=== PATIENT | female | born 1970 | race Caucasian/White ===

== ENCOUNTER 2018-12-24 10:00 | Day surgery (SDC) | payer OTHER ==
[~2018-12-24] VITALS: Ht 154.9 cm; Wt 97.5 kg
[~2018-12-24 10:00] MED LIST: ANAPROX DS550 MG PO; CEPHALEXIN500 MG PO; CIPRO500 MG PO; CLARITIN-D 241 EACH PO; ESCITALOPRAM OX10 MG PO; GABAPENTIN300 MG PO; HYDROXYZINE PAM25 MG PO; LEXAPRO10 MG PO; LITHIUM CARBON300 MG PO; MELOXICAM15 MG PO; MONTELUKAST SOD10 MG PO; MULTIVITAMINS1 EAC8 PO; MYRBETRIQ25 MG PO; NORCO 5-325 TA1 EACH PO; OXYBUTYNIN CHLO15 MG PO; PERCOCET 5-3251 EACH PO; RESTASIS1 DROP OD; TOPIRAMATE25 MG PO; TRAMADOL HCL50 MG PO; VENTOLIN HFA18 GM INH; VITAMIN B122500 MCG PO
--- NOTE | 2018-12-24 12:43 | NUR ---
1015) IN BED RESTING, NO DRESSING NOTED TO OLD SURGERY SITE. PATIENT SAID SHE HASN'T BEEN WEARING IT ALL THE TIME, AND DIDN'T SEE THE NEED TO WEAR ONE. DRAINAGE, BROWN IN COLOR COMING OUT. 1235) OR CREW OUT OF ROOM WITH PATIENT
--- NOTE | 2018-12-24 13:43 | NUR ---
12/24/18 1343 Ken Magaña 1318) PATIENT ARRIVES VERY SLEEPY WITH A ORAL AIRWAY IN NOT RESPONDING TO PAINFUL STEM. 1325) PATIENT HAVING MOMENTS OF NOT BREATHING, BUT WAS ABLE TO WAKE HER UP WITH STERNAL RUB AND SHE IS BREATHING WELL ON HER OWN. 1330) AWAKE/ALERT O2 TURNED DOWN TO 6 LTS MASK. 1339) PATIENT AWAKE AND ORIENTED O2 TURNED DOWN TO RA.
--- NOTE | 2018-12-24 14:08 | NUR ---
48YR OLD WOMAN ADMITTED FROM DAYSURGERY TO ROOM 109 VIA STRETCHER. PT IS ALERT, ORIENT, ABLE TO SLIDE SELF ONTO BED. IV PATENT TO RAC, TAPED SECURELY, DENIES NEED TO VOID, STATES SHE IS HUNGRY, ABD DRESSING TAPED SECURELY TO ABD. NO SHADOWING. ORDERS NOTED, ORIENTED TO ROOM AND CALL LIGHT.
--- NOTE | 2018-12-24 14:36 | NUR ---
SON HAS ARRIVED AND WILL BE GETTING PT COFFEE. CONT. TO BE IN GOOD SPIRITS, NO NAUSEA, LOOKING AT MENU TO ORDER DINNER. CALL LIGHT IN EASY REACH.
--- NOTE | 2018-12-24 16:15 | NUR ---
CONT. TO DENY ANY PAIN, ABD LIUG IS CDI, WATCHING TV WITH EX-.
--- NOTE | 2018-12-24 16:46 | NUR ---
ABD DRESSING HAS SOME LIGHT SHADOWING, ICE PLACED ORDERED. PT RESTING IN HER BED AND DENIES ANY PAIN.
--- NOTE | 2018-12-24 16:52 | NUR ---
PT GIVEN AN IS AND INSTRUCTED IN IT'S USE AND IS USING IT AT THIS TIME. PT CONTINUES TO DENIE PAIN.
[2018-12-24] MEDS ORDERED: LITHIUM CARBON300 MG PO (17:16)
[2018-12-24] MEDS ORDERED: CLEOCIN HCL300 MG PO (17:18)
[2018-12-24] MEDS ORDERED: PRAZOSIN HCL2 MG PO (17:18)
[2018-12-24] MEDS ORDERED: ESCITALOPRAM OX20 MG PO (17:19)
[2018-12-24] MEDS ORDERED: CLONAZEPAM0.5 MG PO (17:19)
[2018-12-24] MEDS ORDERED: BUPROPION HCL150 M2 PO (17:19)
--- NOTE | 2018-12-24 18:39 | NUR ---
PT RESTING IN BED AND SHE CONTINUES TO DENIE PAIN. DRESSING INTACT WITH SOME DRAINAGE NOTED, ICE IS IN PLACE.
--- NOTE | 2018-12-24 19:02 | NUR ---
CHARGE NURSE REPORT RECEIVED. NO NEEDS AT THIS TIME.
--- NOTE | 2018-12-24 19:38 | NUR ---
REPORT RECEIVED, PT RESTING IN BED, IV FLUIDS INFUSING PER EMAR WNL, PT GIVEN NEW BAG OF ICE, NO FURTHER NEEDS AT THIS TIME, CALL LIGHT WITHIN REACH.
--- NOTE | 2018-12-24 20:45 | NUR ---
PT'S LITHIUM MED NOT FOUND IN [facility], FAMILY BROUGHT HOME MED AND IT WAS VERIFIED BY PHARMACY WELL 2 RN VERIFICATION, MED PLACED IN PT'S KITS LIST.
--- NOTE | 2018-12-24 21:30 | NUR ---
ASSESSMENT COMPLETE, DRESSING CHANGE COMPLETE, PT TOLERATED WELL, NO C/O PAIN, PT RATES 0/10, PT EDUCATED REGARDING DRESSING CHANGE AND DEMONSTRATION GIVEN, PT'S LS CLEAR, BT ACTIVE, PULSES FELT, IV FLUIDS INFUSING PER EMAR WNL. CALL LIGHT WITHIN REACH.
--- NOTE | 2018-12-24 23:03 | NUR ---
HELPED PT TO THE BATHROOM AND BACK TO BED. BEDSIDE TABLE AND CALL LIGHT WITHIN REACH.
--- NOTE | 2018-12-24 23:43 | NUR ---
PT C/O 4-12/15 PAIN IN ABDOMEN, DESCRIBES STINGING, PT GIVEN PRN PAIN MEDICATION PER REQUEST, NO FURTHER NEEDS AT THIS TIME, IV FLUIDS INFUSING PER EMAR WNL. CALL LIGHT WITHIN REACH.
--- NOTE | 2018-12-25 01:32 | NUR ---
PT RESTING IN BED, STATION GATEMAN OCTOBER IN ROOM FOR VITALS, NO REQUESTS AT THIS TIME, CALL LIGHT WITHIN REACH. IV FLUIDS INFUSING PER EMAR WNL.
--- NOTE | 2018-12-25 01:43 | NUR ---
VITALS DONE AND CHARTED. LET PAWAN BOYLE KNOW OF LOW B\P. GOT HER CEREAL PER PT REQUEST. BEDSIDE TABLE AND CALL LIGHT IN REACH.
--- NOTE | 2018-12-25 02:36 | NUR ---
PT UP TO BR WITH 1PA, VOIDED, TOLERATED WELL, BACK TO BED, IVF INFUSING, CURRENTLY SITTING ON EDGE OF BED
--- NOTE | 2018-12-25 03:37 | NUR ---
PT C/O 5/10 PAIN IN ABDOMEN, PRN PAIN MEDICATION GIVEN, NO FURTHER NEEDS AT THIS TIME, CALL LIGHT WITHIN REACH.
--- NOTE | 2018-12-25 04:28 | NUR ---
PT RESTING IN BED, EYES CLOSED, BREATHS EVEN, UNLABORED, NO REQUESTS AT THIS TIME, CALL LIGHT WITHIN REACH. IV FLUIDS INFUSING PER EMAR WNL.
--- NOTE | 2018-12-25 04:55 | NUR ---
PT AOX4, APPROPRIATE, PT RECEIVED PRN PAIN MEDICATION X2 RELATED TO ABDOMINAL PAIN, ABDOMINAL DRESSING CHANGED PER EMAR WHILE EDUCATING PT, PT'S VSS, USES CALL LIGHT APPROPRIATELY, TOLERATING DIET. IV FLUIDS/ABX INFUSED PER EMAR.
--- NOTE | 2018-12-25 06:02 | OR ---
[facility] [address] [place], [place] [address] Signed DATE OF OPERATION: 12/24/2018 SURGEON: Brady Brannon MD PREOPERATIVE DIAGNOSIS: Periumbilical wound infection. POSTOPERATIVE DIAGNOSIS: Periumbilical wound infection. PROCEDURE: 1. Incision and drainage of periumbilical wound. 2. Excision of umbilical skin. ESTIMATED BLOOD LOSS: None. FINDINGS: Anamika had a breakdown of her umbilical skin in the left lateral side. This led to her periumbilical wound infection. INDICATIONS: Anamika is a 48-year-old obese female, who has undergone previous gastric bypass surgery. She had her skin removed through a long midline incision as well as long transverse supraumbilical incision as well. As always, they leave the umbilicus in place, obviously to preserve the blood supply. She developed what we thought was either going to be a periumbilical or umbilical hernia. We took for the umbilical hernia repair back on 11/26/2018. I have explained to Anamika and her that she is at high risk for breakdown of her skin. On her first office visit, everything was fine. She started to develop some erythema around that area and waited about four or five days until her finally convinced her to come see me again. She always had pus coming from the wound. We therefore took our cultures in the office and plan to do her surgery the following morning. She presents today for surgery. I explained to Anamika and her that the mesh was actually inside the abdomen and gently it is protected from the superficial wound infections. However, the Prolene suture sometimes develops a suture granuloma down the road. However, it is a little early to remove the suture as certainly the wound would come open. If we did that, we would have to certainly remove the mesh and use absorbable suture to close that. We have been successful leaving the mesh in the past, since it is so small and inside the abdomen. However, this could lead to additional surgery in the future, sometimes within a week, sometimes by the end of Electronically Signed By: BRADY BRANNON MD 12/25/18 0602 PATIENT NAME: ANAMIKA PETERS OPERATIVE REPORT DATE OF : 68 REPORT #: [id number] PHYSICIAN: BRADY BRANNON MD PCP: MATT CASTRO MD REPORT IS CONFIDENTIAL AND NOT TO BE RELEASED WITHOUT AUTHORIZATION [facility] [address] [place] [id number] Signed the year or so. I have explained to Anamika, we needed to open that up and we packed that with our standard full strength Dakin's solution by being in the hospital for a day or two just to learn the wound care and so forth. 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 She and her expressed understanding and wished to proceed. PROCEDURE NOTE: Anamika was taken in the operating room and placed in the supine position under general LMA anesthesia. She was given preoperative antibiotics along with subcutaneous heparin. SCDs were utilized. She was then prepped and draped in usual sterile fashion. We opened up her previous periumbilical vertical midline incision. We could see the skin broke down on the left lateral side of the umbilicus. All of the umbilical skin was excised sharply and with the help of the cautery, right down to the midline fascia. The only Prolene suture I could see was the knot on the right lateral side. All the muscle was still intact. We cleaned the abscess cavity and suctioned it out until clear. Local anesthetic was injected in the abdominal wall and subcutaneous tissues. We packed the wound with full strength Dakin's solution and gauze. This was covered with dry 4x4 gauze and a dry ABD. After this, Anamika was awakened from her anesthesia, extubated in the OR, and taken to recovery room in stable condition. Brady Brannon MD ALB/MODL /[id number] cc: MD Matt Ortega MD Copies: BRADY BRANNON MD, MALCOLM MD ~ Electronically Signed By: BRADY BRANNON MD 12/25/18 0602 PATIENT NAME: ANAMIKA PETERS OPERATIVE REPORT DATE OF : 68 REPORT #: [id number] PHYSICIAN: BRADY BRANNON MD PCP: MATT CASTRO MD REPORT IS CONFIDENTIAL AND NOT TO BE RELEASED WITHOUT AUTHORIZATION
[2018-12-25] MEDS ORDERED: PERCOCET 5-3251 EACH PO (07:56)
[2018-12-25] MEDS ORDERED: ACETAMINOPHEN325 M1 PO (07:57)
[2018-12-25] MEDS ORDERED: ADVIL200 MG PO (07:58)
--- NOTE | 2018-12-25 08:23 | NUR ---
PATIENT IS AWAKE SITTING UP IN HER BED, WILL TAKE A SHOWER AFTER BREAKFAST . FRESH WATER GIVEN AND CALL LIGHT IN REACH.
--- NOTE | 2018-12-25 10:50 | NUR ---
PT COMPLETED WITH SHOWER, SITTING ON EDGE OF BED. PT READY FOR DRESSING CHANGE TO ABD WOUND. PT ABLE TO COMPLETE DRESSING CHANGE WITH SUPERVISION, TIPS AND INSTRUCTION PROVIDED, SON WATCHED DRESSING CHANGE. PT ON ROON AIR, LUNG SOUNDS CLEAR. PT TOLERATED BREAKFAST, DENIES NASUEA. PT DENIES PAIN. DISCHARGE INSTRUCTIONS REVIEWED WITH PT.
--- NOTE | 2018-12-26 09:17 | DS ---
[facility] [address] [place], [place] [address] Signed ADMISSION DATE: 12/24/2018 DISCHARGE DATE: 12/25/2018 FINAL DIAGNOSIS: Periumbilical wound infection. PROCEDURE: Incision and drainage of periumbilical wound infection. HISTORY OF PRESENT ILLNESS: Yuliana is a 48-year-old female who has undergone a gastric bypass surgery in the past. She had significant weight loss. She had her redundant skin removed through a long transverse suprapubic incision as well as a long midline incision as well. Of course, the umbilical skin had been left in place. She had developed an umbilical hernia. We repaired that almost a month ago. On her 1st office visit, she came back, she was fine. I had warned Yuliana and her that the blood supply at the umbilicus would be compromised and it could lead to breakdown of the skin and wound infection. Her had encouraged her to come back again for 4-5 days. She finally came to the office and clearly had pus with surrounding cellulitis. We took her wound cultures in the office and brought her into the hospital the very next day for a formal incision and drainage. In the meantime, we did send in her clindamycin p.o. and she has started that and she said that already seemed to be making a difference. HOSPITAL COURSE: Yuliana was taken to the operating room on 12/24/2018 and we opened up her previous incision. We excised her previous umbilical skin. It broke down on the left lateral side. She had a wound cavity with pus and we completely cleaned that out. We were using Dakin's solution and gauze in the wound for five full days. We are going to then switch over to normal saline. We had kept her in the hospital overnight for IV clindamycin and instruction of her wound care. She has just done great. She is very amenable to the wound care. Her cellulitis has already markedly improved. The wounds are open and clean without any drainage or odor. We did leave the Prolene suture and the intraabdominal mesh in place. She is well aware that she could develop a suture granuloma and her sinus tract in the future might need additional surgery. However, we are going to allow this to heal in secondarily. DISCHARGE PLANS AND MEDICATIONS: Yuliana will be discharged to home to resume her p.o. clindamycin. We will give her a small prescription for Percocet 5/325 1 tablet p.o. q.6 hours p.r.n. for severe postoperative pain. We will dispense 20 tablets with no refills. Otherwise, she can use Tylenol, ibuprofen or Aleve for jnsk-xk-epcqizvs postoperative pain. She can Electronically Signed By: BRADY BRANNON MD 12/26/18 0917 PATIENT NAME: YULIANA PETERS DISCHARGE SUMMARY DATE OF : 68 REPORT #: [id number] PHYSICIAN: BRADY BRANNON MD PCP: FRANCIS CASTRO MD REPORT IS CONFIDENTIAL AND NOT TO BE RELEASED WITHOUT AUTHORIZATION [address] [address] Signed purchase that [id number]. She can resume all her chronic medications and regular diet. She can perform her activities of daily living including walking up and down stairs and showering and bathing as usual. She should not do any heavy pushing, pulling, or lifting over 20 pounds. She knows to use Dakin's soaked gauze into the wound twice a day and cover that with dry gauze and tape. She will shower once a day with water and soap directly into the wound. On day #5, she will switch over to normal saline and discontinue the Dakin solution. I will have her back in the office in 5-7 days for followup. She has expressed understanding and agrees above plan. Brady Brannon MD ALB/MODL /[id number] cc: MD Brady Bnauelos MD Copies: FRANCIS CASTRO MD, ANDREW L MD ~ Electronically Signed By: BRADY BRANNON MD 12/26/18 0917 PATIENT NAME: YULIANA PETERS DISCHARGE SUMMARY DATE OF : 68 REPORT #: [id number] PHYSICIAN: BRADY BRANNON MD PCP: FRANCIS CASTRO MD REPORT IS CONFIDENTIAL AND NOT TO BE RELEASED WITHOUT AUTHORIZATION
== END 2018-12-25 10:55 | disposition home or self-care (01) ==
LOC: DS 10:00 → MS 14:00 → DS 12-25 10:55
PROVIDERS: Colon & Rectal Surgery
PROC: 0J980ZZ Drainage of Abdomen Subcutaneous Tissue and Fascia, Open Approach (ICD-10-PCS; principal; 2018-12-24 12:00)
DX: T81.40XA Infection following a procedure, unspecified, initial encounter (principal); I10 Essential (primary) hypertension; E66.01 Morbid (severe) obesity due to excess calories; E11.9 Type 2 diabetes mellitus without complications; F31.9 Bipolar disorder, unspecified; F43.10 Post-traumatic stress disorder, unspecified; J45.909 Unspecified asthma, uncomplicated; K21.9 Gastro-esophageal reflux disease without esophagitis; G89.29 Other chronic pain; Z87.891 Personal history of nicotine dependence; Z88.5 Allergy status to narcotic agent; Z68.41 Body mass index [BMI] 40.0-44.9, adult
CPT/HCPCS: 00400; J1100; J1644; J1885; J2405; J2704; J3010; J3490; J7120

== ENCOUNTER 2019-05-04 16:50 | Inpatient (IN) | payer OTHER ==
[~2019-05-04] VITALS: Ht 154.9 cm; Wt 89.5 kg
--- OUTSIDE RECORDS SUMMARY | ~2019-05-04 | XMS | Encounter Summary ---
Demographics + + + | Address | [address] | | | [place] [address] | + + + | Home Phone | | + + + | Preferred Language | Unknown | + + + | Marital Status | | + + + | Quaker Affiliation | CHR | + + + | Race | White | + + + | Ethnic Group | Not or | + + + Author + + + | Organization | Unknown | + + + | Address | Unknown | + + + | Phone | Unavailable | + + + Support + + + + + | Name | Relationship | Address | Phone | + + + + + | Edwar PACK | ECON | [address] | | | | | #[place], [place] | | | | | [address] | | + + + + + | Destiny Suggs | ECON | Unknown | | + + + + + Care Team Providers + +------+ + | Care Presiding Steward Name | Role | Phone | + +------+ + PCP | Unavailable | + +------+ + Encounter Details +--------+ + + + + | Date | Type | Department | Care Team | Description | +--------+ + + + + | 09/18/ | Office | | Note, Outpatient | Progress Note | | 2005 | Visit-Trans | | Clinic | | | | cribed | | | | +--------+ + + + + Social History + +-------+ +--------+------+ | Tobacco Use | Types | Packs/Day | Years | Date | | | | | Used | | + +-------+ +--------+------+ | Never Assessed | | | | | + +-------+ +--------+------+ + + + | Sex Assigned at | Date Recorded | | | | + + + | Not on file | | + + + + + + + | Job Start Date | Occupation | Industry | + + + + | Not on file | Not on file | Not on file | + + + + + + + + | Travel History | Travel Start | Travel End | + + + + + + | No recent travel history available. | + + documented as of this encounter Progress Notes Interface, Manager Wind In - 02/04/2005 6:28 AM PDT [id number] [facility] Date: 09/18/2004 Clinic: Ms. Pack presents now about 3 or 4 weeks out from the laparoscopic gastric bypass. She is doing great, no complaints, whatsoever, except for the fact that she is having some solid food dysphagia. She said that she vomits up fair amount of the solid foods she eats and is sticking mostly with pureed foods. Other than that, she has no other systemic complaints. Her wounds are all well healed, and her weight today is 233 pounds. I spent some time talking with her about the dysphagia and told her we will give another few weeks before considering an endoscopy. I wonder if she has an early stenosis but it is still little too early to tell, so she is going to come back in 3 weeks, and we will see how this is progressing. Other than that she appears to be doing well, she is taking oral supplements including her ranitidine, and we will follow up in 3 weeks. Cam John M.D. SHAMIKA / [id number] / [id number] / [id number] / [id number] Electronically signed by Cam Mcbride 12-12-2004 07:41:57 AM documented i n this encounter Plan of Treatment Not on filedocumented as of this encounter Visit Diagnoses Not on filedocumented in this encounter"
--- OUTSIDE RECORDS SUMMARY | ~2019-05-04 | XMS | Encounter Summary ---
Demographics + + + | Address | [address] | | | [place] [address] | + + + | Home Phone | | + + + | Preferred Language | Unknown | + + + | Marital Status | | + + + | Congregational Affiliation | CHR | + + + | Race | White | + + + | Ethnic Group | Not or | + + + Author + + + | Author | [facility] | + + + | Organization | [facility] | + + + | Address | Unknown | + + + | Phone | Unavailable | + + + Support + + + + + | Name | Relationship | Address | Phone | + + + + + | Edwar PACK | ECON | [address] | | | | | #[place] | | | | | [address] | | + + + + + | Destiny Reginekeena | ECON | Unknown | | + + + + + Care Team Providers + +------+ + | Care Electrical Appliance Mechanic Name | Role | Phone | + +------+ + | Shakir Erwin MD | PCP | | + +------+ + Reason for Visit + + + | Reason | Comments | + + + | Postoperative visit | panniculectomy. | + + + Encounter Details +--------+---------+ + + + | Date | Type | Department | Care Team | Description | +--------+---------+ + + + | 12/07/ | Office | Plastic and | Tucker Buenrostro MD | Intertrigo (Primary | | 2008 | Visit | Reconstructive | [address] | Dx) | | | | Surgery at [facility] [address] | [place], [place] | | | | | [address] | [address] | | | | | Mailcode: [facility] | [phone] | | | | | [facility] | | | | | | and Healing, | | | | | | Building [address]th | | | | | | Floor [facility] [place] | | | | | | [address] | | | | | | [phone] | | | +--------+---------+ + + + Social History + + + +--------+------+ | Tobacco Use | Types | Packs/Day | Years | Date | | | | | Used | | + + + +--------+------+ | Current Every Day | Cigarettes | 0.5 | 3 | | | Smoker | | | | | + + + +--------+------+ + + +---------+ + | Alcohol Use | Drinks/Week | oz/Week | Comments | + + +---------+ + | Yes | | | occasionally | + + +---------+ + + + + | Sex Assigned at [...] documented as of this encounter Progress Notes Tucker Buenrostro MD - 12/07/2008 1:25 PM PDTPost-operative visit Subjective:Anamikasamanta Pack presents 3 weeks status post panniculectomy . Current concerns include: JOSUE drain and upper abdominal fullness. Pt denies: fever, chills, nausea, vomiting. Pain: minimal Objective: JOSUE out with about 35 cc/day. Wounds clean, dry and intact without erythema. Good contour except in upper abdomen where there is some fullness that could be excised with a t ransverse incision at some point in the future. Assessment: Uncomplicated recovery. Plan: Pt will follow up in 4 months, sooner prn. documented in this encounter Plan of Treatment Not on filedocumented as of this encounter Visit Diagnoses + + | Diagnosis | + + | Intertrigo - Primary Other specified erythematous condition | + + documented in this encounter"
--- OUTSIDE RECORDS SUMMARY | ~2019-05-04 | XMS | Encounter Summary ---
Demographics + + + | Address | [address] | | | [place] [address] | + + + | Home Phone | | + + + | Preferred Language | Unknown | + + + | Marital Status | | + + + | Denominational Affiliation | CHR | + + + | Race | White | + + + | Ethnic Group | Not or | + + + Author + + + | Author | [facility] | + + + | Organization | [facility] | + + + | Address | Unknown | + + + | Phone | Unavailable | + + + Support + + + + + | Name | Relationship | Address | Phone | + + + + + | Edwar PACK | ECON | [address] | | | | | #[place] | | | | | [address] | | + + + + + | Destiny Suggs | ECON | Unknown | | + + + + + Care Team Providers + +------+ + | Care Surgical Garment Fitter Name | Role | Phone | + +------+ + PCP | Unavailable | + +------+ + Encounter Details +--------+ + + + + | Date | Type | Department | Care Team | Description | +--------+ + + + + | 07/31/ | Office | [facility] | Clinic, Surgery | Progress Note | | 2004 | Visit-Trans | | | | | | cribed | | [...] as of this encounter Progress Notes Interface, Banking Teacher In - 02/04/2005 12:44 AM [facility] [id number] [facility] Date: 07/31/2004 Clinic: Surgery Ms. Pack presents for preoperative visit for laparoscopic gastric bypass which is scheduled in third week of August 2004. Briefly, she is a 29-year-old woman with a BMI now in the midforties. She has done a great job with preoperative weight loss having lost about 60 pounds. She is here with her mother and is otherwise a relatively healthy person. Her only prior abdominal operations are a laparoscopic cholecystectomy and a C section. Her body habitus is relatively favorable. I spent a long time discussing with her and her mother the risks and benefits of gastric bypass including risk of mortality, leak, bleeding, infection, stenosis, hernia and wound infection. We discussed the need for a laparotomy possibly. We discussed appropriate weight loss expectations and possibly albeit very unlikely of a failure rate of a gastric bypass and the patient sometimes does not lose weight after surgery. She and her mother understood all this. She is going to continue to try to lose weight over the next month, and we are going to proceed with surgery in August 2004. Cam John M.D. Elbert / [id number] / [id number] / [id number] / [id number] documented i n this encounter Plan of Treatment Not on filedocumented as of this encounter Visit Diagnoses Not on filedocumented in this encounter"
--- OUTSIDE RECORDS SUMMARY | ~2019-05-04 | XMS | Encounter Summary ---
Demographics + + + | Address | [address] | | | [place] [address] | + + + | Home Phone | | + + + | Preferred Language | Unknown | + + + | Marital Status | | + + + | Gnosticism Affiliation | CHR | + + + | Race | White | + + + | Ethnic Group | Not or | + + + Author + + + | Author | [facility] | + + + | Organization | [facility] | + + + | Address | Unknown | + + + | Phone | Unavailable | + + + Support + + + + + | Name | Relationship | Address | Phone | + + + + + | Edwar PACK | ECON | [address] | | | | | [place] | | | | | [address] | | + + + + + | Destiny Suggs | ECON | Unknown | | + + + + + Care Team Providers + +------+ + | Care Brand Marketing Specialist Name | Role | Phone | + +------+ + PCP | Unavailable | + +------+ + Encounter Details +--------+ + + + + | Date | Type | Department | Care Team | Description | +--------+ + + + + | 09/10/ | Office | [facility] | Clinic, Surgery | Progress Note | | 2005 | Visit-Trans | | | | | [...] as of this encounter Progress Notes Interface, Service Desk Technician In - 09/14/2005 2:06 AM PST [id number] [facility] Date: 09/10/2005 Clinic: [facility] Primary Care Physician: Dr. Brian Erwin. Subjective: Ms. Pack returns for her annual followup after undergoing a gastric bypass 1 year ago. Her current weight is 165 pounds, and she states that her actual preoperative weight was 245 pounds. She has numerous improvements in her comorbidities weight-related including improvement of arthritis, resolution of her insulin-dependent diabetes, and resolution of GERD, and hypertension. She is currently under the care of Dr. Ken Lynch, an orthopedist, and patient will undergo a left hip replacement at some time in the future. She is now able to walk for longer distances and has regained independence with her 80-pound weight loss in 1 year. She is involved in exercise as well as involved with a faster walking pace. Hemoglobin A1c at her primary care physician is 4.7 by patient's report. She has small amount of proteinuria with past history of borderline diabetes. She discontinued metformin and is no longer on any antihypertensives. She undergoes some midepigastric pain 2 times during the last 6 to 12 months. The last was 2 to 3 weeks ago. She cannot recall any inciting event or food that might have caused this burning pain in the midepigastric area. First episode lasted for 2 to 3 hours with resolution on 4 Tums. The last involved 1 week's duration and patient had resolution with changing her diet to more of a liquid consistency. She continues on methadone for chronic pain at 10 mg 1 to 2 pills b.i.d. for arthritis. She feels that this has improved her GI function as she is more prone to liquid stools. She follows up with laboratory work with Dr. Erwin, mainly for glucose management. We have included instructions for followup with her bariatric needs including vitamin B12. She continues on sublingual vitamin B12, multivitamins, and calcium. Objective: General: She is a well-developed woman in no apparent distress, well dressed, and every animated. Vital Signs : Weight 165.6 pounds, blood pressure 100/60, pulse 64, and respirations 16. Lungs: Clear to auscultation bilaterally. Heart: Regular rate and rhythm without murmur, rub, or gallop. Abdomen : Soft, nondistended, and nontender with evidence of redundant skin from weight loss. This extends to her upper forearms as well as breasts and lateral flanks. She is encountering some back pain and wonders if the amount of redundant skin can be indicated in possible need and advantage for a paniculectomy in the future. Plan: 1. The patient will return to primary care for remainder of labs to be done including vitamin B12, bone scan, vitamin D, 25-hydroxy as well as parathyroid hormone, iron saturation and ferritin. The patient has no indication for anemia at this time. 2. Followup in clinic in 1 year. The patient to wait 1 more year for optimal weight loss before pursuing plastic surgery as advised by Dr. Cam John. The patient was seen with Dr. Cam John who concurs with the above plan. Cyndie Ponce / [id number] / [id number] / [id number] / [id number] cc: Brian Erwin [address] [place] [id number] Electronically signed by Laya Shay 09-13-2005 07:10:12 PM documented i n this encounter Plan of Treatment Not on filedocumented as of this encounter Visit Diagnoses Not on filedocumented in this encounter"
--- OUTSIDE RECORDS SUMMARY | ~2019-05-04 | XMS | Encounter Summary ---
Demographics + + + | Address | [address] | | | [place] [address] | + + + | Home Phone | | + + + | Preferred Language | Unknown | + + + | Marital Status | | + + + | Tenriism Affiliation | CHR | + + + | Race | White | + + + | Ethnic Group | Not or | + + + Author + + + | Author | [facility] | + + + | Organization | [facility] | + + + | Address | Unknown | + + + | Phone | Unavailable | + + + Support + + + + + | Name | Relationship | Address | Phone | + + + + + | Edwar PETERS | ECON | [address] | | | | | [place] | | | | | [address] | | + + + + + | Destiny Suggs | ECON | Unknown | | + + + + + Care Team Providers + +------+ + | Care Associate Professor Computer Science Name | Role | Phone | + +------+ + | Shakir Erwin MD | PCP | | + +------+ + Encounter Details +--------+ + + + + | Date | Type | Department | Care Team | Description | +--------+ + + + + | 09/18/ | Ancillary | Registration [id number] | [place], [place], | | | 2005 | [address] | [address] | | | | | [address] | [address] Mailcode: [id number] | | | | | | [place], [place] | | | | | | [address] | | | | | | [phone] | | | +--------+ + + + [...] + + documented as of this encounter Plan of Treatment Not on filedocumented as of this encounter Procedures + +--------+ + + + | Procedure Name | Priori | Date/Time | Associated Diagnosis | Comments | | | ty | | | | + +--------+ + + + | DIFFERENTIAL | Routin | 09/18/2004 | | Results for this | | | e | 11:29 AM | | procedure are in the | | | | PST | | results section. | + +--------+ + + + | CBC, WITH | Routin | 09/18/2004 | | Results for this | | DIFFERENTIAL | e | 11:29 AM | | procedure are in the | | | | PST | | results section. | + +--------+ + + + | COMPLETE METABOLIC | Routin | 09/18/2004 | | Results for this | | SET | e | 11:29 AM | | procedure are in the | | (NA,K,CL,CO2,BUN,CRE | | PST | | results section. | | AT,GLUC,CA,AST,ALT,B | | | | | | JAVED TOTAL,ALK | | | | | | PHOS,ALB,PROT TOTAL) | | | | | + +--------+ + + + | PTH, SERUM | Routin | 09/18/2004 | | Results for this | | | e | 11:29 AM | | procedure are in the | | | | PST | | results section. | + +--------+ + + + | FOLATE, SERUM | Routin | 09/18/2004 | | Results for this | | | e | 11:29 AM | | procedure are in the | | | | PST | | results section. | + +--------+ + + + | VITAMIN B-12 | Routin | 09/18/2004 | | Results for this | | | e | 11:29 AM | | procedure are in the | | | | PST | | results section. | + +--------+ + + + documented in this encounter Results FOLATE, SERUM (09/18/2004 11:29 AM PST) + + + + + + | Component | Value | Ref Range | Performed | Pathologist | | | | | At | Signature | + + + + + + | FOLATE,SERU | > 24.0Comment: Test | >1.9 ng/ml | | | | M | performed at [place] | | | | | | [facility] | | | | | | Laboratories. | | | | + + + + + + + + | Specimen | + + | | + + + + + + + | Performing | Address | City/State/Zipcode | Phone Number | | Organization | | | | + + + + + | [facility] | [address] | [place] [address] | | | LABORATORY | | | | + + + + + PTH, SERUM (09/18/2004 11:29 AM PST) + + + + + + | Component | Value | Ref Range | Performed | Pathologist | | | | | At | Signature | + + + + + + | PTH, SERUM | 45.0Comment: Test | 10.0 - 65.0 | | | | | performed by [facility] | pg/mL | | | | | [facility] | | | | | | Laboratory. | | | | + + + + + + + + | Specimen | + + | | + + + + + + + | Performing | Address | City/State/Zipcode | Phone Number | | Organization | | | | + + + + + | [facility] | [address] | [place] [address] | | | LABORATORY | | | | + + + + + VITAMIN B-12, SERUM (09/18/2004 11:29 AM PST) + + + + + + | Component | Value | Ref Range | Performed | Pathologist | | | | | At | Signature | + + + + + + | VITAMIN | 1291 (H)Comment: | 200 - 950 pg/ml | | | | B12, SERUM | Test performed by [facility] | | | | | | [facility] | | | | | | Laboratories. | | | | + + + + + + + + | Specimen | + + | | + + + + + + + | Performing | Address | City/State/Zipcode | Phone Number | | Organization | | | | + + + + + | [facility] | [address] | [place] [address] | | | LABORATORY | | | | + + + + + DIFFERENTIAL (09/18/2004 11:29 AM PST) + +--------+ + + + | Component | Value | Ref Range | Performed | Pathologist | | | | | At | Signature | + +--------+ + + + | NEUTROPHIL | 47 (L) | 50 - 70 % | [facility] | | | % | | | DEPARTMENT | | | | | | OF | | | | | | PATHOLOGY | | + +--------+ + + + | LYMPHOCYTE | 41 | 18 - 42 % | [facility] | | | % | | | DEPARTMENT | | | | | | OF | | | | | | PATHOLOGY | | + +--------+ + + + | MONOCYTE % | 7 | 2 - 8 % | [facility] | | | | | | DEPARTMENT | | | | | | OF | | | | | | PATHOLOGY | | + +--------+ + + + | EOS % | 4 (H) | 1 - 3 % | [facility] | | | | | | DEPARTMENT | | | | | | OF | | | | | | PATHOLOGY | | + +--------+ + + + | BASO % | 0 | <3 % | [facility] | | | | | | DEPARTMENT | | | | | | OF | | | | | | PATHOLOGY | | + +--------+ + + + | NEUTROPHIL | 4.0 | 1.8 - 7.7 K/cu | [facility] | | | # | | mm | DEPARTMENT | | | | | | OF | | | | | | PATHOLOGY | | + +--------+ + + + | LYMPHOCYTE | 3.5 | 1.0 - 4.8 K/cu | [facility] | | | # | | mm | DEPARTMENT | | | | | | OF | | | | | | PATHOLOGY | | + +--------+ + + + | MONOCYTE # | 0.6 | 0.1 - 0.6 K/cu | [facility] | | | | | mm | DEPARTMENT | | | | | | OF | | | | | | PATHOLOGY | | + +--------+ + + + | EOS # | 0.3 | <0.6 K/cu mm | [facility] | | | | | | DEPARTMENT | | | | | | OF | | | | | | PATHOLOGY | | + +--------+ + + + | BASO # | 0.0 | <0.3 | [facility] | | | | | | DEPARTMENT | | | | | | OF | | | | | | PATHOLOGY | | + +--------+ + + + + + | Specimen | + + | | + + + + + + + | Performing | Address | City/State/Zipcode | Phone Number | | Organization | | | | + + + + + | [facility] DEPARTMENT OF | [address] | [place] [address] | | | PATHOLOGY | [address] | | | + + + + + | [facility] | [address] | [place] [address] | | | PATHOLOGY | [address] | | | + + + + + CBC, WITH DIFFERENTIAL (09/18/2004 11:29 AM PST) + + + + + + | Component | Value | Ref Range | Performed | Pathologist | | | | | At | Signature | + + + + + + | WHITE CELL | 8.6 | 4.4 - 11.0 K/cu | [facility] | | | COUNT | | mm | DEPARTMENT | | | | | | OF | | | | | | PATHOLOGY | | + + + + + + | RED CELL | 4.77 | 3.65 - 5.10 | [facility] | | | COUNT | | M/cu mm | DEPARTMENT | | | | | | OF | | | | | | PATHOLOGY | | + + + + + + | HEMOGLOBIN | 13.1 | 11.4 - 15.0 | [facility] | | | | | g/dL | DEPARTMENT | | | | | | OF | | | | | | PATHOLOGY | | + + + + + + | HEMATOCRIT | 38.1 | 33.0 - 44.6 % | [facility] | | | | | | DEPARTMENT | | | | | | OF | | | | | | PATHOLOGY | | + + + + + + | MCV | 79.9 (L) | 80.0 - 96.0 fL | [facility] | | | | | | DEPARTMENT | | | | | | OF | | | | | | PATHOLOGY | | + + + + + + | MCHC | 34.4 | 33.4 - 35.5 | [facility] | | | | | g/dL | DEPARTMENT | | | | | | OF | | | | | | PATHOLOGY | | + + + + + + | RDW | 14.5 | 11.5 - 15.0 % | [facility] | | | | | | DEPARTMENT | | | | | | OF | | | | | | PATHOLOGY | | + + + + + + | PLATELET | 296 | 150 - 400 K/cu | [facility] | | | COUNT | | mm | DEPARTMENT | | | | | | OF | | | | | | PATHOLOGY | | + + + + + + + + | Specimen | + + | | + + + + + + + | Performing | Address | City/State/Zipcode | Phone Number | | Organization | | | | + + + + + | [facility] DEPARTMENT OF | [address] | [place] [address] | | | PATHOLOGY | [address] | | | + + + + + | [facility] | [address] | [place] [address] | | | PATHOLOGY | [address] | | | + + + + + COMP METABOLIC SET (09/18/2004 11:29 AM PST) + +---------+ + + + | Component | Value | Ref Range | Performed | Pathologist | | | | | At | Signature | + +---------+ + + + | GLUCOSE, | 82 | 65 - 110 mg/dL | [facility] | | | PLASMA | | | DEPARTMENT | | | (LAB) | | | OF | | | | | | PATHOLOGY | | + +---------+ + + + | BUN, PLASMA | 8 | 6 - 20 mg/dL | [facility] | | | (LAB) | | | DEPARTMENT | | | | | | OF | | | | | | PATHOLOGY | | + +---------+ + + + | CREATININE | 0.7 | 0.6 - 1.1 mg/dL | [facility] | | | PLASMA | | | DEPARTMENT | | | (LAB) | | | OF | | | | | | PATHOLOGY | | + +---------+ + + + | TOTAL | 6.6 | 6.1 - 7.9 g/dL | [facility] | | | PROTEIN, | | | DEPARTMENT | | | PLASMA | | | OF | | | (LAB) | | | PATHOLOGY | | + +---------+ + + + | ALBUMIN, | 3.8 | 3.5 - 4.7 g/dL | [facility] | | | PLASMA | | | DEPARTMENT | | | (LAB) | | | OF | | | | | | PATHOLOGY | | + +---------+ + + + | CALCIUM, | 9.5 | 8.5 - 10.5 | [facility] | | | PLASMA | | mg/dL | DEPARTMENT | | | (LAB) | | | OF | | | | | | PATHOLOGY | | + +---------+ + + + | BILIRUBIN | 0.5 | 0.3 - 1.2 mg/dL | [facility] | | | TOTAL | | | DEPARTMENT | | | | | | OF | | | | | | PATHOLOGY | | + +---------+ + + + | ALK PHOS | 38 (L) | 42 - 98 U/L | [facility] | | | | | | DEPARTMENT | | | | | | OF | | | | | | PATHOLOGY | | + +---------+ + + + | AST(SGOT) | 21 | 15 - 41 U/L | [facility] | | | | | | DEPARTMENT | | | | | | OF | | | | | | PATHOLOGY | | + +---------+ + + + | SODIUM, | 138 | 136 - 145 | [facility] | | | PLASMA | | mmol/L | DEPARTMENT | | | (LAB) | | | OF | | | | | | PATHOLOGY | | + +---------+ + + + | POTASSIUM, | 3.4 (L) | 3.5 - 5.1 | [facility] | | | PLASMA | | mmol/L | DEPARTMENT | | | (LAB) | | | OF | | | | | | PATHOLOGY | | + +---------+ + + + | CHLORIDE, | 105 | 98 - 107 mmol/L | [facility] | | | PLASMA | | | DEPARTMENT | | | (LAB) | | | OF | | | | | | PATHOLOGY | | + +---------+ + + + | TOTAL CO2, | 26 | 23 - 29 mmol/L | [facility] | | | PLASMA | | | DEPARTMENT | | | (LAB) | | | OF | | | | | | PATHOLOGY | | + +---------+ + + + | ALT (SGPT) | 34 | 13 - 48 U/L | [facility] | | | | | | DEPARTMENT | | | | | | OF | | | | | | PATHOLOGY | | + +---------+ + + + + + | Specimen | + + | | + + + + + + + | Performing | Address | City/State/Zipcode | Phone Number | | Organization | | | | + + + + + | [facility] | [address] | [place] [address] | | | PATHOLOGY | [address] | | | + + + + + | [facility] DEPARTMENT OF | [address] | [place] [address] | | | PATHOLOGY | [address] | | | + + + + + documented in this encounter Visit Diagnoses Not on filedocumented in this encounter"
--- OUTSIDE RECORDS SUMMARY | ~2019-05-04 | XMS | Encounter Summary ---
Demographics + + + | Address | [address] | | | [place] [address] | + + + | Home Phone | | + + + | Preferred Language | Unknown | + + + | Marital Status | | + + + | Anglican Affiliation | CHR | + + + [...] [place] | | | | | [address] | | + + + + + | Destiny Suggs | ECON | Unknown | | + + + + + Care Team Providers + +------+ + | Care Care Trainer Name | Role | Phone | + +------+ + | Shakir rEwin MD | PCP | | + +------+ + Encounter Details +--------+ + + + + | Date | Type | Department | Care Team | Description | +--------+ + + + + | 10/13/ | Document-Sc | UNKNOWN DEPARTMENT | Unknown . | | | 2004 | anned | [address] | | | | | | [address] | | | | | | [place], [place] | | | | | | [address] | | | +--------+ + + + [...]
--- OUTSIDE RECORDS SUMMARY | ~2019-05-04 | XMS | Encounter Summary ---
Demographics + + + | Address | [address] | | | [place] [address] | + + + | Home Phone | | + + + | Preferred Language | Unknown | + + + | Marital Status | | + + + | Synagogue Affiliation | CHR | + + + | Race | White | + + + | Ethnic Group | Not or | + + + Author + + + | Author | [facility] | + + + | Organization | [facility] | + + + | Address | Unknown | + + + | Phone | Unavailable | + + + Support + + + + + | Name | Relationship | Address | Phone | + + + + + | Edwar PETERS | ECON | [address] | | | | | [place] | | | | | [address] | | + + + + + | Destiny Suggs | ECON | Unknown | | + + + + + Care Team Providers + +------+ + | Care Boat Patcher Plastic Name | Role | Phone | + [...] [id number] | | | | | | [place], [place] | | | | | | [address] | | | | | | [phone] | | | +--------+ + + + [...] | | | M | performed at [place] | | | | | | [facility] | | | | | | Laboratories. | | | | + + + + + + + + | Specimen | + + | | + + + + + + + | Performing | Address | City/State/Zipcode | Phone Number | | Organization | | | | + + + + + | [facility] | [address] | [place] [address] | | | LABORATORY | | | [...] | pg/mL | | | | | [facility] | | | | | | Laboratory. | | | | + + + + + + + + | Specimen | + + | | + + + + + + + | Performing | Address | City/State/Zipcode | Phone Number | | Organization | | | | + + + + + | [facility] | [address] | [place] [address] | | | LABORATORY | | | [...] [facility] | | | | | | [facility] | | | | | | Laboratories. | | | | + + + + + + + + | Specimen | + + | | + + + + + + + | Performing | Address | City/State/Zipcode | Phone Number | | Organization | | | | + + + + + | [facility] | [address] | [place] [address] | | | LABORATORY | | | [...] DEPARTMENT OF | [address] | [place] [address] | | | PATHOLOGY | [address] | | | + + + + + | [facility] | [address] | [place] [address] | | | PATHOLOGY | [address] [...] | + + + + + | [facility] DEPARTMENT OF | [address] | [place] [address] | | | PATHOLOGY | [address] | | | + + + + + | [facility] DEPART[facility] OF | [address] | [place] [address] | | | PATHOLOGY | [address] [...] | + + + + + | [facility] | [address] | [place] [address] | | | PATHOLOGY | [address] | | | + + + + + | [facility] DEPARTMENT OF | [address] | [place] [address] | | | PATHOLOGY | [address] | | | + + + + + documented in this encounter Visit Diagnoses Not on filedocumented in this encounter"
--- OUTSIDE RECORDS SUMMARY | ~2019-05-04 | XMS | Encounter Summary ---
Demographics + + + | Address | [address] | | | [place] [address] | + + + | Home Phone | | + + + | Preferred Language | Unknown | + + + | Marital Status | | + + + | Baptism Affiliation | CHR | + + + [...] [place] | | | | | [address] | | + + + + + | Destiny Suggs | ECON | Unknown | | + + + + + Care Team Providers + +------+ + | Care Escalator Operator Name | Role | Phone | + +------+ + PCP | Unavailable | + +------+ + Encounter Details +--------+ + + + + | Date | Type | Department | Care Team | Description | +--------+ + + + + | 02/01/ | Office | | Note, Outpatient | [...] as of this encounter Progress Notes Interface, Baster Hand In - 02/17/2005 9:29 PM [facility] [id number] [facility] Date: 02/01/2005 Clinic: Subjective: Ms. Pack is now greater than 6 months out from a Nayeli-en-Y gastric bypass. She has had a 60-pound weight loss since her surgery approximately 6 months ago. The patient has had difficulty with solid foods, just swallows some liquids after her EGD and dilation on November 10, 2004. The patient perceives that due to her methadone use, she was not sedated enough to be put under, and so the dilation of her gastrojejunal anastomosis was incomplete. She still has vomiting and delay in eating. Due to stricture and inability to take in desired foods, she waits longer to eat and then, when she is very hungry, she will take larger bites and have frequent vomiting. Her next visit with Dr. Cam John will be on February 12, 2005. She notes increasing hair loss and cannot estimate protein intake. She will be seeing a automotive service advisor in [place] where she currently lives. 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 The patient has had an excellent weight loss at 190 pounds. She does state that she lost 75 pounds prior to surgery. Her preoperative weight was 245 pounds at the time of surgery. The patient is having hair loss as another side effect from her weight loss indeed and nutritional stress. Plan: 1. Called in zinc 220 mg 1 p.o. daily x2 months. To avoid toxicity, this would be the limit of my prescription. 2. Return to see Dr. Cam John on February 12, 2005, and consider EGD as needed for February 13, 2005. We will call the patient if any plans for EGD. Cyndie Ponce / [id number] / [id number] / [id number] / [id number] Electronically signed by Laya Shay 02-16-2005 09:20:13 AM documented i n this encounter Plan of Treatment Not on filedocumented as of this encounter Visit Diagnoses Not on filedocumented in this encounter"
--- OUTSIDE RECORDS SUMMARY | ~2019-05-04 | XMS | Encounter Summary ---
Demographics + + + | Address | [address] | | | [place] [address] | + + + | Home Phone | | + + + | Preferred Language | Unknown | + + + | Marital Status | | + + + | Church Affiliation | CHR | + + + | Race | White | + + + | Ethnic Group | Not or | + + + Author + + + | Author | [facility] | + + + | Organization | [facility] | + + + | Address | Unknown | + + + | Phone | Unavailable | + + + Support + + + + + | Name | Relationship | Address | Phone | + + + + + | Edwar PACK | ECON | [address] | | | | | [place] | | | | | [address] | | + + + + + | Destiny Suggs | ECON | Unknown | | + + + + + Care Team Providers + +------+ + | Care Rn Pediatric Name | Role | Phone | + +------+ + PCP | Unavailable | + +------+ + Encounter Details +--------+ + + + + | Date | Type | Department | Care Team | Description | +--------+ + + + + | 02/12/ | Office | [facility] | Clinic, [...] as of this encounter Progress Notes Interface, Gymnastic Coach In - 03/29/2005 5:05 AM [facility] [id number] [facility] Date: 02/12/2005 Clinic: General Surgery Clinic Ms. Pack presents for a postoperative followup for her gastric bypass which was performed in August 2004. Her course was subsequently complicated by development of a gastrojejunal stricture requiring EGD and dilation which occurred in November 2004. She now presents reporting that she has improvement of her symptoms but still is vomiting about 2 to 3 times a week and has difficulty keeping down solid foods. As her EGD report dictates, the director sales support had a little bit of a difficult time with sedation and therefore may not have dilated her as completely as they would have liked. We spent some time talking about her eating habits. She has seen our manager latin, and they feel that she is doing all the right things with respect to her diet, so I think it is reasonable to re-dilate her. So, I sent her to the GI Clinic, and she will be scheduled for an EGD and possible re-dilation. She understands all of this and is going to continue otherwise with a soft diet. She is taking oral multivitamins and exercising. Her weight today is 183 pounds, and she otherwise looks well. We are going to take of the stricture with another dilation and see her back soon after that dilation. Cam John M.D. SHAMIKA / [id number] / [id number] / [id number] / [id number] Electronically signed by Cam Mcbride 03-28-2005 04:50:13 PM documented i n this encounter Plan of Treatment Not on filedocumented as of this encounter Visit Diagnoses Not on filedocumented in this encounter"
--- OUTSIDE RECORDS SUMMARY | ~2019-05-04 | XMS | Encounter Summary ---
Demographics + + + | Address | [address] | | | [place] [address] | + + + | Home Phone | | + + + | Preferred Language | Unknown | + + + | Marital Status | | + + + | Muslim Affiliation | CHR | + + + [...] #[place], [place] | | | | | [address] | | + + + + + | Destiny Suggs | ECON | Unknown | | + + + + + Care Team Providers + +------+ + | Care Tank Builder Name | Role | Phone | + +------+ + PCP | Unavailable | + +------+ + Encounter Details +--------+ + + + + | Date | Type | Department | Care Team | Description | +--------+ + + + + | 10/26/ | Office | | Report, Outpatient | Progress Note | | 2002 | Visit-Trans | | Consultation | | | | cribed | | [...] as of this encounter Progress Notes Interface, Echocardiographer In - 01/23/2006 1:05 AM [facility] OUTPATIENT CONSULTATION REPORT [id number] [place], [place] [address] or Referred From and Faxed To: Fernando Nunes M.D. [address] [place] [id number] Referred To: Orthopedics Service CONSULTING PHYSICIAN: Andry Pham M.D. MR#: [id number] Patient: Anamika Pack CONSULTATION DATE: 10/26/2002 CHIEF COMPLAINT AND REASON FOR REQUESTED CONSULTATION: Left hip pain. HISTORY: This 31-year-old lady is seen in consultation referred by Dr. Nunes with left hip pain. She has had a prolonged problem with her hips. On the right side she had multiple procedures done as a child secondary to slipped capital femoral epiphysis, and eventually, after infection and other complications, underwent a hip arthrodesis in 1987, which has been successful in relieving that discomfort although she has developed low back pain. Her left hip has been chronically uncomfortable but has gotten worse over the past year. Lateral location. She is able to walk about a block, with assist of her . She refuses to use a cane or a crutch. She has been on Mobic for six months, with some relief but not much, and has been on Vioxx and other anti-inflammatories in the past. She is not taking any narcotics. Complicating the issue is that she weighs 300 pounds and is 5'2 tall, and has actually gained some weight over the year. PAST MEDICAL HISTORY: Includes type 2 diabetes mellitus, controlled with diet. She has had cholecystectomy and section in the past. ALLERGIES: ASPIRIN has caused some nasal bleeding. MEDICATIONS: Include Mobic, Provera, glucosamine, calcium and Actos. 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 REVIEW OF SYSTEMS: Review of systems checklist is unremarkable except for her leg swelling and depression and pain. CONSULTATION FINDINGS AND RECOMMENDATIONS: PHYSICAL EXAMINATION: This is a healthy-appearing lady other than her morbid obesity. Temperature, pulse and respiration are normal. Her blood pressure is mildly elevated at 180/105 but she admits to being very anxious at the present time. On examination, her gait of course is unusual because of her fused right hip, and is antalgic on the right. The left hip has about 80 degrees of flexion, 10-20 degrees of internal rotation and 30 degrees of external rotation, all with significant complaints of discomfort. Distal neurovascular is grossly intact. X-rays from [place] were reviewed and show her fused right hip and mild to moderate osteoarthritic change in the left hip. IMPRESSION: 1. Osteoarthritis left hip. 2. Status post right hip arthrodesis. 3. Low back pain, presumably secondary to #2. 4. Morbid obesity. 5. Type 2 diabetes mellitus. RECOMMENDATIONS: The combination of her morbid obesity and her young age contradict total hip replacement at this time. We had a long discussion about weight loss. Apparently, she is trying to get into the weight loss clinic here at [facility] and has been unsuccessful. I called the general surgery department, gastroenterology bypass section, today and indicated to them that I would like her evaluated on a more urgent basis, in an attempt to get her weight down before she would become a candidate for a total hip arthroplasty. They will contact her. She needs to lose at least 100 pounds, and preferably 150 pounds, before I would seriously entertain a hip arthroplasty at her young age. She is also advised that her hip pain may indeed improve to the point where she does not need surgery if she gets her weight down significantly. She was invited to return p.r.n. Thank you, Andyr Pham M.D. ROMEO/isacc P [id number] cc: Mario Valle M.D. [address] [place] [id number] signed by Interface, Echocardiographer In at 01/23/2006 1:05 AM PDTdocumented in this encounter Plan of Treatment Not on filedocumented as of this encounter Visit Diagnoses Not on filedocumented in this encounter"
--- OUTSIDE RECORDS SUMMARY | ~2019-05-04 | XMS | Encounter Summary ---
Demographics + + + | Address | [address] | | | [place] [address] | + + + | Home Phone | | + + + | Preferred Language | Unknown | + + + | Marital Status | | + + + | Rastafari Affiliation | CHR | + + + | Race | White | + + + | Ethnic Group | Not or | + + + Author + + + | Author | [facility] | + + + | Organization | [facility] | + + + | Address | Unknown | + + + | Phone | Unavailable | + + + Support + + + + + | Name | Relationship | Address | Phone | + + + + + | Edwar PETERS | ECON | [address] | | | | | #[place] | | | | | [address] | | + + + + + | Destiny Reginekeena | ECON | Unknown | | + + + + + Care Team Providers + +------+ + | Care Manager Group Name | Role | Phone | + +------+ + | Shakir Erwin MD | PCP | | + +------+ + Reason for Visit + + + | Reason | Comments | + + + | Bariatric Nutrition | | + + + Consultation (Routine) + +--------+ + + + + | Status | Reason | Specialty | Diagnoses / | Referred By | Referred To | | | | | Procedures | Contact | Contact | + +--------+ + + + + | Authorized | | Nutrition | | Non-[facility] | Fn | | | | | | Epic Dept | [facility] | | | | | | | [facility] [address] | | | | | | [address] | | | | | | | Mailcode: | | | | | | | [facility] | | | | | | | Health and | | | | | | | Healing, | | | | | | | [address] | | | | | | | [place], [place] | | | | | | | [address] | | | | | | | Phone: | | | | | | | [phone] | | | | | | | Fax: | | | | | | | [phone] | + +--------+ + + + + Encounter Details +--------+---------+ + + + | Date | Type | Department | Care Team | Description | +--------+---------+ + + + | 02/24/ | Office | Digestive Health | Maranda Steele, | Morbid obesity (HCC) | | 2012 | Visit | Center at [facility] [address] | (Primary Dx); DM | | | | [address] | [address] | type 2 (diabetes | | | | Mailcode: Center | [place], [place] | mellitus, type 2) | | | | for Health and | [address] | (HCC); S/P gastric | | | | Healing, [address] | | bypass | | | | [place], [place] | | | | | | [address] | | | | | | [phone] | | | +--------+---------+ + + + [...] + + documented as of this encounter Last Filed Vital Signs + + + + + | Vital Sign | Reading | Time Taken | Comments | + + + + + | Blood Pressure | - | - | | + + + + + | Pulse | - | - | | + + + + + | Temperature | - | - | | + + + + + | Respiratory Rate | - | - | | + + + + + | Oxygen Saturation | - | - | | + + + + + | Inhaled Oxygen | - | - | | | Concentration | | | | + + + + + | Weight | 90.4 kg (199 lb 4.8 | 02/24/2013 2:07 PM | | | | oz) | PDT | | + + + + + | Height | 157.5 cm (5' 2") | 02/24/2013 2:07 PM | | | | | PDT | | + + + + + | Body Mass Index | 36.45 | 02/24/2013 2:07 PM | | | | | PDT | | + + + + + documented in this encounter Patient Instructions Patient Instructions Maranda Steele, RANDA - 02/24/2013 2:17 PM PDTNutrition appointment, -Increase physical activity -aim for 3 days a week, 30 minutes (or more!) -Increase fluids to 64 ounces a day (water, Wyler's, etc) - no calories, caffeine, or carbo nation -Include protein with all meals & snacks Breakfast (choose one): -plain oatmeal packet w/ Splenda & fruit (1/2 cup or 1 small piece or 1/2 banana) & hard-rufino iled egg (or light Panamanian yogurt) -1/2 bagel (whole wheat) with lowfat cream cheese, hard-boiled egg (or light Panamanian yogurt), & fruit Snack: sugar-free, non-fat latte; no whipped cream! Lunch: -frozen entree (around 300 calories, < 600 mg sodium) Snack ideas (choose one): can include veggies or fruit w/ protein at snacks -light Panamanian yogurt -low-fat cheese stick -100 calorie popcorn -hard-boiled egg -Protein bar (> 8g protein, < 14g sugar, < 5g fat) - Kristi bar, Kashi GoLean, Think Thin, Pu re Protein -Protein drink (> 8g protein, < 14g sugar, < 5g fat) - Premier Protein or Light Muscle Milk -1/4 cup nuts Dinner: -frozen entree -sandwich (whole wheat sandwich thin bread w/ veggies & 2-3 oz protein such as turkey, chic shawn, tuna, egg, etc.) -or healthy plate (see handout) Snack: choose one from above documented in this encounter Progress Notes Maranda Steele RD - 02/24/2013 2:07 PM PDTFormatting of this note might be different fro m the original. Nutrition Counseling: Post-op Bariatric Surgery Follow-Up Patient referred by: No Referring Provider Per Patient NO REFERRING PROVIDER PER PT Documented time of visit: 2:05 to 3:19 (74 minutes [id number] with patient) Surgery: Gastric Bypass Date of Surgery: 2004 Subjective: Has seen RD in [place] but she's not familiar w/ bariatric surgeries. Pt wants to know wh at she should & shouldn't be doing. Takes chewable or liquid medicines. Would like to lose m ore weight but can't seem to. Any reported changes: c/o constipation; has BM 1/day - normal. Feels like she should be goi ng twice a day w/ all the fiber she is eating but doesn't feel the urge or have straining, e tc. C/o nausea if she "overstuffs" herself; occ makes herself throw up to feel better. Tolerating Bariatric Diet: Yes; except for hamburger & pasta. Current Physical Activity: Just developed an exercise program w/ a green jobs trainer but has been too busy at work to start yet. Hopes to start exercising 3 times a week (min of 2). Diet recall: "splurges in the morning" Up at 6am B (7am): sugar-free non-fat latte w/ whipped cream, 1 pkt flavored oatmeal, bagel w/ cream cheese L (noon): frozen entree (Lean Cuisine) ~ 300 kcal D (5-6pm): 2 tomato sandwiches on sandwich thins (whole wheat) w/ hernandez (pt estimates ~300 k vinod) Cravings ~7-9pm: usually has tomato or 2 cucumbers & salt HS: 60 kcal fudgecicle & 20 kcal popsicle Bed at 11pm-12am (has a hard time sleeping d/t psych issues) Fluids: sugar-free fat-free latte (used to have 2 16 oz full sugar/fat lattes/day last year ), water w/ Wyler's decaf tea (32 oz/d), alcohol 1/year. Does not separate fluids from meals. Always seems hungry; tries to snack on veggies (tomatoes, cucumbers) at night but is still gaining weight. Feels full but is always thinking about food. Highest weight pre-surgery: 320 lb Lowest weight post-surgery: 160 lb 2005; gradually regained to 220 lb last year, then lost weight after having her tonsils removed (to 180 lb) Used to have emotional eating pre-surgery; after surgery was diagnosed w/ mental health iss ues (PTSD, bipolar, OCD, personality disorder). Is in counseling but they don't usually deal w/ food issues. Changes in Diabetes Medications since surgery: no meds Testing blood glucose: once in a while Objective: Ht Readings from Last 1 Encounters: 02/24/13 1.575 m (5' 2") Wt Readings from Last 2 Encounters: 02/24/13 90.402 kg (199 lb 4.8 oz) 06/22/09 76.658 kg (169 lb) Body mass index is 36.44 kg/(m^2). Weight change since surgery: lost 160 lbs (320 lb to 160 lb) then has been regaining x past few years PMHx: Past Medical History Diagnosis Date Bipolar II disorder PTSD (post-traumatic stress disorder) Arthritis Diabetes mellitus Depression Food logs: Not any more Supplementation: Vitafusion gummy vitamins (2 at a time, 4-5 times a day), calcium w/ vit D & K (500 mg, 2 at a time, 5 times a day), iron (65 mg every other day) (vit D level WNL per pt), B12 (sublingual 5000 mcg/d) Assessment: Following Bariatric Diet Protocol: No - choosing some high-sugar/high-fat foods, not includ ing protein w/ meals/snacks, not fluids from meals. Meeting protein goals: No Meeting fluid goals: No Education: Provided written & verbal education on stage 4/long-term post bariatric surgery diet guidelines. Identified protein foods & encouraged 60-80 g protein/day. Discussed dumpin g syndrome, along w/ causes & symptoms. Discussed mindful eating. Provided education on heal thy plate to portion meals. Discussed vitamin/mineral supplementation post-surgery & provide d written recommendations. (Handouts: stage 4 guidelines, mindful eating, healthy plate mode l, protein foods, individualized meal plan) Plan: Reviewed nutrition goals after bariatric surgery. Aim for 64 ounces of fluid and 60-80 grams of protein per day. Resume stage 4 according to post-op Bariatric Diet protocol -Provided written & verbal education/review of stage 4 guidelines -Include protein w/ all meals/snacks -Eat protein foods first; stop eating as soon as you begin to feel full -Choose foods with < 14 g sugar & < 5 g fat per serving -Separate fluids from meals by 30 minutes before & after -Keep food logs w/ myfitnesspal; aim for ~1200 kcal/d -Use frozen entree or healthy plate at lunch & dinner; add protein to breakfast & decrease starch portions Reinforced the importance of mindful eating. Continue to increase physical activity - aim for 3 days a week, 30 min a day. RTC in ~[address], LD Pager [phone] documented in this en counter Plan of Treatment Not on filedocumented as of this encounter Procedures + +--------+ + + + | Procedure Name | Priori | Date/Time | Associated Diagnosis | Comments | | | ty | | | | + +--------+ + + + | FL MNT INITIAL | Routin | 02/24/2013 | Morbid obesity | | | ASSESSMNT X15MIN | e | 3:52 PM | ([facility]) DM type 2 | | | | | PDT | (diabetes mellitus, | | | | | | type 2) ([facility]) S/P | | | | | | gastric bypass | | + +--------+ + + + documented in this encounter Visit Diagnoses + + | Diagnosis | + + | Morbid obesity ([facility]) - Primary Morbid obesity | + + | DM type 2 (diabetes mellitus, type 2) ([facility]) Type II or unspecified type diabetes | | mellitus without mention of complication, not stated as uncontrolled | + + | S/P gastric bypass Bariatric surgery status | + + documented in this encounter
--- OUTSIDE RECORDS SUMMARY | ~2019-05-04 | XMS | Encounter Summary ---
Demographics + + + | Address | [address] | | | [place] [address] | + + + | Home Phone | | + + + | Preferred Language | Unknown | + + + | Marital Status | | + + + | Roman Catholic Affiliation | CHR | + + + | Race | White | + + + | Ethnic Group | Not or | + + + Author + + + | Author | [facility] | + + + | Organization | [facility] | + + + | Address | Unknown | + + + | Phone | Unavailable | + + + Support + + + + + | Name | Relationship | Address | Phone | + + + + + | Edwar PACK | ECON | [address] | | | | | #[place] | | | | | [address] | | + + + + + | Destiny Suggs | ECON | Unknown | | + + + + + Care Team Providers + +------+ + | Care Tax Professional Name | Role | Phone | + +------+ + | Shakir Erwin MD | PCP | | + +------+ + Reason for Visit + + + | Reason | Comments | + + + | Follow-up visit | panniculectomy, poss drain seroma | + + + Office Visit - E/M Services (Routine) +--------+--------+ + + + + | Status | Reason | Specialty | Diagnoses / | Referred By | Referred To | | | | | Procedures | Contact | Contact | +--------+--------+ + + + + | Closed | | Plastic | Diagnoses | Pls | Chitra, | | | | Surgery | Intertrigo | Gen/Recon | MD Tucker | | | | | | [facility] [address] | [address] | | | | | | [address] | Ave | | | | | | Mailcode: | [place], [place] | | | | | | [address] | [address] | | | | | | for Health | Phone: | | | | | | and Healing, | [phone] | | | | | | Building [address], | Fax: | | | | | | [facility] | [phone] | | | | | | [place], [place] | | | | | | | [address] | | | | | | | Phone: | | | | | | | [phone] | | +--------+--------+ + + + + Encounter Details +--------+---------+ + + + | Date | Type | Department | Care Team | Description | +--------+---------+ + + + | 02/03/ | Office | Plastic and | Johanna Cottrell PA | Intertrigo (Primary | | 2008 | Visit | Reconstructive | | Dx) | | | | Surgery at [facility] [address] | | | | | | [address] | | | | | | Mailcode: [facility] | | | | | | [facility] | | | | | | and Healing, | | | | | | Building [address], [address]th | | | | | | Floor [place], [place] | | | | | | [address] | | | | | | [phone] | | | +--------+---------+ + + + [...] documented as of this encounter Progress Notes Johanna Cottrell PA - 02/04/2009 2:11 PM PDTSubjective: Anamika Pack presents 2 months status post panniculectomy with Tucker Buenrostro MD. Current concerns include: abdominal fullness. No fever or other const sx Objective: NAD. Ambulating well. All incisions nicely healed. Abdomen soft, NT, ND. No palpable fluid collectons. Assessment: S/p panniculectomy, doing well. Plan: Reassurance. Continue with compression for comfort as desired. Exercise as tolerated. Call with concerns. Pt will follow up in March with Tucker Buenrostro MD, sooner prn. documented in this enc ounter Plan of Treatment Not on filedocumented as of this encounter Visit Diagnoses + + | Diagnosis | + + | Intertrigo - Primary Other specified erythematous condition | + + documented in this encounter"
--- OUTSIDE RECORDS SUMMARY | ~2019-05-04 | XMS | Encounter Summary ---
Demographics + + + | Address | [address] | | | [place] [address] | + + + | Home Phone | | + + + | Preferred Language | Unknown | + + + | Marital Status | | + + + | Congregation Affiliation | CHR | + + + | Race | White | + + + | Ethnic Group | Not or | + + + Author + + + | Author | [facility] | + + + | Organization | [facility] | + + + | Address | Unknown | + + + | Phone | Unavailable | + + + Support + + + + + | Name | Relationship | Address | Phone | + + + + + | Edwar PACK | ECON | [address] | | | | | [place] | | | | | [address] | | + + + + + | Destiny Reginekeena | ECON | Unknown | | + + + + + Care Team Providers + +------+ + | Care Hide Dyer Name | Role | Phone | + +------+ + | Shakir Erwin MD | PCP | | + +------+ + Reason for Visit + + + | Reason | Comments | + + + | Postoperative visit | abd selam rvsn. | + + + Encounter Details +--------+---------+ + + + | Date | Type | Department | Care Team | Description | +--------+---------+ + + + | 07/19/ | Office | Plastic and | Tucker Buenrostro MD | Other plastic | | 2009 | Visit | Reconstructive | [address] | surgery for | | | | Surgery at [facility] [address] | [facility] [place] | unacceptable | | | | [address] | [address] | cosmetic appearance | | | | Mailcode: [facility] | [phone] | (Primary Dx) | | | | [facility] | | | | | | and Healing, | | | | | | [address]th | | | | | | Floor [facility] [place] | | | | | | [address] | | | | | | [phone] | | | +--------+---------+ + + + [...] encounter Progress Notes Tucker Buenrostro MD - 07/19/2009 2:53 PM PSTI performed a history and physical examination o f the patient and discussed her management with the resident. I reviewed the resident s n ote and agree with the documented findings and plan of care. Tucker Buenrostro MD [facility] [address] [place] [id number] Bianca Moralez MD - 07/19/2009 2:37 PM PSTPlastic Surgery Clinic Note Anamika Pack is a 38 y.o. Female s/p scar revision, and excision of excess skin an d fat from upper abdomen on 06/22/09. C/o sensitive area on right side of upper abdomen, described as tingling pain. Already take s neurontin for other neuropathic pain. PE: Upper abdominal wound C/D/I and healing very well. Mild fullness over right side, no obvious fluid collection. A/P. Wound healing well. F/u with Dr. Chitra VEGA. BIANCA DODGE MD documented in this encou nter Plan of Treatment Not on filedocumented as of this encounter Visit Diagnoses + + | Diagnosis | + + | Other plastic surgery for unacceptable cosmetic appearance - Primary | + + documented in this encounter"
--- OUTSIDE RECORDS SUMMARY | ~2019-05-04 | XMS | Encounter Summary ---
Demographics + + + | Address | [address] | | | [place] [address] | + + + | Home Phone | | + + + | Preferred Language | Unknown | + + + | Marital Status | | + + + | Sikh Affiliation | CHR | + + + [...] #[address], [place] | | | | | [address] | | + + + + + | Destiny Suggs | ECON | Unknown | | + + + + + Care Team Providers + +------+ + | Care Embedded Case Manager Name | Role | Phone | + +------+ + PCP | Unavailable | + +------+ + Encounter Details +--------+ + + + + | Date | Type | Department | Care Team | Description | +--------+ + + + + | 11/10/ | Procedure - | | Endoscopy, Gi | EGD | | 2004 | | | | (esophagogastroduode | | | Transcribed | | | noscopy) | +--------+ + + + + Social [...] | + +--------+ + + + | EGD | | 11/10/2004 | | | + +--------+ + + + documented in this encounter Visit Diagnoses Not on filedocumented in this encounter"
--- OUTSIDE RECORDS SUMMARY | ~2019-05-04 | XMS | Encounter Summary ---
Demographics + + + | Address | [address] | | | [place] [address] | + + + | Home Phone | | + + + | Preferred Language | Unknown | + + + | Marital Status | | + + + | Jain Affiliation | CHR | + + + | Race | White | + + + | Ethnic Group | Not or | + + + Author + + + | Author | [facility] | + + + | Organization | [facility] | + + + | Address | Unknown | + + + | Phone | Unavailable | + + + Support + + + + + | Name | Relationship | Address | Phone | + + + + + | Edwar PETERS | ECON | [address] | | | | | #[place] | | | | | [address] | | + + + + + | Destiny Suggs | ECON | Unknown | | + + + + + Care Team Providers + +------+ + | Care Railway Yard Assistant Name | Role | Phone | + +------+ + | Shakir Erwin MD | PCP | | + +------+ + Reason for Visit AUTH/CERT +--------+--------+ + + + + | Status | Reason | Specialty | Diagnoses / | Referred By | Referred To | | | | | Procedures | Contact | Contact | +--------+--------+ + + + + | Closed | | | | | [facility] | | | | | | | Stay [address] | | | | | | [address] | | | | | | | Mailcode: [place] | | | | | | | [facility] | | | | | | | for Health | | | | | | | and Healing, | | | | | | | Building [address] | | | | | | | [place], [place] | | | | | | | [address] | | | | | | | Phone: | | | | | | | [phone] | | | | | | | Fax: | | | | | | | [phone] | +--------+--------+ + + + + Encounter Details +--------+ + + + + | Date | Type | Department | Care Team | Description | +--------+ + + + + | 11/19/ | Hospital | [facility] | Tucker Buenrostro MD | | | 2008 | Encounter | STAY [address] | [address] | | | | | Ave Mailcode: [place] | [place], [place] | | | | | Center for | [address] | | | | | Health and Healing, | [phone] | | | | | Building [address] | | | | | | [place], [place] | | | | | | [address] | | | | | | [phone] | | | +--------+ + + + + Social History + + [...] + + + | Blood Pressure | 112/62 | 11/19/2008 1:00 PM | | | | | PDT | | + + + + + | Pulse | 60 | 11/19/2008 1:00 PM | | | | | PDT | | + + + + + | Temperature | 36.3 C (97.3 F) | 11/19/2008 11:30 AM | | | | | PDT | | + + + + + | Respiratory Rate | 14 | 11/19/2008 1:00 PM | | | | | PDT | | + + + + + | Oxygen Saturation | 99% | 11/19/2008 1:00 PM | | | | | PDT | | + + + + + | Inhaled Oxygen | - | - | | | Concentration | | | | + + + + + | Weight | 74.3 kg (163 lb 12.8 | 11/19/2008 6:00 AM | | | | oz) | PDT | | + + + + + | Height | 154.9 cm (5' 1") | 11/19/2008 6:00 AM | | | | | PDT | | + + + + + | Body Mass Index | 30.95 | 11/19/2008 6:00 AM | | | | | PDT | | + + + + + documented in this encounter Discharge Summaries Malgorzata Ferrera - 11/19/2008 1:30 PM PDT documented in this encounter Discharge Instructions Instructions Adryan Argueta - 11/19/2008 Nursing Discharge I nstructions General discharge instructions for same-day procedure patients: Do not stay alone; a responsible person should be with you. Do not drive or drink alcohol for 24 hours or while on narcotic pain medication. Do not make any important personal or business decisions for 24 hours or while on narcotic pain medication. Advance diet to regular if no nausea. Eat lightly and avoid large, high fat or highly spic ed meals for 24-48 hours. IV site care instructions: Monitor IV site for pain, redness, swelling or drainage. If present, call your physician i mmediately. Minor redness and tenderness may be treated with warm, moist compresses for 24-48 hours. I f still red and tender after this, notify your physician. Call your provider if you experience: Difficulty breathing or unusual shortness of breath Persistent nausea or vomiting Excessive bleeding, drainage at the operative site Fever of 101 or greater, chills, increased pain that is not relieved by pain medication. Last oral pain medication: Home care instructions: Handout "Home Care for Wounds" Follow-up appointment: See next page documented in this encounter Medications at Time of Discharge + + + +---------+--------+ + | Medication | Sig | Dispensed | Refills | Start | End Date | | | | | | Date | | + + + +---------+--------+ + | B-12 DOTS ORAL | Take by mouth. | | 0 | | | + + + +---------+--------+ + | escitalopram | Take 10 mg by mouth | | 0 | | | | (LEXAPRO) 10 mg Oral | three times daily. | | | | | | Tablet | | | | | | + + + +---------+--------+ + | gabapentin 300 mg | Take 300 mg by mouth | | 0 | | | | Oral Capsule | three times daily. | | | | | | | 2 in AM, 2 at noon, | | | | | | | 5capsules PM | | | | | + + + +---------+--------+ + | LITHIUM CARBONATE | 5 mL TID | | 0 | | | | ORAL | | | | | | + + + +---------+--------+ + | MULTIVITAMIN OR | Take by mouth. | | 0 | | | + + + +---------+--------+ + documented as of this encounter Plan of Treatment Not on filedocumented as of this encounter Procedures + +--------+ + + + | Procedure Name | Priori | Date/Time | Associated Diagnosis | Comments | | | ty | | | | + +--------+ + + + | PROCEDURE NOTE | Routin | 08/12/2015 | | Results for this | | | e | 1:16 PM | | procedure are in the | | | | PST | | results section. | + +--------+ + + + | ANESTHESIA/SEDATION | | 11/19/2008 | | Results for this | | | | 1:30 PM | | procedure are in the | | | | PDT | | results section. | + +--------+ + + + | ANESTHESIA/SEDATION | | 11/19/2008 | | Results for this | | | | 1:30 PM | | procedure are in the | | | | PDT | | results section. | + +--------+ + + + | ORDERS OTHER | | 11/19/2008 | | Results for this | | | | 1:30 PM | | procedure are in the | | | | PDT | | results section. | + +--------+ + + + documented in this encounter Results PROCEDURE NOTE (08/12/2015 1:16 PM PST)ORDERS OTHER (11/19/2008 1:30 PM PDT) + + + | Narrative | Performed At | + + + | | | + + + + + | Procedure Note | + + | Malgorzata Ferrera - 11/19/2008 1:30 PM PDT | + + ANESTHESIA/SEDATION (11/19/2008 1:30 PM PDT) + + + | Narrative | Performed At | + + + | | | + + + + + | Procedure Note | + + | Malgorzata Ferrera - 11/19/2008 1:30 PM PDT | + + ANESTHESIA/SEDATION (11/19/2008 1:30 PM PDT) + + + | Narrative | Performed At | + + + | | | + + + + + | Procedure Note | + + | Maglorzata Ferrera - 11/19/2008 1:30 PM PDT | + + documented in this encounter Visit Diagnoses Not on filedocumented in this encounter
--- OUTSIDE RECORDS SUMMARY | ~2019-05-04 | XMS | Encounter Summary ---
Demographics + + + | Address | [address] | | | [place] [address] | + + + | Home Phone | | + + + | Preferred Language | Unknown | + + + | Marital Status | | + + + | Cheondoism Affiliation | CHR | + + + | Race | White | + + + | Ethnic Group | Not or | + + + Author + + + | Author | [facility] | + + + | Organization | [facility] | + + + | Address | Unknown | + + + | Phone | Unavailable | + + + Support + + + + + | Name | Relationship | Address | Phone | + + + + + | Edwar PETERS | ECON | [address] | | | | | #[place] | | | | | [address] | | + + + + + | Destiny Suggs | ECON | Unknown | | + + + + + Care Team Providers + +------+ + | Care Manager Of Creative Services Name | Role | Phone | + +------+ + PCP | Unavailable | + +------+ + Encounter Details +--------+ + + + + | Date | Type | Department | Care Team | Description | +--------+ + + + + | 02/15/ | Abstract | General Surgery | [place], | | | 2004 | | Bariatric [address] | | | | | [address] | | | | | | Mailcode: [id number] | | | | | | [place]af[place] Vargas | | | | | | [address], [place] | | | | | | [address] | | | | | | [phone] | | | +--------+ + + + [...]
--- OUTSIDE RECORDS SUMMARY | ~2019-05-04 | XMS | Encounter Summary ---
Demographics + + + | Address | [address] | | | [place] [address] | + + + | Home Phone | | + + + | Preferred Language | Unknown | + + + | Marital Status | | + + + | Taoist Affiliation | CHR | + + + | Race | White | + + + | Ethnic Group | Not or | + + + Author + + + | Author | [facility] | + + + | Organization | [facility] | + + + | Address | Unknown | + + + | Phone | Unavailable | + + + Support + + + + + | Name | Relationship | Address | Phone | + + + + + | Edwar PETERS | ECON | [address] | | | | | #[place] | | | | | [address] | | + + + + + | Destiny Weinerkeena | ECON | Unknown | | + + + + + Care Team Providers + +------+ + | Care Manager Building Name | Role | Phone | + +------+ + | Shakir Erwin MD | PCP | | + +------+ + Reason for Visit + + + | Reason | Comments | + + + | Postoperative | pt has fluid build up again; does she need to come in to be | | Questions | drained. | + + + Encounter Details +--------+ + + + + | Date | Type | Department | Care Team | Description | +--------+ + + + + | 01/25/ | Telephone | Plastic and | Tucker Buenrostro MD | Postoperative | | 2008 | | Reconstructive | [address] | Questions (pt has | | | | Surgery at [facility] [address] | [place], [place] | fluid build up | | | | [address] | [address] | again; does she need | | | | Mailcode: [facility] | [phone] | to come in to be | | | | [place] for [facility] | | drained.) | | | | and Healing, | | | | | | Building [address], | | | | | | Floor [facility] [place] | | | | | | [address] | | | | | | [phone] | | | +--------+ + + + [...]
--- OUTSIDE RECORDS SUMMARY | ~2019-05-04 | XMS | Encounter Summary ---
Demographics + + + | Address | [address] | | | [place] [address] | + + + | Home Phone | | + + + | Preferred Language | Unknown | + + + | Marital Status | | + + + | Moravian Affiliation | CHR | + + + | Race | White | + + + | Ethnic Group | Not or | + + + Author + + + | Author | [facility] | + + + | Organization | [facility] | + + + | Address | Unknown | + + + | Phone | Unavailable | + + + Support + + + + + | Name | Relationship | Address | Phone | + + + + + | Edwar PETERS | ECON | [address] | | | | | #[place] | | | | | [address] | | + + + + + | Destiny Weinerkeena | ECON | Unknown | | + + + + + Care Team Providers + +------+ + | Care Cork Sorter Name | Role | Phone | + +------+ + | Shakir Erwin MD | PCP | | + +------+ + Reason for Visit + + + | Reason | Comments | + + + | Erroneous Encounter | | | - Disregard | | + + + Encounter Details +--------+ + + + + | Date | Type | Department | Care Team | Description | +--------+ + + + + | 06/17/ | Telephone-S | Preoperative | Phone, [facility] [address] | Erroneous Encounter | | 2008 | cheduled | Medicine Clinic at | [facility] | - Disregard | | | | MP Floor Day | Road [place], [place] | | | | | Stay [address] [facility] | [address] | | | | | [facility] | | | | | | Mailcode: [id number] | | | | | | Rikki Vargas | | | | | | [address] [place], [place] | | | | | | [address] | | | | | | [phone] | | | +--------+ + + + [...] + | Diagnosis | + + | ERRONEOUS ENCOUNTER - NO DIAGNOSIS - Primary | + + documented in this encounter"
--- OUTSIDE RECORDS SUMMARY | ~2019-05-04 | XMS | Encounter Summary ---
Demographics + + + | Address | [address] | | | [place] [address] | + + + | Home Phone | | + + + | Preferred Language | Unknown | + + + | Marital Status | | + + + | Restorationism Affiliation | CHR | + + + | Race | White | + + + | Ethnic Group | Not or | + + + Author + + + | Author | [facility] | + + + | Organization | [facility] | + + + | Address | Unknown | + + + | Phone | Unavailable | + + + Support + + + + + | Name | Relationship | Address | Phone | + + + + + | Edwar PETERS | ECON | [address] | | | | | #[place] | | | | | [address] | | + + + + + | Destiny Suggs | ECON | Unknown | | + + + + + Care Team Providers + +------+ + | Care Housing And Residence Life Director Name | Role | Phone | + +------+ + | Shakir Erwin MD | PCP | | + +------+ + Encounter Details +--------+ + + + + | Date | Type | Department | Care Team | Description | +--------+ + + + + | 02/12/ | Ancillary | Registration [address] | [address] [place], | | | [address] | [address] | [address] | | | | | [address] | [address] Mailcode: [id number] | | | | | | [place], [place] | | | | | | [address] | | | | | | [phone] | | | +--------+ + + + [...] + + | DIFFERENTIAL | Routin | 02/12/2005 | | Results for this | | | e | 10:44 AM | | procedure are in the | | | | PDT | | results section. | + +--------+ + + + | PTH RELATED PEPTIDE, | Routin | 02/12/2005 | | Results for this | | PLASMA | e | 10:44 AM | | procedure are in the | | | | PDT | | results section. | + +--------+ + + + | CBC, WITH | Routin | 02/12/2005 | | Results for this | | DIFFERENTIAL | e | 10:44 AM | | procedure are in the | | | | PDT | | results section. | + +--------+ + + + | COMPLETE METABOLIC | Routin | 02/12/2005 | | Results for this | | SET | e | 10:44 AM | | procedure are in the | | (NA,K,CL,CO2,BUN,CRE | | PDT | | results section. | | AT,GLUC,CA,AST,ALT,B | | | | | | JAVED TOTAL,ALK | | | | | | PHOS,ALB,PROT TOTAL) | | | | | + +--------+ + + + | FOLATE, SERUM | Routin | 02/12/2005 | | Results for this | | | e | 10:44 AM | | procedure are in the | | | | PDT | | results section. | + +--------+ + + + | VITAMIN B-12 | Routin | 02/12/2005 | | Results for this | | | e | 10:44 AM | | procedure are in the | | | | PDT | | results section. | + +--------+ + + + documented in this encounter Results PTH-RELATED PEPTIDE (02/12/2005 10:44 AM PDT) + + + + + + | Component | Value | Ref Range | Performed | Pathologist | | | | | At | Signature | + + + + + + | PTH-REL | < 0.3Comment: TEST | pmol/L | | | | PEPTIDE | INFORMATION: PTH Related | | | | | (PTHRP) | PeptideThis test uses a | | | | | | kit designated by the | | | | | | sand polisher as"for | | | | | | research use, not for | | | | | | clinical use." The | | | | | | performancecharacteristi | | | | | | cs of this test were | | | | | | validated by | | | | | | [facility]. | | | | | | The U.S. Food and Drug | | | | | | Administration(FDA) has | | | | | | not approved this test. | | | | | | The results are | | | | | | notintended to be used | | | | | | as the sole means for | | | | | | clinicaldiagnosis or | | | | | | patient management | | | | | | decisions. [facility] | | | | | | isauthorized under | | | | | | Clinical Laboratory | | | | | | Improvement | | | | | | Amendments(CLIA) and by | | | | | | all states to perform | | | | | | high-complexitytesting. | | | | | | Test performed by | | | | | | [facility]. | | | | | | New reference range and | | | | | | method effective | | | | | | 01/24/05. | | | | + + + + + + + + | Specimen | + + | | + + + + + + + | Performing | Address | City/State/Zipcode | Phone Number | | Organization | | | | + + + + + | [facility] | [address] | [place], [place] | | | [facility] | | [address] | | + + + + + COMP METABOLIC SET (02/12/2005 10:44 AM PDT) + +---------+ + + + | Component | Value | Ref Range | Performed | Pathologist | | | | | At | Signature | + +---------+ + + + | GLUCOSE, | 76 | 65 - 110 mg/dL | [facility] | | | PLASMA | | | DEPARTMENT | | | (LAB) | | | OF | | | | | | PATHOLOGY | | + +---------+ + + + | BUN, PLASMA | 17 | 6 - 20 mg/dL | [facility] [...] +---------+ + + + | TOTAL | 6.4 | 6.1 - 7.9 g/dL | [facility] [...] +---------+ + + + | CALCIUM, | 9.2 | 8.5 - 10.5 | [facility] | | | PLASMA | | mg/dL | DEPARTMENT | | | (LAB) | | | OF | | | | | | PATHOLOGY | | + +---------+ + + + | BILIRUBIN | 0.6 | 0.3 - 1.2 mg/dL | [facility] | | | TOTAL | | | DEPARTMENT | | | | | | OF | | | | | | PATHOLOGY | | + +---------+ + + + | ALK PHOS | 46 | 42 - 98 U/L | [facility] | | | | | | DEPARTMENT | | | | | | OF | | | | | | PATHOLOGY | | + +---------+ + + + | AST(SGOT) | 15 | 15 - 41 U/L | [facility] | | | | | | DEPARTMENT | | | | | | OF | | | | | | PATHOLOGY | | + +---------+ + + + | SODIUM, | 140 | 136 - 145 | [facility] | | | PLASMA | | mmol/L | DEPARTMENT | | | (LAB) | | | OF | | | | | | PATHOLOGY | | + +---------+ + + + | POTASSIUM, | 3.9 | 3.5 - 5.1 | [facility] | | | PLASMA | | mmol/L | DEPARTMENT | | | (LAB) | | | OF | | | | | | PATHOLOGY | | + +---------+ + + + | CHLORIDE, | 111 (H) | 98 - 107 mmol/L | [facility] | | | PLASMA | | | DEPARTMENT | | | (LAB) | | | OF | | | | | | PATHOLOGY | | + +---------+ + + + | TOTAL CO2, | 24 | 23 - 29 mmol/L | [facility] | | | PLASMA | | | DEPARTMENT | | | (LAB) | | | OF | | | | | | PATHOLOGY | | + +---------+ + + + | ALT (SGPT) | 20 | 13 - 48 U/L | [facility] [...] DEPARTMENT OF | [address] | [place] [address] | | | PATHOLOGY | [address] | | | + + + + + | [facility] DEPARTMENT OF | [address] | [place] [address] | | | PATHOLOGY | [address] | | | + + + + + DIFFERENTIAL (02/12/2005 10:44 AM PDT) + +-------+ + + + | Component | Value | Ref Range | Performed | Pathologist | | | | | At | Signature | + +-------+ + + + | NEUTROPHIL | 60 | 50 - 70 % | [facility] | | | % | | | DEPARTMENT | | | | | | OF | | | | | | PATHOLOGY | | + +-------+ + + + | LYMPHOCYTE | 30 | 18 - 42 % | [facility] | | | % | | | DEPARTMENT | | | | | | OF | | | | | | PATHOLOGY | | + +-------+ + + + | MONOCYTE % | 7 | 2 - 8 % | [facility] | | | | | | DEPARTMENT | | | | | | OF | | | | | | PATHOLOGY | | + +-------+ + + + | EOS % | 2 | 1 - 3 % | [facility] | | | | | | DEPARTMENT | | | | | | OF | | | | | | PATHOLOGY | | + +-------+ + + + | BASO % | 1 | <3 % | [facility] | | | | | | DEPARTMENT | | | | | | OF | | | | | | PATHOLOGY | | + +-------+ + + + | NEUTROPHIL | 5.2 | 1.8 - 7.7 K/cu | [facility] | | | # | | mm | DEPARTMENT | | | | | | OF | | | | | | PATHOLOGY | | + +-------+ + + + | LYMPHOCYTE | 2.6 | 1.0 - 4.8 K/cu | [facility] | | | # | | mm | DEPARTMENT | | | | | | OF | | | | | | PATHOLOGY | | + +-------+ + + + | MONOCYTE # | 0.6 | 0.1 - 0.6 K/cu | [facility] | | | | | mm | DEPARTMENT | | | | | | OF | | | | | | PATHOLOGY | | + +-------+ + + + | EOS # | 0.2 | <0.6 K/cu mm | [facility] | | | | | | DEPARTMENT | | | | | | OF | | | | | | PATHOLOGY | | + +-------+ + + + | BASO # | 0.1 | <0.3 | [facility] | | | | | | DEPARTMENT | | | | | | OF | | | | | | PATHOLOGY | | + +-------+ + + + + + | Specimen | + + | | + + + + + | Narrative | Performed At | + + + | New reference ranges for RBC, HGB, and HCT in effect 12/22/04. | [facility] | | | DEPARTMENT OF | | | PATHOLOGY | + + + + + + + + | Performing | Address | City/State/Zipcode | Phone Number | | Organization | | | | + + + + + | [facility] DEPARTMENT OF | [address] | [place] [address] | | | PATHOLOGY | [address] | | | + + + + + | [facility] DEPARTMENT OF | [address] | [place] [address] | | | PATHOLOGY | [address] | | | + + + + + CBC, WITH DIFFERENTIAL (02/12/2005 10:44 AM PDT) + + + + + + | Component | Value | Ref Range | Performed | Pathologist | | | | | At | Signature | + + + + + + | WHITE CELL | 8.7 | 4.4 - 11.0 K/cu | [facility] | | | COUNT | | mm | DEPARTMENT | | | | | | OF | | | | | | PATHOLOGY | | + + + + + + | RED CELL | 4.45 | 4.00 - 5.20 | [facility] | | | COUNT | | M/cu mm | DEPARTMENT | | | | | | OF | | | | | | PATHOLOGY | | + + + + + + | HEMOGLOBIN | 12.4 | 12.0 - 16.0 | [facility] | | | | | g/dL | DEPARTMENT | | | | | | OF | | | | | | PATHOLOGY | | + + + + + + | HEMATOCRIT | 35.7 (L) | 36.0 - 46.0 % | [facility] | | | | | | DEPARTMENT | | | | | | OF | | | | | | PATHOLOGY | | + + + + + + | MCV | 80.3 | 80.0 - 96.0 fL | [facility] | | | | | | DEPARTMENT | | | | | | OF | | | | | | PATHOLOGY | | + + + + + + | MCHC | 34.7 | 33.4 - 35.5 | [facility] | | | | | g/dL | DEPARTMENT | | | | | | OF | | | | | | PATHOLOGY | | + + + + + + | RDW | 14.2 | 11.5 - 15.0 % | [facility] | | | | | | DEPARTMENT | | | | | | OF | | | | | | PATHOLOGY | | + + + + + + | PLATELET | 244 | 150 - 400 K/cu | [facility] | | | COUNT | | mm | DEPARTMENT | | | | | | OF | | | | | | PATHOLOGY | | + + + + + + + + | Specimen | + + | | + + + + + | Narrative | Performed At | + + + | New reference ranges for RBC, HGB, and HCT in effect 12/22/04. | [facility] | | | DEPARTMENT OF | | | PATHOLOGY | + + + + + + + + | Performing | Address | City/State/Zipcode | Phone Number | | Organization | | | | + + + + + | [facility] | [address] | [place] [address] | | | PATHOLOGY | [address] | | | + + + + + | [facility] DEPARTMENT OF | [address] | [place] [address] | | | PATHOLOGY | [address] | | | + + + + + VITAMIN B-12, SERUM (02/12/2005 10:44 AM PDT) + + + + + + | Component | Value | Ref Range | Performed | Pathologist | | | | | At | Signature | + + + + + + | VITAMIN | > 2000 (H)Comment: | 200 - 950 pg/ml | | | | B12, SERUM | Test performed by [facility] | | | | | | [facility] | | | | | | Laboratories. | | | | + + + + + + + + | Specimen | + + | | + + + + + + + | Performing | Address | City/State/Zipcode | Phone Number | | Organization | | | | + + + + + | [facility] | [address] | [place] [address] | | | LABORATORY | | | | + + + + + FOLATE, SERUM (02/12/2005 10:44 AM PDT) + + + + + + | Component | Value | Ref Range | Performed | Pathologist | | | | | At | Signature | + + + + + + | FOLATE,SERU | > 24.0Comment: Test | >1.9 ng/ml | | | | M | performed at [facility] | | | | | | [facility] | | | | | | Laboratories. | | | | + + + + + + + + | Specimen | + + | | + + + + + + + | Performing | Address | City/State/Zipcode | Phone Number | | Organization | | | | + + + + + | [facility] | [address] | [place] [address] | | | LABORATORY | | | | + + + + + documented in this encounter Visit Diagnoses Not on filedocumented in this encounter
--- OUTSIDE RECORDS SUMMARY | ~2019-05-04 | XMS | Encounter Summary ---
Demographics + + + | Address | [address] | | | [place] [address] | + + + | Home Phone | | + + + | Preferred Language | Unknown | + + + | Marital Status | | + + + | Adventism Affiliation | CHR | + + + | Race | White | + + + | Ethnic Group | Not or | + + + Author + + + | Author | [facility] | + + + | Organization | [facility] | + + + | Address | Unknown | + + + | Phone | Unavailable | + + + Support + + + + + | Name | Relationship | Address | Phone | + + + + + | Edwar PETERS | ECON | [address] | | | | | #[place] | | | | | [address] | | + + + + + | Destiny Suggs | ECON | Unknown | | + + + + + Care Team Providers + +------+ + | Care Od Grinder Operator Name | Role | Phone | + +------+ + | Shakir Erwin MD | PCP | | + +------+ + Encounter Details +--------+ + + + + | Date | Type | Department | Care Team | Description | +--------+ + + + + | 08/28/ | Ancillary | Registration [address] | [place] [place], | | | [address] | [address] | [address] | | | | | [address] | [address] Mailcode: [id number] | | | | | | [place], [place] | | | | | | [address] | | | | | | [phone] | | | +--------+ + + + [...]
--- OUTSIDE RECORDS SUMMARY | ~2019-05-04 | XMS | Encounter Summary ---
Demographics + + + | Address | [address] | | | [place] [address] | + + + | Home Phone | | + + + | Preferred Language | Unknown | + + + | Marital Status | | + + + | Judaism Affiliation | CHR | + + + [...] #[place], [place] | | | | | [address] | | + + + + + | Destiny Suggs | ECON | Unknown | | + + + + + Care Team Providers + +------+ + | Care Outreach Librarian Name | Role | Phone | + +------+ + PCP | Unavailable | + +------+ + Encounter Details +--------+ + + + + | Date | Type | Department | Care Team | Description | +--------+ + + + + | 08/29/ | Orders Only | | Record, Operation | | | 2004 | | | | | +--------+ + + [...] | + +--------+ + + + | OPERATION RECORD | | 08/29/2004 | | Results for this | | | | | | procedure are in the | | | | | | results section. | + +--------+ + + + documented in this encounter Results OPERATION RECORD (08/29/2004) + + | Transcriptions | + + | Interface, Supervisor Wrapping Room In - 06/28/2005 9:14 PM PST | | [id number] | | [id number] LORRAINE Mccurdy | | | | Date: 08/29/2004 | | | | Attending Surgeon: Cam John M.D. | | | | Office Messenger Helper(s): Trupti Roy M.D. | | Claudia Boyce M.D. | | | | Preoperative Diagnosis(es): | | Morbid obesity. | | | | Postoperative Diagnosis(es): | | Morbid obesity. | | | | Procedures Performed: | | Laparoscopic gastric bypass. | | | | Anesthesia: | | General endotracheal anesthesia. | | | | Estimated Blood Loss: | | Minimal. | | | | Complications: | | | | Specimens: | | No specimens. | | | | Indications: | | This is a 33-year-old woman with a BMI of 46 and a lifelong history of | | morbid obesity. She has co-morbidities that include diabetes, | | hypertension, joint pain, and depression. She is being taken to the | | Operating Room for a laparoscopic gastric bypass. The risks and benefits | | of the procedure had been thoroughly explained to her, and she agrees to | | proceed. | | | | Procedure: | | After induction of general anesthesia, the patient was prepped and draped | | in the usual sterile fashion. An #11-blade was used to make an incision at | | the umbilicus. A Veress needle was introduced, and the abdomen | | insufflated. We then proceeded to place our standard laparoscopic gastric | | bypass trocar arrangement using step trocars. We then identified the | | ligament of Treitz, marked 70 cm along the ligament of Treitz at which | | point we divided the small bowel with a single firing of an Endo GUTIERREZ | | white-load stapler. We divided the mesentery with 2 firings of an Endo GUTIERREZ | | white-load stapler. We then marched 100 cm along the Nayeli limb at which | | point we created our jejunojejunostomies at single firing of an Endo GUTIERREZ | | white-load stapler. We then divided the omentum with a Harmonic scalpel. | | We then turned our attention to creation of a gastric pouch. Using serial | | firings of an Endo GUTIERREZ blue-load stapler, we created a 30-mL gastric pouch | | around a 30-mL gastric balloon verifying it was completely transected from | | the rim of the stomach. We then brought up our Nayeli limb and using | | interrupted back row of 2-0 Vicryl sutures, we sowed the Nayeli limb to the | | gastric pouch. We then created a gastrojejunostomy using a single firing | | of an Endo GUTIERREZ blue-load stapler. We oversew the resultant defect with 2-0 | | Vicryl suture followed by interrupted 2-0 Vicryl Lembert. We then | | performed methylene blue tests, and there was no evidence of leak. We, | | therefore, proceeded to close the retractor, and trocars were taken out | | under direct camera vision. The abdomen was then observed, there was a | | pneumoperitoneum pressure of 10 mmHg before desufflating to ensure that | | hemostasis was good which it was. We then proceeded to close the skin at | | the skin level with 4-0 Monocryl suture. The fascia was not closed because | | we used step trocars. The wounds were dressed. The patient tolerated the | | procedure well. Disposition into PACU. Sponge and needle counts were | | correct at the end of the case. | | | | | | | | | | Cam John M.D. | | | | RWO / | | [id number] / [id number] / [id number] / | | | | | | | | | | | | Electronically signed by Cam Mcbride 09-25-2004 03:35:36 PM | + + documented in this encounter Visit Diagnoses Not on filedocumented in this encounter"
--- OUTSIDE RECORDS SUMMARY | ~2019-05-04 | XMS | Encounter Summary ---
Demographics + + + | Address | [address] | | | [place] [address] | + + + | Home Phone | | + + + | Preferred Language | Unknown | + + + | Marital Status | | + + + | Adventist Affiliation | CHR | + + + | Race | White | + + + | Ethnic Group | Not or | + + + Author + + + | Author | [facility] | + + + | Organization | [facility] | + + + | Address | Unknown | + + + | Phone | Unavailable | + + + Support + + + + + | Name | Relationship | Address | Phone | + + + + + | Edwar PETERS | ECON | [address] | | | | | #[place] | | | | | [address] | | + + + + + | Destiny Suggs | ECON | Unknown | | + + + + + Care Team Providers + +------+ + | Care Cna Ltc Name | Role | Phone | + +------+ + PCP | Unavailable | + +------+ + Encounter Details +--------+ + + + + | Date | Type | Department | Care Team | Description | +--------+ + + + + | 03/09/ | Abstract | General Surgery | Cam John, | | | 2004 | | Bariatric [address] | | | | | [address] | | | | | | Mailcode: L223A | | | | | | Nafisa Vargas | | | | | | [address] [place], [place] | | | | | | [address] | | | | | | [phone] | | | +--------+ + + + [...]
--- OUTSIDE RECORDS SUMMARY | ~2019-05-04 | XMS | Encounter Summary ---
Demographics + + + | Address | [address] | | | [place] [address] | + + + | Home Phone | | + + + | Preferred Language | Unknown | + + + | Marital Status | | + + + | Sikhism Affiliation | CHR | + + + [...] #[place] | | | | | [address] | | + + + + + | Destiny Weinerkeena | ECON | Unknown | | + + + + + Care Team Providers + +------+ + | Care Bar Welder Name | Role | Phone | + [...] | +--------+ + + + + | 06/14/ | MyChart | Plastic and | Tucker Buenrostro MD | | | 2009 | Encounter | Reconstructive | [address] | | | | | Surgery at [facility] [address] | [place], [place] | | | | | [address] | [address] | | | | | Mailcode: 5 | [phone] | | | | | [facility] | | | | | | and Healing, | | | | | | Building [address], 5th | | | | | | Floor [place], [place] | | | | | | [address] | | | | | | [phone] | | | +--------+ + + + [...] cosmetic appearance - Primary | + + | ERRONEOUS ENCOUNTER - NO DIAGNOSIS | + + documented in this encounter"
--- OUTSIDE RECORDS SUMMARY | ~2019-05-04 | XMS | Encounter Summary ---
Demographics + + + | Address | [address] | | | [place] [address] | + + + | Home Phone [...] + + + | Author | [facility] | + + + | Organization | [facility] | + + + | [...] #[place] | | | | | [address] | | + + + + + | Destiny Reginekeena | ECON | Unknown | | + + + + + Care Team Providers + +------+ + | Care Baker Pastry Name | Role | Phone | + [...] | | | | | | | [facility] | | | | | | | Health and | | | | | | | Healing, | | | | | | | [address] | | | | | | | [place], [place] | | | | | | | [address] | | | | | | | Phone: | | | | | | | [phone] | | | | | | | Fax: | | | | | | | [phone] | + +--------+ + + + + [...] | | | | Mailcode: Center | [place], [place] | mellitus, type 2) | | | | for Health and | [address] | (HCC); S/P gastric | | | | Healing, [address] | | bypass | | | | [place], [place] | | | | | | [address] | | | | | | [phone] | | | +--------+---------+ + + + [...] banana) & hard-rufino iled egg (or light Omani yogurt) -1/2 bagel (whole wheat) with lowfat cream cheese, hard-boiled egg (or light Omani yogurt), & fruit Snack: sugar-free, non-fat latte; no whipped cream! Lunch: -frozen entree (around 300 calories, < 600 mg sodium) Snack ideas (choose one): can include veggies or fruit w/ protein at snacks -light Omani yogurt -low-fat cheese stick -100 calorie popcorn [...] of visit: 2:05 to 3:19 (74 minutes [id number] with patient) Surgery: Gastric Bypass Date of Surgery: 2004 Subjective: Has seen RD in [place] but she's not familiar w/ bariatric surgeries. [...] Just developed an exercise program w/ a clinical provider trainer but has been too busy at [...] ~[address], LD Pager [phone] documented in this en counter Plan of Treatment Not on filedocumented as of this encounter Procedures + +--------+ + + + | Procedure Name | Priori | Date/Time | Associated Diagnosis | Comments | | | ty | | | | + +--------+ + + + | TX MNT INITIAL | Routin | 02/24/2013 | Morbid obesity | | | ASSESSMNT X15MIN | e | 3:52 PM | ([facility]) DM type 2 | | | | | PDT | (diabetes mellitus, | | | | | | type 2) ([facility]) S/P | | | | | | gastric bypass | | + +--------+ + + + documented in this encounter Visit Diagnoses + + | Diagnosis | + + | Morbid obesity ([facility]) - Primary Morbid obesity | + + | DM type 2 (diabetes mellitus, type 2) ([facility]) Type II or unspecified type diabetes | | mellitus without mention of complication, not stated as uncontrolled | + + | S/P gastric bypass Bariatric surgery status | + + documented in this encounter
--- OUTSIDE RECORDS SUMMARY | ~2019-05-04 | XMS | Encounter Summary ---
Demographics + + + | Address | [address] | | | [place] [address] | + + + | Home Phone | | + + + | Preferred Language | Unknown | + + + | Marital Status | | + + + | Latter-Day Affiliation | CHR | + + + [...] [place] | | | | | [address] | | + + + + + | Destiny Weinerkeena | ECON | Unknown | | + + + + + Care Team Providers + +------+ + | Care Childhood Teacher Name | Role | Phone | + +------+ + | Shakir Erwin MD | PCP | | + +------+ + Reason for Visit + + + | Reason | Comments | + + + | Needs Work Release | pt needs letter stating she is Released to go back to work | | | startintg 5/16/09 | + + + Encounter Details +--------+ + + + + | Date | Type | Department | Care Team | Description | +--------+ + + + + | 11/25/ | Telephone | Plastic and | Tucker Buenrostro MD | Needs Work Release | | 2008 | | Reconstructive | [address] | (pt needs letter | | | | Surgery at [facility] [address] | [place], [place] | stating she is | | | | [address] | [address] | Released to go back | | | | Mailcode: [facility] | [phone] | to work startintg | | | | [facility] | | 11/20/08) | | | | and Healing, | | | | | | Building | | | | | | Floor [place], [place] | | | | | | [address] | | | | | | [phone] | | | +--------+ + + + [...]
--- OUTSIDE RECORDS SUMMARY | ~2019-05-04 | XMS | Encounter Summary ---
Demographics + + + | Address | [address] | | | [place] [address] | + + + | Home Phone | | + + + | Preferred Language | Unknown | + + + | Marital Status | | + + + | Gnosticist Affiliation | CHR | + + + [...] #[place] | | | | | [address] | | + + + + + | Destiny Suggs | ECON | Unknown | | + + + + + Care Team Providers + +------+ + | Care Property Portfolio Officer Name | Role | Phone | + +------+ + | Shakir Erwin MD | PCP | | + +------+ + Reason for Referral PROC - Outpatient Surgery (Routine) +--------+--------+ + + + + | Status | Reason | Specialty | Diagnoses / | Referred By | Referred To | | | | | Procedures | Contact | Contact | +--------+--------+ + + + + | Denied | | Plastic | Diagnoses | Chitra | Pushpa | | | | Surgery | Other | MD Tucker | [facility] | | | | | plastic | [address] | [address] | | | | | surgery for | [address] | [address] | | | | | unacceptable | [place], [place] | Mailcode: | | | | | cosmetic | [address] | [facility] | | | | | appearance | Phone: | for Health | | | | | Procedures | [phone] | and Healing, | | | | | REQUEST TO | Fax: | Building 1, | | | | | SURGERY | [phone] | 5th Floor | | | | | [employer] | | [place], [place] | | | | | MT EXC SKIN | | [address] | | | | | ABD ADD-ON | | Phone: | | | | | Procedure to | | [phone] | | | | | be | | | | | | | performed: | | | | | | | 15 cm | | | | | | | abdominal | | | | | | | scar | | | | | | | revision | | | | | | | ([id number]) | | | +--------+--------+ + + + + Reason for Visit + + + | Reason | Comments | + + + | Postoperative visit | panniculectomy. | + + + Encounter Details +--------+---------+ + + + | Date | Type | Department | Care Team | Description | +--------+---------+ + + + | 04/19/ | Office | Plastic and | Tucker Buenrostro MD | Other Plastic | | 2008 | Visit | Reconstructive | [address] | Surgery for | | | | Surgery at [facility] [address] | [place], [place] | Unacceptable | | | | [address] | [address] | Cosmetic Appearance | | | | Mailcode: [facility] | [phone] | (Primary Dx) | | | | [facility] | | | | | | and Healing, | | | | | | Building [address], 5th | | | | | | Floor [place], [place] | | | | | | [address] | | | | | | [phone] | | | +--------+---------+ + + + [...] encounter Progress Notes Tucker Buenrostro MD - 04/19/2009 1:04 PM [facility] Juventino Pack is a 38 y.o. female about 5 months after panniculectomy. She is doing well and is happy with the outcome other than grider bxiphoid fullness at the top of the vertical scar. OBJECTIVE: The wound are well healed. There is no evidence of seroma or hernia. There is sk in laxity in the upper abdomen and would be amenable to surgical revision if she desires. A PARQ was held for scar revision. We discussed that complications include but are not limi ricci to: infection, bleeding, scar that is worse than the scar now, hematoma, seroma, nerve i njury causing permanent numbness paralysis or chronic pain, asymmetry, contour irregularity, need for more surgery and other unforseen complications. PLAN: She was given a mcconnell quote and will let us know if she wishes to proceed. Silvana morley signed by Tucker Buenrostro MD at 04/19/2009 1:04 PM PDTdocumented in this encounter Plan of Treatment Not on filedocumented as of this encounter Visit Diagnoses + + | Diagnosis | + + | Other plastic surgery for unacceptable cosmetic appearance - Primary | + + documented in this encounter"
--- OUTSIDE RECORDS SUMMARY | ~2019-05-04 | XMS | Encounter Summary ---
Demographics + + + | Address | [address] | | | [place] [address] | + + + | Home Phone | | + + + | Preferred Language | Unknown | + + + | Marital Status | | + + + | Catholic Affiliation | CHR | + + + | Race | White | + + + | Ethnic Group | Not or | + + + Author + + + | Author | [facility] | + + + | Organization | [facility] | + + + | [...] #[place] | | | | | [address] | | + + + + + | Destiny Suggs | ECON | Unknown | | + + + + + Care Team Providers + +------+ + | Care Dosier Operator Name | Role | Phone | [...] | | | | | | [address] [place], [place] | | | | | | [address] | | | | | | [phone] | | | +--------+ + + + [...]
--- OUTSIDE RECORDS SUMMARY | ~2019-05-04 | XMS | Encounter Summary ---
Demographics + + + | Address | [address] | | | [place] [address] | + + + | Home Phone | | + + + | Preferred Language | Unknown | + + + | Marital Status | | + + + | Hindu Affiliation | CHR | + + + | Race | White | + + + | Ethnic Group | Not or | + + + Author + + + | Author | [facility] | + + + | Organization | [facility] | + + + | Address | Unknown | + + + | Phone | Unavailable | + + + Support + + + + + | Name | Relationship | Address | Phone | + + + + + | Edwar PETERS | ECON | [address] | | | | | #[place] | | | | | [address] | | + + + + + | Destiny Suggs | ECON | Unknown | | + + + + + Care Team Providers + +------+ + | Care Wind Field Service Manager Name | Role | Phone | + +------+ + | Shakir Erwin MD | PCP | | + +------+ + Reason for Visit + + + | Reason | Comments | + + + | History and physical | abd scar revision | | examination | | + + + | Pre-op evaluation | | + + + Encounter Details +--------+---------+ + + + | Date | Type | Department | Care Team | Description | +--------+---------+ + + + | 06/21/ | Office | Plastic and | Johanna Cottrell PA | Other plastic | | 2008 | Visit | Reconstructive | | surgery for | | | | Surgery at [facility] [address] | | unacceptable | | | | [address] | | cosmetic appearance | | | | Mailcode: [facility] | | (Primary Dx); Other | | | | [facility] | | specified | | | | and Healing, | | pre-operative | | | | Building [address] | | examination | | | | Floor [place], [place] | | | | | | [address] | | | | | | [phone] | | | +--------+---------+ + + + [...] + + + | Blood Pressure | 110/76 | 06/21/2009 12:26 PM | | | | | PST | | + + + + + | Pulse | 71 | 06/21/2009 12:26 PM | | | | | PST | | + + + + + | Temperature | - | - | | + + + + + | Respiratory Rate | 16 | 06/21/2009 12:26 PM | | | | | PST | | + + + + + | Oxygen Saturation | 97% | 06/21/2009 12:26 PM | | | | | PST | | + + + + + | Inhaled Oxygen | - | - | | | Concentration | | | | + + + + + | Weight | 76.7 kg (169 lb) | 06/21/2009 12:26 PM | | | | | PST | | + + + + + | Height | 154.9 cm (5' 1") | 06/21/2009 12:26 PM | | | | | PST | | + + + + + | Body Mass Index | 31.93 | 06/21/2009 12:26 PM | | | | | PST | | + + + + + documented in this encounter Patient Instructions Patient Instructions Johanna Cottrell PA - 06/21/2009 12:41 PM PSTRegistration Locations (pl ease check in at one of the following registration desks prior to surgery) For surgeries scheduled to take place on the [place] at the [facility]: Surgeries scheduled in the [facility] ([address] [place] [address]): registration is located on the 4th floor of [facility] (Day Surgery). Surgeries scheduled in the [facility]: registration is located on the 9th floor. Surgeries scheduled in [facility]: registration is located on the 6th floor. Surgeries scheduled in the [facility]: registration is located i n the [facility] lobby on the first floor. For surgeries scheduled to take place at the [facility]: registration is l ocated on the 4th floor (Surgery Center). Important Information Due to the increased prevalence of pests in our community, we are asking patients to partne r with us to keep our hospital clean. If you have noticed bugs or other pests in your home, on your belongings or on your body, please contact your doctor's office prior to your admis emma. For your safety and protection, please limit what you bring to the hospital. All valuables should be left at home. This includes pillows, blankets, clothing, purses, wallets, money an d jewelry. Patients may not bring personal electronics into the hospital, including hairdry ers, electric rosa elena, radios and CD players. If you use specialized medical equipment at [facility], please check with your provider before bringing it with you into the hospital. Registration Process for all Admissions/Surgeries Please bring your insurance card(s) with you and be prepared to pay any co-payment, co-insu rachana or deposit that may be required. Once you arrive at the registration desk, you will be interviewed by a Patient Access Servi ce Specialist (DARLINE). Demographics will be verified (example: name, date of , Social Se curity Number, address, insurance). You will be asked to sign some paperwork: Terms and Conditions of Service, Notice of Privac y Practices Acknowledgement and Genetic Testing Opt Out. You will be given some paperwork: copies of any forms signed by you, Patient Rights, Respon sibilities and Safety, Understanding Advance Directives, and Smoking Cessation Brochure.Elec tronically signed by CEE Anne at 06/21/2009 12:41 PM PST documented in this encounter Progress Notes Johanna Cottrell PA - 06/21/2009 12:41 PM PST Pre-Procedure History and Physical Date of Admission: 06-22-09 HISTORY: panniculectomy in 11-13, now having revisions. APAP overdose in April. Has been s diana and PCP. States labs from 06-09 were normal. States she is doing well, is back on [facility] meds, has no suicidal thoughts or plans. CURRENT PROBLEM LIST: Patient Active Problem List Diagnoses Date Noted Other Plastic Surgery for Unacceptable Cosmetic Appearance [V50.1] 04/19/2009 Seroma, Postoperative [998.13A] 12/28/2008 Red cell antibodies - allow additional time for crossmatch. [999.89AV] 11/19/2008 Overview Note: Patient is sensitized against red cell antigen "K". Approximately 90% of units are expected to be compatible. Allow at least 2-3 hours for completion of crossmatch. Intertrigo [695.89F] 06/01/2008 MORBID OBESITY [278.01] 08/29/2004 UNSPECIFIED ESSENTIAL HYPERTENSION [401.9] 08/29/2004 CHRONIC PAIN [338.29A] 08/29/2004 OSTEOARTHRITIS [715.90AF] 08/29/2004 DM TYPE 2 (DIABETES MELLITUS, TYPE 2) [250.00BB] 08/29/2004 ANALGESIA [782.0J] 08/29/2004 Overview Note: Patient-controlled JOINT PAIN [719.40A] 08/29/2004 DEPRESSION [311G] 08/29/2004 ENDOMETRIAL HYPERPLASIA [621.30C] 08/29/2004 DEGENERATIVE JOINT DISEASE/SEVERE [715.90Y] 08/29/2004 Overview Note: ANXIETY [300.00E] 08/29/2004 Past Medical History Diagnosis Date Bipolar II disorder PTSD (post-traumatic stress disorder) Arthritis Diabetes mellitus Depression Past Surgical History Procedure Date Pr removal gallbladder 1999 Laparoscopic Pr delivery only 1986 Laparoscopic anastacia-en-y gastric bypass 08/30/2004 Pr fusion hip joint 1985 RIGHT Hx hip replacement 2005 Hx hip replacement 2007 Panniculectomy 11/2008 MEDICATIONS: Current outpatient prescriptions Medication Sig Dispense Refill B-12 DOTS ORAL Take by mouth. clorazepate 3.75 mg Oral Tablet Take 3.75 mg by mouth as needed. escitalopram (LEXAPRO) 10 mg Oral Tablet Take 10 mg by mouth three times daily. fludrocortisone 0.1 mg Oral Tablet Take 0.1 mg by mouth once daily. fluticasone 50 mcg/Actuation Nasal [place], Suspension Instill 2 Sprays into each nostril once daily. gabapentin 300 mg Oral Capsule Take 300 mg by mouth three times daily. 2 in AM, 2 at no on, 5capsules PM IRON, FERROUS SULFATE, ORAL Take 65 mg by mouth once daily. LITHIUM CARBONATE ORAL 5 mL TID MULTIVITAMIN OR Take by mouth. Allergies Allergen Reactions Oxycontin (Oxycodone Hcl) Itching Adhesive Tape Hydrocodone Itching If taking high dose, otherwise--OK Oxycodone Itching Only if taking high dose FAMILY HISTORY: Family History Problem Relation Cancer Mother uterine Diabetes Father REVIEW OF SYSTEMS: denies fever, chills, N&V,CP,SOB,dysria PHYSICAL EXAM: VITALS: Visit Vitals Item Reading BP 110/76 Pulse 71 Resp 16 Ht 1.549 m (5' 1") Wt 76.658 kg (169 lb) SpO2 97% HEENT: Normal NECK: Normal CHEST/LUNGS: Normal HEART: Normal ABDOMEN: See Notes: soft, NT,ND BACK: Normal EXTREMITIES: Normal NEUROLOGICAL: Normal G.U.: See Notes: deferred PROVISIONAL DIAGNOSIS: undesirable cosmetic appearance PLANNED COURSE OF ACTION: 15 cm abdominal scar revision. Oxycodone #40 given today. Labs or dered today. PARQ: A PARQ session and written consent to be obtained DOS documented in this encounter Plan of Treatment Not on filedocumented as of this encounter Results CBC ONLY (06/21/2009 1:13 PM PST) + +-------+ + + + | Component | Value | Ref Range | Performed | Pathologist | | | | | At | Signature | + +-------+ + + + | WHITE CELL | 8.0 | 4.4 - 11.0 K/cu | [facility] | | | COUNT | | mm | DEPARTMENT | | | | | | OF | | | | | | PATHOLOGY | | + +-------+ + + + | RED CELL | 4.86 | 4.00 - 5.20 | [facility] | | | COUNT | | M/cu mm | DEPARTMENT | | | | | | OF | | | | | | PATHOLOGY | | + +-------+ + + + | HEMOGLOBIN | 14.0 | 12.0 - 16.0 | [facility] | | | | | g/dL | DEPARTMENT | | | | | | OF | | | | | | PATHOLOGY | | + +-------+ + + + | HEMATOCRIT | 41.6 | 36.0 - 46.0 % | [facility] | | | | | | DEPARTMENT | | | | | | OF | | | | | | PATHOLOGY | | + +-------+ + + + | MCV | 85.6 | 80.0 - 96.0 fL | [facility] | | | | | | DEPARTMENT | | | | | | OF | | | | | | PATHOLOGY | | + +-------+ + + + | MCHC | 33.6 | 33.4 - 35.5 | [facility] | | | | | g/dL | DEPARTMENT | | | | | | OF | | | | | | PATHOLOGY | | + +-------+ + + + | RDW | 14.1 | 11.5 - 15.0 % | [facility] | | | | | | DEPARTMENT | | | | | | OF | | | | | | PATHOLOGY | | + +-------+ + + + | PLATELET | 250 | 150 - 400 K/cu | [facility] | | | COUNT | | mm | DEPARTMENT | | | | | | OF | | | | | | PATHOLOGY | | + +-------+ + + + + + | Specimen | + + | Blood - Blood | + + + + + + + | Performing | Address | City/State/Zipcode | Phone Number | | Organization | | | | + + + + + | [facility] DEPARTMENT | [address] | [place] [address] | | | PATHOLOGY | [address] | | | + + + + + COMPLETE METABOLIC SET (NA,K,CL,CO2,BUN,CREAT,GLUC,CA,AST,ALT,BILI TOTAL,ALK PHOS,ALB,PROT TOTAL) (06/21/2009 1:13 PM PST) + + + + + + | Component | Value | Ref Range | Performed | Pathologist | | | | | At | Signature | + + + + + + | GLUCOSE, | 89 | 60 - 99 mg/dL | [facility] | | | PLASMA | | | DEPARTMENT | | | (LAB) | | | OF | | | | | | PATHOLOGY | | + + + + + + | BUN, PLASMA | 8 | 6 - 20 mg/dL | [facility] | | | (LAB) | | | DEPARTMENT | | | | | | OF | | | | | | PATHOLOGY | | + + + + + + | CREATININE | 0.67 | 0.60 - 1.10 | [facility] | | | PLASMA | | mg/dL | DEPARTMENT | | | (LAB) | | | OF | | | | | | PATHOLOGY | | + + + + + + | TOTAL | 6.7 | 6.1 - 7.9 g/dL | [facility] | | | PROTEIN, | | | DEPARTMENT | | | PLASMA | | | OF | | | (LAB) | | | PATHOLOGY | | + + + + + + | ALBUMIN, | 3.8 | 3.5 - 4.7 g/dL | [facility] | | | PLASMA | | | DEPARTMENT | | | (LAB) | | | OF | | | | | | PATHOLOGY | | + + + + + + | CALCIUM, | 9.2 | 8.6 - 10.2 | [facility] | | | PLASMA | | mg/dL | DEPARTMENT | | | (LAB) | | | OF | | | | | | PATHOLOGY | | + + + + + + | BILIRUBIN | 0.7 | 0.3 - 1.2 mg/dL | [facility] | | | TOTAL | | | DEPARTMENT | | | | | | OF | | | | | | PATHOLOGY | | + + + + + + | ALK PHOS | 55 | 42 - 98 U/L | [facility] | | | | | | DEPARTMENT | | | | | | OF | | | | | | PATHOLOGY | | + + + + + + | AST(SGOT) | 19 | 15 - 41 U/L | [facility] | | | | | | DEPARTMENT | | | | | | OF | | | | | | PATHOLOGY | | + + + + + + | SODIUM, | 143 | 134 - 143 | [facility] | | | PLASMA | | mmol/L | DEPARTMENT | | | (LAB) | | | OF | | | | | | PATHOLOGY | | + + + + + + | POTASSIUM, | 3.4 | 3.4 - 5.0 | [facility] | | | PLASMA | | mmol/L | DEPARTMENT | | | (LAB) | | | OF | | | | | | PATHOLOGY | | + + + + + + | CHLORIDE, | 107 | 97 - 108 mmol/L | [facility] | | | PLASMA | | | DEPARTMENT | | | (LAB) | | | OF | | | | | | PATHOLOGY | | + + + + + + | TOTAL CO2, | 26 | 23 - 31 mmol/L | [facility] | | | PLASMA | | | DEPARTMENT | | | (LAB) | | | OF | | | | | | PATHOLOGY | | + + + + + + | ALT (SGPT) | 27 | 13 - 48 U/L | [facility] | | | | | | DEPARTMENT | | | | | | OF | | | | | | PATHOLOGY | | + + + + + + | EGFR | > 60 | >60 mL/min | [facility] | | | - | | | DEPARTMENT | | | CHADIAN | | | OF | | | | | | PATHOLOGY | | + + + + + + | EGFR NON | > 60Comment: GFR is | >60 mL/min | [facility] | | | -DONTRELL | estimated using the MDRD | | DEPARTMENT | | | RICAN | equation recommended by | | OF | | | | theNational Kidney | | PATHOLOGY | | | | Disease Education | | | | | | Program. Estimated GFR | | | | | | Interpretive | | | | | | Information: <60 | | | | | | mL/min/1.73 sq m | | | | | | Chronic Kidney Disease | | | | | | <15 mL/min/1.73 sq m | | | | | | Kidney Failure | | | | | | Estimated GFR greater | | | | | | than 60mL/min/1.73 is of | | | | | | limited clinical Value. | | | | | | The MDRD equation is | | | | | | not valid in the | | | | | | following situations: - | | | | | | Patients under 18 years | | | | | | of age - Severe | | | | | | malnutrition or obesity | | | | | | - Vegetarian diet - | | | | | | Rapidly changing kidney | | | | | | function | | | | + + + + + + + + | Specimen | + + | Blood - Blood | + + + + + + + | Performing | Address | City/State/Zipcode | Phone Number | | Organization | | | | + + + + + | [facility] | [address] | [place] [address] | | | PATHOLOGY | [address] | | | + + + + + documented in this encounter Visit Diagnoses + + | Diagnosis | + + | Other plastic surgery for unacceptable cosmetic appearance - Primary | + + | Other specified pre-operative examination | + + documented in this encounter
--- OUTSIDE RECORDS SUMMARY | ~2019-05-04 | XMS | Encounter Summary ---
Demographics + + + | Address | [address] | | | [place] [address] | + + + | Home Phone | | + + + | Preferred Language | Unknown | + + + | Marital Status | | + + + | Quaker Affiliation | CHR | + + + | Race | White | + + + | Ethnic Group | Not or | + + + Author + + + | Author | [facility] | + + + | Organization | [facility] | + + + | Address | Unknown | + + + | Phone | Unavailable | + + + Support + + + + + | Name | Relationship | Address | Phone | + + + + + | Edwar PETERS | ECON | [address] | | | | | #[place] | | | | | [address] | | + + + + + | Destiny Weinerkeena | ECON | Unknown | | + + + + + Care Team Providers + +------+ + | Care Tank Truck Driver Name | Role | Phone | + +------+ + | Shakir Erwin MD | PCP | | + +------+ + Reason for Visit + + + | Reason | Comments | + + + | Postoperative | Pt is having fluid build-up again and wants to have drained | | Questions | tomorrow | + + + Encounter Details +--------+ + + + + | Date | Type | Department | Care Team | Description | +--------+ + + + + | 01/04/ | Telephone | Plastic and | Tucker Buenrostro MD | Postoperative | | 2008 | | Reconstructive | [address] | Questions (Pt is | | | | Surgery at [facility] [address] | [place], [place] | having fluid | | | | [address] | [address] | build-up again and | | | | Mailcode: [facility] | [phone] | wants to have | | | | [facility] | | drained tomorrow) | | | | and Healing, | | | | | | Building , | | | | | | Floor [facility] [place] | | | | | | [address] | | | | | | [phone] | | | +--------+ + + + [...]
--- OUTSIDE RECORDS SUMMARY | ~2019-05-04 | XMS | Encounter Summary ---
Demographics + + + | Address | [address] | | | [place] [address] | + + + | Home Phone | | + + + | Preferred Language | Unknown | + + + | Marital Status | | + + + | Orthodoxy Affiliation | CHR | + + + | Race | White | + + + | Ethnic Group | Not or | + + + Author + + + | Author | [facility] | + + + | Organization | [facility] | + + + | [...] #[place] | | | | | [address] | | + + + + + | Destiny Suggs | ECON | Unknown | | + + + + + Care Team Providers + +------+ + | Care Camera Engineer Name | Role | Phone | + +------+ + | Shakir Erwin MD | PCP | | + +------+ + Encounter Details +--------+ + + + + | Date | Type | Department | Care Team | Description | +--------+ + + + + | 08/14/ | Ancillary | Registration [address] | [place], [place], | | | 2005 | [address] | [address] | | | | | [address] | [address] Mailcode: [id number] | | | | | | [place], [place] | | | | | | [address] | | | | | | [phone] | | | +--------+ + + + [...] | + +--------+ + + + | X-RAY CHEST 2 VIEW | Routin | 08/14/2004 | | Results for this | | | e | 11:21 AM | | procedure are in the | | | | PST | | results section. | + +--------+ + + + | DIFFERENTIAL | Routin | 08/14/2004 | | Results for this | | | e | 10:05 AM | | procedure are in the | | | | PST | | results section. | + +--------+ + + + | BLOOD BANK PRODUCT | Routin | 08/14/2004 | | Results for this | | | e | 10:05 AM | | procedure are in the | | | | PST | | results section. | + +--------+ + + + | BLOOD BANK PRODUCT | Routin | 08/14/2004 | | Results for this | | | e | 10:05 AM | | procedure are in the | | | | PST | | results section. | + +--------+ + + + | CBC, WITH | Routin | 08/14/2004 | | Results for this | | DIFFERENTIAL | e | 10:05 AM | | procedure are in the | | | | PST | | results section. | + +--------+ + + + | COMPLETE METABOLIC | Routin | 08/14/2004 | | Results for this | | SET | e | 10:05 AM | | procedure are in the | | (NA,K,CL,CO2,BUN,CRE | | PST | | results section. | | AT,GLUC,CA,AST,ALT,B | | | | | | JAVED TOTAL,ALK | | | | | | PHOS,ALB,PROT TOTAL) | | | | | + +--------+ + + + | ANTIBODY | Routin | 08/14/2004 | | Results for this | | IDENTIFICATION | e | 10:05 AM | | procedure are in the | | | | PST | | results section. | + +--------+ + + + | TYPE AND SCREEN | Routin | 08/14/2004 | | Results for this | | | e | 10:05 AM | | procedure are in the | | | | PST | | results section. | + +--------+ + + + | HCG BETA QUANT, | Routin | 08/14/2004 | | Results for this | | PLASMA | e | 10:05 AM | | procedure are in the | | | | PST | | results section. | + +--------+ + + + documented in this encounter Results CHEST 2 VIEW (08/14/2004 11:21 AM PST) + + + + + + | Component | Value | Ref Range | Performed | Pathologist | | | | | At | Signature | + + + + + + | CHEST, 2 | Radiologist 1: MATT | | | | | [place] | Camila [place]: [place] | | | | | STEREO | and lateral chest. | | | | | | COMPARISON: None. | | | | | | FINDINGS: The cardiac | | | | | | and mediastinal contours | | | | | | are normal. Thelungs | | | | | | are clear. There is no | | | | | | pleural effusion. | | | | | | IMPRESSION: Normal. | | | | | |Normal. | | | | | | | | | | | | | | | | + + + + + + + + | Specimen | + + | | + + + +---------+ + + | Performing | Address | City/State/Zipcode | Phone Number | | Organization | | | | + +---------+ + + | [facility] DEPARTMENT OF | | | | | RADIOLOGY | | | | + +---------+ + + BLOOD BANK PRODUCT (08/14/2004 10:05 AM PST) + + + + + + | Component | Value | Ref Range | Performed | Pathologist | | | | | At | Signature | + + + + + + | PRODUCT | RED CELL LEUKOREDUCED | | [facility] | | | DESCRIPTION | | | DEPARTMENT | | | | | | OF | | | | | | PATHOLOGY | | + + + + + + | PRODUCT | [id number] | | [facility] | | | UNIT # | | | DEPARTMENT | | | | | | OF | | | | | | PATHOLOGY | | + + + + + + | UNIT ABO | O | | [facility] | | | | | | DEPARTMENT | | | | | | OF | | | | | | PATHOLOGY | | + + + + + + | UNIT RH | POS | | [facility] | | | | | | DEPARTMENT | | | | | | OF | | | | | | PATHOLOGY | | + + + + + + | STATUS OF | Released | | [facility] | | | UNIT | | | DEPARTMENT | | | [...] | + + + + + | [facility] DEPART[facility] | [address] | [place] [address] | | | PATHOLOGY | [address] | | | + + + + + | [facility] | [address] | [place] [address] | | | PATHOLOGY | [address] | | | + + + + + BLOOD BANK PRODUCT (08/14/2004 10:05 AM PST) + + + + + + | Component | Value | Ref Range | Performed | Pathologist | | | | | At | Signature | + + + + + + | PRODUCT | RED CELL LEUKOREDUCED | | [facility] | | | DESCRIPTION | | | DEPARTMENT | | | | | | OF | | | | | | PATHOLOGY | | + + + + + + | PRODUCT | [id number] | | [facility] | | | UNIT # | | | DEPARTMENT | | | | | | OF | | | | | | PATHOLOGY | | + + + + + + | UNIT ABO | O | | [facility] | | | | | | DEPARTMENT | | | | | | OF | | | | | | PATHOLOGY | | + + + + + + | UNIT RH | POS | | [facility] | | | | | | DEPARTMENT | | | | | | OF | | | | | | PATHOLOGY | | + + + + + + | STATUS OF | Released | | [facility] | | | UNIT | | | DEPARTMENT | | | [...] | + + + + + | [facility] DEPARTMENT [facility] | [address] [facility] | [place] [address] | | | PATHOLOGY | [address] | | | + + + + + | [facility] DEPARTMENT OF | [facility] | [place] [address] | | | PATHOLOGY | [address] | | | + + + + + ANTIBODY IDENTIFICATION (08/14/2004 10:05 AM PST) + + + + + + | Component | Value | Ref Range | Performed | Pathologist | | | | | At | Signature | + + + + + + | ANTIBODY | NEW ANTI-K DEMONSTRATED | | [facility] | | | IDENT, | | | DEPARTMENT | | | BLOOD | | | OF | | | [...] DEPARTMENT OF | [address] | [place] [address] | | | PATHOLOGY | [address] | | | + + + + + | [facility] DEPARTMENT OF | [address] | [place] [address] | | | PATHOLOGY | [address] | | | + + + + + TYPE AND SCREEN (08/14/2004 10:05 AM PST) + +-------+ + + + | Component | Value | Ref Range | Performed | Pathologist | | | | | At | Signature | + +-------+ + + + | ABO GROUP | O | | [facility] | | | | | | DEPARTMENT | | | | | | OF | | | | | | PATHOLOGY | | + +-------+ + + + | RH TYPE | POS | | [facility] | | | | | | DEPARTMENT | | | | | | OF | | | | | | PATHOLOGY | | + +-------+ + + + | ANTIBODY | POS | | [facility] | | | SCREEN | | | DEPARTMENT | | | | | | OF | | | | | | PATHOLOGY | | + +-------+ + + + + + | Specimen | + + | | + + + + + | Narrative | Performed At | + + + | SPEC. OUTDATE 08/31/04 @ 0700 | [facility] | | | DEPARTMENT OF | | | PATHOLOGY | + + + + + + + + | Performing | Address | City/State/Zipcode | Phone Number | | Organization | | | | + + + + + | [facility] DE[facility] | [address] [facility] | [place] [address] | | | PATHOLOGY | [address] | | | + + + + + | [facility] | [address] [facility] | [place] [address] | | | PATHOLOGY | [address] | | | + + + + + DIFFERENTIAL (08/14/2004 10:05 AM PST) + +---------+ + + + | Component | Value | Ref Range | Performed | Pathologist | | | | | At | Signature | + +---------+ + + + | NEUTROPHIL | 59 | 50 - 70 % | [facility] | | | % | | | DEPARTMENT | | | | | | OF | | | | | | PATHOLOGY | | + +---------+ + + + | LYMPHOCYTE | 33 | 18 - 42 % | [facility] | | | % | | | DEPARTMENT | | | | | | OF | | | | | | PATHOLOGY | | + +---------+ + + + | MONOCYTE % | 6 | 2 - 8 % | [facility] | | | | | | DEPARTMENT | | | | | | OF | | | | | | PATHOLOGY | | + +---------+ + + + | EOS % | 2 | 1 - 3 % | [facility] | | | | | | DEPARTMENT | | | | | | OF | | | | | | PATHOLOGY | | + +---------+ + + + | BASO % | 0 | <3 % | [facility] | | | | | | DEPARTMENT | | | | | | OF | | | | | | PATHOLOGY | | + +---------+ + + + | NEUTROPHIL | 7.1 | 1.8 - 7.7 K/cu | [facility] | | | # | | mm | DEPARTMENT | | | | | | OF | | | | | | PATHOLOGY | | + +---------+ + + + | LYMPHOCYTE | 4.0 | 1.0 - 4.8 K/cu | [facility] | | | # | | mm | DEPARTMENT | | | | | | OF | | | | | | PATHOLOGY | | + +---------+ + + + | MONOCYTE # | 0.7 (H) | 0.1 - 0.6 K/cu | [facility] | | | | | mm | DEPARTMENT | | | | | | OF | | | | | | PATHOLOGY | | + +---------+ + + + | EOS # | 0.2 | <0.6 K/cu mm | [facility] | | | | | | DEPARTMENT | | | | | | OF | | | | | | PATHOLOGY | | + +---------+ + + + | AMBERO # | 0.0 | <0.3 | [facility] [...] | + + + + + | [facility] DEPARTMENT [facility] | [address] | [place] [address] | | | PATHOLOGY | [address] | | | + + + + + | [facility] | [address] | [place] [address] | | | PATHOLOGY | [address] | | | + + + + + CBC, WITH DIFFERENTIAL (08/14/2004 10:05 AM PST) + + + + + + | Component | Value | Ref Range | Performed | Pathologist | | | | | At | Signature | + + + + + + | WHITE CELL | 12.1 (H) | 4.4 - 11.0 K/cu | [facility] | | | COUNT | | mm | DEPARTMENT | | | | | | OF | | | | | | PATHOLOGY | | + + + + + + | RED CELL | 4.95 | 3.65 - 5.10 | [facility] | | | COUNT | | M/cu mm | DEPARTMENT | | | | | | OF | | | | | | PATHOLOGY | | + + + + + + | HEMOGLOBIN | 13.6 | 11.4 - 15.0 | [facility] | | | | | g/dL | DEPARTMENT | | | | | | OF | | | | | | PATHOLOGY | | + + + + + + | HEMATOCRIT | 39.3 | 33.0 - 44.6 % | [facility] | | | | | | DEPARTMENT | | | | | | OF | | | | | | PATHOLOGY | | + + + + + + | MCV | 79.3 (L) | 80.0 - 96.0 fL | [...] + + + + | PLATELET | 339 | 150 - 400 K/cu | [facility] [...] | + + + + + | [facility] DEPARTMENT [facility] | [address] | [place] [address] | | | PATHOLOGY | [address] | | | + + + + + | [facility] DEPARTMENT [facility] | [address] | [place] [address] | | | PATHOLOGY | [address] | | | + + + + + HCG BETA PLASMA (08/14/2004 10:05 AM PST) + + + + + + | Component | Value | Ref Range | Performed | Pathologist | | | | | At | Signature | + + + + + + | HCG BETA, | < 1Comment: | mIU/mL | [facility] | | | PLASMA | Non- | | DEPARTMENT | | | | Females/Males: (< | | OF | | | | 2) | | PATHOLOGY | | | | mIU/mL | | | | | | | | | | | | Females: | | | | | | (> 5) | | | | | | mIU/mL HCG | | | | | | Ranges During Normal | | | | | | : Weeks | | | | | | Post Last | | | | | | Approx hCG | | | | | | Menstrual Period: | | | | | | Range | | | | | | (mIU/mL): 3 - 4 | | | | | | Weeks | | | | | | 9 - 130 | | | | | | 4 - 5 Weeks | | | | | | 75 - 2600 | | | | | | 5 - 6 Weeks | | | | | | 850 - | | | | | | 69474 6 - 7 | | | | | | Weeks | | | | | | 4000 - 437652 | | | | | | 7 - 12 Weeks | | | | | | 19277 - 282596 | | | | | | 12 - 16 Weeks | | | | | | 18741 - | | | | | | 872031 16 - 29 | | | | | | Weeks | | | | | | 1400 - 75135 29 | | | | | | - 41 Weeks | | | | | | 940 - 51091 New | | | | | | methodology as of | | | | | | 10/20/03. | | | | + + + + + + + + | Specimen | + + | | + + + + + + + | Performing | Address | City/State/Zipcode | Phone Number | | Organization | | | | + + + + + | [facility] | [address] | [place] [address] | | | PATHOLOGY | [address] | | | + + + + + | [facility] DEPARTMENT OF | [address] | [place] [address] | | | PATHOLOGY | [address] | | | + + + + + COMP METABOLIC SET (08/14/2004 10:05 AM PST) + +---------+ + + + | Component | Value | Ref Range | Performed | Pathologist | | | | | At | Signature | + +---------+ + + + | GLUCOSE, | 87 | 65 - 110 mg/dL | [facility] | | | PLASMA | | | DEPARTMENT | | | (LAB) | | | OF | | | | | | PATHOLOGY | | + +---------+ + + + | BUN, PLASMA | 12 | 6 - 20 mg/dL | [facility] [...] +---------+ + + + | TOTAL | 7.1 | 6.1 - 7.9 g/dL | [facility] | | | PROTEIN, | | | DEPARTMENT | | | PLASMA | | | OF | | | (LAB) | | | PATHOLOGY | | + +---------+ + + + | ALBUMIN, | 3.9 | 3.5 - 4.7 g/dL | [facility] | | | PLASMA | | | DEPARTMENT | | | (LAB) | | | OF | | | | | | PATHOLOGY | | + +---------+ + + + | CALCIUM, | 9.4 | 8.5 - 10.5 | [facility] | [...] +---------+ + + + | AST(SGOT) | 14 (L) | 15 - 41 U/L | [facility] [...] +---------+ + + + | POTASSIUM, | 3.8 | 3.5 - 5.1 | [facility] | | | PLASMA | | mmol/L | DEPARTMENT | | | (LAB) | | | OF | | | | | | PATHOLOGY | | + +---------+ + + + | CHLORIDE, | 108 (H) | 98 - 107 mmol/L | [facility] | | | PLASMA | | | DEPARTMENT | | | (LAB) | | | OF | | | | | | PATHOLOGY | | + +---------+ + + + | TOTAL CO2, | 22 (L) | 23 - 29 mmol/L | [facility] | | | PLASMA | | | DEPARTMENT | | | (LAB) | | | OF | | | | | | PATHOLOGY | | + +---------+ + + + | ALT (SGPT) | 24 | 13 - 48 U/L | [facility] [...] | + + + + + | [facility] DEPARTMENT OF | [address] | [place] [address] | | | PATHOLOGY | [address] | | | + + + + + | [facility] DEPARTMENT OF | [address] | [place] [address] | | | PATHOLOGY | [address] | | | + + + + + documented in this encounter Visit Diagnoses Not on filedocumented in this encounter"
--- OUTSIDE RECORDS SUMMARY | ~2019-05-04 | XMS | Encounter Summary ---
Demographics + + + | Address | [address] | | | [place] [address] | + + + | Home Phone [...] #[place], [place] | | | | | [address] | | + + + + + | Destiny Suggs | ECON | Unknown | | + + + + + Care Team Providers + +------+ + | Care Nurse Ldr Name | Role | Phone | + [...] as of this encounter Progress Notes Interface, Third Miller In - 02/17/2005 9:29 PM [facility] [id number] [facility] Date: 02/01/2005 Clinic: Subjective: [...] protein intake. She will be seeing a script reader in [place] where she currently lives. Assessment: The patient [...] any plans for EGD. Cyndie Ponce / [id number] / [id number] / [phone] / [phone] Electronically signed by Laay Shay 02-16-2005 09:20:13 AM documented i n this encounter Plan of Treatment Not on filedocumented as of this encounter Visit Diagnoses Not on filedocumented in this encounter"
--- OUTSIDE RECORDS SUMMARY | ~2019-05-04 | XMS | Encounter Summary ---
Demographics + + + | Address | [address] | | | [place] [address] | + + + | Home Phone [...] + + + | Author | [facility] | + + + | Organization | [facility] | + + + | [...] #[place] | | | | | [address] | | + + + + + | Destiny Suggs | ECON | Unknown | | + + + + + Care Team Providers + +------+ + | Care Carton Filling Machine Operator Name | Role | Phone | [...] for | | | | Surgery at [facility] [address] | | unacceptable | | | | [address] | | cosmetic appearance | | | | Mailcode: [facility] | | (Primary Dx); Other | | | | [facility] | | specified | | | | and Healing, | | pre-operative | | | | Building 1, 5th | | examination | | | | Floor [place], [place] | | | | | | [address] | | | | | | [phone] | | | +--------+---------+ + + + [...] surgeries scheduled to take place on the [place] at the [facility]: Surgeries scheduled in the [facility] ([address] [place] [address]): registration is located on the 4th floor of [facility] (Day Surgery). Surgeries scheduled in the [facility]: registration is located on the 9th floor. Surgeries scheduled in [facility]: registration is located on the 6th floor. Surgeries scheduled in the [facility]: registration is located i n the [facility] lobby on the first floor. For surgeries scheduled to take place at the [facility]: registration is l [...] you use specialized medical equipment at h [facility], please check with your provider before bringing [...] is doing well, is back on ps the medical center meds, has no suicidal thoughts or plans. [...] mouth once daily. fluticasone 50 mcg/Actuation Nasal [place], Suspension Instill 2 Sprays into each nostril [...] | + + + + + | [facility] DEPARTMENT | [address] | [place] [address] | | | PATHOLOGY | [address] [...] | | | DEPARTMENT | | | [place] | | | OF | | | [...] | + + + + + | [facility] | [address] | [place] [address] | | | PATHOLOGY | [address] | | | + + + + + documented in this encounter Visit Diagnoses + + | Diagnosis | + + | Other plastic surgery for unacceptable cosmetic appearance - Primary | + + | Other specified pre-operative examination | + + documented in this encounter
--- OUTSIDE RECORDS SUMMARY | ~2019-05-04 | XMS | Encounter Summary ---
Demographics + + + | Address | [address] | | | [place] [address] | + + + | Home Phone | | + + + | Preferred Language | Unknown | + + + | Marital Status | | + + + | Jainism Affiliation | CHR | + + + | Race | White | + + + | Ethnic Group | Not or | + + + Author + + + | Author | [facility] | + + + | Organization | [facility] | + + + | [...] #[place] | | | | | [address] | | + + + + + | Destiny Suggs | ECON | Unknown | | + + + + + Care Team Providers + +------+ + | Care Property Accountant Name | Role | Phone | + +------+ + | Shakir Erwin MD | PCP | | + +------+ + Reason for Visit + + + | Reason | Comments | + + + | Postoperative visit | panniculectomy, poss abd seroma. | + + + Encounter Details +--------+---------+ + + + | Date | Type | Department | Care Team | Description | +--------+---------+ + + + | 01/06/ | Office | Plastic and | Johanna Cottrell PA | Seroma, | | 2008 | Visit | Reconstructive | | Postoperative | | | | Surgery at [facility] [address] | | (Primary Dx) | | | | [address] | | | | | | Mailcode: CH5P | | | | | | [facility] | | | | | | and Healing, | | | | | | Building 1, | | | | | | Floor [place], [place] | | | | | | [address] | | | | | | [phone] | | | +--------+---------+ + + + [...] encounter Progress Notes Johanna Cottrell PA - 01/11/2009 12:15 PM PDTSubjective: Anamika Pack presents 6 weeks status post panniculectomy with Tucker Buenrostro MD. Current concerns include: feeling fullness of right lower abdomen, no real discomfort. No f ever or other const sx. Objective: NAD. Ambulating well. Abdomen soft, NT,ND with small ballotable fluid collection right lowe r abdomen. Incision well healed. Assessment: Fluid collection lower abdomen Plan: Monitor. Use compression garment. Call with concerns or any presentation of discomfort. Pt will follow up 04-15 with Tucker Buenrostro MD, sooner prn. documented in this enc ounter Plan of Treatment Not on filedocumented as of this encounter Visit Diagnoses + + | Diagnosis | + + | Seroma, postoperative - Primary Seroma complicating a procedure | + + documented in this encounter"
--- OUTSIDE RECORDS SUMMARY | ~2019-05-04 | XMS | Encounter Summary ---
Demographics + + + | Address | [address] | | | [place] [address] | + + + | Home Phone | | + + + | Preferred Language | Unknown | + + + | Marital Status | | + + + | Mormon Affiliation | CHR | + + + | Race | White | + + + | Ethnic Group | Not or | + + + Author + + + | Author | [facility] | + + + | Organization | [facility] | + + + | [...] #[place] | | | | | [address] | | + + + + + | Destiny Suggs | ECON | Unknown | | + + + + + Care Team Providers + +------+ + | Care Edger Runner Name | Role | Phone | + [...] | | | | | | | [place], [place] | | | | | | | [address] | | | | | | | Phone: | | | | | | | [phone] | | | | | | | Fax: | | | | | | | [phone] | +--------+--------+ + + + + Encounter Details +--------+ + + + + | Date | Type | Department | Care Team | Description | +--------+ + + + + | 11/19/ | Hospital | [facility] | Tucker Buenrostro MD | | | 2008 | Encounter | [address] | [address] | | | | | Ave Mailcode: CH | [place], [place] | | | | | Center for | [address] | | | | | Health and Healing, | [phone] | | | | | Building [address] | | | | | | [place], [place] | | | | | | [address] | | | | | | [phone] | | | +--------+ + + + [...]
--- OUTSIDE RECORDS SUMMARY | ~2019-05-04 | XMS | Encounter Summary ---
Demographics + + + | Address | [address] | | | [place] [address] | + + + | Home Phone | | + + + | Preferred Language | Unknown | + + + | Marital Status | | + + + | Spiritism Affiliation | CHR | + + + | Race | White | + + + | Ethnic Group | Not or | + + + Author + + + | Author | [facility] | + + + | Organization | [facility] | + + + | Address | Unknown | + + + | Phone | Unavailable | + + + Support + + + + + | Name | Relationship | Address | Phone | + + + + + | Edwar PETERS | ECON | [address] | | | | | #[place] | | | | | [address] | | + + + + + | Destiny Reginekeena | ECON | Unknown | | + + + + + Care Team Providers + +------+ + | Care Purchasing Internship Name | Role | Phone | + +------+ + | Shakir Erwin MD | PCP | | + +------+ + Reason for Visit + + + | Reason | Comments | + + + | Pre-op evaluation | | + + + Encounter Details +--------+---------+ + + + | Date | Type | Department | Care Team | Description | +--------+---------+ + + + | 11/18/ | Office | Plastic and | Johanna Cottrell PA | Other Specified | | 2008 | Visit | Reconstructive | | Pre-Operative | | | | Surgery at [facility] [address] | | Examination | | | | [address] | | | | | | Mailcode: 5 | | | | | | [facility] | | | | | | and Healing, | | | | | | Building [address], [address]th | | | | | | Floor [place], [place] | | | | | | [address] | | | | | | [phone] | | | +--------+---------+ + + + Social History + + + +--------+ + | Tobacco Use | Types | Packs/Day | Years | Date | | | | | Used | | + + + +--------+ + | Former Smoker | Cigarettes | 0.5 | 3 | Quit: 07/08/1986 | + + + +--------+ + + + +---------+ + | Alcohol Use | Drinks/Week | oz/Week | Comments | + + +---------+ + | No | | | | + + +---------+ + + + [...] + + documented as of this encounter Patient Instructions Patient Instructions Johanna Cottrell PA - 11/18/2008 12:52 PM PDTRegistration Locations (pl ease check in at one of the following registration desks prior to surgery) For surgeries scheduled to take place on the cisco at the [facility]: Surgeries scheduled in the [facility] ( [facility]): registration is located on the 4th floor of [facility] (Day Surgery). Surgeries scheduled in the [facility]: registration is located on the 9th floor. Surgeries scheduled in [facility]: registration is located on the 6th floor. Surgeries scheduled in the [facility]: registration is located i n the [facility] on the first floor. For surgeries scheduled to take place at the [facility]: registration is l [...] If you use specialized medical equipment at [facility], please check with your provider before bringing [...] [email or web address].Elec tronically signed by CEE Anne at 11/18/2008 12:52 PM PDT documented in this encounter Progress Notes Johanna Cottrell PA - 11/18/2008 12:52 PM PDT Pre-Procedure History and Physical Date of Admission: 11-19-08 HISTORY: Gastric bypass in 2004, now having panniculectomy CURRENT PROBLEM LIST: Patient Active Problem List Diagnoses Date Noted Intertrigo [695.89F] 06/01/2008 MORBID OBESITY [278.01] 08/29/2004 UNSPECIFIED ESSENTIAL HYPERTENSION [401.9] 08/29/2004 CHRONIC PAIN [338.29A] 08/29/2004 OSTEOARTHRITIS [715.90AF] 08/29/2004 DM TYPE 2 (DIABETES MELLITUS, TYPE 2) [250.00BB] 08/29/2004 ANALGESIA [782.0J] 08/29/2004 Patient-controlled JOINT PAIN [719.40A] 08/29/2004 DEPRESSION [311G] 08/29/2004 ENDOMETRIAL HYPERPLASIA [621.30C] 08/29/2004 DEGENERATIVE JOINT DISEASE/SEVERE [715.90Y] 08/29/2004 severe ANXIETY [300.00E] 08/29/2004 Past Medical History Diagnosis Date Depression Bipolar II Disorder PTSD (Post-Traumatic Stress Disorder) Arthritis Past Surgical History Procedure Date Pr removal gallbladder 1999 Laparoscopic Pr delivery only 1986 Laparoscopic anastacia-en-y gastric bypass 08/30/2004 Pr fusion hip joint 1985 RIGHT Hx hip replacement 2005 Hx hip replacement 2007 MEDICATIONS: Current outpatient prescriptions Medication Sig Dispense Refill GABAPENTIN ORAL 1 tab p.o. three times daily LITHIUM CARBONATE ORAL .5mg, 1 tab p.o. qd OS-FLAKO 500 + D OR b.i.d. RANITIDINE HCL 150 MG ORAL TAB b.i.d. x 3 months VITAMIN B-12 1,000 MCG/ML INJ SOLN q.d. Allergies Allergen Reactions Hydrocodone Itching Oxycodone Itching Oxycontin (Oxycodone Hcl) Itching FAMILY HISTORY: Family History Problem Relation Cancer Mother uterine Diabetes Father REVIEW OF SYSTEMS: denies fever, chills, N&V,CP,SOb,Dysuria,. History of diet controlled di abetes. PHYSICAL EXAM: VITALS: There were no vitals taken for this visit. HEENT: Normal NECK: Normal CHEST/LUNGS: Normal HEART: Normal ABDOMEN: See Notes: soft, NT,ND BACK: Normal EXTREMITIES: Normal NEUROLOGICAL: Normal G.U.: See Notes: deferred PROVISIONAL DIAGNOSIS: intertrigo PLANNED COURSE OF ACTION: panniculectomy PARQ: A PARQ session was held and consent will be signed DOS. documented in this encounter Plan of Treatment Not on filedocumented as of this encounter Visit Diagnoses + + | Diagnosis | + + | Other specified pre-operative examination | + + documented in this encounter"
--- OUTSIDE RECORDS SUMMARY | ~2019-05-04 | XMS | Encounter Summary ---
Demographics + + + | Address | [address] | | | [place] [address] | + + + | Home Phone | | + + + | Preferred Language | Unknown | + + + | Marital Status | | + + + | Yarsanism Affiliation | CHR | + + + [...] #[place] | | | | | [address] | | + + + + + | Destiny Suggs | ECON | Unknown | | + + + + + Care Team Providers + +------+ + | Care Liability Claims Adjuster Name | Role | Phone | + +------+ + | Shakir Erwni MD | PCP | | + +------+ + Encounter Details +--------+ + + + + | Date | Type | Department | Care Team | Description | +--------+ + + + + | 11/10/ | Hospital | Registration [id number] | Junior Rees MD | | | 2004 | Activity | [address] | [address] | | | | | [address] Mailcode: [address] | [place], [place] | | | | | [place], [place] | [address] | | | | | [address] | [phone] | | | | | [phone] | | | +--------+ + + + [...]
--- OUTSIDE RECORDS SUMMARY | ~2019-05-04 | XMS | Encounter Summary ---
Demographics + + + | Address | [address] | | | [place] [address] | + + + | Home Phone | | + + + | Preferred Language | Unknown | + + + | Marital Status | | + + + | Taoism Affiliation | CHR | + + + [...] #[place] | | | | | [address] | | + + + + + | Destiny Suggs | ECON | Unknown | | + + + + + Care Team Providers + +------+ + | Care Director Business Systems Name | Role | Phone | + +------+ + | Shakir Erwin MD | PCP | | + +------+ + Encounter Details +--------+ + + + + | Date | Type | Department | Care Team | Description | +--------+ + + + + | 05/17/ | Document-Sc | UNKNOWN DEPARTMENT | Unknown . | | | 2016 | anned | [address] | | | | | | [address] | | | | | | [place], [place] | | | | | | [address] | | | +--------+ + + + [...]
--- OUTSIDE RECORDS SUMMARY | ~2019-05-04 | XMS | Encounter Summary ---
Demographics + + + | Address | [address] | | | [place] [address] | + + + | Home Phone | | + + + | Preferred Language | Unknown | + + + | Marital Status | | + + + | Amish Affiliation | CHR | + + + | Race | White | + + + | Ethnic Group | Not or | + + + Author + + + | Author | [facility] | + + + | Organization | [facility] | + + + | Address | Unknown | + + + | Phone | Unavailable | + + + Support + + + + + | Name | Relationship | Address | Phone | + + + + + | Edwar PETERS | ECON | [address] | | | | | #[place] | | | | | [address] | | + + + + + | Destiny Suggs | ECON | Unknown | | + + + + + Care Team Providers + +------+ + | Care Guest House Manager Name | Role | Phone | + +------+ + | Shakir Erwin MD | PCP | | + +------+ + Reason for Visit + + + | Reason | Comments | + + + | Fitness for work | Release back to Full Duty Work, per Patients request. | + + + Encounter Details +--------+ + + + + | Date | Type | Department | Care Team | Description | +--------+ + + + + | 07/21/ | Telephone | Plastic and | Tucker Buenrostro MD | Fitness for work | | 2009 | | Reconstructive | [address] | (Release back to | | | | Surgery at [facility] [address] | [place], [place] | Full Duty Work, per | | | | [address] | [address] | Patients request.) | | | | Mailcode: [facility] | [phone] | | | | | [facility] | | | | | | and Healing, | | | | | | Building | | | | | | Floor [facility] [place] | | | | | | [address] | | | | | | [phone] | | | +--------+ + + + [...]
--- OUTSIDE RECORDS SUMMARY | ~2019-05-04 | XMS | Encounter Summary ---
Demographics + + + | Address | [address] | | | [place] [address] | + + + | Home Phone | | + + + | Preferred Language | Unknown | + + + | Marital Status | | + + + | Mu-Ism Affiliation | CHR | + + + | Race | White | + + + | Ethnic Group | Not or | + + + Author + + + | Author | [facility] | + + + | Organization | [facility] | + + + | [...] #[place] | | | | | [address] | | + + + + + | Destiny Reginekeena | ECON | Unknown | | + + + + + Care Team Providers + +------+ + | Care Sea Captain Name | Role | Phone | + +------+ + | Shakir Erwin MD | PCP | | + +------+ + Reason for Visit + + + | Reason | Comments | + + + | Postoperative visit | Panniculectomy. | + + + Encounter Details +--------+---------+ + + + | Date | Type | Department | Care Team | Description | +--------+---------+ + + + | 11/22/ | Office | Plastic and | Resident, Pls | Intertrigo (Primary | | 2008 | Visit | Reconstructive | [address] | Dx) | | | | Surgery at [facility] [address] | [place] [address] | | | | | [address] | | | | | | Mailcode: [facility] | | | | | | [facility] | | | | | | and Healing, | | | | | | Building [address], 5th | | | | | | Floor [place], [place] | | | | | | [address] | | | | | | [phone] | | | +--------+---------+ + + + [...] + + + | Blood Pressure | 94/57 | 11/22/2008 9:44 AM | | | | | PDT | | + + + + + | Pulse | 63 | 11/22/2008 9:44 AM | | | | | PDT | | + + + + + | Temperature | 36.9 C (98.4 F) | 11/22/2008 9:44 AM | | | | | PDT | | + + + + + | Respiratory Rate | 18 | 11/22/2008 9:44 AM | | | | | PDT | | + + + + + | Oxygen Saturation | 99% | 11/22/2008 9:44 AM | | | | | PDT | | + + + + + | Inhaled Oxygen | - | - | | | Concentration | | | | + + + + + | Weight | - | - | | + + + + + | Height | - | - | | + + + + + | Body Mass Index | - | - | | + + + + + documented in this encounter Progress Notes Ross Bonilla, Sd Mccurdy - 11/22/2008 9:52 AM PDTSubjective: Anamika Pack presents 3 days status post panniculectomy with Tucker Buenrostro MD. The procedure was done on an outpatient basis. She was seen in the ED the night of surgery with pre-syncope. She was admitted over night. She had and EKG and was followed on tele. Her Hgb did dropped from 13 pre-op to 10 on 11/20 prior to d/c from ED obs. She is her today for fo llow up. Keflex, percocet No more episodes of syncope. Still getting light headed when she stands- last episode this am. Line [place] Drains: Rt 125 last 24 hrs, Lt 50 last 24 hrs BP 94/57, Pulse 63, Temperature 36.9 C (98.4 F), RR 18, SpO2 99%. Objective: Abd- all wounds intact, drains serosang. All flaps viable. Umbilicus good cap refill. Some ecchymosis at vertical wound Assessment: S/p panniculectomy with post-op syncope and ED obs admission overnight. She is doing well Small Hgb drop - Continue keflex - Will have drains d/c'd in urgent care at home - F/U [address] Buenrostro - FeSO4/colace prescribed Discussed with Dr. Buenrostro documented in this encounter Plan of Treatment Not on filedocumented as of this encounter Visit Diagnoses + + | Diagnosis | + + | Intertrigo - Primary Other specified erythematous condition | + + documented in this encounter"
--- OUTSIDE RECORDS SUMMARY | ~2019-05-04 | XMS | Encounter Summary ---
Demographics + + + | Address | [address] | | | [place] [address] | + + + | Home Phone | | + + + | Preferred Language | Unknown | + + + | Marital Status | | + + + | Jainism Affiliation | CHR | + + + | Race | White | + + + | Ethnic Group | Not or | + + + Author + + + | Author | [facility] | + + + | Organization | [facility] | + + + | [...] #[place] | | | | | [address] | | + + + + + | Destiny Reginekeena | ECON | Unknown | | + + + + + Care Team Providers + +------+ + | Care Nuisance Wildlife Trapper Name | Role | Phone | + [...] Description | +--------+---------+ + + + | 12/28/ | Office | Plastic and | Tucker Buenrostro MD | Seroma, | | 2008 | Visit | Reconstructive | [address] | Postoperative | | | | Surgery at [facility] [address] | [facility] [place] | (Primary Dx) | | | | [address] | [address] | | | | | Mailcode: [facility] | [phone] | | | | | [facility] | | | | | | and Healing, | | | | | | Building [address], 5th | | | | | | Floor [place], [place] | | | | | | [address] | | | | | | [phone] | | | +--------+---------+ + + + [...] documented as of this encounter Progress Notes Delfino López Md - 12/28/2008 3:10 PM PDTS: Ms Pack returns for post-operative follow up after panniculectomy on 11/19/08, with concern about what she believes may be fluid over her RLQ just superior to her incision. Her last drain was removed on 12/07/08 with a daily ou tput of approx 35 ml prior to removal. She reports some pain to the lateral poles of her in cision, and some deep itching, relieved by benadryl. O: on exam there is a moderate sized palpable fluid collection in the RLQ, which, when prom pted, creates a fluid wave to the superior pole of her incision. The are no areas of erythe ma or induration, and all incisions are well healed with good scar formation and no drainage . Upon placement of an 18 gauge needle into superficial fascia of the RLQ, approx 500 ml of s erous fluid is aspirated into vacutainer. This fluid is not purulent, and was discarded A/P: Ms Pack is approx 5 weeks post-op after panniculectomy, and now has a 500 ml seroma , which we drained in the office today. We will plan to see her back in clinic as needed fo r further aspiration of any residual seromas.Electronically signed by Delfino López Md at 0 12/28/2008 3:10 PM Tcuker German MD - 12/28/2008 3:08 PM PDTPost-operative visit Subjective:Anamika Pack presents 1 months status post panniculectomy . Current concerns include: abdominal fullness. Pt denies: fever, chills, nausea, vomiting. Pain: minimal. Objective: Clinical large seroma of lower abdomen. Incision well healed. Using sterile technique 500 mL of clear straw colored seroma fluid was evacuated. Assessment: post operative seroma. Plan: May need serial aspirations. She will return if fluid reaccumulates.. documented in this enco unter Plan of Treatment Not on filedocumented as of this encounter Visit Diagnoses + + | Diagnosis | + + | Seroma, postoperative - Primary Seroma complicating a procedure | + + documented in this encounter"
--- OUTSIDE RECORDS SUMMARY | ~2019-05-04 | XMS | Encounter Summary ---
Demographics + + + | Address | [address] | | | [place] [address] | + + + | Home Phone | | + + + | Preferred Language | Unknown | + + + | Marital Status | | + + + | Church Affiliation | CHR | + + + | Race | White | + + + | Ethnic Group | Not or | + + + Author + + + | Author | [facility] | + + + | Organization | [facility] | + + + | Address | Unknown | + + + | Phone | Unavailable | + + + Support + + + + + | Name | Relationship | Address | Phone | + + + + + | Edwar PETERS | ECON | [address] | | | | | #[place] | | | | | [address] | | + + + + + | Destiny Suggs | ECON | Unknown | | + + + + + Care Team Providers + +------+ + | Care Burnisher And Bumper Name | Role | Phone | + [...] [address] | | | | | | [place], [place] | | | | | | [address] | | | | | | [phone] | | | +--------+ + + + [...]
--- OUTSIDE RECORDS SUMMARY | ~2019-05-04 | XMS | Encounter Summary ---
Demographics + + + | Address | [address] | | | [place] [address] | + + + | Home Phone [...] #[place] | | | | | [address] | | + + + + + | Destiny Weinerkeena | ECON | Unknown | | + + + + + Care Team Providers + +------+ + | Care Tannery Gummer Name | Role | Phone | + +------+ + | Shakir Erwin MD | PCP | | + +------+ + Reason for Visit + + + | Reason | Comments | + + + | Postoperative visit | abdominal scar rvsn. | + + + Encounter Details +--------+---------+ + + + | Date | Type | Department | Care Team | Description | +--------+---------+ + + + | 06/29/ | Office | Plastic and | Johanna Cottrell PA | Other plastic | | 2008 | Visit | Reconstructive | | surgery for | | | | Surgery at [facility] [address] | | unacceptable | | | | [address] | | cosmetic appearance | | | | Mailcode: [facility] | | (Primary Dx) | | | | [facility] | | | | | | and Healing, | | | | | | Building [address], [address]th | | | | | | Floor [place], [place] | | | | | | [address] | | | | | | [phone] | | | +--------+---------+ + + + [...] encounter Progress Notes Johanna Cottrell PA - 06/29/2009 1:34 PM PSTSubjective: Anamika Pack presents 1 week status post Procedures Performed: Scar revision, and excision of excess skin and fat from upper abdominal scar. with Tucker Buenrostro MD. Current concerns include: Doing well, no fever or const sx. Pain controlled by: oxycodone, mostly at night Drain output: ~15-20cc/day Objective: NAD. Abdomen soft, ND, NT, swelling and ecchymosis consistent with procedure, incision c/d/ i. Drain site clean and dry, small amount serosang fluid in bulb. No erythema, warmth, palpa ble fluid collections Assessment: S/p above procedure, healing as expected. Plan: D/c'd drain today, bacitracin and gauze to site. IBUPROFEN 400MG ON 3X/day schedule. Vicodi n today with explicit instructions on use. Anamika states she has been doing well and only n eeds vicodin for nighttime use. She will continue to monitor and call with concerns. Pt will follow up 07-19-09 with Tucker Buenrostro MD, deneen koo. documented in this enc ounter Plan of Treatment Not on filedocumented as of this encounter Visit Diagnoses + + | Diagnosis | + + | Other plastic surgery for unacceptable cosmetic appearance - Primary | + + documented in this encounter"
--- OUTSIDE RECORDS SUMMARY | ~2019-05-04 | XMS | Encounter Summary ---
Demographics + + + | Address | [address] | | | [place] [address] | + + + | Home Phone | | + + + | Preferred Language | Unknown | + + + | Marital Status | | + + + | Presybeterian Affiliation | CHR | + + + | Race | White | + + + | Ethnic Group | Not or | + + + Author + + + | Author | [facility] | + + + | Organization | [facility] | + + + | Address | Unknown | + + + | Phone | Unavailable | + + + Support + + + + + | Name | Relationship | Address | Phone | + + + + + | Edwar PETERS | ECON | [address] | | | | | #[place] | | | | | [address] | | + + + + + | Destiny Suggs | ECON | Unknown | | + + + + + Care Team Providers + +------+ + | Care Treatment Plant Mechanic Name | Role | Phone | [...] | | | Rd Mailcode: [address] | [place], [place] | | | | | [place], [place] | [address] | | | | | [address] | [phone] | | | | | [phone] | | | +--------+ + + + [...]
--- OUTSIDE RECORDS SUMMARY | ~2019-05-04 | XMS | Encounter Summary ---
Demographics + + + | Address | [address] | | | [place] [address] | + + + | Home Phone | | + + + | Preferred Language | Unknown | + + + | Marital Status | | + + + | Pentecostalism Affiliation | CHR | + + + | Race | White | + + + | Ethnic Group | Not or | + + + Author + + + | Author | [facility] | + + + | Organization | [facility] | + + + | Address | Unknown | + + + | Phone | Unavailable | + + + Support + + + + + | Name | Relationship | Address | Phone | + + + + + | Edwar PETERS | ECON | [address] | | | | | #[place] | | | | | [address] | | + + + + + | Destiny Suggs | ECON | Unknown | | + + + + + Care Team Providers + +------+ + | Care Chief Gauger Name | Role | Phone | + [...] | | | | | | [address] [place], [place] | | | | | | [address] | | | | | | [phone] | | | +--------+ + + + [...]
--- OUTSIDE RECORDS SUMMARY | ~2019-05-04 | XMS | Encounter Summary ---
Demographics + + + | Address | [address] | | | [place] [address] | + + + | Home Phone | | + + + | Preferred Language | Unknown | + + + | Marital Status | | + + + | Advent Affiliation | CHR | + + + [...] #[place] | | | | | [address] | | + + + + + | Destiny Reginekeena | ECON | Unknown | | + + + + + Care Team Providers + +------+ + | Care Manager Occupational Name | Role | Phone | + [...] for | | | | Surgery at [facility] [address] | [facility] [place] | unacceptable | | | | [address] | [address] | cosmetic appearance | | | | Mailcode: [facility] | [phone] | (Primary Dx) | | | | [facility] | | | | | | and Healing, | | | | | | [address] | | | | | | Floor [facility] [place] | | | | | | [address] | | | | | | [phone] | | | +--------+---------+ + + + [...] documented findings and plan of care. Tucker Buenrostor MD Test Manager of Plastic Surgery [address] [place] [address] Bianca Moralez MD - 07/19/2009 2:37 [...]
--- OUTSIDE RECORDS SUMMARY | ~2019-05-04 | XMS | Encounter Summary ---
Demographics + + + | Address | [address] | | | [place] [address] | + + + | Home Phone [...] #[place] | | | | | [address] | | + + + + + | Destiny Reginekeena | ECON | Unknown | | + + + + + Care Team Providers + +------+ + | Care Household Cook Name | Role | Phone | + [...] Postoperative | | | | Surgery at [facility] [address] | [facility] [place] | (Primary Dx) | | | | [address] | [address] | | | | | Mailcode: [facility] | [phone] | | | | | [facility] | | | | | | and Healing, | | | | | | Building [address], [address]th | | | | | | Floor [place], [place] | | | | | | [address] | | | | | | [phone] | | | +--------+---------+ + + + [...] López Md at 0 12/28/2008 3:10 PM Tucker German MD - 12/28/2008 3:08 PM PDTPost-operative [...]
--- OUTSIDE RECORDS SUMMARY | ~2019-05-04 | XMS | Clinical Summary ---
Demographics + + + | Address | [address] | | | [place] [address] | + + + | Home Phone | | + + + | Preferred Language | Unknown | + + + | Marital Status | | + + + | Amish Affiliation | Unknown | + + + | Race | Unknown | + + + | Ethnic Group | Unknown | + + + Author + + + | Author | [facility] | | | and [place] | + + + | Organization | [facility] | | | and [place] | + + + | Address | Unknown | + + + | Phone | Unavailable | + + + Care Team Providers + +------+ + | Care Formulator Compounder Name | Role | Phone | + +------+ + | Matt Rodriguez MD | PCP | | + +------+ + Allergies No Known Allergies Medications Not on file Active Problems + + + | Problem | Noted Date | + + + | HIP PAIN, RIGHT | 04/28/2010 | + + + | STATUS RIGHT TOTAL HIP REPLACEMENT | | + + + Family History + + +------+ + | Medical History | Relation | Name | Comments | + + +------+ + | Hypertension | Brother | | | + + +------+ + | Bipolar disorder | Father | | ? | + + +------+ + | Coronary artery | Father | | | | disease | | | | + + +------+ + | Diabetes | Father | | | + + +------+ + | Hypertension | Father | | | + + +------+ + | Kidney disease | Father | | | + + +------+ + | Obesity | Father | | | + + +------+ + | Other (see comment) | Father | | Skin cancer | + + +------+ + | Cancer | Mother | | ? cervical | + + +------+ + | Hypertension | Mother | | | + + +------+ + | Obesity | Mother | | | + + +------+ + | Other (see comment) | Mother | | Other (see comments) - lymphedema | + + +------+ + | Thyroid disease | Mother | | | + + +------+ + | Thyroid disease | Sister | | | + + +------+ + | Other (see comment) | Son | | Other (see comments) - ptsd | + + +------+ + + +------+ + + | Relation | Name | Status | Comments | + +------+ + + | Brother | | Alive | | + +------+ + + | Brother | | | | + +------+ + + | Father | | | | | | | (Age | | | | | 73) | | + +------+ + + | Father | | | | + +------+ + + | Mother | | Alive | | + +------+ + + | Mother | | | | + +------+ + + | Sister | | Alive | | + +------+ + + | Sister | | | | + +------+ + + | Son | | Alive | | + +------+ + + | Son | | | | + +------+ + + Social History + +-------+ +--------+------+ | Tobacco Use | Types | Packs/Day | Years | Date | | | | | Used | | + +-------+ +--------+------+ | Former Smoker | | 1 | | | + +-------+ +--------+------+ + [...] recent travel history available. | + + Last Filed Vital Signs + + + + | Vital Sign | Reading | Time Taken | + + + + | Blood Pressure | 92/70 | 03/18/2018 1339 PDT | + + + + | Pulse | 100 | 03/18/2018 1339 PDT | + + + + | Temperature | - | - | + + + + | Respiratory Rate | - | - | + + + + | Oxygen Saturation | - | - | + + + + | Inhaled Oxygen | - | - | | Concentration | | | + + + + | Weight | 97 kg (213 lb 14.4 | 03/18/20181338 PDT | | | oz) | | + + + + | Height | 156.2 cm (5' 1.5") | 03/18/20181338 PDT | + + + + | Body Mass Index | 39.76 | 03/18/20181338 PDT | + + + + Plan of Treatment + + + + + | Health Maintenance | Due Date | Last Done | Comments | + + + + + | Vaccine: | | | | | Dtap/Tdap/Td (1 - | 9 | | | | Tdap) | | | | + + + + + | Cervical Cancer | | | | | Screening (Pap) | 0 | | | + + + + + | Breast Cancer | | | | | Screening | 5 | | | + + + + + | Vaccine: Influenza | | | | | (#1) | 9 | | | + + + + + Results Not on filefrom Last 3 Months Advance Directives Patient has advance care planning documents on file. For more information, please contact:[facility] [place] [address]
--- OUTSIDE RECORDS SUMMARY | ~2019-05-04 | XMS | Encounter Summary ---
Demographics + + + | Address | [address] | | | [place] [address] | + + + | Home Phone [...] #[place] | | | | | [address] | | + + + + + | Destiny Suggs | ECON | Unknown | | + + + + + Care Team Providers + +------+ + | Care Final Inspector And Tester Name | Role | Phone | + [...] Closed | | Plastic | Diagnoses | Chitra | Pushpa | | | | Surgery | Intertrigo | MD Tucker | Gen/Recon | | | | | Procedures | [address] | [address] | | | | | REQUEST TO | Ave | [address] | | | | | SURGERY | [place], [place] | Mailcode: | | | | | [facility] | [address] | [facility] | | | | | MA EXC SKIN | Phone: | for Health | | | | | ABD | [phone] | and Healing, | | | | | Procedure to | Fax: | Building [address], | | | | | be | [phone] | 5th Floor | | | | | performed: | | [place], [place] | | | | | panniculecto | | [address] | | | | | my Body | | Phone: | | | | | Part: | | [phone] | | | | | abodmen CPT | | | | | | | Code: | | | | | | | Excise | | | | | | | excess skin | | | | | | | tissue, | | | | | | | abdomen | | | | | | | ([address]) | | | +--------+--------+ + + + + Reason for Visit + + + | Reason | Comments | + + + | New patient | panniculectomy and breast reduction. | | consultation | | + + + Encounter Details +--------+---------+ + + + | Date | Type | Department | Care Team | Description | +--------+---------+ + + + | 06/01/ | Office | Plastic and | Tucker Buenrostro MD | Intertrigo (Primary | | 2007 | Visit | Reconstructive | [address] | Dx) | | | | Surgery at [facility] [address] | [place], [place] | | | | | [address] | [address] | | | | | Mailcode: [facility] | [phone] | | | | | [facility] | | | | | | and Healing, | | | | | | Building [address] | | | | | | [place], [place] | | | | | | [address] | | | | | | [phone] | | | +--------+---------+ + + + [...] + + + | Blood Pressure | 137/82 | 06/01/2008 1:50 PM | | | | | PST | | + + + + + | Pulse | 106 | 06/01/2008 1:50 PM | | | | | PST | | + + + + + | Temperature | - | - | | + + + + + | Respiratory Rate | 19 | 06/01/2008 1:50 PM | | | | | PST | | + + + + + | Oxygen Saturation | 98% | 06/01/2008 1:50 PM | | | | | PST | | + + + + + | Inhaled Oxygen | - | - | | | Concentration | | | | + + + + + | Weight | 80.2 kg (176 lb 14.4 | 06/01/2008 1:50 PM | | | | oz) | PST | | + + + + + | Height | 157.5 cm (5' 2") | 06/01/2008 1:50 PM | | | | | PST | | + + + + + | Body Mass Index | 32.36 | 06/01/2008 1:50 PM | | | | | PST | | + + + + + documented in this encounter Progress Notes Tucker Buenrostro - 06/01/2008 4:38 PM PST Anamika Pack is a 37 y.o. female with profound weight loss who is plagued by inter trae. She has a maximum lifetime weight of 320 pounds. She had a gastric bypass in aug 2004 and has lost weight to a stable 170 pound range. She has chronic abdominal intertrigo. She uses antifungal powders and washrag's in the intertriginous spaces. She is also interested i n a breast lift. She would like her breasts to be isbell. She a no history of breast patholo gy, and has never had a mammogram. She has a negative family history of breast cancer. ROS:A 14-point review of systems intake form was filled out by the patient and reviewed wit h the patient. ROS was positive for: difficulty sleeping, and changes in appetite. ROS perti nent negative response for: No constitutional symptoms of fevers, fatigue, chills, weight lo ss or sweats. There is no personal or family history of breast cancer. She denies finding ne w breast lumps, breast pain or nipple discharge. She has no history of breast pathology, her last mammogram was never. ROS was negative of all other symptoms. Past Medical History Diagnosis Date Depression Bipolar II Disorder PTSD (Post-Traumatic Stress Disorder) Arthritis Past Surgical History Procedure Date Pr removal gallbladder 1999 Laparoscopic Pr delivery only 1986 Laparoscopic anastacia-en-y gastric bypass 08/30/2004 Pr fusion hip joint 1985 RIGHT Hx hip replacement 2005 Hx hip replacement 2007 Allergies Allergen Reactions Hydrocodone Itching Oxycodone Itching Oxycontin (Oxycodone Hcl) Itching Current outpatient prescriptions Medication Sig GABAPENTIN ORAL 1 tab p.o. three times daily LITHIUM CARBONATE ORAL .5mg, 1 tab p.o. qd OS-FLAKO 500 + D OR b.i.d. RANITIDINE HCL 150 MG ORAL TAB b.i.d. x 3 months VITAMIN B-12 1,000 MCG/ML INJ SOLN q.d. Family History Problem Relation Cancer Mother uterine Diabetes Father History Substance Use Topics Tobacco Use: Quit -- 0.5 packs/day for 3 years Quit date: 07/08/1986 Alcohol Use: No OBJECTIVE: BP 137/82 | Pulse 106 | Resp 19 | Ht 1.575 m (5' 2") | Wt 80.241 kg (176 lb 14.4 oz) | SpO2 98% Body mass index is 32.36 kg/(m^2). General: She is a well developed, well nourished female in no apparent distress, alert and oriented X 3. Chest Reveals small sized, asymmetric breasts. No dominant, discrete, fixed or suspiciou s masses are noted. No skin or nipple changes or palpable axillary or tanisha-clavicular nodes. Scars:none. Anterior pinch coverage 3 cm. Right Breast: Sternal notch to nipple distance: 28 cm IMF - Nipple: 8 cm Ptosis: Grade 3 ptosis Left Breast: Sternal notch to nipple distance: 29 cm IMF - Nipple: 8 cm Ptosis: Grade 3 ptosis Internipple distance: 18 cm Abdomen: Soft, non-tender, non-distended, No hernias, No masses. There is significant myofa scial laxity. Scars: surgical scar low transverse and laparoscopic port scars. Large mons an d lower abdominal pannus. Horizontal and Vertical skin laxity. Large central upper abdominal laxity. No skin ulcerations. ASSESSMENT: She is interested in mastopexy and concomitant silicone gel breast augmentation . In addition she would like a panniculectomy and possibly and horizontal and vertical skin excision. A PARQ was held for panniculectomy. We discussed that complications include but are not oden ited to: infection, bleeding, scar, hematoma, seroma, nerve injury causing permanent numbnes s paralysis or chronic pain, hernia recurrence, very high risk of skin necrosis, dehiscence, or infection, diastasis recurrence, skin necrosis, umbilical necrosis, deep venous thrombos is, pulmonary embolism, dog ears requiring revision, loss of umbilicus, retained vertical sc ar from umbilicus, no guarantee of cosmetic outcome, need for more surgery and other unforse en complications. She appears to understand and wishes to proceed. We had a PARQ discussion for mastopexy under general anesthesia and discussed that the ris ks include, but are not limited to: scar, hematoma, seroma, skin necrosis, nipple necrosis, permanent numbness, paralysis, or chronic pain, asymmetry, dog ears, fat necrosis, no guaran christi of shape or size of breasts, need for revision surgery, and other unforeseen complicatio ns. She appears to understand and wishes to proceed. A PARQ was held for breast augmentation. We discussed that complications include but are no t limited to: infection, bleeding, scar, hematoma, nerve injury causing permanent numbness p aralysis or chronic pain, asymmetry,capsular contracture, inability to breast feed,implant failure, visible and palpable rippling, no guarantee of size or shape of the breasts, skin n ecrosis, nipple necrosis, need for more surgery, expense of monitoring for implant rupture, interference with mammogram, and other unforeseen complications. She appears to understand a nd wishes to proceed. A PARQ was held for silicone breast implants. We discussed that complications of silicone b reast implants, in addition to the other surgical risks, include but are not limited to: rec ommendations for MRI monitoring, interference with mammogram, and other unforeseen complicat ions. She was provided the informed consent booklet on silicone implants and was instructed to read and sign this book at least two weeks prior to her procedure. She appears to underst and and wishes to proceed. Photographs were taken today. She was given the opportunity to try on sizing implants and was most interested in 250cc i mplants. PLAN: schedule panniculectomy and a mcconnell quote for the other procedures and will let us k now if she wishes to proceed. documented in this encounter Plan of Treatment Not on filedocumented as of this encounter Visit Diagnoses + + | Diagnosis | + + | Intertrigo - Primary Other specified erythematous condition | + + documented in this encounter
--- OUTSIDE RECORDS SUMMARY | ~2019-05-04 | XMS | Encounter Summary ---
Demographics + + + | Address | [address] | | | [place] [address] | + + + | Home Phone | | + + + | Preferred Language | Unknown | + + + | Marital Status | | + + + | Orthodox Affiliation | CHR | + + + [...] #[place], [place] | | | | | [address] | | + + + + + | Destiny Suggs | ECON | Unknown | | + + + + + Care Team Providers + +------+ + | Care Hob Grinder Name | Role | Phone | + +------+ + PCP | Unavailable | + +------+ + Encounter Details +--------+ + + + + | Date | Type | Department | Care Team | Description | +--------+ + + + + | 01/19/ | H&P-Transcr | | Physical, History | Hstry & Physical | | 2002 | ibed | | & | | +--------+ + + + + [...]
--- OUTSIDE RECORDS SUMMARY | ~2019-05-04 | XMS | Encounter Summary ---
Demographics + + + | Address | [address] | | | [place] [address] | + + + | Home Phone | | + + + | Preferred Language | Unknown | + + + | Marital Status | | + + + | Alevism Affiliation | CHR | + + + | Race | White | + + + | Ethnic Group | Not or | + + + Author + + + | Author | [facility] | + + + | Organization | [facility] | + + + | Address | Unknown | + + + | Phone | Unavailable | + + + Support + + + + + | Name | Relationship | Address | Phone | + + + + + | Edwar PETERS | ECON | [address] | | | | | #[place] | | | | | [address] | | + + + + + | Destiny Suggs | ECON | Unknown | | + + + + + Care Team Providers + +------+ + | Care Cinder Block Mason Name | Role | Phone | + [...] [address] | | | | | | [place], [place] | | | | | | [address] | | | +--------+ + + + [...]
--- OUTSIDE RECORDS SUMMARY | ~2019-05-04 | XMS | Encounter Summary ---
Demographics + + + | Address | [address] | | | [place] [address] | + + + | Home Phone | | + + + | Preferred Language | Unknown | + + + | Marital Status | | + + + | Jehovah'S Witness Affiliation | CHR | + + + [...] #[place] | | | | | [address] | | + + + + + | Destiny Reginekeena | ECON | Unknown | | + + + + + Care Team Providers + +------+ + | Care Financial Planning Consultant Name | Role | Phone | + [...] Dx) | | | | Surgery at [facility] [address] | [place] [address] | | | | | [address] | | | | | | Mailcode: [facility] | | | | | | [facility] | | | | | | and Healing, | | | | | | Building [address], [address]th | | | | | | Floor [place], [place] | | | | | | [address] | | | | | | [phone] | | | +--------+---------+ + + + [...] she stands- last episode this am. Line [place] Drains: [address] last 24 hrs, Lt [...]
--- OUTSIDE RECORDS SUMMARY | ~2019-05-04 | XMS | Encounter Summary ---
Demographics + + + | Address | [address] | | | [place] [address] | + + + | Home Phone | | + + + | Preferred Language | Unknown | + + + | Marital Status | | + + + | Sabianist Affiliation | CHR | + + + [...] #[place], [place] | | | | | [address] | | + + + + + | Destiny Suggs | ECON | Unknown | | + + + + + Care Team Providers + +------+ + | Care Cook Box Filler Name | Role | Phone | + +------+ + PCP | Unavailable | + +------+ + Encounter Details +--------+ + + + + | Date | Type | Department | Care Team | Description | +--------+ + + + + | 10/13/ | Letter-Tamez | | Letter, Clinic | Letters | | 2005 | scribed | | | | +--------+ + + [...] as of this encounter Progress Notes Interface, Small Electric Engine Technician In - 02/21/2005 5:06 AM PDT [id number] 10/09/2004 10/13/2004 [id number] LORRAINE Mccurdy [facility] [address] [place] [address] or October 13, 2004 Fernando Nunes M.D. [address] [place] [address] RE: ANAMIKA PACK MR #: [id number] Dear Dr. Nunes: I received your request for records on your patient, Anamika Pack, which we will forward to you right away. I thought I would write to you to update you on her recent operation and subsequent hospital course. As you know, I performed a laparoscopic gastric bypass on Ms. Pack on August 29, 2004. She underwent a standard Nayeli-en-Y laparoscopic gastric bypass with creation of an approximately 20 mL gastric pouch. Her subsequent hospital course was uncomplicated, and she was discharged home within a few days. 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 This complication occurs relatively frequently in approximately 7% to 8% of patients and is usually easily treated with simple endoscopy and dilation of the gastrojejunal anastomosis. It is unusual for patients to require more than one dilation although this occasionally is the case. I have arranged for her to see our gastroenterologists here at [facility] who have a fair amount of experience with this procedure, and they will set her up for an upper endoscopy and dilation in the next 2 to 3 weeks. In the meantime, I told her that she should remain on a full-liquid diet which she seems to be tolerating well. Her symptoms primarily are related to solid food dysphagia. Other than the stricture, she is doing well after the gastric bypass. Her weight loss on her last visit seems to be proceeding as expected. She is taking all of her appropriate vitamin supplementation which will include a multivitamin, calcium supplement, vitamin D supplement, and a B12 supplement. I also keep these patients on an H2 mary for approximately 3 months after surgery which she is taking as well to prevent the formation of anastomotic ulcers. This is usually discontinued after 3 months. Thank you very much for allowing to participate in the care of this very pleasant woman. If you have any further questions, please do not hesitate to call me in my office at [phone]. We will forward you the records, and I will keep you apprised as to her progress as she undergoes this endoscopy and dilation. Sincerely, Cam John M.D. parking meter attendant, [facility], Department of Surgery [facility] / [id number] / [id number] / [id number] / Electronically signed by Cam Mcbride 02-20-2005 03:44:35 PM documented i n this encounter Plan of Treatment Not on filedocumented as of this encounter Visit Diagnoses Not on filedocumented in this encounter"
--- OUTSIDE RECORDS SUMMARY | ~2019-05-04 | XMS | Encounter Summary ---
Demographics + + + | Address | [address] | | | [place] [address] | + + + | Home Phone | | + + + | Preferred Language | Unknown | + + + | Marital Status | | + + + | Mandaen Affiliation | CHR | + + + | Race | White | + + + | Ethnic Group | Not or | + + + Author + + + | Author | [facility] | + + + | Organization | [facility] | + + + | [...] #[place] | | | | | [address] | | + + + + + | Destiny Weinerkeena | ECON | Unknown | | + + + + + Care Team Providers + +------+ + | Care Enrollment Management Manager Name | Role | Phone | [...] letter | | | | Surgery at [facility] [address] | [place], [place] | stating she is | | | | [address] | [address] | Released to go back | | | | Mailcode: [facility] | [phone] | to work startintg | | | | [facility] | | 11/20/08) | | | | and Healing, | | | | | | Building | | | | | | Floor [place], [place] | | | | | | [address] | | | | | | [phone] | | | +--------+ + + + [...]
--- OUTSIDE RECORDS SUMMARY | ~2019-05-04 | XMS | Encounter Summary ---
Demographics + + + | Address | [address] | | | [place] [address] | + + + | Home Phone | | + + + | Preferred Language | Unknown | + + + | Marital Status | | + + + | Islam Affiliation | CHR | + + + [...] #[place], [place] | | | | | [address] | | + + + + + | Destiny Suggs | ECON | Unknown | | + + + + + Care Team Providers + +------+ + | Care Database Manager Name | Role | Phone | + +------+ + PCP | Unavailable | + +------+ + Encounter Details +--------+ + + + + | Date | Type | Department | Care Team | Description | +--------+ + + + + | 09/01/ | Discharge | | Summary, Discharge | D/C Summary ODDS | | 2005 | Summary-Tra | | | | | | nscribed | | | | +--------+ + + [...] + + documented as of this encounter Discharge Summaries Interface, Specialty Person In - 02/04/2005 2:[address] [facility] [id number] LORRAINE Mccurdy Admission Date: 08/29/2004 Discharge Date: 09/01/2004 Staff Physician: Cam John M.D. Principal Final Diagnosis: Morbid obesity. All Additional Diagnoses 1. Hypertension. 2. Chronic pain. 3. Osteoarthritis. 4. Type 2 diabetes. Principal Procedure: Laparoscopic Nayeli-en-Y gastric bypass. All Additional Procedures 1. OT/PT. 2. Nutrition consult. 3. Patient-controlled analgesia. 4. Sliding scale insulin. Reason for Admission: Ms. Pack is a 33-year-old woman with a BMI of 46 and a lifelong history of morbid obesity. She has comorbidities that include diabetes, hypertension, joint pain, and depression. She presents for laparoscopic Nayeli-en-Y gastric bypass. Past Medical History: Endometrial hyperplasia; type 2 diabetes; osteoarthritis, on methadone; severe degenerative joint disease; depression; and anxiety. Previous Surgery: Right hip fusion in 1984, in 1986, laparoscopic cholecystectomy in 1999. Allergies: ASPIRIN. Current Medications: Lisinopril 5 mg daily; medroxyprogesterone 10 mg daily, start at the first period of each month; methadone 10 mg 2 b.i.d.; ibuprofen 200 mg as needed; Wellbutrin SR 150 mg 2 q.a.m.; metformin 500 mg daily; and Mobic 50 mg daily. Physical Examination General: A 33-year-old woman with morbid obesity. Vital Signs: Weight 250 pounds, height 5 feet 2 inches, body mass index 46, blood pressure 120/84, pulse 84, and respirations 16. HEENT: Normal exam. Pupils are equal, round, and reactive to light. Anicteric sclerae. EOMI is intact. Neck: No lymphadenopathy or mass. Chest: Lungs are clear to auscultation bilaterally. Heart: Regular rate and rhythm. Abdomen: Obese, soft, nondistended, and nontender. Trocar sites healed. Back: Slightly tender in the sacral area to palpation. Extremities: Trace pedal edema. Numbness, right anterior foot. Strength is 5/5. Neurologic: Cranial nerves 2 through 12 are intact. Musculoskeletal: Irregular gait with left hip downswing related to right hip fusion. Hospital Course: The patient was admitted on August 29, 2004, and proceeded to the Operative Suite where she underwent a laparoscopic Nayeli-en-Y gastric bypass. She had a 30-mL gastric pouch constructed. Methylene blue test was performed and there was no evidence of leak. Wounds were dressed. The patient tolerated the procedure well with no intraoperative complications. She was extubated and proceeded to the Recovery Suite in stable condition. Postoperatively, pain was managed with patient-controlled analgesia with mild itching. She received sliding scale insulin and begun on her metformin. Her blood sugars were stable by the time of discharge at 148 down to 81 by the time of discharge. She was transitioned from clear liquids to full liquids, no concentrated sweets without nausea or vomiting. Olivarez catheter was discontinued, and she was able to urinate independently. She was seen by [facility] including Nutrition consult for review of her bariatric diet as reviewed outpatient. Occupational Therapy and Physical Therapy assisted in abdominal precaution instruction, assisted devices as needed, and mobility needs and advanced each day towards discharge. She had adaptive equipment for LB dressing independent only. She was restarted on her methadone and received oxycodone for breakthrough pain. Her methadone was her home regimen at 20 mg b.i.d. which she tolerated well and thus had decreased need for breakthrough oxycodone. She was stable by the time of discharge. She received oral supplementation, potassium at 3.1, and this was stabilized to 3.6 by the time of discharge. Again, white blood cell count was 15.8 at the time of discharge. Vital signs were stable without tachycardia or abdominal distention. Blood pressure ranging on day of discharge was 84 to 100 over 44 to 60. The patient was discharged in stable condition. Condition on Discharge: Stable. Disposition: To home. Discharge Medication(s): Os-Sampson plus vitamin D 500 mg b.i.d.; oxycodone 5 to 10 mg p.o. q.3-4 h. p.r.n. pain, quantity #60; methadone 20 mg b.i.d., home medication; metformin 500 mg daily, home medication; ranitidine 150 mg b.i.d. for 3 months; Colace 100 mg b.i.d., hold if greater than one bowel movement daily; lisinopril 5 mg daily; vitamin B12 1000 mcg sublingual daily; multivitamin 2 chew daily; Wellbutrin ER 150 mg 2 p.o. q.a.m. per home regimen; and Mobic 50 mg daily. Discharge Instruction(s): Followup Care: No heavy lifting greater than 15 pounds x4 weeks. Diet, full liquid. No concentrated sweets and advance as instructed. Return to see Dr. Cam John in 2 weeks for followup. Cyndie Ponce M.D., V / [id number] / [id number] / [id number] / cc: Fernando Nunes M.D. [address] [place] [address] Cam John M.D. General Surgery, [facility] Electronically signed by Cam Mcbride 09-25-2004 03:35:41 PM documented i n this encounter Plan of Treatment Not on filedocumented as of this encounter Visit Diagnoses Not on filedocumented in this encounter"
--- OUTSIDE RECORDS SUMMARY | ~2019-05-04 | XMS | Encounter Summary ---
Demographics + + + | Address | [address] | | | [place] [address] | + + + | Home Phone [...] + + + | Author | [facility] | + + + | Organization | [facility] | + + + | Address | Unknown | + + + | Phone | Unavailable | + + + Support + + + + + | Name | Relationship | Address | Phone | + + + + + | Edwar PETERS | ECON | [address] | | | | | #[place] | | | | | [address] | | + + + + + | Destiny Suggs | ECON | Unknown | | + + + + + Care Team Providers + +------+ + | Care Director Food Safety Name | Role | Phone | + [...] [address] | | | | | | [place], [place] | | | | | | [address] | | | +--------+ + + + [...]
--- OUTSIDE RECORDS SUMMARY | ~2019-05-04 | XMS | Encounter Summary ---
Demographics + + + | Address | [address] | | | [place] [address] | + + + | Home Phone | | + + + | Preferred Language | Unknown | + + + | Marital Status | | + + + | Restorationist Affiliation | CHR | + + + [...] #[place], [place] | | | | | [address] | | + + + + + | Destiny Suggs | ECON | Unknown | | + + + + + Care Team Providers + +------+ + | Care Occupational Medicine Specialist Name | Role | Phone | + +------+ + PCP | Unavailable | + +------+ + Encounter Details +--------+ + + + + | Date | Type | Department | Care Team | Description | +--------+ + + + + | 10/09/ | Office | | Note, Outpatient | [...] as of this encounter Progress Notes Interface, Industrial Sales Manager In - 02/04/2005 6:28 AM PDT [id number] LORRAINE Mccurdy Clinic Date: 10/09/2004 Clinic: Ms. Pack presents now about 2 months out from her laparoscopic gastric bypass. She is doing well although she is complaining of solid food dysphagia which sounds a lot like a stricture. She is able to eat liquids easily, but every time she tries solids, she either vomits or feels a fair amount of dysphagia. Otherwise, no nausea, heartburn, abdominal pain, constipation, or diarrhea. Her preoperative comorbidities include her arthritis which is still present and unchanged and diabetes which she says is borderline which is now resolved. Her blood sugars are all normal. She is taking all of her supplements. Her gallbladder is out. She is taking ranitidine. She is exercising about 3 to 4 times a week. I told her that I suspect she has a postoperative stricture which is an easy fix. We are going to set her for an appointment with GI to have her undergo an EGD and a dilation. She understands all this, and she is going to see me back in 3 months. Cam John M.D. [place] / [id number] / [id number] / [id number] / [id number] Electronically signed by Cam Mcbride 12-12-2004 07:42:02 AM documented i n this encounter Plan of Treatment Not on filedocumented as of this encounter Visit Diagnoses Not on filedocumented in this encounter"
--- OUTSIDE RECORDS SUMMARY | ~2019-05-04 | XMS | Encounter Summary ---
Demographics + + + | Address | [address] | | | [place] [address] | + + + | Home Phone [...] #[place] | | | | | [address] | | + + + + + | Destiny Weinerkeena | ECON | Unknown | | + + + + + Care Team Providers + +------+ + | Care Bolt Threader Name | Role | Phone | + +------+ + | Shakir Erwin MD | PCP | | + +------+ + Reason for Visit + + + | Reason | Comments | + + + | Postoperative | Having issue with remaining drain; wants to take out. | | Questions | | + + + | Patient education | questions about d/cing JOSUE Drain. | + + + Encounter Details +--------+ + + + + | Date | Type | Department | Care Team | Description | +--------+ + + + + | 11/30/ | Telephone | Plastic and | Tucker Buenrostro MD | Postoperative | | 2008 | | Reconstructive | [address] | Questions (Having | | | | Surgery at [facility] [address] | [facility] [place] | issue with remaining | | | | [address] | [address] | drain; wants to | | | | Mailcode: [facility] | [phone] | take out.); Patient | | | | [place] for [facility] | | education (questions | | | | and Healing, | | about d/cing JOSUE | | | | [address] | | Drain.) | | | | Floor [place], [place] | | | | | | [address] | | | | | | [phone] | | | +--------+ + + + [...]
--- OUTSIDE RECORDS SUMMARY | ~2019-05-04 | XMS | Encounter Summary ---
Demographics + + + | Address | [address] | | | [place] [address] | + + + | Home Phone | | + + + | Preferred Language | Unknown | + + + | Marital Status | | + + + | Moravian Affiliation | CHR | + + + | Race | White | + + + | Ethnic Group | Not or | + + + Author + + + | Author | [facility] | + + + | Organization | [facility] | + + + | Address | Unknown | + + + | Phone | Unavailable | + + + Support + + + + + | Name | Relationship | Address | Phone | + + + + + | Edwar PETERS | ECON | [address] | | | | | #[place] | | | | | [address] | | + + + + + | Destiny Suggs | ECON | Unknown | | + + + + + Care Team Providers + +------+ + | Care Epic [place] Analyst Name | Role | Phone | + [...] | | | | | | [address] [place], [place] | | | | | | [address] | | | | | | [phone] | | | +--------+ + + + [...]
--- OUTSIDE RECORDS SUMMARY | ~2019-05-04 | XMS | Encounter Summary ---
Demographics + + + | Address | [address] | | | [place] [address] | + + + | Home Phone [...] #[place] | | | | | [address] | | + + + + + | Destiny Weinerkeena | ECON | Unknown | | + + + + + Care Team Providers + +------+ + | Care Fraud Prevention Analyst Name | Role | Phone | [...] for | | | | Surgery at [facility] [address] | | unacceptable | | | | [address] | | cosmetic appearance | | | | Mailcode: [facility] | | (Primary Dx) | | | | [facility] | | | | | | and Healing, | | | | | | [address] | | | | | | Floor [place], [place] | | | | | | [address] | | | | | | [phone] | | | +--------+---------+ + + + [...]
--- OUTSIDE RECORDS SUMMARY | ~2019-05-04 | XMS | Encounter Summary ---
Demographics + + + | Address | [address] | | | [place] [address] | + + + | Home Phone [...] #[place] | | | | | [address] | | + + + + + | Destiny Suggs | ECON | Unknown | | + + + + + Care Team Providers + +------+ + | Care Transmission Operator Name | Role | Phone | [...] [id number] | | | | | | [place], [place] | | | | | | [address] | | | | | | [phone] | | | +--------+ + + + [...] the | | | | | | psychologist educational as"for | | | | | | research use, not for | | | | | | clinical use." The | | | | | | performancecharacteristi | | | | | | cs of this test were | | | | | | validated by | | | | | | [employer]. | | | | | | The [...] by | | | | | | [employer]. | | | | | | New [...] [facility] | [address] | [place], [place] | | | [facility] | | [address] | | + + + + + [...] DEPARTMENT OF | [address] | [place] [address] | | | PATHOLOGY | [address] | | | + + + + + | [facility] DEPARTMENT OF | [address] | [place] [address] | | | PATHOLOGY | [address] [...] DEPARTMENT OF | [address] | [place] [address] | | | PATHOLOGY | [address] | | | + + + + + | [facility] DEPARTMENT OF | [address] | [place] [address] | | | PATHOLOGY | [address] [...] | + + + + + | [facility] DEPARTMENT | [address] | [place] [address] | | | PATHOLOGY | [address] | | | + + + + + | [facility] DEPARTMENT OF | [address] | [place] [address] | | | PATHOLOGY | [address] [...] | | | | | | [facility] | | | | | | Laboratories. | | | | + + + + + + + + | Specimen | + + | | + + + + + + + | Performing | Address | City/State/Zipcode | Phone Number | | Organization | | | | + + + + + | [facility] | [address] | [place] [address] | | | LABORATORY | | | [...] | | | M | performed at [place] | | | | | | [facility] | | | | | | Laboratories. | | | | + + + + + + + + | Specimen | + + | | + + + + + + + | Performing | Address | City/State/Zipcode | Phone Number | | Organization | | | | + + + + + | [facility] | [address] | [place] [address] | | | LABORATORY | | | | + + + + + documented in this encounter Visit Diagnoses Not on filedocumented in this encounter
--- OUTSIDE RECORDS SUMMARY | ~2019-05-04 | XMS | Clinical Summary ---
Demographics + + + | Address | [address] | | | [place] [address] | + + + | Home Phone | | + + + | Preferred Language | Unknown | + + + | Marital Status | | + + + | Muslim Affiliation | CHR | + + + | Race | White | + + + | Ethnic Group | Not or | + + + Author + + + | Author | [facility] | + + + | Organization | [facility] | + + + | Address | Unknown | + + + | Phone | Unavailable | + + + Support + + + + + | Name | Relationship | Address | Phone | + + + + + | Edwar PACK | ECON | [address] | | | | | #[place] | | | | | [address] | | + + + + + | Destiny Suggs | ECON | Unknown | | + + + + + Care Team Providers + +------+ + | Care Recordist Name | Role | Phone | + +------+ + | Shakir Erwin MD | PCP | | + +------+ + Source Comments AUGUST is fully live on [facility] InPatient.[facility] Allergies + + + + + + | Active Allergy | Reactions | Severity | Noted | Comments | | | | | Date | | + + + + + + | Adhesive Tape | | | 11/19/19 | | | | | | 09 | | + + + + + + | Hydrocodone | Pruritus | Low | 06/01/20 | If taking high | | | | | 08 | dose, otherwise--OK | + + + + + + | Oxycodone | Pruritus | Low | 06/01/20 | Only if taking | | | | | 08 | high dose | + + + + + + | Oxycodone Hcl | Pruritus | High | 06/01/20 | | | | | | 08 | | + + + + + + Medications + + + +---------+------+------+-------+ | Medication | Sig | Dispensed | Refills | Star | End | Statu | | | | | | t | Date | s | | | | | | Date | | | + + + +---------+------+------+-------+ | LITHIUM CARBONATE | 5 mL TID | | 0 | | | Activ | | ORAL | | | | | | e | + + + +---------+------+------+-------+ | escitalopram | Take 10 mg by mouth | | 0 | | | Activ | | (LEXAPRO) 10 mg Oral | three times daily. | | | | | e | | Tablet | | | | | | | + + + +---------+------+------+-------+ | gabapentin 300 mg | Take 300 mg by mouth | | 0 | | | Activ | | Oral Capsule | three times daily. | | | | | e | | | 2 in AM, 2 at noon, | | | | | | | | 5capsules PM | | | | | | + + + +---------+------+------+-------+ | B-12 DOTS ORAL | Take by mouth. | | 0 | | | Activ | | | | | | | | e | + + + +---------+------+------+-------+ | MULTIVITAMIN OR | Take by mouth. | | 0 | | | Activ | | | | | | | | e | + + + +---------+------+------+-------+ | IRON, FERROUS | Take 65 mg by mouth | | 0 | | | Activ | | SULFATE, ORAL | once daily. | | | | | e | + + + +---------+------+------+-------+ | clorazepate 3.75 | Take 3.75 mg by | | 0 | | | Activ | | mg Oral Tablet | mouth as needed. | | | | | e | + + + +---------+------+------+-------+ | fludrocortisone | Take 0.1 mg by mouth | | 0 | | | Activ | | 0.1 mg Oral Tablet | once daily. | | | | | e | + + + +---------+------+------+-------+ | fluticasone 50 | Instill 2 Sprays | | 0 | | | Activ | | mcg/Actuation Nasal | into each nostril | | | | | e | | [place], Suspension | once daily. | | | | | | + + + +---------+------+------+-------+ | | Take 1 Tab by mouth | | 0 | | | Activ | | Pseudoephedrine-Guai | every twelve hours. | | | | | e | | fenesin (MUCINEX D | | | | | | | | MAXIMUM STRENGTH) | | | | | | | | 120-1,200 mg Oral | | | | | | | | Tablet Sustained | | | | | | | | Release 12 hr | | | | | | | + + + +---------+------+------+-------+ | ALBUTEROL | Inhale. | | 0 | | | Activ | | (PROVENTIL INHL) | | | | | | e | + + + +---------+------+------+-------+ | ibuprofen 600 mg | Take 1 Tab by mouth | 90 | 0 | 06/08 | | Activ | | Oral Tablet | three times daily | | | 09/24 | | e | | | with meals. 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 | 11/19/2008 | + + + + + | Overview: Patient is sensitized against red cell antigen "K". | | Approximately 90% of units are expected to be compatible. Allow | | at least 2-3 hours for completion of crossmatch. | + + + + + | Intertrigo | 06/01/2008 | + + + | Morbid obesity | 08/29/2004 | + + + | Essential hypertension | 08/29/2004 | + + + + + | Overview: ICD10 | + + + + + | Chronic pain | 08/29/2004 | + + + | Osteoarthritis | 08/29/2004 | + + + | DM type 2 (diabetes mellitus, type 2) | 08/29/2004 | + + + | Analgesia | 08/29/2004 | + + + + + | Overview: Patient-controlled | + + + + + | Joint pain | 08/29/2004 | + + + | Depression | 08/29/2004 | + + + | Endometrial hyperplasia | 08/29/2004 | + + + | DEGENERATIVE JOINT DISEASE/SEVERE | 08/29/2004 | + + + + + | Overview: | + + +---------+ + | Anxiety | 08/29/2004 | +---------+ + Family History + + +------+ + | Medical History | Relation | Name | Comments | + + +------+ + | Diabetes | Father | | | + + +------+ + | Cancer | Mother | | uterine | + + +------+ + + +------+--------+ + | Relation | Name | Status | Comments | + +------+--------+ + | Father | | | | + +------+--------+ + | Mother | | | | + +------+--------+ + Social History + + + +--------+------+ [...] + + + | Blood Pressure | 121/88 | 06/22/2009 5:15 PM | | | | | PST | | + + + + + | Pulse | 57 | 06/22/2009 5:15 PM | | | | | PST | | + + + + + | Temperature | 36.8 C (98.2 F) | 06/22/2009 4:07 PM | | | | | PST | | + + + + + | Respiratory Rate | 17 | 06/22/2009 5:15 PM | | | | | PST | | + + + + + | Oxygen Saturation | 97% | 06/22/2009 5:15 PM | | | | | PST [...] | | + + + + + Plan of Treatment + + + + + | Health Maintenance | Due Date | Last Done | Comments | + + + + + | Pneumococcal | | | | | vaccination (1 of 1 | 6 | | | | - PPSV23) | | | | + + + + + | Influenza (Flu) | | | | | vaccination (#1) | 9 | | | + + + + + Results Not on filefrom Last 3 Months Insurance +---------+--------+ +--------+ +---------+--------+ | Payer | Benefi | Subscriber | Effect | Phone | Address | Type | | | t Plan | ID | lewis | | | | | | / | | Dates | | | | | | Group | | | | | | +---------+--------+ +--------+ +---------+--------+ | | [employer] | [phone] | 01/06/20 | [phone] | | Indemn | | | A | | 13-Pre | 7 | | ity | | | | | sent | | | | +---------+--------+ +--------+ +---------+--------+ + +--------+ +--------+ + + | Guarantor Name | Accoun | Relation to | Date | Phone | Billing Address | | | t Type | Patient | of | | | | | | | | | | + +--------+ +--------+ + + | Anamika Pack | Person | Self [birth year] | [address] | | [place] | [place] | | 1971 | [phone] | [place] | | | [place]rid | | | [address] (Home) | [phone] | + +--------+ +--------+ + + Advance Directives + + + + + | Type | Date Recorded | Patient | Explanation | | | | Dock Superintendent | | + + + + + | Advance | | | | | Directives and | | | | | Living Will | | | | + + + + + | Power of | | | | | Golf Coach | | | | + + + + +
--- OUTSIDE RECORDS SUMMARY | ~2019-05-04 | XMS | Encounter Summary ---
Demographics + + + | Address | [address] | | | [place] [address] | + + + | Home Phone | | + + + | Preferred Language | Unknown | + + + | Marital Status | | + + + | Yazdanism Affiliation | CHR | + + + | Race | White | + + + | Ethnic Group | Not or | + + + Author + + + | Author | [facility] | + + + | Organization | [facility] | + + + | Address | Unknown | + + + | Phone | Unavailable | + + + Support + + + + + | Name | Relationship | Address | Phone | + + + + + | Edwar PACK | ECON | [address] | | | | | [place] | | | | | [address] | | + + + + + | Destiny Suggs | ECON | Unknown | | + + + + + Care Team Providers + +------+ + | Care Director Of Instruction Name | Role | Phone | + [...] as of this encounter Progress Notes Interface, Cash Management Associate In - 02/04/2005 12:44 AM [facility] [id number] [facility] Date: 07/31/2004 Clinic: GENERAL SURGERY CLINIC Subjective: Ms. Pack is a 33-year-old woman who was last seen in January 2003 for bariatric initial evaluation. At that time, she had a height of 5 feet 2 inches, weight 308 pounds with a calculated body mass index of 57 kg/m2. She has subsequently been seen by Dr. Erwin of the [facility] for management of her severe arthritis. She was placed on different medications including methadone for pain relief and now has lost 60 pounds. The Wellbutrin and methadone has increased her metabolism and decreased appetite. She is now walking better, and her current body mass index is 46 kg/m2. 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 She now presents for laparoscopic-Y gastric bypass workup for a scheduled surgery on August 29, 2004. Past Medical History : Endometrial hyperplasia, type 2 diabetes currently on metformin but random use, ostearthritis with improved pain relief on methadone, severe DJD, depression, and anxiety improved on Wellbutrin. Previous Surgery: Right hip fusion 1984, C section 1986, laparoscopic cholecystectomy 1999. Allergies: ASPIRIN. Current Medications: Lisinopril 5 mg daily; medroxyprogesterone 10 mg daily with start of her period, last period in 1996; methadone 10 mg 2 b.i.d.; ibuprofen 200 mg p.r.n.; Wellbutrin SR 150 mg 2 q.a.m.; metformin 500 mg daily, the patient stated she takes it randomly but now has daily use; Mobic 15 mg p.r.n. Review of Systems Neurologic: Right foot numbness. No gait abnormality. Does tend to favor right hip due to right hip infusion. Pulmonary: No asthma, no shortness of breath. Renal: No renal failure, on lisinopril for renal effects. Musculoskeletal: Improved on pain relief with methadone. 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 She has a son also. She currently is working at [employer]. Physical Examination General: She is a well-developed, animated 33-year-old woman in no apparent distress. Vital Signs: Blood pressure 120/84. Pulse 84. Respirations 16. Weight 250. Height 5 feet 2 inches. HEENT: Pupils are equal, round, and reactive to light. Anicteric sclerae. EOMs intact. Neck: No lymphadenopathy or mass. Chest: Lungs are clear to auscultation bilaterally. Heart: Regular rate and rhythm without murmur, rub, or gallop. Abdomen: Obese, soft, nondistended, and nontender. Trocar sites well healed. Back: Slightly tender sacral area to palpation. Extremities: Trace pedal edema. Warm and well perfused. Numbness, right anterior foot, 5/5 strength. Neurologic: Cranial nerves 2 through 12 are intact. Assessment: The patient received PARQ conference with Dr. Cam John preoperatively and rest of the procedure were reviewed including , leak, deep venous thrombosis, embolism, bleeding, infection, hernia, poor weight loss, no weight loss, and other damage to neighboring organs as potential complications. Informed consent was signed on. She has been seen by mat packer up in [place] and did receive today a copy of her postop bariatric nutrition guidelines as well as a small guideline algorithm for immediately postop period. PAT was not arranged today, but she has been seeing Dr. Brian Erwin and next visit with him is on August 14, 2004, so PAT was arranged at that time in the morning. She received information regarding Hibiclens scrub and two pamphlets for information related to surgery. Plan 1. PAT visit August 14, 2004. 2. The patient to take metformin daily for optimal management of her diabetes preoperatively. 3. We will fax over results of her PAT clinical appointment with labs to Dr. Brian Erwin. The patient was seen with Dr. Cam John who performed the operative consent and discussion of her surgery. He concurs with the above plan. Cyndie Ponce M.D. / [id number] / [id number] / [id number] / [id number] cc: Brian Erwin [address] [place] [address] FAX: [phone] Fernando Nunes MD [address] [facility] [place] [address] documented i n this encounter Plan of Treatment Not on filedocumented as of this encounter Visit Diagnoses Not on filedocumented in this encounter"
--- OUTSIDE RECORDS SUMMARY | ~2019-05-04 | XMS | Encounter Summary ---
Demographics + + + | Address | [address] | | | [place] [address] | + + + | Home Phone [...] #[place] | | | | | [address] | | + + + + + | Destiny Suggs | ECON | Unknown | | + + + + + Care Team Providers + +------+ + | Care Hand I Blocker Name | Role | Phone | + [...] as of this encounter Progress Notes Interface, Inspector Boiler In - 02/04/2005 12:44 AM [facility] [id number] [facility] Date: 07/31/2004 Clinic: Surgery [...] August 2004. Cam John M.D. [place] / [id number] / [id number] / [id number] / [id number] documented i n this encounter Plan of Treatment Not on filedocumented as of this encounter Visit Diagnoses Not on filedocumented in this encounter"
--- OUTSIDE RECORDS SUMMARY | ~2019-05-04 | XMS | Encounter Summary ---
Demographics + + + | Address | [address] | | | [place] [address] | + + + | Home Phone | | + + + | Preferred Language | Unknown | + + + | Marital Status | | + + + | Buddhism Affiliation | CHR | + + + | Race | White | + + + | Ethnic Group | Not or | + + + Author + + + | Author | [facility] | + + + | Organization | [facility] | + + + | Address | Unknown | + + + | Phone | Unavailable | + + + Support + + + + + | Name | Relationship | Address | Phone | + + + + + | Edwar PETERS | ECON | [address] | | | | | #[place] | | | | | [address] | | + + + + + | Destiny Suggs | ECON | Unknown | | + + + + + Care Team Providers + +------+ + | Care Business Taxes Specialist Name | Role | Phone | + +------+ + | Shakir Erwin MD | PCP | | + +------+ + Encounter Details +--------+ + + + + | Date | Type | Department | Care Team | Description | +--------+ + + + + | 08/13/ | Ancillary | Registration [id number] | Jean Parsons, | | | 2005 | Registratio | [address] | [address] | | | | [address] | [address] Mailcode: RPB07 | [address] | | | | | [place], [place] | [place], [place] | | | | | [address] | [address] | | | | | [phone] | [phone] | | | | | | | | +--------+ + [...]
--- OUTSIDE RECORDS SUMMARY | ~2019-05-04 | XMS | Encounter Summary ---
Demographics + + + | Address | [address] | | | [place] [address] | + + + | Home Phone | | + + + | Preferred Language | Unknown | + + + | Marital Status | | + + + | Samaritan Affiliation | CHR | + + + [...] #[place] | | | | | [address] | | + + + + + | Destiny Suggs | ECON | Unknown | | + + + + + Care Team Providers + +------+ + | Care Polysomnograph Tech Name | Role | Phone | + [...] [address] | | | | | | [place], [place] | | | | | | [address] | | | | | | [phone] | | | +--------+ + + + [...] the | | | | | | hydroelectric plant structural engineer as"for | | | | | | research use, not for | | | | | | clinical use." The | | | | | | performancecharacteristi | | | | | | cs of this test were | | | | | | validated by | | | | | | [employer]. | | | | | | The [...] by | | | | | | [employer]. | | | | | | New [...] [facility] | [address] | [place], [place] | | | [facility] | | [address] | | + + + + + [...] DEPARTMENT OF | [address] | [place] [address] | | | PATHOLOGY | [address] | | | + + + + + | [facility] DEPARTMENT OF | [address] | [place] [address] | | | PATHOLOGY | [address] [...] DEPARTMENT OF | [address] | [place] [address] | | | PATHOLOGY | [address] | | | + + + + + | [facility] DEPARTMENT OF | [address] | [place] [address] | | | PATHOLOGY | [address] [...] | + + + + + | [facility] DEPARTMENT | [address] [facility] | [place] [address] | | | PATHOLOGY | [address] | | | + + + + + | [facility] DEPARTMENT OF | [address] [facility] | [place] [address] | | | PATHOLOGY | [address] [...] | | | | | | [facility] | | | | | | Laboratories. | | | | + + + + + + + + | Specimen | + + | | + + + + + + + | Performing | Address | City/State/Zipcode | Phone Number | | Organization | | | | + + + + + | [facility] | [address] | [place] [address] | | | LABORATORY | | | [...] | | | M | performed at [place] | | | | | | [facility] | | | | | | Laboratories. | | | | + + + + + + + + | Specimen | + + | | + + + + + + + | Performing | Address | City/State/Zipcode | Phone Number | | Organization | | | | + + + + + | [facility] | [address] | [place] [address] | | | LABORATORY | | | | + + + + + documented in this encounter Visit Diagnoses Not on filedocumented in this encounter
--- OUTSIDE RECORDS SUMMARY | ~2019-05-04 | XMS | Encounter Summary ---
Demographics + + + | Address | [address] | | | [place] [address] | + + + | Home Phone [...] #[place] | | | | | [address] | | + + + + + | Destiny Suggs | ECON | Unknown | | + + + + + Care Team Providers + +------+ + | Care Interpersonal Communications Professor Name | Role | Phone | + [...] [address] | | | | | [place], [place] | [place], [place] | | | | | [address] | [address] | | | | | [phone] | [phone] | | | | | | | [...]
--- OUTSIDE RECORDS SUMMARY | ~2019-05-04 | XMS | Encounter Summary ---
Demographics + + + | Address | [address] | | | [place] [address] | + + + | Home Phone [...] #[place], [place] | | | | | [address] | | + + + + + | Destiny Suggs | ECON | Unknown | | + + + + + Care Team Providers + +------+ + | Care Global President Name | Role | Phone | + [...] as of this encounter Progress Notes Interface, Portable Grinding Machine Operator In - 02/04/2005 12:48 AM PDT [id number] 10/09/2004 10/13/2004 [id number] [facility] [address] [place] [address] or October 13, 2004 Fernando Nunes M.D. [address] [place] [address] RE: ANAMIKA PACK MR #: [id number] Dear Dr. Nunes: I received your request [...] her to see our gastroenterologists here at [facility] who have a fair amount of experience [...] to call me in my office at [phone]. We will forward you the records, and I will keep you apprised as to her progress as she undergoes this endoscopy and dilation. Sincerely, Cam John M.D. medical facilities section director, [facility], Department of Surgery [facility] / [id number] / [id number] / [id number] / documented i n this encounter Plan of Treatment Not on filedocumented as of this encounter Visit Diagnoses Not on filedocumented in this encounter"
--- OUTSIDE RECORDS SUMMARY | ~2019-05-04 | XMS | Encounter Summary ---
Demographics + + + | Address | [address] | | | [place] [address] | + + + | Home Phone | | + + + | Preferred Language | Unknown | + + + | Marital Status | | + + + | Shinto Affiliation | CHR | + + + [...] #[place], [place] | | | | | [address] | | + + + + + | Destiny Suggs | ECON | Unknown | | + + + + + Care Team Providers + +------+ + | Care Bradley Linebacker Crewmember Name | Role | Phone | + [...] as of this encounter Progress Notes Interface, Flight Hostess In - 02/21/2005 5:06 AM PDT [id number] 10/09/2004 10/13/2004 [id number] [facility] [address] [place] [address] or October 13, 2004 Fernando Nunes M.D. [address] [place] [address] RE: ANAMIKA PACK MR #: [id number] Dear Dr. Nunes: I received your request [...] her to see our gastroenterologists here at [facility] who have a fair amount of experience [...] to call me in my office at [phone]. We will forward you the records, and I will keep you apprised as to her progress as she undergoes this endoscopy and dilation. Sincerely, Cam John M.D. systems test engineer, [facility], Department of Surgery [facility] / [id number] / [id number] / [id number] / Electronically signed by Cam Mcbride 02-20-2005 03:44:35 PM documented i n this encounter Plan of Treatment Not on filedocumented as of this encounter Visit Diagnoses Not on filedocumented in this encounter"
--- OUTSIDE RECORDS SUMMARY | ~2019-05-04 | XMS | Encounter Summary ---
Demographics + + + | Address | [address] | | | [place] [address] | + + + | Home Phone [...] + + + | Author | [facility] | + + + | Organization | [facility] | + + + | [...] #[place] | | | | | [address] | | + + + + + | Destiny Suggs | ECON | Unknown | | + + + + + Care Team Providers + +------+ + | Care Mica Machine Operator Name | Role | Phone | + +------+ + | Shakir Erwin MD | PCP | | + +------+ + Encounter Details +--------+ + + + + | Date | Type | Department | Care Team | Description | +--------+ + + + + | 09/10/ | Ancillary | Registration [address] | Jean Parsons, | | | 2005 | Registratio | [address] | [address] | | | | [address] | [address] Mailcode: [id number] | [address] | | | | | [place], [place] | [place], [place] | | | | | [address] | [address] | | | | | [phone] | [phone] | | | | | | | [...] + + | DIFFERENTIAL | Routin | 09/10/2005 | | Results for this | | | e | 11:12 AM | | procedure are in the | | | | PST | | results section. | + +--------+ + + + | CBC, WITH | Routin | 09/10/2005 | | Results for this | | DIFFERENTIAL | e | 11:12 AM | | procedure are in the | | | | PST | | results section. | + +--------+ + + + | COMPLETE METABOLIC | Routin | 09/10/2005 | | Results for this | | SET | e | 11:12 AM | | procedure are in the | | (NA,K,CL,CO2,BUN,CRE | | PST | | results section. | | AT,GLUC,CA,AST,ALT,B | | | | | | JAVED TOTAL,ALK | | | | | | PHOS,ALB,PROT TOTAL) | | | | | + +--------+ + + + | PTH, SERUM | Routin | 09/10/2005 | | Results for this | | | e | 11:12 AM | | procedure are in the | | | | PST | | results section. | + +--------+ + + + | FOLATE, SERUM | Routin | 09/10/2005 | | Results for this | | | e | 11:12 AM | | procedure are in the | | | | PST | | results section. | + +--------+ + + + | VITAMIN B-12 | Routin | 09/10/2005 | | Results for this | | | e | 11:12 AM | | procedure are in the | | | | PST | | results section. | + +--------+ + + + documented in this encounter Results VITAMIN B-12, SERUM (09/10/2005 11:12 AM PST) + + + + + + | Component | Value | Ref Range | Performed | Pathologist | | | | | At | Signature | + + + + + + | VITAMIN | 1361 (H)Comment: | 200 - 950 pg/ml | | | | B12, SERUM | Test performed by [facility] | | | | | | [facility] | | | | | | Laboratories. | | | | + + + + + + + + | Specimen | + + | | + + + + + + + | Performing | Address | City/State/Zipcode | Phone Number | | Organization | | | | + + + + + | [facility] | [address] | [place] [address] | | | LABORATORY | | | | + + + + + FOLATE, SERUM (09/10/2005 11:12 AM PST) + + + + + + | Component | Value | Ref Range | Performed | Pathologist | | | | | At | Signature | + + + + + + | FOLATE,SERU | > 24.0Comment: Test | >1.9 ng/ml | | | | M | performed at [place] | | | | | | [facility] | | | | | | Laboratories. | | | | + + + + + + + + | Specimen | + + | | + + + + + + + | Performing | Address | City/State/Zipcode | Phone Number | | Organization | | | | + + + + + | [facility] | [address] | [place] [address] | | | LABORATORY | | | | + + + + + PTH, SERUM (09/10/2005 11:12 AM PST) + + + + + + | Component | Value | Ref Range | Performed | Pathologist | | | | | At | Signature | + + + + + + | PTH, SERUM | 36.0Comment: Test | 15.0 - 75.0 | | | | | performed by [facility] | pg/mL | | | | | [facility]. | | | | | | New method effective | | | | | | 05/02/05. | | | | + + + + + + + + | Specimen | + + | | + + + + + + + | Performing | Address | City/State/Zipcode | Phone Number | | Organization | | | | + + + + + | [facility] | [address] | [place] [address] | | | LABORATORY | | | | + + + + + DIFFERENTIAL (09/10/2005 11:12 AM PST) + +-------+ + + + | Component | Value | Ref Range | Performed | Pathologist | | | | | At | Signature | + +-------+ + + + | NEUTROPHIL | 53 | 50 - 70 % | [facility] | | | % | | | DEPARTMENT | | | | | | OF | | | | | | PATHOLOGY | | + +-------+ + + + | LYMPHOCYTE | 37 | 18 - 42 % | [facility] | | | % | | | DEPARTMENT | | | | | | OF | | | | | | PATHOLOGY | | + +-------+ + + + | MONOCYTE % | 8 | 2 - 8 % | [facility] [...] +-------+ + + + | NEUTROPHIL | 3.5 | 1.8 - 7.7 K/cu | [facility] | | | # | | mm | DEPARTMENT | | | | | | OF | | | | | | PATHOLOGY | | + +-------+ + + + | LYMPHOCYTE | 2.5 | 1.0 - 4.8 K/cu | [facility] | | | # | | mm | DEPARTMENT | | | | | | OF | | | | | | PATHOLOGY | | + +-------+ + + + | MONOCYTE # | 0.5 | 0.1 - 0.6 K/cu | [facility] | | | | | mm | DEPARTMENT | | | | | | OF | | | | | | PATHOLOGY | | + +-------+ + + + | EOS # | 0.1 | <0.6 K/cu mm | [facility] | [...] | + + + + + | [facility] DEPARTMENT OF | [address] | [place] [address] | | | PATHOLOGY | [address] | | | + + + + + | [facility] DEPARTMENT OF | [address] | [place] [address] | | | PATHOLOGY | [address] | | | + + + + + CBC, WITH DIFFERENTIAL (09/10/2005 11:12 AM PST) + + + + + + | Component | Value | Ref Range | Performed | Pathologist | | | | | At | Signature | + + + + + + | WHITE CELL | 6.7 | 4.4 - 11.0 K/cu | [facility] | | | COUNT | | mm | DEPARTMENT | | | | | | OF | | | | | | PATHOLOGY | | + + + + + + | RED CELL | 4.12 | 4.00 - 5.20 | [facility] | | | COUNT | | M/cu mm | DEPARTMENT | | | | | | OF | | | | | | PATHOLOGY | | + + + + + + | HEMOGLOBIN | 11.8 (L) | 12.0 - 16.0 | [facility] | | | | | g/dL | DEPARTMENT | | | | | | OF | | | | | | PATHOLOGY | | + + + + + + | HEMATOCRIT | 33.2 (L) | 36.0 - 46.0 % | [facility] | | | | | | DEPARTMENT | | | | | | OF | | | | | | PATHOLOGY | | + + + + + + | MCV | 80.5 | 80.0 - 96.0 fL | [facility] | | | | | | DEPARTMENT | | | | | | OF | | | | | | PATHOLOGY | | + + + + + + | MCHC | 35.5 | 33.4 - 35.5 | [facility] | | | | | g/dL | DEPARTMENT | | | | | | OF | | | | | | PATHOLOGY | | + + + + + + | RDW | 13.8 | 11.5 - 15.0 % | [facility] [...] + | [facility] DEPARTMENT OF | [address] [facility] | [place] [address] | | | PATHOLOGY | [address] | | | + + + + + | [facility] DEPARTMENT OF | [address] [facility] | [place] [address] | | | PATHOLOGY | [address] | | | + + + + + COMP METABOLIC SET (09/10/2005 11:12 AM PST) + +---------+ + + + [...] + + + | BUN, PLASMA | 11 | 6 - 20 mg/dL | [facility] [...] +---------+ + + + | TOTAL | 6.0 (L) | 6.1 - 7.9 g/dL | [facility] | | | PROTEIN, | | | DEPARTMENT | | | PLASMA | | | OF | | | (LAB) | | | PATHOLOGY | | + +---------+ + + + | ALBUMIN, | 3.5 | 3.5 - 4.7 g/dL | [facility] | | | PLASMA | | | DEPARTMENT | | | (LAB) | | | OF | | | | | | PATHOLOGY | | + +---------+ + + + | CALCIUM, | 9.1 | 8.5 - 10.5 | [facility] | [...] + + + | ALK PHOS | 49 | 42 - 98 U/L | [facility] | | | | | | DEPARTMENT | | | | | | OF | | | | | | PATHOLOGY | | + +---------+ + + + | AST(SGOT) | 17 | 15 - 41 U/L | [facility] [...] +---------+ + + + | POTASSIUM, | 4.0 | 3.5 - 5.1 | [facility] | | | PLASMA | | mmol/L | DEPARTMENT | | | (LAB) | | | OF | | | | | | PATHOLOGY | | + +---------+ + + + | CHLORIDE, | 107 | 98 - 107 mmol/L | [facility] | | | PLASMA | | | DEPARTMENT | | | (LAB) | | | OF | | | | | | PATHOLOGY | | + +---------+ + + + | TOTAL CO2, | 25 | 23 - 29 mmol/L | [facility] | | | PLASMA | | | DEPARTMENT | | | (LAB) | | | OF | | | | | | PATHOLOGY | | + +---------+ + + + | ALT (SGPT) | 21 | 13 - 48 U/L | [facility] | | | | | | DEPARTMENT | | | | | | OF | | | | | | PATHOLOGY | | + +---------+ + + + + + | Specimen | + + | | + + + + + | Narrative | Performed At | + + + | [id number] Estimated GFR > 60 mL/min/1.73 sq m if non- | [facility] | | [id number] Estimated GFR > 60 mL/min/1.73 sq m if GFR | DEPARTMENT OF | | is estimated using the MDRD equation recommended by the National | PATHOLOGY | | Kidney Disease Education Program. Estimated GFR Interpretive | | | Information: <60 mL/min/1.73 sq m Chronic Kidney Disease <15 | | | mL/mon/1.73 sq m Kidney Failure Estimated GFR greater than | | | 60mL/min/1.73 is of limited clinical Value. The MDRD equation is | | | not valid in the following situations: - Patients under 18 years of | | | age - Severe malnutrition or obesity - Vegetarian diet - Rapidly | | | changing kidney function | | + + + + + + + + | Performing | Address | City/State/Zipcode | Phone Number | | Organization | | | | + + + + + | [facility] | [address] [place] [address] | [place] [address] | | | PATHOLOGY | [address] | | | + + + + + | [facility] DEPARTMENT | [facility] | [place] [address] | | | PATHOLOGY | [address] | | | + + + + + documented in this encounter Visit Diagnoses Not on filedocumented in this encounter"
--- OUTSIDE RECORDS SUMMARY | ~2019-05-04 | XMS | Encounter Summary ---
Demographics + + + | Address | [address] | | | [place] [address] | + + + | Home Phone | | + + + | Preferred Language | Unknown | + + + | Marital Status | | + + + | Protestant Affiliation | CHR | + + + [...] #[place] | | | | | [address] | | + + + + + | Destiny Reginekeena | ECON | Unknown | | + + + + + Care Team Providers + +------+ + | Care Special Events Fundraiser Name | Role | Phone | + [...] Pre-Operative | | | | Surgery at [facility] [address] | | Examination | | | | [address] | | | | | | Mailcode: 5 | | | | | | [facility] | | | | | | and Healing, | | | | | | Building 1, 5th | | | | | | Floor [place], [place] | | | | | | [address] | | | | | | [phone] | | | +--------+---------+ + + + [...] surgeries scheduled to take place on the table rock at the [facility]: Surgeries scheduled in the [facility] ( [facility]): registration is located on the 4th floor of [facility] (Day Surgery). Surgeries scheduled in the [facility]: registration is located on the 9th floor. Surgeries scheduled in [facility]: registration is located on the 6th floor. Surgeries scheduled in the [facility]: registration is located i n the [facility] on the first floor. For surgeries scheduled to take place at the [facility]: registration is l [...] If you use specialized medical equipment at [facility], please check with your provider before [...]
--- OUTSIDE RECORDS SUMMARY | ~2019-05-04 | XMS | Encounter Summary ---
Demographics + + + | Address | [address] | | | [place] [address] | + + + | Home Phone | | + + + | Preferred Language | Unknown | + + + | Marital Status | | + + + | Nondenominational Affiliation | CHR | + + + [...] [place] | | | | | [address] | | + + + + + | Destiny Suggs | ECON | Unknown | | + + + + + Care Team Providers + +------+ + | Care Jacquard Loom Carpet Weaver Name | Role | Phone | + [...] | | | | | | | [place], [place] | | | | | | | [address] | | | | | | | Phone: | | | | | | | [phone] | | | | | | | Fax: | | | | | | | [phone] | +--------+--------+ + + + + Encounter Details +--------+ + + + + | Date | Type | Department | Care Team | Description | +--------+ + + + + | 11/19/ | Hospital | [facility] | Tucker Buenrostro MD | | | 2008 | Encounter | STAY [address] | [address] | | | | | Ave Mailcode: CH | [place], [place] | | | | | Center for | [address] | | | | | Health and Healing, | [phone] | | | | | Building [address] | | | | | | [place], [place] | | | | | | [address] | | | | | | [phone] | | | +--------+ + + + [...]
--- OUTSIDE RECORDS SUMMARY | ~2019-05-04 | XMS | Encounter Summary ---
Demographics + + + | Address | [address] | | | [place] [address] | + + + | Home Phone | | + + + | Preferred Language | Unknown | + + + | Marital Status | | + + + | Voodoo Affiliation | CHR | + + + | Race | White | + + + | Ethnic Group | Not or | + + + Author + + + | Author | [facility] | + + + | Organization | [facility] | + + + | Address | Unknown | + + + | Phone | Unavailable | + + + Support + + + + + | Name | Relationship | Address | Phone | + + + + + | Edwar PETERS | ECON | [address] | | | | | #[place] | | | | | [address] | | + + + + + | Destiny Weinerkeena | ECON | Unknown | | + + + + + Care Team Providers + +------+ + | Care Workplace Rehabilitation Officer Name | Role | Phone | [...] (Having | | | | Surgery at [facility] [address] | [facility] [place] | issue with remaining | | | | [address] | [address] | drain; wants to | | | | Mailcode: [facility] | [phone] | take out.); Patient | | | | [place] for [facility] | | education (questions | | | | and Healing, | | about d/cing JOSUE | | | | Building [address], [address]th | | Drain.) | | | | Floor [place], [place] | | | | | | [address] | | | | | | [phone] | | | +--------+ + + + [...]
--- OUTSIDE RECORDS SUMMARY | ~2019-05-04 | XMS | Encounter Summary ---
Demographics + + + | Address | [address] | | | [place] [address] | + + + | Home Phone | | + + + | Preferred Language | Unknown | + + + | Marital Status | | + + + | Latter Day Affiliation | CHR | + + + | Race | White | + + + | Ethnic Group | Not or | + + + Author + + + | Author | [facility] | + + + | Organization | [facility] | + + + | [...] #[place] | | | | | [address] | | + + + + + | Destiny Suggs | ECON | Unknown | | + + + + + Care Team Providers + +------+ + | Care Supervisor Contact And Service Clerks Name | Role | Phone | + [...] | | | | | | [address] [place], [place] | | | | | | [address] | | | | | | [phone] | | | +--------+ + + + [...]
--- OUTSIDE RECORDS SUMMARY | ~2019-05-04 | XMS | Encounter Summary ---
Demographics + + + | Address | [address] | | | [place] [address] | + + + | Home Phone | | + + + | Preferred Language | Unknown | + + + | Marital Status | | + + + | Restorationism Affiliation | CHR | + + + | Race | White | + + + | Ethnic Group | Not or | + + + Author + + + | Author | [facility] | + + + | Organization | [facility] | + + + | [...] #[place] | | | | | [address] | | + + + + + | Destiny Suggs | ECON | Unknown | | + + + + + Care Team Providers + +------+ + | Care Hops Farmworker Name | Role | Phone | + [...] [address] | | | | | [place], [place] | [place], [place] | | | | | [address] | [address] | | | | | [phone] | [phone] | | | | | | | [...]
--- OUTSIDE RECORDS SUMMARY | ~2019-05-04 | XMS | Encounter Summary ---
Demographics + + + | Address | [address] | | | [place] [address] | + + + | Home Phone | | + + + | Preferred Language | Unknown | + + + | Marital Status | | + + + | Methodist Affiliation | CHR | + + + | Race | White | + + + | Ethnic Group | Not or | + + + Author + + + | Author | [facility] | + + + | Organization | [facility] | + + + | [...] #[place] | | | | | [address] | | + + + + + | Destiny Suggs | ECON | Unknown | | + + + + + Care Team Providers + +------+ + | Care School Bus Attendant Name | Role | Phone | + [...] | | | | | SURGERY | [place], [place] | Mailcode: | | | | | MARINE SERVICE STATION ATTENDANT | [address] | [facility] | | | | | MI EXC SKIN | Phone: | for Health | | | | | ABD | [phone] | and Healing, | | | | | Procedure to | Fax: | Building 1, | | | | | be | [phone] | 5th Floor | | | | | performed: | | [place], [place] | | | | | panniculecto | | [address] | | | | | my Body | | Phone: | | | | | Part: | | [phone] | | | | | abodmen CPT | | | | | | | Code: | | | | | | | Excise | | | | | | | excess skin | | | | | | | tissue, | | | | | | | abdomen | | | | | | | ([id number]) | | | +--------+--------+ + + + [...] Dx) | | | | Surgery at [facility] [address] | [place], [place] | | | | | [address] | [address] | | | | | Mailcode: [facility] | [phone] | | | | | [facility] | | | | | | and Healing, | | | | | | Building [address], [address]th | | | | | | [place], [place] | | | | | | [address] | | | | | | [phone] | | | +--------+---------+ + + + [...]
--- OUTSIDE RECORDS SUMMARY | ~2019-05-04 | XMS | Encounter Summary ---
Demographics + + + | Address | [address] | | | [place] [address] | + + + | Home Phone [...] #[place], [place] | | | | | [address] | | + + + + + | Destiny Suggs | ECON | Unknown | | + + + + + Care Team Providers + +------+ + | Care Web Content Writer Name | Role | Phone | + [...] as of this encounter Discharge Summaries Interface, Zipper Machine Operator In - 02/04/2005 2:10 AM [facility] [id number] LORRAINE Mccurdy Admission Date: 08/29/2004 Discharge Date: [...] for followup. Cyndie Ponce M.D., V / [id number] / [id number] / [id number] / cc: Fernando Nunes M.D. [address] [place] [address] Cam John M.D. General Surgery, [facility] Electronically signed by Cam Mcbride 09-25-2004 03:35:41 PM documented i n this encounter Plan of Treatment Not on filedocumented as of this encounter Visit Diagnoses Not on filedocumented in this encounter"
--- OUTSIDE RECORDS SUMMARY | ~2019-05-04 | XMS | Encounter Summary ---
Demographics + + + | Address | [address] | | | [place] [address] | + + + | Home Phone | | + + + | Preferred Language | Unknown | + + + | Marital Status | | + + + | Alevism Affiliation | CHR | + + + | Race | White | + + + | Ethnic Group | Not or | + + + Author + + + | Author | [facility] | + + + | Organization | [facility] | + + + | Address | Unknown | + + + | Phone | Unavailable | + + + Support + + + + + | Name | Relationship | Address | Phone | + + + + + | Edwar PETERS | ECON | [address] | | | | | #[place] | | | | | [address] | | + + + + + | Destiny Suggs | ECON | Unknown | | + + + + + Care Team Providers + +------+ + | Care Temporary Office Assistant Name | Role | Phone | [...] [id number] | | | | | | [place], [place] | | | | | | [address] | | | | | | [phone] | | | +--------+ + + + [...] | | + +---------+ + + | [facility] DEPARTMENT OF | | | | [...] + + + + | PRODUCT | [id number] | | [facility] | | | UNIT [...] | + + + + + | [facility] DEPARTMENT OF | [address] | [place] [address] | | | PATHOLOGY | [address] | | | + + + + + | [facility] DEPARTMENT OF | [address] | [place] [address] | | | PATHOLOGY | [address] [...] + + + + | PRODUCT | [id number] | | [facility] | | | UNIT [...] | + + + + + | [facility] DEPARTMENT OF | [address] [facility] | [place] [address] | | | PATHOLOGY | [address] | | | + + + + + | [facility] DEPARTMENT OF | [facility] | [place] [address] | | | PATHOLOGY | [address] [...] DEPARTMENT OF | [address] | [place] [address] | | | PATHOLOGY | [address] | | | + + + + + | [facility] DEPARTMENT OF | [address] | [place] [address] | | | PATHOLOGY | [address] [...] | + + + + + | [facility] DEPARTMENT | [address] [facility] | [place] [address] | | | PATHOLOGY | [address] | | | + + + + + | [facility] | [address] [facility] | [place] [address] | | | PATHOLOGY | [address] [...] | + + + + + | [facility] DEPARTMENT OF | [address] | [place] [address] | | | PATHOLOGY | [address] | | | + + + + + | [facility] DEPARTMENT OF | [address] | [place] [address] | | | PATHOLOGY | [address] [...] | + + + + + | [facility] DEPARTMENT OF | [address] | [place] [address] | | | PATHOLOGY | [address] | | | + + + + + | [facility] DEPARTMENT OF | [address] | [place] [address] | | | PATHOLOGY | [address] [...] - | | | | | | [address] 6 - 7 | | | | | | Weeks | | | | | | 4000 - 586158 | | | | | | 7 - 12 Weeks | | | | | | [address] - 190555 | | | | | | 12 - 16 Weeks | | | | | | 87[address] - | | | | | | 127361 16 - 29 | | | | | | Weeks | | | | | | 1400 - 83437 29 | | | | | | - 41 Weeks | | | | | | 940 - 07138 New | | | | | | [...] | + + + + + | [facility] | [address] | [place] [address] | | | PATHOLOGY | [address] | | | + + + + + | [facility] DEPARTMENT OF | [address] | [place] [address] | | | PATHOLOGY | [address] [...] | + + + + + | [facility] DEPARTMENT OF | [address] | [place] [address] | | | PATHOLOGY | [address] | | | + + + + + | [facility] DEPARTMENT OF | [address] | [place] [address] | | | PATHOLOGY | [address] | | | + + + + + documented in this encounter Visit Diagnoses Not on filedocumented in this encounter"
--- OUTSIDE RECORDS SUMMARY | ~2019-05-04 | XMS | Encounter Summary ---
Demographics + + + | Address | [address] | | | [place] [address] | + + + | Home Phone | | + + + | Preferred Language | Unknown | + + + | Marital Status | | + + + | Cheondoism Affiliation | CHR | + + + | Race | White | + + + | Ethnic Group | Not or | + + + Author + + + | Author | [facility] | + + + | Organization | [facility] | + + + | [...] #[place] | | | | | [address] | | + + + + + | Destiny Weinerkeena | ECON | Unknown | | + + + + + Care Team Providers + +------+ + | Care Numerical Control Tool Programmer Name | Role | Phone | + [...] | | Reconstructive | [address] | Questions (pt has | | | | Surgery at [facility] [address] | [place], [place] | fluid build up | | | | [address] | [address] | again; does she need | | | | Mailcode: [facility] | [phone] | to come in to be | | | | [place] [facility] | | drained.) | | | | and Healing, | | | | | | Building 1, | | | | | | Floor [facility] [place] | | | | | | [address] | | | | | | [phone] | | | +--------+ + + + [...]
--- OUTSIDE RECORDS SUMMARY | ~2019-05-04 | XMS | Encounter Summary ---
Demographics + + + | Address | [address] | | | [place] [address] | + + + | Home Phone [...] + + + | Author | [facility] | + + + | Organization | [facility] | + + + | [...] #[place] | | | | | [address] | | + + + + + | Destiny Suggs | ECON | Unknown | | + + + + + Care Team Providers + +------+ + | Care Planned Giving Officer Name | Role | Phone | [...] | | | Rd Mailcode: [address] | [place], [place] | | | | | [place], [place] | [address] | | | | | [address] | [phone] | | | | | [phone] | | | +--------+ + + + [...]
--- OUTSIDE RECORDS SUMMARY | ~2019-05-04 | XMS | Encounter Summary ---
Demographics + + + | Address | [address] | | | [place] [address] | + + + | Home Phone [...] #[place] | | | | | [address] | | + + + + + | Destiny Suggs | ECON | Unknown | | + + + + + Care Team Providers + +------+ + | Care Cilnical Scientist Name | Role | Phone | + +------+ + | Shakir Erwin MD | PCP | | + +------+ + Encounter Details +--------+ + + + + | Date | Type | Department | Care Team | Description | +--------+ + + + + | 08/30/ | Documentati | Anesthesiology | Unknown . | | | 2004 | on | [address] | | | | | | [place], | | | | | | [place] [address] | | | +--------+ + + + [...] + + + | ANESTHESIA/SEDATION | | 08/30/2004 | | Results for this | | | | 10:58 AM | | procedure are in the | | | | PST | | results section. | + +--------+ + + + documented in this encounter Results ANESTHESIA/SEDATION (08/30/2004 10:58 AM PST) + + + | Narrative | Performed At | + + + | Ordered by an unspecified provider. | | + + + + + | Transcriptions | + + | 08/30/2004 10:58 AM PST Anesthesia PostOp Report | | | | Patient: ANAMIKA PETERS Med Rec: [id number] Sex F Bdate: 1970 | | Date/Time Data | | Entered Into [facility] | | Anesth PostOp | | Surgery Date [id number] 08/30/04 10:58 | | Anesthesiologist LUIS CHIN 08/30/04 10:58 | | | + + documented in this encounter Visit Diagnoses Not on filedocumented in this encounter"
--- OUTSIDE RECORDS SUMMARY | ~2019-05-04 | XMS | Encounter Summary ---
Demographics + + + | Address | [address] | | | [place] [address] | + + + | Home Phone [...] [place] | | | | | [address] | | + + + + + | Destiny Suggs | ECON | Unknown | | + + + + + Care Team Providers + +------+ + | Care Mud Trucker Name | Role | Phone | + [...] Rd | | | | | | [place], [place] | | | | | | [address] | | | +--------+ + + + [...]
--- OUTSIDE RECORDS SUMMARY | ~2019-05-04 | XMS | Encounter Summary ---
Demographics + + + | Address | [address] | | | [place] [address] | + + + | Home Phone | | + + + | Preferred Language | Unknown | + + + | Marital Status | | + + + | Confucianism Affiliation | CHR | + + + | Race | White | + + + | Ethnic Group | Not or | + + + Author + + + | Author | [facility] | + + + | Organization | [facility] | + + + | [...] #[place] | | | | | [address] | | + + + + + | Destiny Suggs | ECON | Unknown | | + + + + + Care Team Providers + +------+ + | Care Brush Holder Inspector Name | Role | Phone | + +------+ + | Shakir Erwin MD | PCP | | + +------+ + Encounter Details +--------+------+ + + + | Date | Type | Department | Care Team | Description | +--------+------+ + + + | 06/21/ | Lab | Laboratory at [facility] | | Other plastic | | 2008 | | [address] | | surgery for | | | | [place] | | unacceptable | | | | [address] | | cosmetic appearance; | | | | [phone] | | Other specified | | | | | | pre-operative | | | | | | examination | +--------+------+ + + + Social History + + [...] + | COMPLETE METABOLIC | Routin | 06/21/2009 | Other plastic | Results for this | | SET | e | 1:13 PM | surgery for | procedure are in the | | (NA,K,CL,CO2,BUN,CRE | | PST | unacceptable | results section. | | AT,GLUC,CA,AST,ALT,B | | | cosmetic appearance | | | JAVED TOTAL,ALK | | | Other specified | | | PHOS,ALB,PROT TOTAL) | | | pre-operative | | | | | | examination | | + +--------+ + + + | CBC ONLY | Routin | 06/21/2009 | Other plastic | Results for this | | | e | 1:13 PM | surgery for | procedure are in the | | | | PST | unacceptable | results section. | | | | | cosmetic appearance | | | | | | Other specified | | | | | | pre-operative | | | | | | examination | | + +--------+ + + + documented in this encounter Results CBC ONLY (06/21/2009 1:13 [...] DEPARTMENT OF | [address] | [place] [address] | | | PATHOLOGY | [address] [...] | | | DEPARTMENT | | | [place] | | | OF | | | [...] | + + + + + | [facility] | [address] | [place] [address] | | | PATHOLOGY | [address] | | | + + + + + documented in this encounter Visit Diagnoses + + | Diagnosis | + + | Other plastic surgery for unacceptable cosmetic appearance | + + | Other specified pre-operative examination | + + documented in this encounter"
--- OUTSIDE RECORDS SUMMARY | ~2019-05-04 | XMS | Encounter Summary ---
Demographics + + + | Address | [address] | | | [place] [address] | + + + | Home Phone [...] #[place], [place] | | | | | [address] | | + + + + + | Destiny Suggs | ECON | Unknown | | + + + + + Care Team Providers + +------+ + | Care Bookmaker'S Clerk Name | Role | Phone | + [...] as of this encounter Progress Notes Interface, Wafer Cutter In - 02/04/2005 12:48 AM PDT [id number] 10/09/2004 10/13/2004 [id number] LORRAINE Mccurdy [facility] [address] [place] [address] or October 13, 2004 Fernando Nunes M.D. [address] [place] [address] RE: ANAMIKA PACK MR #: [id number] Dear Dr. Nunes: I received your request for records on your patient, nAamika Pack, which we will forward to you [...] her to see our gastroenterologists here at [facility] who have a fair amount of experience [...] to call me in my office at [phone]. We will forward you the records, and I will keep you apprised as to her progress as she undergoes this endoscopy and dilation. Sincerely, Cam John M.D. aluminum pool installer, [facility], Department of Surgery [facility] / [id number] / [id number] / [id number] / documented i n this encounter Plan of Treatment Not on filedocumented as of this encounter Visit Diagnoses Not on filedocumented in this encounter"
--- OUTSIDE RECORDS SUMMARY | ~2019-05-04 | XMS | Encounter Summary ---
Demographics + + + | Address | [address] | | | [place] [address] | + + + | Home Phone [...] [place] | | | | | [address] | | + + + + + | Destiny Suggs | ECON | Unknown | | + + + + + Care Team Providers + +------+ + | Care Bilingual Manager Name | Role | Phone | + +------+ + | Shakir Erwin MD | PCP | | + +------+ + Reason for Visit + + + | Reason | Comments | + + + | Needs Work Release | pt needs release to work mon. 06/27 | + + + Encounter Details +--------+ + + + + | Date | Type | Department | Care Team | Description | +--------+ + + + + | 06/23/ | Telephone | Plastic and | Tucker Buenrostro MD | Needs Work Release | | 2008 | | Reconstructive | [address] | (pt needs release to | | | | Surgery at [facility] [address] | [place], [place] | work mon. 06/27) | | | | [address] | [address] | | | | | Mailcode: [facility] | [phone] | | | | | [facility] | | | | | | and Healing, | | | | | | [facility] , | | | | | | [place], [place] | | | | | | [address] | | | | | | [phone] | | | +--------+ + + + [...]
--- OUTSIDE RECORDS SUMMARY | ~2019-05-04 | XMS | Encounter Summary ---
Demographics + + + | Address | [address] | | | [place] [address] | + + + | Home Phone [...] #[place], [place] | | | | | [address] | | + + + + + | Destiny Suggs | ECON | Unknown | | + + + + + Care Team Providers + +------+ + | Care Stem Roller Or Crusher Operator Name | Role | Phone | [...] as of this encounter Progress Notes Interface, Single Corner Cutter In - 02/06/2005 7:04 AM [facility] [id number] LORRAINE Mccurdy Clinic Date: 02/01/2005 Clinic: Subjective: [...] protein intake. She will be seeing a cost estimating manager in [place] where she currently lives. Assessment: The patient [...] any plans for EGD. Cyndie Ponce / [id number] / [id number] / [id number] / [id number] documented i n this encounter Plan of Treatment Not on filedocumented as of this encounter Visit Diagnoses Not on filedocumented in this encounter"
--- OUTSIDE RECORDS SUMMARY | ~2019-05-04 | XMS | Encounter Summary ---
Demographics + + + | Address | [address] | | | [place] [address] | + + + | Home Phone [...] Author + + + | Author | [facility] | + + + | Organization | [facility] | + + + | Address | Unknown | + + + | Phone | Unavailable | + + + Support + + + + + | Name | Relationship | Address | Phone | + + + + + | Edwar PETERS | ECON | [address] | | | | | #[place] | | | | | [address] | | + + + + + | Destiny Weinerkeena | ECON | Unknown | | + + + + + Care Team Providers + +------+ + | Care Skin Installer Name | Role | Phone | + [...] letter | | | | Surgery at [facility] [address] | [place], [place] | stating she is | | | | [address] | [address] | Released to go back | | | | Mailcode: [facility] | [phone] | to work startintg | | | | [facility] | | 11/20/08) | | | | and Healing, | | | | | | Building | | | | | | Floor [place], [place] | | | | | | [address] | | | | | | [phone] | | | +--------+ + + + [...]
--- OUTSIDE RECORDS SUMMARY | ~2019-05-04 | XMS | Clinical Summary ---
Demographics + + + | Address | [address] | | | [place] [address] | + + + | Home Phone | | + + + | Preferred Language | Unknown | + + + | Marital Status | Legally | + + + | Scientology Affiliation | 1013 | + + + | Race | Unknown | + + + | Ethnic Group | Unknown | + + + Author + + + | Author | [facility] (Historical as of | | | 02-21-19) | + + + | Organization | [facility] (Historical as of | | | 02-21-19) | + + + | Address | Unknown | + + + | Phone | Unavailable | + + + Support + + +---------+ + | Name | Relationship | Address | Phone | + + +---------+ + | Boubacar Pack | ECON | Unknown | | + + +---------+ + Care Team Providers + +------+ + | Care Drapery Hand Name | Role | Phone | + +------+ + | Matt Rodriguez MD | PP | | + +------+ + Allergies + + + + + + | Active Allergy | Reactions | Severity | Noted | Comments | | | | | Date | | + + + + + + | Hydrocodone-Acetamin | Hives, Nausea and | High | 03/18/20 | | | ophen | Vomiting, GI | | 18 | | | | Distress | | | | + + + + + + Current Medications + + +-------+---------+------+------+-------+ | Prescription | Sig. | Disp. | Refills | Star | End | Statu | | | | | | t | Date | s | | | | | | Date | | | + + +-------+---------+------+------+-------+ | lithium (LITHOBID) | Take 1,200 mg by | | | | | Activ | | 300 MG CR tablet | mouth nightly. | | | | | e | + + +-------+---------+------+------+-------+ | escitalopram | Take 15 mg by mouth | | | | | Activ | | (LEXAPRO) 10 MG | daily. | | | | | e | | tablet | | | | | | | + + +-------+---------+------+------+-------+ | topiramate | Take 50 mg by mouth | | | | | Activ | | (TOPAMAX) 25 MG | nightly. | | | | | e | | tablet | | | | | | | + + +-------+---------+------+------+-------+ | gabapentin | Take 300 mg by mouth | | | | | Activ | | (NEURONTIN) 300 MG | 3 (three) times | | | | | e | | capsule | daily. 300MG in the | | | | | | | | morning, 300mg at | | | | | | | | noon, 900mg nightly | | | | | | + + +-------+---------+------+------+-------+ | montelukast | Take 10 mg by mouth | | | | | Activ | | (SINGULAIR) 10 MG | nightly. | | | | | e | | tablet | | | | | | | + + +-------+---------+------+------+-------+ | Multiple | Take 1 tablet by | | | | | Activ | | Vitamins-Minerals | mouth daily. | | | | | e | | (MULTIVITAMIN WITH | | | | | | | | MINERALS) tablet | | | | | | | + + +-------+---------+------+------+-------+ | Calcium | Take 1 tablet by | | | | | Activ | | Carb-Cholecalciferol | mouth daily. | | | | | e | | (CALCIUM 600 + D | | | | | | | | PO) | | | | | | | + + +-------+---------+------+------+-------+ | cyanocobalamin | Take 100 mcg by | | | | | Activ | | (VITAMIN B-12) 100 | mouth daily. | | | | | e | | MCG tablet | | | | | | | + + +-------+---------+------+------+-------+ | Probiotic Product | Take 1 tablet by | | | | | Activ | | (PROBIOTIC-10 PO) | mouth daily. | | | | | e | + + +-------+---------+------+------+-------+ | fluticasone | 1 spray by Each Nare | | | | | Activ | | (FLONASE) 50 MCG/ACT | route daily. | | | | | e | | nasal | | | | | | | + + +-------+---------+------+------+-------+ | | Take 1 tablet by | | | | | Activ | | loratadine-pseudoeph | mouth daily. | | | | | e | | edrine (CLARITIN-D | | | | | | | | 24-HOUR) 10-240 MG | | | | | | | | per 24 hr tablet | | | | | | | + + +-------+---------+------+------+-------+ | albuterol | Inhale 2 puffs into | | | | | Activ | | (PROVENTIL | the lungs every 4 | | | | | e | | HFA;VENTOLIN HFA) | (four) hours as | | | | | | | 108 (90 Base) | needed for Wheezing. | | | | | | | MCG/ACT inhaler | | | | | | | + + +-------+---------+------+------+-------+ | traMADol (ULTRAM) | Take 50 mg by mouth | | | | | Activ | | 50 MG tablet | as needed for Pain. | | | | | e | + + +-------+---------+------+------+-------+ | omeprazole | Take 20 mg by mouth | | | | | Activ | | (PRILOSEC) 20 MG | every morning before | | | | | e | | capsule | breakfast. | | | | | | + + +-------+---------+------+------+-------+ Active Problems Not on file Family History + + +------+ + | Medical History | Relation | Name | Comments | + + +------+ + | Hypertension | Brother | | | + + +------+ + | Bipolar disorder | Father | | ? | + + +------+ + | Coronary Artery | Father | | | | Disease | | | | + + +------+ + | Diabetes | Father | | | + + +------+ + | Hypertension | Father | | | + + +------+ + | Kidney disease | Father | | | + + +------+ + | Obesity | Father | | | + + +------+ + | Skin cancer | Father | | | + + +------+ + | Cancer | Mother | | ? cervical | + + +------+ + | Hypertension | Mother | | | + + +------+ + | Obesity | Mother | | | + + +------+ + | Other (see comments) | Mother | | lymphedema | + + +------+ + | Thyroid disease | Mother | | | + + +------+ + | Thyroid disease | Sister | | | + + +------+ + | Other (see comments) | Son | | ptsd | + + +------+ + + [...] Alive | | + +------+ + + Social History + +-------+ +--------+ + | Tobacco Use | Types | Packs/Day | Years | Date | | | | | Used | | + +-------+ +--------+ + | Former Smoker | | 1 | 10 | Quit: 03/18/2013 | + +-------+ +--------+ + + +---+---+---+ | Smokeless Tobacco: | | | | | Never Used | | | | + +---+---+---+ + + | Tobacco Cessation: Counseling Given: Yes | + + + + +---------+ + | Alcohol Use | Drinks/We | oz/Week | Comments | | | ek | | | + + +---------+ + | No | | | previously during [place] | + + +---------+ + + + + | Sex Assigned at | Date Recorded | | | | + + + | Not on file | | + + + Last Filed Vital Signs + + + + | Vital Sign | Reading | Time Taken | + + + + | Blood Pressure | 92/70 | 03/18/2018 1:39 PM PDT | + + + + | Pulse | 100 | 03/18/2018 1:25 PM PDT | + + + + | Temperature | - | - | + + + + | Respiratory Rate | - | - | + + + + | Oxygen Saturation | 96% | 03/18/2018 1:25 PM PDT | + + + + | Inhaled Oxygen | - | - | | Concentration | | | + + + + | Weight | 97 kg (213 lb 14.4 | 03/18/2018 1:25 PM PDT | | | oz) | | + + + + | Height | 156.2 cm (5' 1.5") | 03/18/2018 1:25 PM PDT | + + + + | Body Mass Index | 39.76 | 03/18/2018 1:25 PM PDT | + + + + Plan [...] Not on filefrom Last 3 Months Insurance + +--------+ +------+-------+ + | Payer | Benefi | Subscriber | Type | Phone | Address | | | t Plan | ID | | | | | | / | | | | | | | Group | | | | | + +--------+ +------+-------+ + | MEDICAID | [employer] | [id number] | | | [address] | | | [place] | | | | [place] | | | [place] | | | | [phone] | | | [employer] | | | | | + +--------+ +------+-------+ + + +--------+ +--------+ + + | Guarantor Name | Accoun | Relation to | Date | Phone | Billing Address | | | t Type | Patient | of | | | | | | | | | | + +--------+ +--------+ + + | YULIANA PACK | Person | Self [birth year] Home: | [address] | | | [place] | | 1971 | [phone] [address] [place] | | | [place] | | [phone] | [phone] | + +--------+ +--------+ + +
--- OUTSIDE RECORDS SUMMARY | ~2019-05-04 | XMS | Encounter Summary ---
Demographics + + + | Address | [address] | | | [place] [address] | + + + | Home Phone | | + + + | Preferred Language | Unknown | + + + | Marital Status | | + + + | Jewish Affiliation | CHR | + + + [...] [place] | | | | | [address] | | + + + + + | Destiny Weinerkeena | ECON | Unknown | | + + + + + Care Team Providers + +------+ + | Care Lithopone Mill Worker Name | Role | Phone | + +------+ + | Shakir Erwin MD | PCP | | + +------+ + Reason for Visit + + + | Reason | Comments | + + + | Postoperative | Abdomen is sensitive to touch; concerned. | | Questions | | + + + | Neuropathy | Abdomen Neuropathy. | + + + Encounter Details +--------+ + + + + | Date | Type | Department | Care Team | Description | +--------+ + + + + | 06/27/ | Telephone | Plastic and | Tucker Buenrostro MD | Postoperative | | 2008 | | Reconstructive | [address] | Questions (Abdomen | | | | Surgery at [facility] [address] | [facility] [place] | is sensitive to | | | | [address] | [address] | touch; concerned.); | | | | Mailcode: [facility] | [phone] | Neuropathy (Abdomen | | | | [place] [facility] | | Neuropathy.) | | | | and Healing, | | | | | | Building , | | | | | | Floor [place], [place] | | | | | | [address] | | | | | | [phone] | | | +--------+ + + + [...]
--- OUTSIDE RECORDS SUMMARY | ~2019-05-04 | XMS | Encounter Summary ---
Demographics + + + | Address | [address] | | | [place] [address] | + + + | Home Phone [...] [place], [place] | | | | | [address] | | + + + + + | Destiny Suggs | ECON | Unknown | | + + + + + Care Team Providers + +------+ + | Care Recreation Director Name | Role | Phone | [...] as of this encounter Progress Notes Interface, Bowling Ball Grader And Marker In - 02/04/2005 6:28 AM PDT [id number] [facility] Date: 09/18/2004 Clinic: Ms. [...] 3 weeks. Cam John M.D. SHAMIKA / [id number] / [id number] / [id number] / [id number] Electronically signed by Cam Mcbride 12-12-2004 07:41:57 AM documented i n this encounter Plan of Treatment Not on filedocumented as of this encounter Visit Diagnoses Not on filedocumented in this encounter"
--- OUTSIDE RECORDS SUMMARY | ~2019-05-04 | XMS | Encounter Summary ---
Demographics + + + | Address | [address] | | | [place] [address] | + + + | Home Phone [...] [place], [place] | | | | | [address] | | + + + + + | Destiny Suggs | ECON | Unknown | | + + + + + Care Team Providers + +------+ + | Care Commercial Real Estate Manager Name | Role | Phone | [...] as of this encounter Progress Notes Interface, Supervisor Files In - 01/23/2006 1:05 AM [facility] OUTPATIENT CONSULTATION REPORT [address] [place], [place] [address] or Referred From and Faxed To: Fernando Nunes M.D. [address] [place] [id number] Referred To: Orthopedics Service CONSULTING PHYSICIAN: Andry [...] Mobic, Provera, glucosamine, calcium and Actos. 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 REVIEW OF [...] Distal neurovascular is grossly intact. X-rays from [facility] were reviewed and show her fused right [...] into the weight loss clinic here at [facility] and has been unsuccessful. I called the [...] was invited to return p.r.n. Thank you, Andry Pham M.D. ROMEO/isacc P [id number] cc: Mario Valle M.D. [address] [place] [address] [id number] signed by Interface, Supervisor Files In at 01/23/2006 1:05 AM PDTdocumented in this encounter Plan of Treatment Not on filedocumented as of this encounter Visit Diagnoses Not on filedocumented in this encounter"
--- OUTSIDE RECORDS SUMMARY | ~2019-05-04 | XMS | Encounter Summary ---
Demographics + + + | Address | [address] | | | [place] [address] | + + + | Home Phone [...] Author | [facility] | + + + | Organization | [facility] | + + + | Address | Unknown | + + + | Phone | Unavailable | + + + Support + + + + + | Name | Relationship | Address | Phone | + + + + + | Edwar PETERS | ECON | [address] | | | | | #[place] | | | | | [address] | | + + + + + | Destiny Suggs | ECON | Unknown | | + + + + + Care Team Providers + +------+ + | Care Care Transitions Manager Name | Role | Phone | + +------+ + | Shakir Erwin MD | PCP | | + +------+ + Reason for Visit +---------+ + | Reason | Comments | +---------+ + | Syncope | | +---------+ + AUTH/CERT +--------+--------+ + + + + | Status | Reason | Specialty | Diagnoses / | Referred By | Referred To | | | | | Procedures | Contact | Contact | +--------+--------+ + + + + | Closed | | Emergency | | | Emergency | | | | Medicine | | | Dept Hrc | | | | | | | [address] | | | | | | | [address] | | | | | | | [address] [facility] | | | | | | | Hospital | | | | | | | [place], [place] | | | | | | | [address] | | | | | | | Phone: | | | | | | | [phone] | +--------+--------+ + + + + Encounter Details +--------+ + + + + | Date | Type | Department | Care Team | Description | +--------+ + + + + | 11/19/ | Emergency | [facility] Emergency | Frandy Crowe, | | | 2008 - | | Department [address] | MD [address] | | | | | [address] | [address] | | | 11/20/ | | [facility] | [place], [place] | | | 2008 | | [place], [place] | [address] | | | | | [address] | [phone] | | | | | [phone] | | | | | | | Cam Castillo, | | | | | | [address] [facility] | | | | | | [address] | | | | | | [place], [place] | | | | | | [address] | | | | | | [phone] | | | | | | | [...] + + + | Blood Pressure | 99/55 | 11/20/2008 7:42 AM | | | | | PDT | | + + + + + | Pulse | 76 | 11/20/2008 7:42 AM | | | | | PDT | | + + + + + | Temperature | 37.5 C (99.5 F) | 11/20/2008 7:42 AM | | | | | PDT | | + + + + + | Respiratory Rate | 16 | 11/20/2008 7:42 AM | | | | | PDT | | + + + + + | Oxygen Saturation | 100% | 11/20/2008 7:42 AM | | | | | PDT | | + + + + + | Inhaled Oxygen | - | - | | | Concentration | | | | + + + + + | Weight | 74.4 kg (164 lb) | 11/19/2008 8:55 PM | | | | | PDT | | + + + + + | Height | - | - | | + + + + + | Body Mass Index | 30.99 | 11/19/2008 6:00 AM | | | | | PDT | | + + + + + documented in this encounter Discharge Instructions Instructions Sherman Destiny Larios, DANDY TENDER - 11/20/2008Syncope (Fainting Episode) You have had a syncopal (fainting) spell. A fainting episode is a sudden, short-lived loss of consciousness. It results in complete recovery. It occurs because there has been a tempor shellie shortage of oxygen and/or glucose (sugar) to the brain. causes Blood pressure pills and other medications that may lower blood pressure below normal. S udden changes in posture (sudden standing). Over medication. Take your medications as directed. Standing too long. This can cause blood to pool in the legs. Seizure disorders. Low blood sugar (hypoglycemia) of diabetes. This more commonly causes coma. Bearing down to go to the bathroom. This can cause your blood pressure to rise suddenly. Yo ur body compensates by making the blood pressure too low when you stop bearing down. Hardening of the arteries where the brain temporarily does not receive enough blood. Irregular heart beat. Fear, injury, sight of blood, or illness. Your caregiver will send you home if the syncope was from benign causes (not a reason to wo rry). Depending on your age and health, you may stay to be monitored and observed. If you re turn home, have someone stay with you if your caregiver feels that is desirable. seek immediate medical attention if: You have another fainting episode. DO NOT DRIVE YOURSELF. Call 911 if no other help is a vailable. You have chest pain, nausea (feeling sick to your stomach), or vomiting. You have a loss of feeling in some part of your body or lose movement in your arms or legs. You have difficulty with speech. You become sweaty and/or feel light headed. MAKE SURE YOU ARE RE-CHECKED INSTRUCTED [facility] Patient Information 2007 [employer]. Break the percocet tablet in half. You make take this every 4 hrs with benadryl. You may also supplement with a tylenol tablet 325 mg every 4 hrs. Maximum dose of tylenol per day i s 4 gms. documented in this encounter Medications at Time [...] as of this encounter Plan of Treatment + +------+--------+ + + | Name | Type | Priori | Associated Diagnoses | Order Schedule | | | | ty | | | + +------+--------+ + + | CULTURE, BLOOD BACTI | Lab | Urgent | | One Time for 1 | | & YEAST | | | | Occurrences starting | | | | | | 11/19/2008 until | | | | | | 11/19/2008 | + +------+--------+ + + documented as of this encounter Procedures + +--------+ + + + | Procedure Name | Priori | Date/Time | Associated Diagnosis | Comments | | | ty | | | | + +--------+ + + + | DIFFERENTIAL | Urgent | 11/20/2008 | | Results for this | | | | 7:48 AM | | procedure are in the | | | | PDT | | results section. | + +--------+ + + + | SLIDE REVIEW | Urgent | 11/20/2008 | | Results for this | | | | 7:48 AM | | procedure are in the | | | | PDT | | results section. | + +--------+ + + + | CBC, WITH | Urgent | 11/20/2008 | | Results for this | | DIFFERENTIAL | | 7:48 AM | | procedure are in the | | | | PDT | | results section. | + +--------+ + + + | HGB, POC IP ONLY | Urgent | 11/20/2008 | | Results for this | | | | 6:24 AM | | procedure are in the | | | | PDT | | results section. | + +--------+ + + + | HGB, POC IP ONLY | Urgent | 11/20/2008 | | Results for this | | | | 12:34 AM | | procedure are in the | | | | PDT | | results section. | + +--------+ + + + | CULTURE, BLOOD BACTI | Urgent | 11/20/2008 | | Results for this | | & YEAST | | 12:09 AM | | procedure are in the | | | | PDT | | results section. | + +--------+ + + + | CULTURE, BLOOD BACTI | Urgent | 11/19/2008 | | Results for this | | & YEAST | | 11:48 PM | | procedure are in the | | | | PDT | | results section. | + +--------+ + + + | CAPILLARY BLOOD | Urgent | 11/19/2008 | | Results for this | | GLUCOSE (NO CHG), | | 11:26 PM | | procedure are in the | | POC | | PDT | | results section. | + +--------+ + + + | EXTENDED DIFF | Urgent | 11/19/2008 | | Results for this | | | | 9:15 PM | | procedure are in the | | | | PDT | | results section. | + +--------+ + + + | MANUAL DIFFERENTIAL | Urgent | 11/19/2008 | | Results for this | | | | 9:15 PM | | procedure are in the | | | | PDT | | results section. | + +--------+ + + + | DIFFERENTIAL | Urgent | 11/19/2008 | | Results for this | | | | 9:15 PM | | procedure are in the | | | | PDT | | results section. | + +--------+ + + + | CBC, WITH | Urgent | 11/19/2008 | | Results for this | | DIFFERENTIAL | | 9:15 PM | | procedure are in the | | | | PDT | | results section. | + +--------+ + + + | GLUCOSE, WHOLE BLOOD | Urgent | 11/19/2008 | | Results for this | | | | 9:15 PM | | procedure are in the | | | | PDT | | results section. | + +--------+ + + + | 12 LEAD ECG | Urgent | 11/19/2008 | | Results for this | | | | 9:00 PM | | procedure are in the | | | | PDT | | results section. | + +--------+ + + + documented in this encounter Results SLIDE REVIEW (11/20/2008 7:48 AM PDT) + + | Specimen | + + | | + + + + + | Narrative | Performed At | + + + | * Corrected 11/20/08 09:32: ROSA M COMMENTS, prev report: Slide | [facility] | | review pending. | DEPARTMENT OF | | | PATHOLOGY | + + + + + + + + | Performing | Address | City/State/Zipcode | Phone Number | | Organization | | | | + + + + + | [facility] DEPARTMENT OF | [address] | [place] [address] | | | PATHOLOGY | [address] | | | + + + + + | [facility] DEPARTMENT OF | [address] | [place] [address] | | | PATHOLOGY | [address] | | | + + + + + DIFFERENTIAL (11/20/2008 7:48 AM PDT) + +---------+ + + + | Component | Value | Ref Range | Performed | Pathologist | | | | | At | Signature | + +---------+ + + + | NEUTROPHIL | 60 | 50 - 70 % | [facility] | | | % | | | DEPARTMENT | | | | | | OF | | | | | | PATHOLOGY | | + +---------+ + + + | LYMPHOCYTE | 14 (L) | 18 - 42 % | [facility] | | | % | | | DEPARTMENT | | | | | | OF | | | | | | PATHOLOGY | | + +---------+ + + + | MONOCYTE % | 24 (H) | 2 - 8 % | [facility] [...] +---------+ + + + | NEUTROPHIL | 7.9 (H) | 1.8 - 7.7 K/cu | [facility] | | | # | | mm | DEPARTMENT | | | | | | OF | | | | | | PATHOLOGY | | + +---------+ + + + | LYMPHOCYTE | 1.8 | 1.0 - 4.8 K/cu | [facility] | | | # | | mm | DEPARTMENT | | | | | | OF | | | | | | PATHOLOGY | | + +---------+ + + + | MONOCYTE # | 3.1 (H) | <0.9 K/cu mm | [facility] | | | [...] + +---------+ + + + | BASO # | [...] Performed At | + + + | * Corrected 11/20/08 09:32: ROSA M COMMENTS, prev report: Slide | [facility] | | review pending. | DEPARTMENT OF | | | PATHOLOGY | + + + + + + + + | Performing | Address | City/State/Zipcode | Phone Number | | Organization | | | | + + + + + | [facility] DEPARTMENT OF | [address] | [place] [address] | | | PATHOLOGY | [address] | | | + + + + + | [facility] DEPARTMENT OF | [address] | [place] [address] | | | PATHOLOGY | [address] | | | + + + + + CBC, WITH DIFFERENTIAL (11/20/2008 7:48 AM PDT) + + + + + + | Component | Value | Ref Range | Performed | Pathologist | | | | | At | Signature | + + + + + + | WHITE CELL | 13.1 (H) | 4.4 - 11.0 K/cu | [facility] | | | COUNT | | mm | DEPARTMENT | | | | | | OF | | | | | | PATHOLOGY | | + + + + + + | RED CELL | 3.63 (L) | 4.00 - 5.20 | [facility] | | | COUNT | | M/cu mm | DEPARTMENT | | | | | | OF | | | | | | PATHOLOGY | | + + + + + + | HEMOGLOBIN | 10.1 (L) | 12.0 - 16.0 | [facility] | | | | | g/dL | DEPARTMENT | | | | | | OF | | | | | | PATHOLOGY | | + + + + + + | HEMATOCRIT | 30.1 (L) | 36.0 - 46.0 % | [facility] | | | | | | DEPARTMENT | | | | | | OF | | | | | | PATHOLOGY | | + + + + + + | MCV | 82.9 | 80.0 - 96.0 fL | [facility] | | | | | | DEPARTMENT | | | | | | OF | | | | | | PATHOLOGY | | + + + + + + | MCHC | 33.4 | 33.4 - 35.5 | [facility] | | | | | g/dL | DEPARTMENT | | | | | | OF | | | | | | PATHOLOGY | | + + + + + + | RDW | 14.3 | 11.5 - 15.0 % | [facility] | | | | | | DEPARTMENT | | | | | | OF | | | | | | PATHOLOGY | | + + + + + + | PLATELET | 165 | 150 - 400 K/cu | [facility] | | | COUNT | | mm | DEPARTMENT | | | | | | OF | | | | | | PATHOLOGY | | + + + + + + | CBC | Final automated | | [facility] | | | COMMENTS | differential report. | | DEPARTMENT | | | | Smear reviewed. | | OF | | | | | | PATHOLOGY | | + + + + + + | DIFF | <or= 10% bands seen on | | [facility] | | | COMMENTS | scan. | | DEPARTMENT | | | | | | OF | | | | | | PATHOLOGY | | + + + + + + + + | Specimen | + + | Blood - Blood | + + + + + | Narrative | Performed At | + + + | * Corrected 11/20/08 09:32: ROSA M BARRERA, prev report: Felisha | [facility] | | review pending. | DEPARTMENT OF | | | PATHOLOGY | + + + + + + + + | Performing | Address | City/State/Zipcode | Phone Number | | Organization | | | | + + + + + | [facility] DEPARTMENT [facility] | [address] | [place] [address] | | | PATHOLOGY | [address] | | | + + + + + | [facility] DEPARTMENT OF | [address] | [place] [address] | | | PATHOLOGY | [address] | | | + + + + + HGB, POC IP ONLY (11/20/2008 6:24 AM PDT) + + + + + + | Component | Value | Ref Range | Performed | Pathologist | | | | | At | Signature | + + + + + + | HEMOGLOBIN, | | 10 - 18 g/dL | [facility] | | | POC | | | OF CARE | | | (0-30DAYS) | | | TESTS | | + + + + + + | HEMOGLOBIN, | | 9.5 - 14 g/dL | [facility] | | | POC | | | OF CARE | | | (1-6MO) | | | TESTS | | + + + + + + | HEMOGLOBIN, | | 10.5 - 13.5 | [facility] | | | POC | | g/dL | OF CARE | | | (6MO-2YRS) | | | TESTS | | + + + + + + | HEMOGLOBIN, | | 11.5 - 13.5 | [facility] | | | POC | | g/dL | OF CARE | | | (2-6YRS) | | | TESTS | | + + + + + + | HEMOGLOBIN, | | 11.5 - 15.5 | [facility] | | | POC | | g/dL | OF CARE | | | (6-12YRS) | | | TESTS | | + + + + + + | HEMOGLOBIN, | | 12 - 16 g/dL | [facility] | | | POC | | | OF CARE | | | (12-18YRS) | | | TESTS | | + + + + + + | HEMOGLOBIN, | 10.7 (A) | 12 - 16 g/dL | [facility] | | | POC | | | OF CARE | | | (18-150YRS) | | | TESTS | | + + + + + + + + + + + | Performing | Address | City/State/Zipcode | Phone Number | | Organization | | | | + + + + + | [facility] | [address] | [place], [place] | | | [facility], POINT OF CARE | [address] | [address] | | | TESTS | | | | + + + + + | [facility] | [address] | [place], [place] | | | TESTS | [address] | [address] | | + + + + + HGB POC IP ONLY (11/20/2008 12:34 AM PDT) + + + + + + | Component | Value | Ref Range | Performed | Pathologist | | | | | At | Signature | + + + + + + | HEMOGLOBIN, | | 10 - 18 g/dL | [facility] | | | POC | | | OF CARE | | | (0-30DAYS) | | | TESTS | | + + + + + + | HEMOGLOBIN, | | 9.5 - 14 g/dL | [facility] | | | POC | | | OF CARE | | | (1-6MO) | | | TESTS | | + + + + + + | HEMOGLOBIN, | | 10.5 - 13.5 | [facility] | | | POC | | g/dL | OF CARE | | | (6MO-2YRS) | | | TESTS | | + + + + + + | HEMOGLOBIN, | | 11.5 - 13.5 | [facility] | | | POC | | g/dL | OF CARE | | | (2-6YRS) | | | TESTS | | + + + + + + | HEMOGLOBIN, | | 11.5 - 15.5 | [facility] | | | POC | | g/dL | OF CARE | | | (6-12YRS) | | | TESTS | | + + + + + + | HEMOGLOBIN, | | 12 - 16 g/dL | [facility] | | | POC | | | OF CARE | | | (12-18YRS) | | | TESTS | | + + + + + + | HEMOGLOBIN, | 10.6 (A) | 12 - 16 g/dL | [facility] | | | POC | | | OF CARE | | | (18-150YRS) | | | TESTS | | + + + + + + + + + + + | Performing | Address | City/State/Zipcode | Phone Number | | Organization | | | | + + + + + | [facility] | [address] | [place], [place] | | | [facility] POINT OF CARE | [address] | [address] | | | TESTS | | | | + + + + + | [facility] | [address] | [place], [place] | | | TESTS | [address] | [address] | | + + + + + CULTURE, BLOOD BACTI & YEAST (11/20/2008 12:09 AM PDT) + + + + + + | Component | Value | Ref Range | Performed | Pathologist | | | | | At | Signature | + + + + + + | SOURCE BODY | left AC | | | | | SITE | | | | | + + + + + + | CULTURE | Blood Culture | | | | | RESULT | | | | | | | Source.................. | | | | | | : left AC | | | | | | Result.................. | | | | | | . Final: No growth at 5 | | | | | | days. | | | | + + + + + + + + | Specimen | + + | Blood | + + + + + + + | Performing | Address | City/State/Zipcode | Phone Number | | Organization | | | | + + + + + | [facility] | [address] | [place] [address] | | | LAB-MICRO | | | | + + + + + CULTURE, BLOOD BACTI & YEAST (11/19/2008 11:48 PM PDT) + + + + + + | Component | Value | Ref Range | Performed | Pathologist | | | | | At | Signature | + + + + + + | SOURCE BODY | left AC | | | | | SITE | | | | | + + + + + + | CULTURE | Blood Culture | | | | | RESULT | | | | | | | Source.................. | | | | | | : left AC | | | | | | Result.................. | | | | | | . Final: No growth at 5 | | | | | | days. | | | | + + + + + + + + | Specimen | + + | Blood | + + + + + + + | Performing | Address | City/State/Zipcode | Phone Number | | Organization | | | | + + + + + | [facility] | [address] | [place] [address] | | | LAB-MICRO | | | | + + + + + CAPILLARY BLOOD GLUCOSE, POC (11/19/2008 11:26 PM PDT) + +---------+ + + + | Component | Value | Ref Range | Performed | Pathologist | | | | | At | Signature | + +---------+ + + + | BLOOD | 144 (A) | 60 - 110 mg/dL | [facility] | | | GLUCOSE BY | | | OF CARE | | | MONITOR | | | TESTS | | + +---------+ + + + + + | Specimen | + + | | + + + + + + + | Performing | Address | City/State/Zipcode | Phone Number | | Organization | | | | + + + + + | [facility] | [address] | [place], [place] | | | [facility] | [facility] | [address] | | | TESTS | | | | + + + + + | [facility] | [address] | [place], [place] | | | TESTS | [facility] | [address] | | + + + + + EXTENDED DIFF (11/19/2008 9:15 PM PDT) + +---------+ + + + | Component | Value | Ref Range | Performed | Pathologist | | | | | At | Signature | + +---------+ + + + | METAMYELOCY | 0 | % | [facility] | | | GONZALEZ % | | | DEPARTMENT | | | | | | OF | | | | | | PATHOLOGY | | + +---------+ + + + | MYELOCYTES | 0 | % | [facility] | | | % | | | DEPARTMENT | | | | | | OF | | | | | | PATHOLOGY | | + +---------+ + + + | NRBC | 0 | <1 /100 WBC | [facility] | | | | | | DEPARTMENT | | | | | | OF | | | | | | PATHOLOGY | | + +---------+ + + + | BANDS # | 2.4 (H) | 0.0 - 1.1 | [facility] | | | | | | DEPARTMENT | | | | | | OF | | | | | | PATHOLOGY | | + +---------+ + + + | BANDS % | 12 (H) | <11 % | [facility] | | | | | | DEPARTMENT | | | | | | OF | | | | | | PATHOLOGY | | + +---------+ + + + | ATYPICAL | 0 | | [facility] | | | CELL % | | | DEPARTMENT | | | | | | OF | | | | | | PATHOLOGY | | + +---------+ + + + | PROMYELOCYT | 0 | % | [facility] | | | ES % | | | DEPARTMENT | | | | | | OF | | | | | | PATHOLOGY | | + +---------+ + + + + + | Specimen | + + | | + + + + + | Narrative | Performed At | + + + | * Corrected 11/19/08 22:11: ROSA M COMMENTS, prev report: Slide | [facility] | | review pending. | DEPARTMENT OF | | | PATHOLOGY | + + + + + + + + | Performing | Address | City/State/Zipcode | Phone Number | | Organization | | | | + + + + + | [facility] DEPARTMENT | [facility] [address] | [place] [address] | | | PATHOLOGY | [address] | | | + + + + + | [facility] DEPARTMENT OF | [facility] [address] | [place] [address] | | | PATHOLOGY | [address] | | | + + + + + MANUAL DIFFERENTIAL (11/19/2008 9:15 PM PDT) + +--------+ + + + | Component | Value | Ref Range | Performed | Pathologist | | | | | At | Signature | + +--------+ + + + | PLATELET | Normal | | [facility] | | | ESTIMATE | | | DEPARTMENT | | | | | | OF | | | | | | PATHOLOGY | | + +--------+ + + + + + | Specimen | + + | | + + + + + | Narrative | Performed At | + + + | * Corrected 11/19/08 22:11: ROSA M COMMENTS, prev report: Slide | [facility] | | review pending. | DEPARTMENT OF | | | PATHOLOGY | + + + + + + + + | Performing | Address | City/State/Zipcode | Phone Number | | Organization | | | | + + + + + | [facility] DEPARTMENT OF | [address] | [place] [address] | | | PATHOLOGY | [address] | | | + + + + + | [facility] DEPARTMENT OF | [address] | [place] [address] | | | PATHOLOGY | [address] | | | + + + + + DIFFERENTIAL (11/19/2008 9:15 PM PDT) + + + + + + | Component | Value | Ref Range | Performed | Pathologist | | | | | At | Signature | + + + + + + | NEUTROPHIL | 78 (H) | 50 - 70 % | [facility] | | | % | | | DEPARTMENT | | | | | | OF | | | | | | PATHOLOGY | | + + + + + + | LYMPHOCYTE | 5 (L) | 18 - 42 % | [facility] | | | % | | | DEPARTMENT | | | | | | OF | | | | | | PATHOLOGY | | + + + + + + | MONOCYTE % | 4 | 2 - 8 % | [facility] | | | | | | DEPARTMENT | | | | | | OF | | | | | | PATHOLOGY | | + + + + + + | EOS % | 0 (L) | 1 - 3 % | [facility] | | | | | | DEPARTMENT | | | | | | OF | | | | | | PATHOLOGY | | + + + + + + | BASO % | 1 | <3 % | [facility] | | | | | | DEPARTMENT | | | | | | OF | | | | | | PATHOLOGY | | + + + + + + | NEUTROPHIL | 15.8 (H) | 1.8 - 7.7 K/cu | [facility] | | | # | | mm | DEPARTMENT | | | | | | OF | | | | | | PATHOLOGY | | + + + + + + | LYMPHOCYTE | 1.0 | 1.0 - 4.8 K/cu | [facility] | | | # | | mm | DEPARTMENT | | | | | | OF | | | | | | PATHOLOGY | | + + + + + + | MONOCYTE # | 0.8 | <0.9 K/cu mm | [facility] | | | | | | DEPARTMENT | | | | | | OF | | | | | | PATHOLOGY | | + + + + + + | EOS # | 0.0 | <0.6 K/cu mm | [facility] | | | | | | DEPARTMENT | | | | | | OF | | | | | | PATHOLOGY | | + + + + + + | BASO # | 0.2 | <0.3 | [facility] | | | | | | DEPARTMENT | | | | | | OF | | | | | | PATHOLOGY | | + + + + + + + + | Specimen | + + | | + + + + + | Narrative | Performed At | + + + | * Corrected 11/19/08 22:11: NICOLASNEL COMMENTS, prev report: Slide | [facility] | | review pending. | DEPARTMENT OF | | | PATHOLOGY | + + + + + + + + | Performing | Address | City/State/Zipcode | Phone Number | | Organization | | | | + + + + + | [facility] | [address] | [place] [address] | | | PATHOLOGY | [address] | | | + + + + + | [facility] DEPARTMENT OF | [address] | [place] [address] | | | PATHOLOGY | [address] | | | + + + + + GLUCOSE, WHOLE BLOOD (11/19/2008 9:15 PM PDT) + +---------+ + + + | Component | Value | Ref Range | Performed | Pathologist | | | | | At | Signature | + +---------+ + + + | GLUCOSE,WHO | 123 (H) | 60 - 99 mg/dL | [facility] | | | LE BLOOD | | | DEPARTMENT | | | [...] | + + + + + | [facility] | [address] | [place] [address] | | | PATHOLOGY | [address] | | | + + + + + | [facility] | [address] | [place] [address] | | | PATHOLOGY | [address] | | | + + + + + CBC, WITH DIFFERENTIAL (11/19/2008 9:15 PM PDT) + + + + + + | Component | Value | Ref Range | Performed | Pathologist | | | | | At | Signature | + + + + + + | WHITE CELL | 20.2 (H) | 4.4 - 11.0 K/cu | [facility] | | | COUNT | | mm | DEPARTMENT | | | | | | OF | | | | | | PATHOLOGY | | + + + + + + | RED CELL | 3.97 (L) | 4.00 - 5.20 | [facility] | | | COUNT | | M/cu mm | DEPARTMENT | | | | | | OF | | | | | | PATHOLOGY | | + + + + + + | HEMOGLOBIN | 11.1 (L) | 12.0 - 16.0 | [facility] | | | | | g/dL | DEPARTMENT | | | | | | OF | | | | | | PATHOLOGY | | + + + + + + | HEMATOCRIT | 32.3 (L) | 36.0 - 46.0 % | [facility] | | | | | | DEPARTMENT | | | | | | OF | | | | | | PATHOLOGY | | + + + + + + | MCV | 81.3 | 80.0 - 96.0 fL | [facility] [...] + + + + | PLATELET | 204 | 150 - 400 K/cu | [facility] | | | COUNT | | mm | DEPARTMENT | | | | | | OF | | | | | | PATHOLOGY | | + + + + + + | CBC | Slide review pending. | | [facility] | | | COMMENTS | | | DEPARTMENT | | | | | | OF | | | | | | PATHOLOGY | | + + + + + + | DIFF | Final Manual | | [facility] | | | COMMENTS | Differential Report. | | DEPARTMENT | | | | | | OF | | | | | | PATHOLOGY | | + + + + + + + + | Specimen | + + | Blood - Blood | + + + + + | Narrative | Performed At | + + + | * Corrected 11/19/08 22:11: ROSA M COMMENTS, prev report: Slide | AUG[facility] | | review pending. | DEPARTMENT OF | | | PATHOLOGY | + + + + + + + + | Performing | Address | City/State/Zipcode | Phone Number | | Organization | | | | + + + + + | [facility] | [address] | [place] [address] | | | PATHOLOGY | [address] | | | + + + + + | [facility] | [address] | [place] [address] | | | PATHOLOGY | [address] | | | + + + + + 12 LEAD ECG (11/19/2008 9:00 PM PDT) + + + + + + | Component | Value | Ref Range | Performed | Pathologist | | | | | At | Signature | + + + + + + | VENTRICULAR | 51 | BPM | [facility] | | | RATE | | | OF | | | | | | CARDIOLOGY | | + + + + + + | ATRIAL RATE | 51 | BPM | [facility] | | | | | | OF | | | | | | CARDIOLOGY | | + + + + + + | P-R | 136 | ms | [facility] | | | INTERVAL | | | OF | | | | | | CARDIOLOGY | | + + + + + + | QRS | 82 | ms | [facility] | | | DURATION | | | OF | | | | | | CARDIOLOGY | | + + + + + + | QT | 434 | ms | [facility] | | | | | | OF | | | | | | CARDIOLOGY | | + + + + + + | QTC | 400 | ms | [facility] | | | | | | OF | | | | | | CARDIOLOGY | | + + + + + + | P AXIS | 28 | degrees | [facility] | | | | | | OF | | | | | | CARDIOLOGY | | + + + + + + | R AXIS | 21 | degrees | [facility] | | | | | | OF | | | | | | CARDIOLOGY | | + + + + + + | T AXIS | 18 | degrees | [facility] | | | | | | OF | | | | | | CARDIOLOGY | | + + + + + + | EKG | Sinus | | [facility] | | | DIAGNOSIS | bradycardiaOtherwise | | OF | | | | normal ECG"I have | | CARDIOLOGY | | | | personally interpreted | | | | | | this report, either | | | | | | alone or with a | | | | | | trainee."Confirmed by | | | | | | ERYN NELSON ([id number]) on | | | | | | 20-Nov-2008 15:17:45 | | | | + + + + + + | LINK TO | | | [facility] | | | [facility] | | | OF | | | (ECG | | | CARDIOLOGY | | | VIEWER) | | | | | + + + + + + + + | Specimen | + + | | + + + + + | Narrative | Performed At | + + + | Please click | [facility] | | on view image for the detailed interpretation from [employer] results. | CARDIOLOGY | | | | + + + + + + + + | Performing | Address | City/State/Zipcode | Phone Number | | Organization | | | | + + + + + | [facility] | [address] | [place], [place] | | | CARDIOLOGY | [facility] | [address] | | + + + + + | [facility] | [address] | [place], [place] | | | CARDIOLOGY | [facility] | [address] | | + + + + + documented in this encounter Visit Diagnoses + + | Diagnosis | + + | Near-syncope Syncope and collapse | + + documented in this encounter Administered Medications + +--------+ +--------+------+------+ | Medication Order | MAR | Action | Dose | Rate | Site | | | Action | Date | | | | + +--------+ +--------+------+------+ | cephALEXin (aka KEFLEX) capsule | Given | 11/21/19 | 500 mg | | | | 500 mg 500 mg, oral, EVERY 8 | | 09 8:08 | | | | | HOURS, First dose on 11/20/08 | | AM PDT | | | | | at 0000, Until Discontinued | | | | | | + +--------+ +--------+------+------+ +-------+ +--------+---+---+ | Given | 11/21/19 | 500 mg | | | | | 09 1:37 | | | | | | AM PDT | | | | +-------+ +--------+---+---+ +---+---+ | | | +---+---+ + +---------+ +---+-------+---+ | dextrose 5%-NaCl 0.45%-KCl 20 | New Bag | 11/20/19 | | 125 | | | mEq/L IV intravenous, | | 09 12:44 | | mL/hr | | | CONTINUOUS, Starting 11/19/08 | | AM PDT | | | | | at 2330, Until 11/20/08 at | | | | | | | 1631 | | | | | | + +---------+ +---+-------+---+ +---+---+ | | | +---+---+ + +-------+ +-------+---+---+ | diphenhydrAMINE (aka BENADRYL) | Given | 11/21/19 | 25 mg | | | | capsule 25 mg 25 mg, oral, EVERY | | 09 8:08 | | | | | 4 HOURS NEEDED, Starting Fri | | AM PDT | | | | | 11/19/08 at 2319, Until Sat | | | | | | | 11/20/08 at 1631, rash, itching, | | | | | | | nausea/vomiting, allergic | | | | | | | reaction | | | | | | + +-------+ +-------+---+---+ +---+---+ | | | +---+---+ + +-------+ +-------+---+---+ | escitalopram (aka LEXAPRO) | Given | 11/21/19 | 10 mg | | | | tablet 10 mg 10 mg, oral, DAILY, | | 09 8:08 | | | | | First dose on 11/20/08 at | | AM PDT | | | | | 0900, Until Discontinued | | | | | | + +-------+ +-------+---+---+ +---+---+ | | | +---+---+ + +-------+ +--------+---+---+ | gabapentin (aka NEURONTIN) | Given | 11/21/19 | 300 mg | | | | capsule 300 mg 300 mg, oral, | | 09 8:08 | | | | | THREE TIMES DAILY, First dose on | | AM PDT | | | | | 11/19/08 at 2345, Until | | | | | | | Discontinued | | | | | | + +-------+ +--------+---+---+ +-------+ +--------+---+---+ | Given | 11/20/19 | 300 mg | | | | | 09 1:38 | | | | | | AM PDT | | | | +-------+ +--------+---+---+ +---+---+ | | | +---+---+ + +-------+ +--------+---+---+ | lithium citrate liquid 300 mg | Given | 11/21/19 | 300 mg | | | | 300 mg, oral, TWICE DAILY, First | | 09 1:38 | | | | | dose on 11/20/08 at 0000, | | AM PDT | | | | | Until Discontinued | | | | | | + +-------+ +--------+---+---+ +---+---+ | | | +---+---+ + +-------+ + +---+ + | NaCl 0.9 % IV infusion 1,000 | Given | 11/20/19 | 1,000 mL | | Left Arm | | mL, intravenous, ONCE, 1 dose, | | 09 9:32 | | | | | 11/19/08 at 2130 | | PM PDT | | | | + +-------+ + +---+ + +---+---+ | | | +---+---+ + +-------+ +------+---+---+ | oxycodone immediate release | Given | 11/21/19 | 5 mg | | | | (aka ROXICODONE) tablet 5 mg 5 | | 09 8:08 | | | | | mg, oral, EVERY 3 HOURS | | AM PDT | | | | | NEEDED, Starting 11/19/08 at | | | | | | | 2319, Until 11/20/08 at 1631, | | | | | | | moderate pain | | | | | | + +-------+ +------+---+---+ +---+---+ | | | +---+---+ documented in this encounter
--- OUTSIDE RECORDS SUMMARY | ~2019-05-04 | XMS | Encounter Summary ---
Demographics + + + | Address | [address] | | | [place] [address] | + + + | Home Phone [...] [place] | | | | | [address] | | + + + + + | Destiny Weinerkeena | ECON | Unknown | | + + + + + Care Team Providers + +------+ + | Care Practice Physician Name | Role | Phone | + [...] | | | | | Surgery at [facility] [address] | [place], [place] | | | | | [address] | [address] | | | | | Mailcode: 5 | [phone] | | | | | [facility] | | | | | | and Healing, | | | | | | Building [address], [address]th | | | | | | Floor [place], [place] | | | | | | [address] | | | | | | [phone] | | | +--------+ + + + [...]
--- OUTSIDE RECORDS SUMMARY | ~2019-05-04 | XMS | Encounter Summary ---
Demographics + + + | Address | [address] | | | [place] [address] | + + + | Home Phone | | + + + | Preferred Language | Unknown | + + + | Marital Status | | + + + | Scientologist Affiliation | CHR | + + + [...] [place] | | | | | [address] | | + + + + + | Destiny Suggs | ECON | Unknown | | + + + + + Care Team Providers + +------+ + | Care Industrial Psychology Teacher Name | Role | Phone | [...] | | | | | | Rd [facility] | | | | | | | Hospital | | | | | | | [place], [place] | | | | | | | [address] | | | | | | | Phone: | | | | | | | [phone] | +--------+--------+ + + + + Encounter Details +--------+ + + + + | Date | Type | Department | Care Team | Description | +--------+ + + + + | 11/19/ | Emergency | [facility] Emergency | Frandy Crowe, | | | 2008 - | | Department [address] | MD [address] | | | | | [address] | [address] | | | 11/20/ | | [facility] Hospital | [place], [place] | | | 2008 | | [place] | [address] | | | | | [address] | [phone] | | | | | [phone] | | | | | | | Cam Castillo, | | | | | | [address] [facility] | | | | | | [address] | | | | | | [place], [place] | | | | | | [address] | | | | | | [phone] | | | | | | | [...] encounter Discharge Instructions Instructions Sherman Destiny Larios, PROCESS INSPECTOR - 11/20/2008Syncope (Fainting Episode) You have had [...] headed. MAKE SURE YOU ARE RE-CHECKED INSTRUCTED [facility] Patient Information 2007 [employer]. Break the percocet tablet in half. You [...] DEPARTMENT OF | [address] | [place] [address] | | | PATHOLOGY | [address] | | | + + + + + | [facility] DEPARTMENT OF | [address] | [place] [address] | | | PATHOLOGY | [address] [...] | + + + + + | [facility] DEPARTMENT OF | [address] | [place] [address] | | | PATHOLOGY | [address] | | | + + + + + | [facility] DEPARTMENT OF | [address] | [place] [address] | | | PATHOLOGY | [address] [...] [facility] DEPARTMENT OF | [address] [facility] | [place] [address] | | | PATHOLOGY | [address] | | | + + + + + | [facility] DEPARTMENT OF | [address] [facility] | [place] [address] | | | PATHOLOGY | [address] [...] [facility]ON[facility] | [address] | [place], [place] | | | SASHA, POINT OF CARE | [address] | [address] | | | TESTS | | | | + + + + + | [facility] | [address] | [place], [place] | | | TESTS | [address] | [address] | | + + + + + [...] [facility] | [address] | [place], [place] | | | SASHA POINT OF CARE | [address] | [address] | | | TESTS | | | | + + + + + | [facility] | [address] | [place], [place] | | | TESTS | [address] | [address] | | + + + + + [...] + + + | [facility] | [address] | [place] [address] | | | LAB-MICRO | | | [...] + + + | [facility] | [address] | [place] [address] | | | LAB-MICRO | | | [...] - LEONOR | [address] | [place], [place] | | | [facility] OF CARE | [facility] | [address] | | | TESTS | | | | + + + + + | [facility] | [address] | [place], [place] | | | TESTS | [facility] | [address] | | + + + + + [...] | + + + + + | [facility] DEPARTMENT | [facility] [address] | [place] [address] | | | PATHOLOGY | [address] | | | + + + + + | [facility] DEPARTMENT OF | [facility] [address] | [place] [address] | | | PATHOLOGY | [address] [...] | + + + + + | [facility] DEPARTMENT OF | [address] [facility] | [place] [address] | | | PATHOLOGY | [address] | | | + + + + + | [facility] DEPARTMENT OF | [address] [facility] | [place] [address] | | | PATHOLOGY | [address] [...] | + + + + + | [facility] DEPARTMENT [facility] | [address] | [place] [address] | | | PATHOLOGY | [address] | | | + + + + + | [facility] DEPARTMENT OF | [address] | [place] [address] | | | PATHOLOGY | [address] | | | + + + + + GLUCOSE, WHOLE BLOOD (11/19/2008 9:15 PM PDT) + +---------+ + + + | Component | Value | Ref Range | Performed | Pathologist | | | | | At | Signature | + +---------+ + + + | GLUCOSE,WHO | 123 (H) | 60 - 99 mg/dL | [facility] | | | LE BLOOD | | [...] + + + | [facility] | [address] | [place] [address] | | | PATHOLOGY | [address] | | | + + + + + | [facility] | [address] [facility] | [place] [address] | | | PATHOLOGY | [address] [...] DEPARTMENT OF | [address] | [place] [address] | | | PATHOLOGY | [address] | | | + + + + + | [facility] DEPARTMENT | [address] | [place] [address] | | | PATHOLOGY | [address] [...] view image for the detailed interpretation from [employer] results. | CARDIOLOGY | | | | + + + + + + + + | Performing | Address | City/State/Zipcode | Phone Number | | Organization | | | | + + + + + | [facility] | [address] | [place], [place] | | | CARDIOLOGY | [facility] | [address] | | + + + + + | [facility] | [address] | [place], [place] | | | CARDIOLOGY | [facility] | [address] | | + + + + + [...]
--- OUTSIDE RECORDS SUMMARY | ~2019-05-04 | XMS | Encounter Summary ---
Demographics + + + | Address | [address] | | | [place] [address] | + + + | Home Phone [...] + + + | Author | [facility] | + + + | Organization | [facility] | + + + | Address | Unknown | + + + | Phone | Unavailable | + + + Support + + + + + | Name | Relationship | Address | Phone | + + + + + | Edwar PETERS | ECON | [address] | | | | | [place] | | | | | [address] | | + + + + + | Destiny Suggs | ECON | Unknown | | + + + + + Care Team Providers + +------+ + | Care Travel Rn [place] Name | Role | Phone | + [...] for | | | | Surgery at [facility] [address] | | unacceptable | | | | [address] | | cosmetic appearance | | | | Mailcode: [facility] | | (Primary Dx); Other | | | | [facility] | | specified | | | | and Healing, | | pre-operative | | | | Building 1, 5th | | examination | | | | Floor [place], [place] | | | | | | [address] | | | | | | [phone] | | | +--------+---------+ + + + [...] surgeries scheduled to take place on the almond at the [facility]: Surgeries scheduled in the [facility] ([address] [place] [address]): registration is located on the 4th floor of [facility] (Day Surgery). Surgeries scheduled in the [facility]: registration is located on the 9th floor. Surgeries scheduled in [facility]: registration is located on the 6th floor. Surgeries scheduled in the [facility]: registration is located i n the [facility] lobby on the first floor. For surgeries scheduled to take place at the [facility]: registration is l [...] you use specialized medical equipment at [facility], please check with your provider before [...] is doing well, is back on [facility] meds, has no suicidal thoughts or plans. [...] mouth once daily. fluticasone 50 mcg/Actuation Nasal [place], Suspension Instill 2 Sprays into each nostril [...] + + + + | [facility] DEPARTMENT | [address] | [place] [address] | | | PATHOLOGY | [address] [...] | | | DEPARTMENT | | | [place] | | | OF | | | [...] | [facility] | [address] | [place] [address] | | | PATHOLOGY | [address] | | | + + + + + documented in this encounter Visit Diagnoses + + | Diagnosis | + + | Other plastic surgery for unacceptable cosmetic appearance - Primary | + + | Other specified pre-operative examination | + + documented in this encounter
--- OUTSIDE RECORDS SUMMARY | ~2019-05-04 | XMS | Encounter Summary ---
Demographics + + + | Address | [address] | | | [place] [address] | + + + | Home Phone | | + + + | Preferred Language | Unknown | + + + | Marital Status | | + + + | Jew Affiliation | CHR | + + + | Race | White | + + + | Ethnic Group | Not or | + + + Author + + + | Author | [facility] | + + + | Organization | [facility] | + + + | [...] #[place] | | | | | [address] | | + + + + + | Destiny Weinerkeena | ECON | Unknown | | + + + + + Care Team Providers + +------+ + | Care Tennis Desk Team Member Name | Role | Phone | + [...] + + | 11/18/ | Office | Preoperative | Kelly Enrique, | Morbid Obesity | | 2008 | Visit | Medicine Clinic at | ACNP [address] | ([facility]LY [facility]); Unspecified | | | | [facility] 4th Floor [address] | Essential | | | | [address] | [place], [place] | Hypertension; Other | | | | Mailcode: CH4S | [phone] | Specified | | | | [facility] | [phone] | Pre-Operative | | | | and Healing, | | Examination | | | | Building 1,4th Floor | | | | | | [place], [place] | | | | | | [address] | | | | | | [phone] | | | +--------+---------+ + + + [...] + + + | Blood Pressure | 109/75 | 11/18/2008 1:35 PM | | | | | PDT | | + + + + + | Pulse | 68 | 11/18/2008 1:35 PM | | | | | PDT | | + + + + + | Temperature | 37.1 C (98.7 F) | 11/18/2008 1:35 PM | | | | | PDT | | + + + + + | Respiratory Rate | 14 | 11/18/2008 1:35 PM | | | | | PDT | | + + + + + | Oxygen Saturation | 98% | 11/18/2008 1:35 PM | | | | | PDT | | + + + + + | Inhaled Oxygen | - | - | | | Concentration | | | | + + + + + | Weight | 74.4 kg (164 lb) | 11/18/2008 1:35 PM | | | | | PDT | | + + + + + | Height | 154.9 cm (5' 1") | 11/18/2008 1:35 PM | | | | | PDT | | + + + + + | Body Mass Index | 30.99 | 11/18/2008 1:35 PM | | | | | PDT | | + + + + + documented in this encounter Progress Notes Kelly Enrique FNP - 11/18/2008 2:22 PM PDTSee Scanned H&P. documented in this encounter Plan of Treatment + + +--------+ + + | Name | Type | Priori | Associated Diagnoses | Order Schedule | | | | ty | | | + + +--------+ + + | CO COLLECTION VENOUS | Procedures | Routin | Morbid Obesity | Ordered: 11/18/2008 | | BLOOD,VENIPUNCTURE | | e | (HCC) Unspecified | | | | | | Essential | | | | | | Hypertension | | + + +--------+ + + documented as of this encounter Procedures + +--------+ + + + | Procedure Name | Priori | Date/Time | Associated Diagnosis | Comments | | | ty | | | | + +--------+ + + + | PRODUCT - RED CELLS | Routin | 11/18/2008 | | Results for this | | LEUKOREDUCED | e | 7:17 PM | | procedure are in the | | | | PDT | | results section. | + +--------+ + + + | PRODUCT - RED CELLS | Routin | 11/18/2008 | | Results for this | | LEUKOREDUCED | e | 7:17 PM | | procedure are in the | | | | PDT | | results section. | + +--------+ + + + | ANTIBODY | Routin | 11/18/2008 | | Results for this | | IDENTIFICATION | e | 5:32 PM | | procedure are in the | | | | PDT | | results section. | + +--------+ + + + | DIFFERENTIAL | Routin | 11/18/2008 | | Results for this | | | e | 2:25 PM | | procedure are in the | | | | PDT | | results section. | + +--------+ + + + | CBC, WITH | Routin | 11/18/2008 | Morbid Obesity | Results for this | | DIFFERENTIAL | e | 2:25 PM | (HCC) Unspecified | procedure are in the | | | | PDT | Essential | results section. | | | | | Hypertension Other | | | | | | Specified | | | | | | Pre-Operative | | | | | | Examination | | + +--------+ + + + | BASIC METABOLIC SET | Routin | 11/18/2008 | Morbid Obesity | Results for this | | (NA, K, CL, TCO2, | e | 2:25 PM | (HCC) Unspecified | procedure are in the | | BUN, CR, GLU, CA) | | PDT | Essential | results section. | | | | | Hypertension Other | | | | | | Specified | | | | | | Pre-Operative | | | | | | Examination | | + +--------+ + + + | TYPE AND SCREEN | Routin | 11/18/2008 | Morbid Obesity | Results for this | | | e | 2:25 PM | (HCC) Unspecified | procedure are in the | | | | PDT | Essential | results section. | | | | | Hypertension Other | | | | | | Specified | | | | | | Pre-Operative | | | | | | Examination | | + +--------+ + + + documented in this encounter Results PRODUCT- RED CELLS LEUKOREDUCED (11/18/2008 7:17 PM PDT) + + + + + + | Component | Value | Ref Range | Performed | Pathologist | | | | | At | Signature | + + + + + + | PRODUCT | -1 RED BLOOD | | [facility] | | | DESCRIPTION | CELLS,ADENINE-SALINE | | DEPARTMENT | | | | ADDED,LEUKOCYTES REDUCED | | OF | | | | | | PATHOLOGY | | + + + + + + | PRODUCT | [id number] | | [facility] | | | UNIT [...] + + + + + + | CROSSMATCH | Compatible | | [facility] | | | ANALYSIS | | | DEPARTMENT | | | | | | OF | | | | | | PATHOLOGY | | + + + + + + | STATUS OF | Returned to Blood Bank | | [facility] | | | UNIT | | | DEPARTMENT | | | | | | OF | | | | | | PATHOLOGY | | + + + + + + + + | Specimen | + + | | + + + + + | Narrative | Performed At | + + + | Ordered by an unspecified provider. | [facility] | | | DEPARTMENT OF | | | PATHOLOGY | + + + + + + + + | Performing | Address | City/State/Zipcode | Phone Number | | Organization | | | | + + + + + | [facility] DEPARTMENT OF | [address] | [place] [address] | | | PATHOLOGY | [address] | | | + + + + + | [facility] DEPARTMENT | [address] | [place] [address] | | | PATHOLOGY | [address] | | | + + + + + PRODUCT- RED CELLS LEUKOREDUCED (11/18/2008 7:17 PM PDT) + + + + + + | Component | Value | Ref Range | Performed | Pathologist | | | | | At | Signature | + + + + + + | PRODUCT | -1 RED BLOOD | | [facility] | | | DESCRIPTION | CELLS,ADENINE-SALINE | | DEPARTMENT | | | | ADDED,LEUKOCYTES REDUCED | | OF | | | | | | PATHOLOGY | | + + + + + + | PRODUCT | [id number] | | [facility] | | | UNIT [...] + + + + + + | CROSSMATCH | Compatible | | [facility] | | | ANALYSIS | | | DEPARTMENT | | | | | | OF | | | | | | PATHOLOGY | | + + + + + + | STATUS OF | Returned to Blood Bank | | [facility] | | | UNIT | | | DEPARTMENT | | | | | | OF | | | | | | PATHOLOGY | | + + + + + + + + | Specimen | + + | | + + + + + | Narrative | Performed At | + + + | Ordered by an unspecified provider. | [facility] | | | DEPARTMENT OF | | | PATHOLOGY | + + + + + + + + | Performing | Address | City/State/Zipcode | Phone Number | | Organization | | | | + + + + + | [facility] DE[facility]MENT OF | [address] | [place] [address] | | | PATHOLOGY | [address] | | | + + + + + | [facility] | [address] | [place] [address] | | | PATHOLOGY | [address] | | | + + + + + ANTIBODY IDENTIFICATION (11/18/2008 5:32 PM PDT) + + + + + + | Component | Value | Ref Range | Performed | Pathologist | | | | | At | Signature | + + + + + + | ANTIBODY 1 | Anti-KComment: all other | | [facility] | | | | clinically significant | | DEPARTMENT | | | | AB ruled out | | OF | | | | | | PATHOLOGY | | + + + + + + + + | Specimen | + + | | + + + + + | Narrative | Performed At | + + + | Ordered by an unspecified provider. | [facility] | | | DEPARTMENT OF | | | PATHOLOGY | + + + + + + + + | Performing | Address | City/State/Zipcode | Phone Number | | Organization | | | | + + + + + | [facility] | [address] | [place] [address] | | | PATHOLOGY | [address] | | | + + + + + | [facility] DEPARTMENT OF | [address] | [place] [address] | | | PATHOLOGY | [address] | | | + + + + + DIFFERENTIAL (11/18/2008 2:25 PM PDT) + +-------+ + + + | Component | Value | Ref Range | Performed | Pathologist | | | | | At | Signature | + +-------+ + + + | NEUTROPHIL | 56 | 50 - 70 % | [facility] | | | % | | | DEPARTMENT | | | | | | OF | | | | | | PATHOLOGY | | + +-------+ + + + | LYMPHOCYTE | 35 | 18 - 42 % | [facility] [...] + + + | EOS % | 1 | 1 - 3 % | [facility] [...] +-------+ + + + | NEUTROPHIL | 4.7 | 1.8 - 7.7 K/cu | [facility] | | | # | | mm | DEPARTMENT | | | | | | OF | | | | | | PATHOLOGY | | + +-------+ + + + | LYMPHOCYTE | 2.9 | 1.0 - 4.8 K/cu | [facility] | | | # | | mm | DEPARTMENT | | | | | | OF | | | | | | PATHOLOGY | | + +-------+ + + + | MONOCYTE # | 0.6 | <0.9 K/cu mm | [facility] | [...] | + + + + + | [facility] DEPARTMENT | [address] [facility] | [place] [address] | | | PATHOLOGY | [address] | | | + + + + + | [facility] | [address] [place] [address] | [place] [address] | | | PATHOLOGY | [address] | | | + + + + + TYPE AND SCREEN (11/18/2008 2:25 PM PDT) + + + + + + | Component | Value | Ref Range | Performed | Pathologist | | | | | At | Signature | + + + + + + | ABO GROUP | O | | [facility] | | | | | | DEPARTMENT | | | | | | OF | | | | | | PATHOLOGY | | + + + + + + | RH TYPE | Positive | | [facility] | | | | | | DEPARTMENT | | | | | | OF | | | | | | PATHOLOGY | | + + + + + + | Antibody | Positive | | [facility] | | | Screen | | | DEPARTMENT | | | [...] + + + | [facility] | [address] | [place] [address] | | | PATHOLOGY | [address] | | | + + + + + | [facility] | [address] | [place] [address] | | | PATHOLOGY | [address] | | | + + + + + CBC, WITH DIFFERENTIAL (11/18/2008 2:25 PM PDT) + +-------+ + + + | Component | Value | Ref Range | Performed | Pathologist | | | | | At | Signature | + +-------+ + + + | WHITE CELL | 8.3 | 4.4 - 11.0 K/cu | [facility] | | | COUNT | | mm | DEPARTMENT | | | | | | OF | | | | | | PATHOLOGY | | + +-------+ + + + | RED CELL | 4.73 | 4.00 - 5.20 | [facility] | | | COUNT | | M/cu mm | DEPARTMENT | | | | | | OF | | | | | | PATHOLOGY | | + +-------+ + + + | HEMOGLOBIN | 13.2 | 12.0 - 16.0 | [facility] | | | | | g/dL | DEPARTMENT | | | | | | OF | | | | | | PATHOLOGY | | + +-------+ + + + | HEMATOCRIT | 38.8 | 36.0 - 46.0 % | [facility] | | | | | | DEPARTMENT | | | | | | OF | | | | | | PATHOLOGY | | + +-------+ + + + | MCV | 82.0 | 80.0 - 96.0 fL | [facility] | | | | | | DEPARTMENT | | | | | | OF | | | | | | PATHOLOGY | | + +-------+ + + + | MCHC | 34.0 | 33.4 - 35.5 | [facility] | | | | | g/dL | DEPARTMENT | | | | | | OF | | | | | | PATHOLOGY | | + +-------+ + + + | RDW | 14.2 | 11.5 - 15.0 % | [facility] | | | | | | DEPARTMENT | | | | | | OF | | | | | | PATHOLOGY | | + +-------+ + + + | PLATELET | 246 | 150 - 400 K/cu | [facility] [...] + + + | [facility] | [address] [facility] | [place] [address] | | | PATHOLOGY | [address] | | | + + + + + | [facility] | [address] [facility] | [place] [address] | | | PATHOLOGY | [address] | | | + + + + + BASIC METABOLIC SET (NA, K, CL, TCO2, BUN, CR, GLU, CA) (11/18/2008 2:25 PM PDT) + +---------+ + + + | Component | Value | Ref Range | Performed | Pathologist | | | | | At | Signature | + +---------+ + + + | GLUCOSE, | 79 | 60 - 99 mg/dL | [facility] | | | PLASMA | | | DEPARTMENT | | | (LAB) | | | OF | | | | | | PATHOLOGY | | + +---------+ + + + | BUN, PLASMA | 13 | 6 - 20 mg/dL | [facility] | | | (LAB) | | | DEPARTMENT | | | | | | OF | | | | | | PATHOLOGY | | + +---------+ + + + | CREATININE | 0.66 | 0.60 - 1.10 | [facility] | | | PLASMA | | mg/dL | DEPARTMENT | | | (LAB) | | | OF | | | | | | PATHOLOGY | | + +---------+ + + + | SODIUM, | 141 | 134 - 143 | [facility] | | | PLASMA | | mmol/L | DEPARTMENT | | | (LAB) | | | OF | | | | | | PATHOLOGY | | + +---------+ + + + | POTASSIUM, | 3.8 | 3.4 - 5.0 | [facility] | | | PLASMA | | mmol/L | DEPARTMENT | | | (LAB) | | | OF | | | | | | PATHOLOGY | | + +---------+ + + + | CHLORIDE, | 109 (H) | 97 - 108 mmol/L | [facility] | | | PLASMA | | | DEPARTMENT | | | (LAB) | | | OF | | | | | | PATHOLOGY | | + +---------+ + + + | TOTAL CO2, | 24 | 23 - 31 mmol/L | [facility] | | | PLASMA | | | DEPARTMENT | | | (LAB) | | | OF | | | | | | PATHOLOGY | | + +---------+ + + + | CALCIUM, | 9.3 | 8.6 - 10.2 | [facility] | [...] Performed At | + + + | [id number] Estimated GFR > 60 mL/min/1.73 sq m if non- | [facility] | | Citizen Of [place] [id number] Estimated GFR > 60 mL/min/1.73 sq m if | DEPARTMENT OF | | Citizen Of [place] GFR is estimated using the MDRD equation recommended by | PATHOLOGY | | the National Kidney Disease Education Program. Estimated GFR | | | Interpretive Information: <60 mL/min/1.73 sq m Chronic Kidney | | | Disease <15 mL/mon/1.73 sq m Kidney Failure Estimated GFR | | | greater than 60mL/min/1.73 is of limited clinical Value. The MDRD | | | equation is not valid in the following situations: - Patients under | | | 18 years of age - Severe malnutrition or obesity - Vegetarian diet | | | - Rapidly changing kidney function | | + + + + + + + + | Performing | Address | City/State/Zipcode | Phone Number | | Organization | | | | + + + + + | [facility] | [address] [place] [address] | [place] [address] | | | PATHOLOGY | [address] | | | + + + + + | [facility] | [address] [place] [address] | [place] [address] | | | PATHOLOGY | [address] | | | + + + + + documented in this encounter Visit Diagnoses + + | Diagnosis | + + | Morbid obesity (HCC) Morbid obesity | + + | Unspecified essential hypertension | + + | Other specified pre-operative examination | + + documented in this encounter
--- OUTSIDE RECORDS SUMMARY | ~2019-05-04 | XMS | Encounter Summary ---
Demographics + + + | Address | [address] | | | [place] [address] | + + + | Home Phone | | + + + | Preferred Language | Unknown | + + + | Marital Status | | + + + | Evangelical Affiliation | CHR | + + + [...] #[place] | | | | | [address] | | + + + + + | Destiny Suggs | ECON | Unknown | | + + + + + Care Team Providers + +------+ + | Care Auto Claim Representative Name | Role | Phone | + [...] | | | | | | | [place], [place] | | | | | | | [address] | | | | | | | Phone: | | | | | | | [phone] | | | | | | | Fax: | | | | | | | [phone] | +--------+--------+ + + + + Encounter Details +--------+ + + + + | Date | Type | Department | Care Team | Description | +--------+ + + + + | 06/22/ | Hospital | [facility] | Tucker Buenrostro MD | | | 2008 | Encounter | [address] | [address] | | | | | Ave Mailcode: CH | [place], [place] | | | | | Center for | [address] | | | | | Health and Healing, | [phone] | | | | | Building [address] | | | | | | [place], [place] | | | | | | [address] | | | | | | [phone] | | | +--------+ + + + [...] Weight | 76.7 kg (169 lb) | 06/22/2009 2:18 PM | | | | | PST | | + + + + + | Height | 154.9 cm (5' 1") | 06/22/2009 2:18 PM | | | | | PST | | + + + + + | Body Mass Index | 31.93 | 06/22/2009 2:18 PM | | | | | PST | | + + + + + documented in this encounter Discharge Summaries Iban, Faculty - 06/22/2009 6:02 PM PST documented in this encounter Discharge Instructions Instructions Lauryn Johns RN - 06/22/2009 Nursing Disc harge Instructions General discharge instructions for same-day procedure patients: [...] by pain medication. Last oral pain medication: Oxycodone 5 mg at 4:40 and Benadryl 25mg at 5:40 Please follow instructions on medication bottle for further treatment of pain Home care instructions: Home care for wounds and JOSUE Drain care Follow-up appointment: As scheduled in one week with CEE Cottrell documented in this encounter Medications at Time of Discharge + + + +---------+--------+ + | Medication | Sig | Dispensed | Refills | Start | End Date | | | | | | Date | | + + + +---------+--------+ + | B-12 DOTS ORAL | Take by mouth. | | 0 | | | + + + +---------+--------+ + | clorazepate 3.75 | Take 3.75 mg by | | 0 | | | | mg Oral Tablet | mouth as needed. | | | | | + + + +---------+--------+ + | escitalopram | Take 10 mg by mouth | | 0 | | | | (LEXAPRO) 10 mg Oral | three times daily. | | | | | | Tablet | | | | | | + + + +---------+--------+ + | fludrocortisone | Take 0.1 mg by mouth | | 0 | | | | 0.1 mg Oral Tablet | once daily. | | | | | + + + +---------+--------+ + | fluticasone 50 | Instill 2 Sprays | | 0 | | | | mcg/Actuation Nasal | into each nostril | | | | | | [place], Suspension | once daily. | | | | | + + [...] | + + + +---------+--------+ + | IRON, FERROUS | Take 65 mg by mouth | | 0 | | | | SULFATE, ORAL | once daily. | | | | | + + [...] for this | | | e | 11:30 AM | | procedure are in the | | | | PST | | results section. | + +--------+ + + + | ANESTHESIA/SEDATION | | 06/22/2009 | | Results for this | | | | 6:02 PM | | procedure are in the | | | | PST | | results section. | + +--------+ + + + | ORDERS OTHER | | 06/22/2009 | | Results for this | | | | 6:02 PM | | procedure are in the | | | | PST | | results section. | + +--------+ + + + documented in this encounter Results PROCEDURE NOTE (08/12/2015 11:30 AM PST)ORDERS OTHER (06/22/2009 6:02 PM PST) + + + | Narrative | Performed At | + + + | | | + + + + + | Procedure Note | + + | Iban Faculty - 06/22/2009 6:02 PM PST | | | + + ANESTHESIA/SEDATION (06/22/2009 6:02 PM PST) + + + | Narrative | Performed At | + + + | | | + + + + + | Procedure Note | + + | Malgorzata Ferrera - 06/22/2009 6:02 PM PST | | | + + documented in this encounter Visit Diagnoses Not on filedocumented in this encounter
--- OUTSIDE RECORDS SUMMARY | ~2019-05-04 | XMS | Encounter Summary ---
Demographics + + + | Address | [address] | | | [place] [address] | + + + | Home Phone [...] PACK | ECON | [address] | | | | | #[place], [place] | | | | | [address] | | + + + + + | Destiny Suggs | ECON | Unknown | | + + + + + Care Team Providers + +------+ + | Care Court Security Officer Name | Role | Phone | [...] as of this encounter Progress Notes Interface, Residential Caregiver In - 02/04/2005 6:28 AM PDT [id number] [facility] Date: 09/18/2004 Clinic: Ms. [...] 3 weeks. Cam John M.D. SHAMIKA / [id number] / [id number] / [id number] / [id number] Electronically signed by Cam Mcbride 12-12-2004 07:41:57 AM documented i n this encounter Plan of Treatment Not on filedocumented as of this encounter Visit Diagnoses Not on filedocumented in this encounter"
--- OUTSIDE RECORDS SUMMARY | ~2019-05-04 | XMS | Encounter Summary ---
Demographics + + + | Address | [address] | | | [place] [address] | + + + | Home Phone | | + + + | Preferred Language | Unknown | + + + | Marital Status | | + + + | Uatsdin Affiliation | CHR | + + + | Race | White | + + + | Ethnic Group | Not or | + + + Author + + + | Author | [facility] | + + + | Organization | [facility] | + + + | [...] #[place] | | | | | [address] | | + + + + + | Destiny Reginekeena | ECON | Unknown | | + + + + + Care Team Providers + +------+ + | Care Director Of Cardiopulmonary Services Name | Role | Phone | [...] Dx) | | | | Surgery at [facility] [address] | [place] [address] | | | | | [address] | | | | | | Mailcode: [facility] | | | | | | [facility] | | | | | | and Healing, | | | | | | Building [address], [address]th | | | | | | Floor [place], [place] | | | | | | [address] | | | | | | [phone] | | | +--------+---------+ + + + [...] she stands- last episode this am. Line Carroll Drains: Rt 125 last 24 hrs, Lt [...]
--- OUTSIDE RECORDS SUMMARY | ~2019-05-04 | XMS | Clinical Summary ---
Demographics + + + | Address | [address] | | | [place] [address] | + + + | Home Phone | | + + + | Preferred Language | Unknown | + + + | Marital Status | | + + + | Christianity Affiliation | CHR | + + + [address] | | | | | #[address] | | | | | [address] | | + + + + + | Destiny Suggs | ECON | Unknown | | + + + + + Care Team Providers + +------+ + | Care Floriculturist Name | Role | Phone | + +------+ + | Shakir Erwin MD | PCP | | + +------+ + Source Comments [facility] Allergies + + + + + [...] | | | | e | | [place], Suspension | once daily. | | | [...] | [facility] | xxxxxxxxx | 01/06/20 | [phone] | | Indemn | | | A [...] ingrid | | | 7 (Home) | [address] | + +--------+ +--------+ + + Advance Directives + + + + + | Type | Date Recorded | Patient | Explanation | | | | Solar Design Engineer | | + + + + + | Advance | | | | | Directives and | | | | | Living Will | | | | + + + + + | Power of | | | | | Hand Or Machine Paster | | | | + + + + +
--- OUTSIDE RECORDS SUMMARY | ~2019-05-04 | XMS | Encounter Summary ---
Demographics + + + | Address | [address] | | | [place] [address] | + + + | Home Phone | | + + + | Preferred Language | Unknown | + + + | Marital Status | | + + + | Mormonism Affiliation | CHR | + + + | Race | White | + + + | Ethnic Group | Not or | + + + Author + + + | Author | [facility] | + + + | Organization | [facility] | + + + | [...] #[place] | | | | | [address] | | + + + + + | Destiny Suggs | ECON | Unknown | | + + + + + Care Team Providers + +------+ + | Care Entertainment Director Name | Role | Phone | + +------+ + | Shakir Erwin MD | PCP | | + +------+ + Encounter Details +--------+ + + + + | Date | Type | Department | Care Team | Description | +--------+ + + + + | 08/29/ | Hospital | Registration [address] | [place], | | | 2005 | Activity | [address] | | | | | | Volodymyr Mailcode: [id number] | | | | | | [place], [place] | | | | | | [address] | | | | | | [phone] | | | +--------+ + + + [...] | BASIC METABOLIC SET | Routin | 09/01/2004 | | Results for this | | (NA, K, CL, TCO2, | e | 8:26 AM | | procedure are in the | | BUN, CR, GLU, CA) | | PST | | results section. | + +--------+ + + + | CBC ONLY | Routin | 09/01/2004 | | Results for this | | | e | 8:26 AM | | procedure are in the | | | | PST | | results section. | + +--------+ + + + | BASIC METABOLIC SET | Routin | 08/31/2004 | | Results for this | | (NA, K, CL, TCO2, | e | 8:50 AM | | procedure are in the | | BUN, CR, GLU, CA) | | PST | | results section. | + +--------+ + + + | CBC ONLY | Routin | 08/31/2004 | | Results for this | | | e | 8:50 AM | | procedure are in the | | | | PST | | results section. | + +--------+ + + + | BASIC METABOLIC SET | Routin | 08/30/2004 | | Results for this | | (NA, K, CL, TCO2, | e | 7:57 AM | | procedure are in the | | BUN, CR, GLU, CA) | | PST | | results section. | + +--------+ + + + | CBC ONLY | Routin | 08/30/2004 | | Results for this | | | e | 7:57 AM | | procedure are in the | | | | PST | | results section. | + +--------+ + + + documented in this encounter Results CBC ONLY WITH PLATELET (09/01/2004 8:26 AM PST) + + + + + + | Component | Value | Ref Range | Performed | Pathologist | | | | | At | Signature | + + + + + + | WHITE CELL | 13.8 (H) | 4.4 - 11.0 K/cu | [facility] | | | COUNT | | mm | DEPARTMENT | | | | | | OF | | | | | | PATHOLOGY | | + + + + + + | RED CELL | 4.20 | 3.65 - 5.10 | [facility] | | | COUNT | | M/cu mm | DEPARTMENT | | | | | | OF | | | | | | PATHOLOGY | | + + + + + + | HEMOGLOBIN | 11.7 | 11.4 - 15.0 | [facility] | | | | | g/dL | DEPARTMENT | | | | | | OF | | | | | | PATHOLOGY | | + + + + + + | HEMATOCRIT | 33.3 | 33.0 - 44.6 % | [facility] [...] + + + + | MCHC | 35.2 | 33.4 - 35.5 | [facility] | | | | | g/dL | DEPARTMENT | | | | | | OF | | | | | | PATHOLOGY | | + + + + + + | RDW | 14.0 | 11.5 - 15.0 % | [facility] | | | | | | DEPARTMENT | | | | | | OF | | | | | | PATHOLOGY | | + + + + + + | PLATELET | 240 | 150 - 400 K/cu | [facility] [...] | + + + + + | [facility] DEPARTMENT OF | [address] | [place] [address] | | | PATHOLOGY | [address] | | | + + + + + | [facility] DEPARTMENT OF | [address] | [place] [address] | | | PATHOLOGY | [address] | | | + + + + + BASIC METABOLIC SET (09/01/2004 8:26 AM PST) + +---------+ + + + | Component | Value | Ref Range | Performed | Pathologist | | | | | At | Signature | + +---------+ + + + | GLUCOSE, | 81 | 65 - 110 mg/dL | [facility] | | | PLASMA | | | DEPARTMENT | | | (LAB) | | | OF | | | | | | PATHOLOGY | | + +---------+ + + + | BUN, PLASMA | 7 | 6 - 20 mg/dL | [facility] | | | (LAB) | | | DEPARTMENT | | | | | | OF | | | | | | PATHOLOGY | | + +---------+ + + + | CREATININE | 0.6 | 0.6 - 1.1 mg/dL | [facility] | | | PLASMA | | | DEPARTMENT | | | (LAB) | | | OF | | | | | | PATHOLOGY | | + +---------+ + + + | SODIUM, | 132 (L) | 136 - 145 | [facility] | [...] +---------+ + + + | CHLORIDE, | 98 | 98 - 107 mmol/L | [facility] | | | PLASMA | | | DEPARTMENT | | | (LAB) | | | OF | | | | | | PATHOLOGY | | + +---------+ + + + | TOTAL CO2, | 23 | 23 - 29 mmol/L | [facility] | | | PLASMA | | | DEPARTMENT | | | (LAB) | | | OF | | | | | | PATHOLOGY | | + +---------+ + + + | CALCIUM, | 8.9 | 8.5 - 10.5 | [facility] | [...] | + + + + + | [facility] DEPARTMENT OF | [address] | [place] [address] | | | PATHOLOGY | [address] | | | + + + + + | [facility] DEPARTMENT OF | [address] | [place] [address] | | | PATHOLOGY | [address] | | | + + + + + CBC ONLY WITH PLATELET (08/31/2004 8:50 AM PST) + + + + + [...] + + + | RED CELL | 3.94 | 3.65 - 5.10 | [facility] | | | COUNT | | M/cu mm | DEPARTMENT | | | | | | OF | | | | | | PATHOLOGY | | + + + + + + | HEMOGLOBIN | 11.1 (L) | 11.4 - 15.0 | [facility] | | | | | g/dL | DEPARTMENT | | | | | | OF | | | | | | PATHOLOGY | | + + + + + + | HEMATOCRIT | 31.3 (L) | 33.0 - 44.6 % | [facility] [...] + + + + | MCHC | 35.4 | 33.4 - 35.5 | [facility] | [...] + + + + | PLATELET | 248 | 150 - 400 K/cu | [facility] [...] DEPARTMENT OF | [address] | [place] [address] | | | PATHOLOGY | [address] | | | + + + + + | [facility] DEPARTMENT OF | [address] | [place] [address] | | | PATHOLOGY | [address] | | | + + + + + BASIC METABOLIC SET (08/31/2004 8:50 AM PST) + +---------+ + + + | Component | Value | Ref Range | Performed | Pathologist | | | | | At | Signature | + +---------+ + + + | GLUCOSE, | 118 (H) | 65 - 110 mg/dL | [facility] | | | PLASMA | | | DEPARTMENT | | | (LAB) | | | OF | | | | | | PATHOLOGY | | + +---------+ + + + | BUN, PLASMA | 2 (L) | 6 - 20 mg/dL | [facility] [...] +---------+ + + + | SODIUM, | 139 | 136 - 145 | [facility] | | | PLASMA | | mmol/L | DEPARTMENT | | | (LAB) | | | OF | | | | | | PATHOLOGY | | + +---------+ + + + | POTASSIUM, | 3.1 (L) | 3.5 - 5.1 | [facility] | | | PLASMA | | mmol/L | DEPARTMENT | | | (LAB) | | | OF | | | | | | PATHOLOGY | | + +---------+ + + + | CHLORIDE, | 103 | 98 - 107 mmol/L | [facility] | | | PLASMA | | | DEPARTMENT | | | (LAB) | | | OF | | | | | | PATHOLOGY | | + +---------+ + + + | TOTAL CO2, | 29 | 23 - 29 mmol/L | [facility] | | | PLASMA | | | DEPARTMENT | | | (LAB) | | | OF | | | | | | PATHOLOGY | | + +---------+ + + + | CALCIUM, | 8.6 | 8.5 - 10.5 | [facility] | [...] | + + + + + | [facility] DEPARTMENT OF | [address] | [place] [address] | | | PATHOLOGY | [address] | | | + + + + + | [facility] DEPARTMENT OF | [address] | [place] [address] | | | PATHOLOGY | [address] | | | + + + + + CBC ONLY WITH PLATELET (08/30/2004 7:57 AM PST) + + + + + + | Component | Value | Ref Range | Performed | Pathologist | | | | | At | Signature | + + + + + + | WHITE CELL | 15.5 (H) | 4.4 - 11.0 K/cu | [facility] | | | COUNT | | mm | DEPARTMENT | | | | | | OF | | | | | | PATHOLOGY | | + + + + + + | RED CELL | 4.54 | 3.65 - 5.10 | [facility] | | | COUNT | | M/cu mm | DEPARTMENT | | | | | | OF | | | | | | PATHOLOGY | | + + + + + + | HEMOGLOBIN | 12.3 | 11.4 - 15.0 | [facility] | | | | | g/dL | DEPARTMENT | | | | | | OF | | | | | | PATHOLOGY | | + + + + + + | HEMATOCRIT | 36.1 | 33.0 - 44.6 % | [facility] | | | | | | DEPARTMENT | | | | | | OF | | | | | | PATHOLOGY | | + + + + + + | MCV | 79.4 (L) | 80.0 - 96.0 fL | [facility] | | | | | | DEPARTMENT | | | | | | OF | | | | | | PATHOLOGY | | + + + + + + | MCHC | 34.2 | 33.4 - 35.5 | [facility] | | | | | g/dL | DEPARTMENT | | | | | | OF | | | | | | PATHOLOGY | | + + + + + + | RDW | 14.1 | 11.5 - 15.0 % | [facility] | | | | | | DEPARTMENT | | | | | | OF | | | | | | PATHOLOGY | | + + + + + + | PLATELET | 291 | 150 - 400 K/cu | [facility] [...] | + + + + + | [facility] DEPARTMENT OF | [address] | [place] [address] | | | PATHOLOGY | [address] | | | + + + + + | [facility] | [address] | [place] [address] | | | PATHOLOGY | [address] | | | + + + + + BASIC METABOLIC SET (08/30/2004 7:57 AM PST) + +---------+ + + + | Component | Value | Ref Range | Performed | Pathologist | | | | | At | Signature | + +---------+ + + + | GLUCOSE, | 148 (H) | 65 - 110 mg/dL | [facility] | | | PLASMA | | | DEPARTMENT | | | (LAB) | | | OF | | | | | | PATHOLOGY | | + +---------+ + + + | BUN, PLASMA | 3 (L) | 6 - 20 mg/dL | [facility] | | | (LAB) | | | DEPARTMENT | | | | | | OF | | | | | | PATHOLOGY | | + +---------+ + + + | CREATININE | 0.6 | 0.6 - 1.1 mg/dL | [facility] | | | PLASMA | | | DEPARTMENT | | | (LAB) | | | OF | | | | | | PATHOLOGY | | + +---------+ + + + | SODIUM, | 137 | 136 - 145 | [facility] | | | PLASMA | | mmol/L | DEPARTMENT | | | (LAB) | | | OF | | | | | | PATHOLOGY | | + +---------+ + + + | POTASSIUM, | 3.5 | 3.5 - 5.1 | [facility] | | | PLASMA | | mmol/L | DEPARTMENT | | | (LAB) | | | OF | | | | | | PATHOLOGY | | + +---------+ + + + | CHLORIDE, | 104 | 98 - 107 mmol/L | [facility] | | | PLASMA | | | DEPARTMENT | | | (LAB) | | | OF | | | | | | PATHOLOGY | | + +---------+ + + + | TOTAL CO2, | 29 | 23 - 29 mmol/L | [facility] | | | PLASMA | | | DEPARTMENT | | | (LAB) | | | OF | | | | | | PATHOLOGY | | + +---------+ + + + | CALCIUM, | 8.6 | 8.5 - 10.5 | [facility] | [...] + + + + + | [facility] | [address] | [place] [address] | | | PATHOLOGY | [address] | | | + + + + + | [facility] | [address] | [place] [address] | | | PATHOLOGY | [address] | | | + + + + + documented in this encounter Visit Diagnoses Not on filedocumented in this encounter"
--- OUTSIDE RECORDS SUMMARY | ~2019-05-04 | XMS | Encounter Summary ---
Demographics + + + | Address | [address] | | | [place] [address] | + + + | Home Phone [...] + + + | Author | [facility] | + + + | Organization | [facility] | + + + | [...] #[place] | | | | | [address] | | + + + + + | Destiny Suggs | ECON | Unknown | | + + + + + Care Team Providers + +------+ + | Care Trade Promotion Analyst Name | Role | Phone | [...] to | | | | Surgery at [facility] [address] | [place], [place] | Full Duty Work, per | | | | [address] | [address] | Patients request.) | | | | Mailcode: [facility] | [phone] | | | | | [facility] | | | | | | and Healing, | | | | | | Building | | | | | | Floor [facility] [place] | | | | | | [address] | | | | | | [phone] | | | +--------+ + + + [...]
--- OUTSIDE RECORDS SUMMARY | ~2019-05-04 | XMS | Encounter Summary ---
Demographics + + + | Address | [address] | | | [place] [address] | + + + | Home Phone [...] #[place] | | | | | [address] | | + + + + + | Destiny Reginekeena | ECON | Unknown | | + + + + + Care Team Providers + +------+ + | Care Garland Machine Operator Name | Role | Phone [...] | | | | | | | [facility] | | | | | | | Health and | | | | | | | Healing, | | | | | | | [address] | | | | | | | [place], [place] | | | | | | | [address] | | | | | | | Phone: | | | | | | | [phone] | | | | | | | Fax: | | | | | | | [phone] | + +--------+ + + + + [...] | | | | Mailcode: Center | [place], [place] | mellitus, type 2) | | | | for Health and | [address] | (HCC); S/P gastric | | | | Healing, Building [address] | | bypass | | | | [place], [place] | | | | | | [address] | | | | | | [phone] | | | +--------+---------+ + + + [...] banana) & hard-rufino iled egg (or light Kosovan yogurt) -1/2 bagel (whole wheat) with lowfat cream cheese, hard-boiled egg (or light Kosovan yogurt), & fruit Snack: sugar-free, non-fat latte; no whipped cream! Lunch: -frozen entree (around 300 calories, < 600 mg sodium) Snack ideas (choose one): can include veggies or fruit w/ protein at snacks -light Kosovan yogurt -low-fat cheese stick -100 calorie popcorn [...] of visit: 2:05 to 3:19 (74 minutes [id number] with patient) Surgery: Gastric Bypass Date of Surgery: 2004 Subjective: Has seen RD in [place] but she's not familiar w/ bariatric surgeries. [...] Just developed an exercise program w/ a aed trainer but has been too busy at [...] ~[address], LD Pager [phone] documented in this en counter Plan of Treatment Not on filedocumented as of this encounter Procedures + +--------+ + + + | Procedure Name | Priori | Date/Time | Associated Diagnosis | Comments | | | ty | | | | + +--------+ + + + | NE MNT INITIAL | Routin | 02/24/2013 | Morbid obesity | | | ASSESSMNT X15MIN | e | 3:52 PM | ([facility]) DM type 2 | | | | | PDT | (diabetes mellitus, | | | | | | type 2) ([facility]) S/P | | | | | | gastric bypass | | + +--------+ + + + documented in this encounter Visit Diagnoses + + | Diagnosis | + + | Morbid obesity ([facility]) - Primary Morbid obesity | + + | DM type 2 (diabetes mellitus, type 2) ([facility]) Type II or unspecified type diabetes | | mellitus without mention of complication, not stated as uncontrolled | + + | S/P gastric bypass Bariatric surgery status | + + documented in this encounter
--- OUTSIDE RECORDS SUMMARY | ~2019-05-04 | XMS | Encounter Summary ---
Demographics + + + | Address | [address] | | | [place] [address] | + + + | Home Phone [...] + + + | Author | [facility] | + + + | Organization | [facility] | + + + | [...] [place] | | | | | [address] | | + + + + + | Destiny Weinerkeena | ECON | Unknown | | + + + + + Care Team Providers + +------+ + | Care Ripening Room Hand Name | Role | Phone | [...] for | | | | Surgery at [facility] [address] | | unacceptable | | | | [address] | | cosmetic appearance | | | | Mailcode: [facility] | | (Primary Dx) | | | | [facility] | | | | | | and Healing, | | | | | | Building [address], [address]th | | | | | | Floor [place], [place] | | | | | | [address] | | | | | | [phone] | | | +--------+---------+ + + + [...]
--- OUTSIDE RECORDS SUMMARY | ~2019-05-04 | XMS | Encounter Summary ---
Demographics + + + | Address | [address] | | | [place] [address] | + + + | Home Phone [...] [place] | | | | | [address] | | + + + + + | Destiny Suggs | ECON | Unknown | | + + + + + Care Team Providers + +------+ + | Care Waterfront Director Name | Role | Phone | [...] | | | | | unacceptable | [place], [place] | Mailcode: | | | | | cosmetic | [address] | [facility] | | | | | appearance | Phone: | for Health | | | | | Procedures | [phone] | and Healing, | | | | | REQUEST TO | Fax: | Building 1, | | | | | SURGERY | [phone] | 5th Floor | | | | | [employer]ADER[employer]IP DEVELOPMENT [employer]STRUCTOR | | [place], [place] | | | | | HI EXC SKIN | | [address] | | | | | ABD ADD-ON | | Phone: | | | | | Procedure to | | [phone] | | | | | be | | | | | | | performed: | | | | | | | 15 cm | | | | | | | abdominal | | | | | | | scar | | | | | | | revision | | | | | | | ([id number]) | | | +--------+--------+ + + + [...] for | | | | Surgery at [facility] [address] | [place], [place] | Unacceptable | | | | [address] | [address] | Cosmetic Appearance | | | | Mailcode: [facility] | [phone] | (Primary Dx) | | | | [facility] | | | | | | and Healing, | | | | | | Building [address], 5th | | | | | | Floor [place], [place] | | | | | | [address] | | | | | | [phone] | | | +--------+---------+ + + + [...] Tucker Buenrostro MD - 04/19/2009 1:04 PM [facility] Juventino Pack is a 38 y.o. female [...]
--- OUTSIDE RECORDS SUMMARY | ~2019-05-04 | XMS | Encounter Summary ---
Demographics + + + | Address | [address] | | | [place] [address] | + + + | Home Phone [...] [place] | | | | | [address] | | + + + + + | Destiny Suggs | ECON | Unknown | | + + + + + Care Team Providers + +------+ + | Care Extruder Operator Helper Name | Role | Phone | + +------+ + | Shakir Erwin MD | PCP | | + +------+ + Encounter Details +--------+ + + + + | Date | Type | Department | Care Team | Description | +--------+ + + + + | 03/03/ | Orders Only | [facility] | [place] | Obese; | | 2007 | | Center [address] | | Obesity | | | | [address] Mailcode: [facility] | | | | | | [facility] | | | | | | and Healing, | | | | | | Building [address], [address]th | | | | | | Floor [place], [place] | | | | | | [address] | | | | | | [phone] | | | +--------+ + + + [...] | | + +------+--------+ + + | [facility] | Lab | Routin | Obese | Ordered: 09/08/2007 | | VPUNCT | | e | | | + +------+--------+ + + documented as of this encounter Procedures + +--------+ + + + | Procedure Name | Priori | Date/Time | Associated Diagnosis | Comments | | | ty | | | | + +--------+ + + + | DIFFERENTIAL | Routin | 09/08/2007 | | Results for this | | | e | 12:40 PM | | procedure are in the | | | | PST | | results section. | + +--------+ + + + | CBC, WITH | Routin | 09/08/2007 | Obese | Results for this | | DIFFERENTIAL | e | 12:40 PM | | procedure are in the | | | | PST | | results section. | + +--------+ + + + | COMPLETE METABOLIC | Routin | 09/08/2007 | Obese | Results for this | | SET | e | 12:40 PM | | procedure are in the | | (NA,K,CL,CO2,BUN,CRE | | PST | | results section. | | AT,GLUC,CA,AST,ALT,B | | | | | | JAVED TOTAL,ALK | | | | | | PHOS,ALB,PROT TOTAL) | | | | | + +--------+ + + + | FOLATE, SERUM | Routin | 09/08/2007 | Obese | Results for this | | | e | 12:40 PM | | procedure are in the | | | | PST | | results section. | + +--------+ + + + | VITAMIN B-12 | Routin | 09/08/2007 | Obese | Results for this | | | e | 12:40 PM | | procedure are in the | | | | PST | | results section. | + +--------+ + + + documented in this encounter Results DIFFERENTIAL (09/08/2007 12:40 PM PST) + +--------+ + + + | Component | Value | Ref Range | Performed | Pathologist | | | | | At | Signature | + +--------+ + + + | NEUTROPHIL | 73 (H) | 50 - 70 % | [facility] | | | % | | | DEPARTMENT | | | | | | OF | | | | | | PATHOLOGY | | + +--------+ + + + | LYMPHOCYTE | 21 | 18 - 42 % | [facility] | | | % | | | DEPARTMENT | | | | | | OF | | | | | | PATHOLOGY | | + +--------+ + + + | MONOCYTE % | 5 | 2 - 8 % | [facility] [...] +--------+ + + + | NEUTROPHIL | 7.4 | 1.8 - 7.7 K/cu | [facility] | | | # | | mm | DEPARTMENT | | | | | | OF | | | | | | PATHOLOGY | | + +--------+ + + + | LYMPHOCYTE | 2.1 | 1.0 - 4.8 K/cu | [facility] | | | # | | mm | DEPARTMENT | | | | | | OF | | | | | | PATHOLOGY | | + +--------+ + + + | MONOCYTE # | 0.5 | <0.9 K/cu mm | [facility] | [...] + + + + + | [facility] DEPARTMENT | [address] | [place] [address] | | | PATHOLOGY | [address] | | | + + + + + | [facility] | [address] | [place] [address] | | | PATHOLOGY | [address] | | | + + + + + FOLATE, SERUM (09/08/2007 12:40 PM PST) + +-------+ + + + | Component | Value | Ref Range | Performed | Pathologist | | | | | At | Signature | + +-------+ + + + | FOLATE,SERU | 12.8 | >2.9 ng/ml | | | | M | | | | | + +-------+ + + + + + | Specimen | + + | | + + + + + | Narrative | Performed At | + + + | Reference Range change effective | | | 04/28/07 [facility] ([facility]) | | | [facility] [address] | | | [place] [address] | | + + + + + + + + | Performing | Address | City/State/Zipcode | Phone Number | | Organization | | | | + + + + + | [facility] | [address] | [place] [address] | | | LABORATORY | | | | + + + + + VITAMIN B-12, SERUM (09/08/2007 12:40 PM PST) + +-------+ + + + | Component | Value | Ref Range | Performed | Pathologist | | | | | At | Signature | + +-------+ + + + | VITAMIN | 472 | 180 - 914 pg/ml | | | | B12, SERUM | | | | | + +-------+ + + + + + | Specimen | + + | | + + + + + | Narrative | Performed At | + + + | Reference Range change effective | | | 04/28/07 [facility] ([facility]) | | | [facility] [place] [address] [facility] | | | [place] [address] | | + + + + + + + + | Performing | Address | City/State/Zipcode | Phone Number | | Organization | | | | + + + + + | [facility] | [address] | [place] [address] | | | LABORATORY | | | | + + + + + COMP METABOLIC SET, PLASMA (09/08/2007 12:40 PM PST) + +-------+ + + + | Component | Value | Ref Range | Performed | Pathologist | | | | | At | Signature | + +-------+ + + + | GLUCOSE, | 74 | 60 - 99 mg/dL | [facility] | | | PLASMA | | | DEPARTMENT | | | (LAB) | | | OF | | | | | | PATHOLOGY | | + +-------+ + + + | BUN, PLASMA | 11 | 6 - 20 mg/dL | [facility] | | | (LAB) | | | DEPARTMENT | | | | | | OF | | | | | | PATHOLOGY | | + +-------+ + + + | CREATININE | 0.7 | 0.6 - 1.1 mg/dL | [facility] | | | PLASMA | | | DEPARTMENT | | | (LAB) | | | OF | | | | | | PATHOLOGY | | + +-------+ + + + | TOTAL | 6.7 | 6.1 - 7.9 g/dL | [facility] | | | PROTEIN, | | | DEPARTMENT | | | PLASMA | | | OF | | | (LAB) | | | PATHOLOGY | | + +-------+ + + + | ALBUMIN, | 3.8 | 3.5 - 4.7 g/dL | [facility] | | | PLASMA | | | DEPARTMENT | | | (LAB) | | | OF | | | | | | PATHOLOGY | | + +-------+ + + + | CALCIUM, | 9.1 | 8.5 - 10.5 | [facility] | | | PLASMA | | mg/dL | DEPARTMENT | | | (LAB) | | | OF | | | | | | PATHOLOGY | | + +-------+ + + + | BILIRUBIN | 0.7 | 0.3 - 1.2 mg/dL | [facility] | | | TOTAL | | | DEPARTMENT | | | | | | OF | | | | | | PATHOLOGY | | + +-------+ + + + | ALK PHOS | 48 | 42 - 98 U/L | [facility] | | | | | | DEPARTMENT | | | | | | OF | | | | | | PATHOLOGY | | + +-------+ + + + | AST(SGOT) | 20 | 15 - 41 U/L | [facility] | | | | | | DEPARTMENT | | | | | | OF | | | | | | PATHOLOGY | | + +-------+ + + + | SODIUM, | 142 | 136 - 145 | [facility] | | | PLASMA | | mmol/L | DEPARTMENT | | | (LAB) | | | OF | | | | | | PATHOLOGY | | + +-------+ + + + | POTASSIUM, | 3.6 | 3.5 - 5.1 | [facility] | | | PLASMA | | mmol/L | DEPARTMENT | | | (LAB) | | | OF | | | | | | PATHOLOGY | | + +-------+ + + + | CHLORIDE, | 106 | 98 - 107 mmol/L | [facility] | | | PLASMA | | | DEPARTMENT | | | (LAB) | | | OF | | | | | | PATHOLOGY | | + +-------+ + + + | TOTAL CO2, | 27 | 23 - 29 mmol/L | [facility] | | | PLASMA | | | DEPARTMENT | | | (LAB) | | | OF | | | | | | PATHOLOGY | | + +-------+ + + + | ALT (SGPT) | 36 | 13 - 48 U/L | [facility] | | | | | | DEPARTMENT | | | | | | OF | | | | | | PATHOLOGY | | + +-------+ + + + + + | Specimen | + + | | + + + + + | Narrative | Performed At | + + + | [id number] Estimated GFR > 60 mL/min/1.73 sq m if non- | [facility] | | [id number] Estimated GFR > 60 mL/min/1.73 sq m [...] + + + + + | [facility] DEPARTMENT OF | [address] | [place] [address] | | | PATHOLOGY | [address] | | | + + + + + | [facility] DEPARTMENT OF | [address] | [place] [address] | | | PATHOLOGY | [address] | | | + + + + + CBC, WITH DIFFERENTIAL (09/08/2007 12:40 PM PST) + + + + + + | Component | Value | Ref Range | Performed | Pathologist | | | | | At | Signature | + + + + + + | WHITE CELL | 10.1 | 4.4 - 11.0 K/cu | [facility] | | | COUNT | | mm | DEPARTMENT | | | | | | OF | | | | | | PATHOLOGY | | + + + + + + | RED CELL | 4.87 | 4.00 - 5.20 | [facility] | | | COUNT | | M/cu mm | DEPARTMENT | | | | | | OF | | | | | | PATHOLOGY | | + + + + + + | HEMOGLOBIN | 13.8 | 12.0 - 16.0 | [facility] | | | | | g/dL | DEPARTMENT | | | | | | OF | | | | | | PATHOLOGY | | + + + + + + | HEMATOCRIT | 38.3 | 36.0 - 46.0 % | [facility] | | | | | | DEPARTMENT | | | | | | OF | | | | | | PATHOLOGY | | + + + + + + | MCV | 78.7 (L) | 80.0 - 96.0 fL | [facility] | | | | | | DEPARTMENT | | | | | | OF | | | | | | PATHOLOGY | | + + + + + + | MCHC | 36.1 (H) | 33.4 - 35.5 | [facility] | | | | | g/dL | DEPARTMENT | | | | | | OF | | | | | | PATHOLOGY | | + + + + + + | RDW | 13.9 | 11.5 - 15.0 % | [facility] | | | | | | DEPARTMENT | | | | | | OF | | | | | | PATHOLOGY | | + + + + + + | PLATELET | 314 | 150 - 400 K/cu | [facility] [...] | + + + + + | [facility] | [address] | [place] [address] | | | PATHOLOGY | [address] | | | + + + + + | [facility] | [facility] | [place] [address] | | | PATHOLOGY | [address] | | | + + + + + documented in this encounter Visit Diagnoses + + | Diagnosis | + + | Obese Obesity, unspecified | + + | Obesity Obesity, unspecified | + + documented in this encounter"
--- OUTSIDE RECORDS SUMMARY | ~2019-05-04 | XMS | Encounter Summary ---
Demographics + + + | Address | [address] | | | [place] [address] | + + + | Home Phone [...] #[place] | | | | | [address] | | + + + + + | Destiny Weinerkeena | ECON | Unknown | | + + + + + Care Team Providers + +------+ + | Care Gambling Broker Name | Role | Phone | + [...] | | | | | Surgery at [facility] [address] | [place], [place] | | | | | [address] | [address] | | | | | Mailcode: 5 | [phone] | | | | | [facility] | | | | | | and Healing, | | | | | | Building 1, 5th | | | | | | Floor [place], [place] | | | | | | [address] | | | | | | [phone] | | | +--------+ + + + [...]
--- OUTSIDE RECORDS SUMMARY | ~2019-05-04 | XMS | Encounter Summary ---
Demographics + + + | Address | [address] | | | [place] [address] | + + + | Home Phone | | + + + | Preferred Language | Unknown | + + + | Marital Status | | + + + | Hinduism Affiliation | CHR | + + + [...] | + + + + + | Edawr PETERS | ECON | [address] | | | | | #[place] | | | | | [address] | | + + + + + | Destiny Suggs | ECON | Unknown | | + + + + + Care Team Providers + +------+ + | Care Bottle Label Inspector Name | Role | Phone | [...] | | | | | Jalyn Helm [place], | | | | | | [place] [address] | | | +--------+ + + + [...] | | Patient: ANAMIKA PETERS Med Rec: [id number] Sex F Bdate: 1970 | | Date/Time Data | | Entered Into [facility] | | Anesth PostOp | | Surgery Date [id number] 08/30/04 10:58 | | Anesthesiologist LUIS CHIN 08/30/04 10:58 | | | + + documented in this encounter Visit Diagnoses Not on filedocumented in this encounter"
--- OUTSIDE RECORDS SUMMARY | ~2019-05-04 | XMS | Encounter Summary ---
Demographics + + + | Address | [address] | | | [place] [address] | + + + | Home Phone [...] [address] | | | | | #[place] | | | | | [address] | | + + + + + | Destiny Weinerkeena | ECON | Unknown | | + + + + + Care Team Providers + +------+ + | Care Inventory Worker Name | Role | Phone | [...] at | [facility] [address] | ([facility]); Unspecified | | | | [facility] 4th Floor [address] | [address] | Essential | | | | [address] | [place], [place] | Hypertension; Other | | | | Mailcode: CH4S | [address] | Specified | | | | [facility] | [phone] | Pre-Operative | | | | and Healing, | | Examination | | | | Building 1,4th Floor | | | | | | [place], [place] | | | | | | [address] | | | | | | [phone] | | | +--------+---------+ + + + [...] | + + +--------+ + + | [place] COLLECTION VENOUS | Procedures | Routin | [...] + + + + | PRODUCT | [id number] | | [facility] | | | UNIT [...] DEPARTMENT OF | [address] | [place] [address] | | | PATHOLOGY | [address] | | | + + + + + | [facility] DEPARTMENT | [address] | [place] [address] | | | PATHOLOGY | [address] [...] + + + + | PRODUCT | [id number] | | [facility] | | | UNIT [...] DEPARTMENT OF | [address] | [place] [address] | | | PATHOLOGY | [address] | | | + + + + + | [facility] DEPARTMENT OF | [address] | [place] [address] | | | PATHOLOGY | [address] [...] DEPARTMENT OF | [address] | [place] [address] | | | PATHOLOGY | [address] | | | + + + + + | [facility] DEPARTMENT OF | [address] | [place] [address] | | | PATHOLOGY | [address] [...] | + + + + + | [facility] DEPARTMENT | [address] [facility] | [place] [address] | | | PATHOLOGY | [address] | | | + + + + + | [facility] | [address] [place] [address] | [place] [address] | | | PATHOLOGY | [address] [...] | + + + + + | [facility] | [address] | [place] [address] | | | PATHOLOGY | [address] | | | + + + + + | [facility] | [address] | [place] [address] | | | PATHOLOGY | [address] [...] | + + + + + | [facility] | [address] [facility] | [place] [address] | | | PATHOLOGY | [address] | | | + + + + + | [facility] | [address] [facility] | [place] [address] | | | PATHOLOGY | [address] [...] Performed At | + + + | [id number] Estimated GFR > 60 mL/min/1.73 sq m if non- | [facility] | | [place] [id number] Estimated GFR > 60 mL/min/1.73 sq m if | DEPARTMENT OF | | [place] GFR is estimated using the MDRD equation [...] | + + + + + | [facility] | [address] [place] [address] | [place] [address] | | | PATHOLOGY | [address] | | | + + + + + | [facility] | [address] [place] [address] | [place] [address] | | | PATHOLOGY | [address] | | | + + + + + documented in this encounter Visit Diagnoses + + | Diagnosis | + + | Morbid obesity (HCC) Morbid obesity | + + | Unspecified essential hypertension | + + | Other specified pre-operative examination | + + documented in this encounter
--- OUTSIDE RECORDS SUMMARY | ~2019-05-04 | XMS | Encounter Summary ---
Demographics + + + | Address | [address] | | | [place] [address] | + + + | Home Phone | | + + + | Preferred Language | Unknown | + + + | Marital Status | | + + + | Hoahaoism Affiliation | CHR | + + + [...] #[place] | | | | | [address] | | + + + + + | Destiny Suggs | ECON | Unknown | | + + + + + Care Team Providers + +------+ + | Care Actuarial Manager Name | Role | Phone | [...] [address] | | | | | [place], [place] | [place], [place] | | | | | [address] | [address] | | | | | [phone] | [phone] | | | | | | | [...] | + + + + + | [facility] | [address] | [place] [address] | | | LABORATORY | | | [...] | | | M | performed at [place] | | | | | | [facility] | | | | | | Laboratories. | | | | + + + + + + + + | Specimen | + + | | + + + + + + + | Performing | Address | City/State/Zipcode | Phone Number | | Organization | | | | + + + + + | [facility] | [address] | [place] [address] | | | LABORATORY | | | [...] | pg/mL | | | | | [facility]. | | | | | | [...] | + + + + + | [facility] | [address] | [place] [address] | | | LABORATORY | | | [...] | + + + + + | [facility] DEPARTMENT OF | [address] | [place] [address] | | | PATHOLOGY | [address] | | | + + + + + | [facility] DEPARTMENT OF | [address] | [place] [address] | | | PATHOLOGY | [address] [...] + | [facility] DEPARTMENT OF | [address] [facility] | [place] [address] | | | PATHOLOGY | [address] | | | + + + + + | [facility] DEPARTMENT OF | [address] [facility] | [place] [address] | | | PATHOLOGY | [address] [...] Performed At | + + + | [id number] Estimated GFR > 60 mL/min/1.73 sq m if non- | [facility] | | [id number] Estimated GFR > 60 mL/min/1.73 sq m [...] | + + + + + | [facility] | [address] [place] [address] | [place] [address] | | | PATHOLOGY | [address] | | | + + + + + | [facility] DEPARTMENT | [facility] | [place] [address] | | | PATHOLOGY | [address] | | | + + + + + documented in this encounter Visit Diagnoses Not on filedocumented in this encounter"
--- OUTSIDE RECORDS SUMMARY | ~2019-05-04 | XMS | Encounter Summary ---
Demographics + + + | Address | [address] | | | [place] [address] | + + + | Home Phone [...] #[place], [place] | | | | | [address] | | + + + + + | Destiny Suggs | ECON | Unknown | | + + + + + Care Team Providers + +------+ + | Care Tool Analyst Name | Role | Phone | [...] as of this encounter Progress Notes Interface, Frame Straightener In - 02/04/2005 6:28 AM PDT [id number] [facility] Date: 10/09/2004 Clinic: Ms. [...] 3 months. Cam John M.D. Elbert / [id number] / [id number] / [id number] / [id number] Electronically signed by Cam Mcbride 12-12-2004 07:42:02 AM documented i n this encounter Plan of Treatment Not on filedocumented as of this encounter Visit Diagnoses Not on filedocumented in this encounter"
--- OUTSIDE RECORDS SUMMARY | ~2019-05-04 | XMS | Encounter Summary ---
Demographics + + + | Address | [address] | | | [place] [address] | + + + | Home Phone [...] + + + | Author | [facility] | + + + | Organization | [facility] | + + + | [...] #[place] | | | | | [address] | | + + + + + | Destiny Suggs | ECON | Unknown | | + + + + + Care Team Providers + +------+ + | Care Facility Maintenance Mechanic Name | Role | Phone | [...] as of this encounter Progress Notes Interface, Canine Deputy In - 03/29/2005 5:05 AM [facility] [id number] [facility] Date: 02/12/2005 Clinic: General [...] foods. As her EGD report dictates, the plate and frame filter operator had a little bit of a difficult time with sedation and therefore may not have dilated her as completely as they would have liked. We spent some time talking about her eating habits. She has seen our pad machine offbearer, and they feel that she is doing [...] that dilation. Cam John M.D. SHAMIKA / [id number] / [id number] / [id number] / [id number] Electronically signed by Cam Mcbride 03-28-2005 04:50:13 PM documented i n this encounter Plan of Treatment Not on filedocumented as of this encounter Visit Diagnoses Not on filedocumented in this encounter"
--- OUTSIDE RECORDS SUMMARY | ~2019-05-04 | XMS | Encounter Summary ---
Demographics + + + | Address | [address] | | | [place] [address] | + + + | Home Phone [...] #[place] | | | | | [address] | | + + + + + | Destiny Suggs | ECON | Unknown | | + + + + + Care Team Providers + +------+ + | Care Laborer Pie Bakery Name | Role | Phone | + [...] | | | | | | [address] [place], [place] | | | | | | [address] | | | | | | [phone] | | | +--------+ + + + [...]
--- OUTSIDE RECORDS SUMMARY | ~2019-05-04 | XMS | Encounter Summary ---
Demographics + + + | Address | [address] | | | [place] [address] | + + + | Home Phone | | + + + | Preferred Language | Unknown | + + + | Marital Status | | + + + | Christian Affiliation | CHR | + + + [...] #[place] | | | | | [address] | | + + + + + | Destiny Weinrekeena | ECON | Unknown | | + + + + + Care Team Providers + +------+ + | Care Software Controls Engineer Name | Role | Phone | [...] at | [facility] [address] | ([facility]); Unspecified | | | | [facility] 4th Floor [address] | [address] | Essential | | | | [address] | [place], [place] | Hypertension; Other | | | | Mailcode: CH4S | [address] | Specified | | | | [facility] | [phone] | Pre-Operative | | | | and Healing, | | Examination | | | | Building 1,4th Floor | | | | | | [place], [place] | | | | | | [address] | | | | | | [phone] | | | +--------+---------+ + + + [...] | + + +--------+ + + | MD COLLECTION VENOUS | Procedures | Routin | [...] + + + + | PRODUCT | [id number] | | [facility] | | | UNIT [...] DEPARTMENT OF | [address] | [place] [address] | | | PATHOLOGY | [address] | | | + + + + + | [facility] DEPARTMENT | [address] | [place] [address] | | | PATHOLOGY | [address] [...] + + + + | PRODUCT | [id number] | | [facility] | | | UNIT [...] DEPARTMENT OF | [address] | [place] [address] | | | PATHOLOGY | [address] | | | + + + + + | [facility] DEPARTMENT OF | [address] | [place] [address] | | | PATHOLOGY | [address] [...] DEPARTMENT OF | [address] | [place] [address] | | | PATHOLOGY | [address] | | | + + + + + | [facility] DEPARTMENT OF | [address] | [place] [address] | | | PATHOLOGY | [address] [...] | + + + + + | [facility] DEPARTMENT | [address] [facility] | [place] [address] | | | PATHOLOGY | [address] | | | + + + + + | [facility] | [address] [place] [address] | [place] [address] | | | PATHOLOGY | [address] [...] | + + + + + | [facility] | [address] | [place] [address] | | | PATHOLOGY | [address] | | | + + + + + | [facility] | [address] | [place] [address] | | | PATHOLOGY | [address] [...] | + + + + + | [facility] | [address] [facility] | [place] [address] | | | PATHOLOGY | [address] | | | + + + + + | [facility] | [address] [facility] | [place] [address] | | | PATHOLOGY | [address] [...] Performed At | + + + | [id number] Estimated GFR > 60 mL/min/1.73 sq m if non- | [facility] | | [place] [id number] Estimated GFR > 60 mL/min/1.73 sq m if | DEPARTMENT OF | | [place] GFR is estimated using the MDRD equation [...] | + + + + + | [facility] | [address] [place] [address] | [place] [address] | | | PATHOLOGY | [address] | | | + + + + + | [facility] | [address] [place] [address] | [place] [address] | | | PATHOLOGY | [address] | | | + + + + + documented in this encounter Visit Diagnoses + + | Diagnosis | + + | Morbid obesity (HCC) Morbid obesity | + + | Unspecified essential hypertension | + + | Other specified pre-operative examination | + + documented in this encounter
--- OUTSIDE RECORDS SUMMARY | ~2019-05-04 | XMS | Encounter Summary ---
Demographics + + + | Address | [address] | | | [place] [address] | + + + | Home Phone [...] #[place] | | | | | [address] | | + + + + + | Destiny Suggs | ECON | Unknown | | + + + + + Care Team Providers + +------+ + | Care Plate And Frame Filter Operator Name | Role | Phone | + +------+ + | Shakir Erwin MD | PCP | | + +------+ + Encounter Details +--------+------+ + + + | Date | Type | Department | Care Team | Description | +--------+------+ + + + | 06/21/ | Lab | Laboratory at [facility] | | Other plastic | | 2008 | | [address] | | surgery for | | | | [place] | | unacceptable | | | | [address] | | cosmetic appearance; | | | | [phone] | | Other specified | | | [...] DEPARTMENT OF | [address] | [place] [address] | | | PATHOLOGY | [address] [...] | | | DEPARTMENT | | | [place] | | | OF | | | [...] + + | [facility] | [address] | [place] [address] | | | PATHOLOGY | [address] | | | + + + + + documented in this encounter Visit Diagnoses + + | Diagnosis | + + | Other plastic surgery for unacceptable cosmetic appearance | + + | Other specified pre-operative examination | + + documented in this encounter"
--- OUTSIDE RECORDS SUMMARY | ~2019-05-04 | XMS | Clinical Summary ---
Demographics + + + | Address | [address] | | | [place] [address] | + + + | Home Phone | | + + + | Preferred Language | Unknown | + + + | Marital Status | | + + + | Anabaptism Affiliation | Unknown | + + + | Race | Unknown | + + + | Ethnic Group | Unknown | + + + Author + + + | Author | [facility] | | | and [place] | + + + | Organization | [facility] | | | and [place] | + + + | Address | Unknown | + + + | Phone | Unavailable | + + + Care Team Providers + +------+ + | Care Planer Offbearer Name | Role | Phone | + [...] documents on file. For more information, please contact:[facility] [place] [address]
--- OUTSIDE RECORDS SUMMARY | ~2019-05-04 | XMS | Encounter Summary ---
Demographics + + + | Address | [address] | | | [place] [address] | + + + | Home Phone | | + + + | Preferred Language | Unknown | + + + | Marital Status | | + + + | Anabaptism Affiliation | CHR | + + + [...] #[place], [place] | | | | | [address] | | + + + + + | Destiny Suggs | ECON | Unknown | | + + + + + Care Team Providers + +------+ + | Care Automatic Screwmaker Name | Role | Phone | + [...] as of this encounter Progress Notes Interface, Turntable Engineer In - 02/17/2005 9:29 PM [facility] [id number] [facility] Date: 02/01/2005 Clinic: Subjective: [...] protein intake. She will be seeing a sticker operator in [place] where she currently lives. Assessment: The patient [...] any plans for EGD. Cyndie Ponce / [id number] / [id number] / [id number] / [id number] Electronically signed by Laya Shay 02-16-2005 09:20:13 AM documented i n this encounter Plan of Treatment Not on filedocumented as of this encounter Visit Diagnoses Not on filedocumented in this encounter"
--- OUTSIDE RECORDS SUMMARY | ~2019-05-04 | XMS | Encounter Summary ---
Demographics + + + | Address | [address] | | | [place] [address] | + + + | Home Phone [...] + + + | Author | [facility] | + + + | Organization | [facility] | + + + | [...] #[place] | | | | | [address] | | + + + + + | Destiny Reginekeena | ECON | Unknown | | + + + + + Care Team Providers + +------+ + | Care Bill Distributor Name | Role | Phone | + [...] Pre-Operative | | | | Surgery at [facility] [address] | | Examination | | | | [address] | | | | | | Mailcode: 5 | | | | | | [facility] | | | | | | and Healing, | | | | | | Building 1, 5th | | | | | | Floor [place], [place] | | | | | | [address] | | | | | | [phone] | | | +--------+---------+ + + + [...] surgeries scheduled to take place on the hooker at the [facility]: Surgeries scheduled in the [facility]): registration is located on the 4th floor of [facility] (Day Surgery). Surgeries scheduled in the [facility]: registration is located on the 9th floor. Surgeries scheduled in [facility]: registration is located on the 6th floor. Surgeries scheduled in the [facility]: registration is located i n the [facility] on the first floor. For surgeries scheduled to take place at the [facility]: registration is l [...] If you use specialized medical equipment at [facility], please check with your provider before [...]
--- OUTSIDE RECORDS SUMMARY | ~2019-05-04 | XMS | Encounter Summary ---
Demographics + + + | Address | [address] | | | [place] [address] | + + + | Home Phone [...] #[place] | | | | | [address] | | + + + + + | Destiny Suggs | ECON | Unknown | | + + + + + Care Team Providers + +------+ + | Care Electronic Component Processor Name | Role | Phone | + [...] Postoperative | | | | Surgery at [facility] [address] | | (Primary Dx) | | | | [address] | | | | | | Mailcode: CH5P | | | | | | [facility] | | | | | | and Healing, | | | | | | Building 1, | | | | | | Floor [place], [place] | | | | | | [address] | | | | | | [phone] | | | +--------+---------+ + + + [...]
--- OUTSIDE RECORDS SUMMARY | ~2019-05-04 | XMS | Encounter Summary ---
Demographics + + + | Address | [address] | | | [place] [address] | + + + | Home Phone | | + + + | Preferred Language | Unknown | + + + | Marital Status | | + + + | Holiness Affiliation | CHR | + + + [...] #[place] | | | | | [address] | | + + + + + | Destiny Reginekeena | ECON | Unknown | | + + + + + Care Team Providers + +------+ + | Care Plastic Extruding Machine Operator Name | Role | Phone | + +------+ + | Shakir Erwin MD | PCP | | + +------+ + Encounter Details +--------+---------+ + + + | Date | Type | Department | Care Team | Description | +--------+---------+ + + + | 09/07/ | Office | Digestive Health | Ga John, | Obese (Primary Dx); | | 2007 | Visit | Center [address] | Obesity | | | | [place] Mailcode: CH4S | | | | | | [facility] | | | | | | and Healing, | | | | | | Building 1, 6th | | | | | | Floor [place], [place] | | | | | | [address] | | | | | | [phone] | | | +--------+---------+ + + + Social History + +-------+ [...] + + + | Blood Pressure | 118/74 | 09/08/2007 12:06 PM | | | | | PST | | + + + + + | Pulse | 67 | 09/08/2007 12:06 PM | | | | | PST | | + + + + + | Temperature | 36.7 C (98.1 F) | 09/08/2007 12:06 PM | | | | | PST | | + + + + + | Respiratory Rate | 12 | 09/08/2007 12:06 PM | | | | | PST | | + + + + + | Oxygen Saturation | - | - | | + + + + + | Inhaled Oxygen | - | - | | | Concentration | | | | + + + + + | Weight | 85.3 kg (188 lb 1.6 | 09/08/2007 12:06 PM | | | | oz) | PST | | + + + + + | Height | - | - | | + + + + + | Body Mass Index | - | - | | + + + + + documented in this encounter Progress Notes Ga John - 09/08/2007 12:23 PM PST Addended by: GA JOHN MD on: 09/08/2007 12:23:36 PM Modules accepted: Orders Ga Sarabia - 09/2007 12:18 PM PSTDoing great 2 yrs from [facility]. No GI complaints whatsoever. Taking all supp s. Exercising intermittently- she has had a lot fo ortho procedures in last few years that h ave been an obstacle to exercise. Diabetes resolved. documented in this encounter Plan of Treatment Not on filedocumented as of this encounter Results FOLATE, SERUM (09/08/2007 12:40 PM PST) + [...] [facility] ([facility]) | | | [place] [address] [facility] | | | [place] [address] | | + + + + + + + + | Performing | Address | City/State/Zipcode | Phone Number | | Organization | | | | + + + + + | [facility] | [address] | [place] [address] | | | LABORATORY | | | [...] [facility] ([facility] [facility]) | | | [place] [address] [facility] | | | [place] [address] | | + + + + + + + + | Performing | Address | City/State/Zipcode | Phone Number | | Organization | | | | + + + + + | [facility] | [address] [facility] | [place] [address] | | | LABORATORY | | | [...] Performed At | + + + | [id number] Estimated GFR > 60 mL/min/1.73 sq m if non- | [facility] | | [id number] Estimated GFR > 60 mL/min/1.73 sq m [...] | [facility] | [address] | [place] [address] | | | PATHOLOGY | [address] | | | + + + + + | [facility] DEPARTMENT OF | [address] | [place] [address] | | | PATHOLOGY | [address] [...] DEPARTMENT OF | [address] | [place] [address] | | | PATHOLOGY | [address] | | | + + + + + | [facility] | [address] | [place] [address] | | | PATHOLOGY | [address] | | | + + + + + documented in this encounter Visit Diagnoses + + | Diagnosis | + + | Obese - Primary Obesity, unspecified | + + | Obesity Obesity, unspecified | + + documented in this encounter"
--- OUTSIDE RECORDS SUMMARY | ~2019-05-04 | XMS | Encounter Summary ---
Demographics + + + | Address | [address] | | | [place] [address] | + + + | Home Phone [...] [place], [place] | | | | | [address] | | + + + + + | Destiny Suggs | ECON | Unknown | | + + + + + Care Team Providers + +------+ + | Care Crm System Administrator Name | Role | Phone | + [...]
--- OUTSIDE RECORDS SUMMARY | ~2019-05-04 | XMS | Encounter Summary ---
Demographics + + + | Address | [address] | | | [place] [address] | + + + | Home Phone [...] #[place], [place] | | | | | [address] | | + + + + + | Destiny Suggs | ECON | Unknown | | + + + + + Care Team Providers + +------+ + | Care Philosophy Faculty Member Name | Role | Phone | [...]
--- OUTSIDE RECORDS SUMMARY | ~2019-05-04 | XMS | Encounter Summary ---
Demographics + + + | Address | [address] | | | [place] [address] | + + + | Home Phone [...] | Author | [facility] | + + + | Organization | [facility] | + + + | Address | Unknown | + + + | Phone | Unavailable | + + + Support + + + + + | Name | Relationship | Address | Phone | + + + + + | Edwar PACK | ECON | [address] | | | | | #[place] | | | | | [address] | | + + + + + | Destiny Suggs | ECON | Unknown | | + + + + + Care Team Providers + +------+ + | Care Motor Vehicle Light Assembler Name | Role | Phone | + [...] as of this encounter Progress Notes Interface, Professional Benefits Sales Consultant In - 09/14/2005 2:06 AM PST [id number] [facility] Date: 09/10/2005 Clinic: GENERAL [...] the above plan. Cyndie Ponce / [id number] / [id number] / [id number] / [id number] cc: Brian Erwin [address] [place] [address] Electronically signed by Laya Shay 09-13-2005 07:10:12 PM documented i n this encounter Plan of Treatment Not on filedocumented as of this encounter Visit Diagnoses Not on filedocumented in this encounter"
--- OUTSIDE RECORDS SUMMARY | ~2019-05-04 | XMS | Encounter Summary ---
Demographics + + + | Address | [address] | | | [place] [address] | + + + | Home Phone | | + + + | Preferred Language | Unknown | + + + | Marital Status | | + + + | Zoroastrianism Affiliation | CHR | + + + | Race | White | + + + | Ethnic Group | Not or | + + + Author + + + | Author | [facility] | + + + | Organization | [facility] | + + + | Address | Unknown | + + + | Phone | Unavailable | + + + Support + + + + + | Name | Relationship | Address | Phone | + + + + + | Edwar PETERS | ECON | [address] | | | | | #[place] | | | | | [address] | | + + + + + | Destiny Suggs | ECON | Unknown | | + + + + + Care Team Providers + +------+ + | Care Manual Plate Filler Name | Role | Phone | [...] [id number] | | | | | | [place], [place] | | | | | | [address] | | | | | | [phone] | | | +--------+ + + + [...] | | | M | performed at [facility] | | | | | | [facility] | | | | | | Laboratories. | | | | + + + + + + + + | Specimen | + + | | + + + + + + + | Performing | Address | City/State/Zipcode | Phone Number | | Organization | | | | + + + + + | [facility] | [address] | [place] [address] | | | LABORATORY | | | [...] | pg/mL | | | | | [facility] | | | | | | Laboratory. | | | | + + + + + + + + | Specimen | + + | | + + + + + + + | Performing | Address | City/State/Zipcode | Phone Number | | Organization | | | | + + + + + | [facility] | [address] | [place] [address] | | | LABORATORY | | | [...] Mishra | | | | | | [facility] | | | | | | Laboratories. | | | | + + + + + + + + | Specimen | + + | | + + + + + + + | Performing | Address | City/State/Zipcode | Phone Number | | Organization | | | | + + + + + | [facility] | [address] | [place] [address] | | | LABORATORY | | | [...] DEPARTMENT OF | [address] | [place] [address] | | | PATHOLOGY | [address] | | | + + + + + | [place] DEPARTMENT OF | [address] | [place] [address] | | | PATHOLOGY | [address] [...] + + + + + | [facility] DEPARTMENT OF | [address] | [place] [address] | | | PATHOLOGY | [address] | | | + + + + + | [place] DEPARTMENT OF | [address] | [place] [address] | | | PATHOLOGY | [address] [...] + + | [facility] | [address] [facility] [address] | [place] [address] | | | PATHOLOGY | [address] | | | + + + + + | [facility] DEPARTMENT OF | [address] [facility] [facility] | [place] [address] | | | PATHOLOGY | [address] | | | + + + + + documented in this encounter Visit Diagnoses Not on filedocumented in this encounter"
--- OUTSIDE RECORDS SUMMARY | ~2019-05-04 | XMS | Encounter Summary ---
Demographics + + + | Address | [address] | | | [place] [address] | + + + | Home Phone | | + + + | Preferred Language | Unknown | + + + | Marital Status | | + + + | Sabianism Affiliation | CHR | + + + [...] Edwar PACK | ECON | [address] | | | | | #[place] | | | | | [address] | | + + + + + | Destiny Suggs | ECON | Unknown | | + + + + + Care Team Providers + +------+ + | Care Flood Control Engineer Name | Role | Phone | [...] as of this encounter Progress Notes Interface, General Passenger Agent In - 02/04/2005 12:44 AM [facility] [id number] [facility] Date: 07/31/2004 Clinic: Surgery [...] August 2004. Cam John M.D. Elbert / [id number] / [id number] / [id number] / [id number] documented i n this encounter Plan of Treatment Not on filedocumented as of this encounter Visit Diagnoses Not on filedocumented in this encounter"
--- OUTSIDE RECORDS SUMMARY | ~2019-05-04 | XMS | Encounter Summary ---
Demographics + + + | Address | [address] | | | [place] [address] | + + + | Home Phone [...] #[place], [place] | | | | | [address] | | + + + + + | Destiny Suggs | ECON | Unknown | | + + + + + Care Team Providers + +------+ + | Care Lockstitch Waistband Setter Name | Role | Phone | + [...] as of this encounter Discharge Summaries Interface, Triple Air Valve Tester In - 02/04/2005 2:[address] [facility] [id number] [facility] Admission Date: 08/29/2004 Discharge Date: [...] for followup. Cyndie Ponce M.D., V / [id number] / [id number] / [id number] / cc: Fernando Nunes M.D. [address] [place] [address] Cam John M.D. General Surgery, [facility] Electronically signed by Cam Mcbride 09-25-2004 03:35:41 PM documented i n this encounter Plan of Treatment Not on filedocumented as of this encounter Visit Diagnoses Not on filedocumented in this encounter"
--- OUTSIDE RECORDS SUMMARY | ~2019-05-04 | XMS | Encounter Summary ---
Demographics + + + | Address | [address] | | | [place] [address] | + + + | Home Phone [...] #[place], [place] | | | | | [address] | | + + + + + | Destiny Suggs | ECON | Unknown | | + + + + + Care Team Providers + +------+ + | Care Teleprinter Name | Role | Phone | + [...]
--- OUTSIDE RECORDS SUMMARY | ~2019-05-04 | XMS | Encounter Summary ---
Demographics + + + | Address | [address] | | | [place] [address] | + + + | Home Phone [...] #[place] | | | | | [address] | | + + + + + | Destiny Suggs | ECON | Unknown | | + + + + + Care Team Providers + +------+ + | Care Phlebotomy Instructor Name | Role | Phone | + [...] Rd | | | | | | [place], [place] | | | | | | [address] | | | +--------+ + + + [...]
--- OUTSIDE RECORDS SUMMARY | ~2019-05-04 | XMS | Encounter Summary ---
Demographics + + + | Address | [address] | | | [place] [address] | + + + | Home Phone [...] #[place] | | | | | [address] | | + + + + + | Destiny Suggs | ECON | Unknown | | + + + + + Care Team Providers + +------+ + | Care Tire Shop Manager Name | Role | Phone | [...] [facility] | | | | | | [facility] | | | | | | and Healing, | | | | | | Building [address]th | | | | | | Floor [place], [place] | | | | | | [address] | | | | | | [phone] | | | +--------+ + + + [...] | + + + + + | [facility] DEPARTMENT | [address] | [place] [address] | | | PATHOLOGY | [address] | | | + + + + + | [facility] | [address] | [place] [address] | | | PATHOLOGY | [address] [...] change effective | | | 04/28/07 RLB ([address] [facility]) | | | [facility] [address] [facility] | | | [place] [address] | | + + + + + + + + | Performing | Address | City/State/Zipcode | Phone Number | | Organization | | | | + + + + + | [facility] | [address] | [place] [address] | | | LABORATORY | | | [...] RLB ([address] [facility]) | | | [facility] [place] [address] [facility] | | | [place] [address] | | + + + + + + + + | Performing | Address | City/State/Zipcode | Phone Number | | Organization | | | | + + + + + | [facility] | [address] | [place] [address] | | | LABORATORY | | | [...] Performed At | + + + | [id number] Estimated GFR > 60 mL/min/1.73 sq m if non- | [facility] | | [id number] Estimated GFR > 60 mL/min/1.73 sq m [...] | + + + + + | [facility] DEPARTMENT OF | [address] | [place] [address] | | | PATHOLOGY | [address] | | | + + + + + | [facility] DEPARTMENT OF | [address] | [place] [address] | | | PATHOLOGY | [address] [...] + + + | [facility] | [address] | [place] [address] | | | PATHOLOGY | [address] | | | + + + + + | [facility] | [facility] | [place] [address] | | | PATHOLOGY | [address] | | | + + + + + documented in this encounter Visit Diagnoses + + | Diagnosis | + + | Obese Obesity, unspecified | + + | Obesity Obesity, unspecified | + + documented in this encounter"
--- OUTSIDE RECORDS SUMMARY | ~2019-05-04 | XMS | Encounter Summary ---
Demographics + + + | Address | [address] | | | [place] [address] | + + + | Home Phone | | + + + | Preferred Language | Unknown | + + + | Marital Status | | + + + | Mosque Affiliation | CHR | + + + [...] #[place] | | | | | [address] | | + + + + + | Destiny Suggs | ECON | Unknown | | + + + + + Care Team Providers + +------+ + | Care Senior Medical Technologist Name | Role | Phone | + [...] Rd | | | | | | [place], [place] | | | | | | [address] | | | +--------+ + + + [...]
--- OUTSIDE RECORDS SUMMARY | ~2019-05-04 | XMS | Encounter Summary ---
Demographics + + + | Address | [address] | | | [place] [address] | + + + | Home Phone [...] [place] | | | | | [address] | | + + + + + | Destiny Weinerkeena | ECON | Unknown | | + + + + + Care Team Providers + +------+ + | Care Spinning Operator Name | Role | Phone | + +------+ + | Shakir Erwin MD | PCP | | + +------+ + Reason for Visit + + + | Reason | Comments | + + + | Postoperative | has questions re: Drain tube removal | | Questions | | + + + Encounter Details +--------+ + + + + | Date | Type | Department | Care Team | Description | +--------+ + + + + | 11/23/ | Telephone | Plastic and | Tucker Buenrostro MD | Postoperative | | 2008 | | Reconstructive | [address] | Questions (has | | | | Surgery at [facility] [address] | [place], [place] | questions re: Drain | | | | [address] | [address] | tube removal) | | | | Mailcode: [facility] | [phone] | | | | | [facility] | | | | | | and Healing, | | | | | | Building [address]th | | | | | | Floor [place], [place] | | | | | | [address] | | | | | | [phone] | | | +--------+ + + + [...]
--- OUTSIDE RECORDS SUMMARY | ~2019-05-04 | XMS | Encounter Summary ---
Demographics + + + | Address | [address] | | | [place] [address] | + + + | Home Phone | | + + + | Preferred Language | Unknown | + + + | Marital Status | | + + + | Anabaptist Affiliation | CHR | + + + [...] #[place] | | | | | [address] | | + + + + + | Destiny Reginekeena | ECON | Unknown | | + + + + + Care Team Providers + +------+ + | Care Sweep Molder Name | Role | Phone | + [...] Dx) | | | | Surgery at [facility] [address] | [place], [place] | | | | | [address] | [address] | | | | | Mailcode: [facility] | [phone] | | | | | [facility] | | | | | | and Healing, | | | | | | Building [address]th | | | | | | Floor [facility] [place] | | | | | | [address] | | | | | | [phone] | | | +--------+---------+ + + + [...]
--- OUTSIDE RECORDS SUMMARY | ~2019-05-04 | XMS | Encounter Summary ---
Demographics + + + | Address | [address] | | | [place] [address] | + + + | Home Phone [...] [place] | | | | | [address] | | + + + + + | Destiny Weinerkeena | ECON | Unknown | | + + + + + Care Team Providers + +------+ + | Care General Accountant Name | Role | Phone | [...] (has | | | | Surgery at [facility] [address] | [place], [place] | questions re: Drain | | | | [address] | [address] | tube removal) | | | | Mailcode: [facility] | [phone] | | | | | [facility] | | | | | | and Healing, | | | | | | Building [address]th | | | | | | Floor [place], [place] | | | | | | [address] | | | | | | [phone] | | | +--------+ + + + [...]
--- OUTSIDE RECORDS SUMMARY | ~2019-05-04 | XMS | Encounter Summary ---
Demographics + + + | Address | [address] | | | [place] [address] | + + + | Home Phone [...] [place] | | | | | [address] | | + + + + + | Destiny Suggs | ECON | Unknown | | + + + + + Care Team Providers + +------+ + | Care Edger Machine Helper Name | Role | Phone | [...] Rd | | | | | | [place], [place] | | | | | | [address] | | | +--------+ + + + [...]
--- OUTSIDE RECORDS SUMMARY | ~2019-05-04 | XMS | Encounter Summary ---
Demographics + + + | Address | [address] | | | [place] [address] | + + + | Home Phone [...] + + + | Author | [facility] | + + + | Organization | [facility] | + + + | [...] #[place] | | | | | [address] | | + + + + + | Destiny Suggs | ECON | Unknown | | + + + + + Care Team Providers + +------+ + | Care Life Sciences Instructor Name | Role | Phone | [...] as of this encounter Progress Notes Interface, Energy Control Officer In - 03/29/2005 5:05 AM [facility] [id number] [facility] Date: 02/12/2005 Clinic: General [...] foods. As her EGD report dictates, the electrical troubleshooter had a little bit of a difficult time with sedation and therefore may not have dilated her as completely as they would have liked. We spent some time talking about her eating habits. She has seen our light industrial, and they feel that she is doing [...] that dilation. Cam John M.D. SHAMIKA / [id number] / [id number] / [id number] / [id number] Electronically signed by Cam Mcbride 03-28-2005 04:50:13 PM documented i n this encounter Plan of Treatment Not on filedocumented as of this encounter Visit Diagnoses Not on filedocumented in this encounter"
--- OUTSIDE RECORDS SUMMARY | ~2019-05-04 | XMS | Encounter Summary ---
Demographics + + + | Address | [address] | | | [place] [address] | + + + | Home Phone [...] #[place], [place] | | | | | [address] | | + + + + + | Destniy Suggs | ECON | Unknown | | + + + + + Care Team Providers + +------+ + | Care Bookkeeping Machine Operator Name | Role | Phone [...] as of this encounter Progress Notes Interface, Remelt Pan Tank Operator In - 02/06/2005 7:04 AM [facility] [id number] [facility] Date: 02/01/2005 Clinic: Subjective: [...] protein intake. She will be seeing a stock drier tender in [place] where she currently lives. Assessment: The patient [...] any plans for EGD. Cyndie Ponce / [id number] / [id number] / [id number] / [id number] documented i n this encounter Plan of Treatment Not on filedocumented as of this encounter Visit Diagnoses Not on filedocumented in this encounter"
--- OUTSIDE RECORDS SUMMARY | ~2019-05-04 | XMS | Encounter Summary ---
Demographics + + + | Address | [address] | | | [place] [address] | + + + | Home Phone | | + + + | Preferred Language | Unknown | + + + | Marital Status | | + + + | Bahai Affiliation | CHR | + + + [...] #[place], [place] | | | | | [address] | | + + + + + | Destiny Suggs | ECON | Unknown | | + + + + + Care Team Providers + +------+ + | Care Parliamentary Librarian Name | Role | Phone | [...] | Transcriptions | + + | Interface, Oil Gas And Pipe Tester In - 06/28/2005 9:14 PM PST | | [id number] | | [id number] [facility] | | | | Date: 08/29/2004 | | | | Attending Surgeon: Cam John M.D. | | | | Filler Shaker(s): Trupti Roy M.D. | | Claudia Boyce [...] | | | RWO / | | [id number] / [id number] / [id number] / | | | | | | | | | | | | Electronically signed by Cam Mcbride 09-25-2004 03:35:36 PM | + + documented in this encounter Visit Diagnoses Not on filedocumented in this encounter"
--- OUTSIDE RECORDS SUMMARY | ~2019-05-04 | XMS | Encounter Summary ---
Demographics + + + | Address | [address] | | | [place] [address] | + + + | Home Phone [...] + + + | Author | [facility] | + + + | Organization | [facility] | + + + | Address | Unknown | + + + | Phone | Unavailable | + + + Support + + + + + | Name | Relationship | Address | Phone | + + + + + | Edwar PETERS | ECON | [address] | | | | | #[place] | | | | | [address] | | + + + + + | Destiny Suggs | ECON | Unknown | | + + + + + Care Team Providers + +------+ + | Care Quality Facilitator Name | Role | Phone | + [...] [facility] | | | | | | [facility] | | | | | | and Healing, | | | | | | Building [address], [address]th | | | | | | Floor [place], [place] | | | | | | [address] | | | | | | [phone] | | | +--------+ + + + [...] + + + + + | [facility] DEPARTMENT | [address] | [place] [address] | | | PATHOLOGY | [address] | | | + + + + + | [facility] | [address] | [place] [address] | | | PATHOLOGY | [address] [...] change effective | | | 04/28/07 RLB ([address] [facility]) | | | [facility] [address] [facility] | | | [place] [address] | | + + + + + + + + | Performing | Address | City/State/Zipcode | Phone Number | | Organization | | | | + + + + + | [facility] | [address] | [place] [address] | | | LABORATORY | | | [...] RLB ([address] [facility]) | | | [facility] [place] [address] [address] [facility] [facility] | | | [place] [address] | | + + + + + + + + | Performing | Address | City/State/Zipcode | Phone Number | | Organization | | | | + + + + + | [facility] | [address] | [place] [address] | | | LABORATORY | | | [...] Performed At | + + + | [id number] Estimated GFR > 60 mL/min/1.73 sq m if non- | [facility] | | [id number] Estimated GFR > 60 mL/min/1.73 sq m [...] + + + + + | [facility] DEPARTMENT OF | [address] | [place] [address] | | | PATHOLOGY | [address] | | | + + + + + | [facility] DEPARTMENT OF | [address] | [place] [address] | | | PATHOLOGY | [address] [...] | + + + + + | [facility] | [address] | [place] [address] | | | PATHOLOGY | [address] | | | + + + + + | [facility] | [facility] | [place] [address] | | | PATHOLOGY | [address] | | | + + + + + documented in this encounter Visit Diagnoses + + | Diagnosis | + + | Obese Obesity, unspecified | + + | Obesity Obesity, unspecified | + + documented in this encounter"
--- OUTSIDE RECORDS SUMMARY | ~2019-05-04 | XMS | Encounter Summary ---
Demographics + + + | Address | [address] | | | [place] [address] | + + + | Home Phone [...] [place], [place] | | | | | [address] | | + + + + + | Destiny Suggs | ECON | Unknown | | + + + + + Care Team Providers + +------+ + | Care Pipe Buffer Name | Role | Phone | + [...] as of this encounter Progress Notes Interface, Tank Calibrator In - 02/21/2005 5:06 AM PDT [id number] 10/09/2004 10/13/2004 [id number] [facility] [address] [place] [address] or October 13, 2004 Fernando Nunes M.D. [address] [place] [address] RE: ANAMIKA PACK MR #: [id number] Dear Dr. Nunes: I received your request [...] her to see our gastroenterologists here at [facility] who have a fair amount [...] to call me in my office at [phone]. We will forward you the records, and I will keep you apprised as to her progress as she undergoes this endoscopy and dilation. Sincerely, Cam John M.D. reactor technician, [facility], Department of Surgery [facility] / [id number] / [id number] / [id number] / Electronically signed by Cam Mcbride 02-20-2005 03:44:35 PM documented i n this encounter Plan of Treatment Not on filedocumented as of this encounter Visit Diagnoses Not on filedocumented in this encounter"
--- OUTSIDE RECORDS SUMMARY | ~2019-05-04 | XMS | Encounter Summary ---
Demographics + + + | Address | [address] | | | [place] [address] | + + + | Home Phone | | + + + | Preferred Language | Unknown | + + + | Marital Status | | + + + | Yarsani Affiliation | CHR | + + + [...] #[place], [place] | | | | | [address] | | + + + + + | Destiny Suggs | ECON | Unknown | | + + + + + Care Team Providers + +------+ + | Care Motor Room Controller Name | Role | Phone | + [...] as of this encounter Progress Notes Interface, Furniture Fabricator In - 02/06/2005 7:04 AM [facility] [id number] [facility] Date: 02/01/2005 Clinic: Subjective: [...] protein intake. She will be seeing a planer stone in [place] where she currently lives. Assessment: The patient [...] any plans for EGD. Cyndie Ponce / [id number] / [id number] / [id number] / [id number] documented i n this encounter Plan of Treatment Not on filedocumented as of this encounter Visit Diagnoses Not on filedocumented in this encounter"
--- OUTSIDE RECORDS SUMMARY | ~2019-05-04 | XMS | Encounter Summary ---
Demographics + + + | Address | [address] | | | [place] [address] | + + + | Home Phone | | + + + | Preferred Language | Unknown | + + + | Marital Status | | + + + | Restoration Affiliation | CHR | + + + [...] [place] | | | | | [address] | | + + + + + | Destiny Suggs | ECON | Unknown | | + + + + + Care Team Providers + +------+ + | Care Compactor Driver Name | Role | Phone | [...] to | | | | Surgery at [facility] [address] | [place], [place] | work mon. 06/27) | | | | [address] | [address] | | | | | Mailcode: [facility] | [phone] | | | | | [facility] | | | | | | and Healing, | | | | | | [facility] , | | | | | | [place], [place] | | | | | | [address] | | | | | | [phone] | | | +--------+ + + + [...]
--- OUTSIDE RECORDS SUMMARY | ~2019-05-04 | XMS | Encounter Summary ---
Demographics + + + | Address | [address] | | | [place] [address] | + + + | Home Phone | | + + + | Preferred Language | Unknown | + + + | Marital Status | | + + + | Hindu Affiliation | CHR | + + + | Race | White | + + + | Ethnic Group | Not or | + + + Author + + + | Author | [facility] | + + + | Organization | [facility] | + + + | [...] #[place] | | | | | [address] | | + + + + + | Destiny Suggs | ECON | Unknown | | + + + + + Care Team Providers + +------+ + | Care Steno Typist Name | Role | Phone | + [...] Rd | | | | | | [place], [place] | | | | | | [address] | | | +--------+ + + + [...]
--- OUTSIDE RECORDS SUMMARY | ~2019-05-04 | XMS | Encounter Summary ---
Demographics + + + | Address | [address] | | | [place] [address] | + + + | Home Phone [...] #[place], [place] | | | | | [address] | | + + + + + | Destiny Suggs | ECON | Unknown | | + + + + + Care Team Providers + +------+ + | Care Medical Device Engineer Name | Role | Phone | [...] | Transcriptions | + + | Interface, Drill Runner In - 06/28/2005 9:14 PM PST | | [id number] | | [id number] LORRAINE Mccurdy | | | | Date: 08/29/2004 | | | | Attending Surgeon: Cam John M.D. | | | | Hide And Skin Processing Worker(s): Trupti Roy M.D. | | Claudia Boyce [...] | | | RWO / | | [id number] / [id number] / [id number] / | | | | | | | | | | | | Electronically signed by Cam Mcbride 09-25-2004 03:35:36 PM | + + documented in this encounter Visit Diagnoses Not on filedocumented in this encounter"
--- OUTSIDE RECORDS SUMMARY | ~2019-05-04 | XMS | Encounter Summary ---
Demographics + + + | Address | [address] | | | [place] [address] | + + + | Home Phone | | + + + | Preferred Language | Unknown | + + + | Marital Status | | + + + | Zoroastrian Affiliation | CHR | + + + [...] #[place] | | | | | [address] | | + + + + + | Destiny Reginekeena | ECON | Unknown | | + + + + + Care Team Providers + +------+ + | Care Development Eng Name | Role | Phone | + [...] [facility] | | | | | | [facility] | | | | | | and Healing, | | | | | | Building 1, 6th | | | | | | Floor [place], [place] | | | | | | [address] | | | | | | [phone] | | | +--------+---------+ + + + [...] [facility] ([facility]) | | | [facility] [place] [address] [address] [facility] | | | [place] [address] | | + + + + + + + + | Performing | Address | City/State/Zipcode | Phone Number | | Organization | | | | + + + + + | [facility] | [address] | [place] [address] | | | LABORATORY | | | [...] [facility] ([facility]) | | | [facility] [place] [address] [facility] | | | [place] [address] | | + + + + + + + + | Performing | Address | City/State/Zipcode | Phone Number | | Organization | | | | + + + + + | [facility] | [address] [facility] [address] | [place] [address] | | | LABORATORY | | | [...] Performed At | + + + | [id number] Estimated GFR > 60 mL/min/1.73 sq m if non- | [facility] | | [id number] Estimated GFR > 60 mL/min/1.73 sq m [...] | + + + + + | [facility] | [address] | [place] [address] | | | PATHOLOGY | [address] | | | + + + + + | [facility] DEPARTMENT OF | [address] | [place] [address] | | | PATHOLOGY | [address] [...] OF | [address] | [place] [address] | | | PATHOLOGY | [address] | | | + + + + + | [facility] | [address] | [place] [address] | | | PATHOLOGY | [address] | | | + + + + + documented in this encounter Visit Diagnoses + + | Diagnosis | + + | Obese - Primary Obesity, unspecified | + + | Obesity Obesity, unspecified | + + documented in this encounter"
--- OUTSIDE RECORDS SUMMARY | ~2019-05-04 | XMS | Encounter Summary ---
Demographics + + + | Address | [address] | | | [place] [address] | + + + | Home Phone [...] #[place] | | | | | [address] | | + + + + + | Destiny Weinerkeena | ECON | Unknown | | + + + + + Care Team Providers + +------+ + | Care Stogy Maker Name | Role | Phone | + [...] (Abdomen | | | | Surgery at [facility] [address] | [facility] [place] | is sensitive to | | | | [address] | [address] | touch; concerned.); | | | | Mailcode: [facility] | [phone] | Neuropathy (Abdomen | | | | Elsie for [facility] | | Neuropathy.) | | | | and Healing, | | | | | | Building , | | | | | | Floor [place], [place] | | | | | | [address] | | | | | | [phone] | | | +--------+ + + + [...]
--- OUTSIDE RECORDS SUMMARY | ~2019-05-04 | XMS | Encounter Summary ---
Demographics + + + | Address | [address] | | | [place] [address] | + + + | Home Phone [...] #[place] | | | | | [address] | | + + + + + | Destiny Weinerkeena | ECON | Unknown | | + + + + + Care Team Providers + +------+ + | Care Applied Statistician Name | Role | Phone | + [...] is | | | | Surgery at [facility] [address] | [place], [place] | having fluid | | | | [address] | [address] | build-up again and | | | | Mailcode: [facility] | [phone] | wants to have | | | | [facility] | | drained tomorrow) | | | | and Healing, | | | | | | Building , | | | | | | Floor [facility] [place] | | | | | | [address] | | | | | | [phone] | | | +--------+ + + + [...]
--- OUTSIDE RECORDS SUMMARY | ~2019-05-04 | XMS | Encounter Summary ---
Demographics + + + | Address | [address] | | | [place] [address] | + + + | Home Phone [...] #[place] | | | | | [address] | | + + + + + | Destiny Suggs | ECON | Unknown | | + + + + + Care Team Providers + +------+ + | Care Senior Project Leader/Team Lead Name | Role | Phone | + [...] | | | | | | Rd [facility] | | | | | | | Hospital | | | | | | | [place], [place] | | | | | | | [address] | | | | | | | Phone: | | | | | | | [phone] | +--------+--------+ + + + + Encounter Details +--------+ + + + + | Date | Type | Department | Care Team | Description | +--------+ + + + + | 11/19/ | Emergency | [facility] Emergency | Frandy Crowe, | | | 2008 - | | Department [address] | MD [address] | | | | | [address] | [address] | | | 11/20/ | | [facility] Hospital | [place], [place] | | | 2008 | | [place], [place] | [address] | | | | | [address] | [phone] | | | | | [phone] | | | | | | | Cam Castillo, | | | | | | [address] [facility] | | | | | | [address] | | | | | | [place], [place] | | | | | | [address] | | | | | | [phone] | | | | | | | [...] encounter Discharge Instructions Instructions Sherman Destiny Larios, HEALTH SCIENCES MANAGER - 11/20/2008Syncope (Fainting Episode) You have had [...] headed. MAKE SURE YOU ARE RE-CHECKED INSTRUCTED [facility] Patient Information 2007 PrintToPeer. Break the percocet tablet in half. You [...] DEPARTMENT OF | [address] | [place] [address] | | | PATHOLOGY | [address] | | | + + + + + | [facility] DEPARTMENT OF | [address] | [place] [address] | | | PATHOLOGY | [address] [...] [facility] DE[facility] | [address] | [place] [address] | | | PATHOLOGY | [address] | | | + + + + + | [facility] DEPARTMENT OF | [address] | [place] [address] | | | PATHOLOGY | [address] [...] + | [facility] DEPARTMENT OF | [address] [facility] | [place] [address] | | | PATHOLOGY | [address] | | | + + + + + | [facility] DEPARTMENT OF | [address] [facility] | [place] [address] | | | PATHOLOGY | [address] [...] + + + + | [facility] | [address] | [place], [place] | | | SASHA, POINT OF CARE | [address] | [address] | | | TESTS | | | | + + + + + | [facility]-POINT OF CARE | [address] | [place], [place] | | | TESTS | [address] | [address] | | + + + + + [...] [facility] | [address] | [place], [place] | | | SASHA POINT OF CARE | [address] | [address] | | | TESTS | | | | + + + + + | [facility]-POINT [facility] CARE | [address] | [place], [place] | | | TESTS | [address] | [address] | | + + + + + [...] + + + | [facility] | [address] | [place] [address] | | | LAB-MICRO | | | [...] + + + | [facility] | [address] | [place] [address] | | | LAB-MICRO | | | [...] - [place] | [address] | [place], [place] | | | [facility] OF [facility]ARE | [facility] | [address] | | | TESTS | | | | + + + + + | [facility] | [address] | [place] | | | TESTS | [facility] | [address] | | + + + + + [...] + | [facility] DEPARTMENT | [facility] [address] | [place] [address] | | | PATHOLOGY | [address] | | | + + + + + | [facility] DEPARTMENT OF | [facility] [address] | [place] [address] | | | PATHOLOGY | [address] [...] [facility] DEPARTMENT OF | [address] [facility] | [place] [address] | | | PATHOLOGY | [address] | | | + + + + + | [facility] DEPARTMENT OF | [address] [facility] | [place] [address] | | | PATHOLOGY | [address] [...] | + + + + + | [facility] DEPARTMENT OF | [address] | [place] [address] | | | PATHOLOGY | [address] | | | + + + + + | [facility] DEPARTMENT OF | [address] | [place] [address] | | | PATHOLOGY | [address] | | | + + + + + GLUCOSE, WHOLE BLOOD (11/19/2008 9:15 PM PDT) + +---------+ + + + | Component | Value | Ref Range | Performed | Pathologist | | | | | At | Signature | + +---------+ + + + | GLUCOSE,WHO | 123 (H) | 60 - 99 mg/dL | [facility] | | | LE BLOOD | | [...] | [facility] | [address] | [place] [address] | | | PATHOLOGY | [address] | | | + + + + + | [facility] | [address] [facility] | [place] [address] | | | PATHOLOGY | [address] [...] DEPARTMENT OF | [address] | [place] [address] | | | PATHOLOGY | [address] | | | + + + + + | [facility] DEPARTMENT | [address] | [place] [address] | | | PATHOLOGY | [address] [...] view image for the detailed interpretation from [employer] results. | CARDIOLOGY | | | | + + + + + + + + | Performing | Address | City/State/Zipcode | Phone Number | | Organization | | | | + + + + + | [facility] DEPT OF | [address] | [place], [place] | | | CARDIOLOGY | [facility] | [address] | | + + + + + | [facility] DEPT OF | [address] | [place], [place] | | | CARDIOLOGY | [facility] | [address] | | + + + + + [...]
--- OUTSIDE RECORDS SUMMARY | ~2019-05-04 | XMS | Encounter Summary ---
Demographics + + + | Address | [address] | | | [place] [address] | + + + | Home Phone [...] #[place] | | | | | [address] | | + + + + + | Destiny Suggs | ECON | Unknown | | + + + + + Care Team Providers + +------+ + | Care Bandsaw Operator Name | Role | Phone | [...] | | | | | | [address] [place], [place] | | | | | | [address] | | | | | | [phone] | | | +--------+ + + + [...]
--- OUTSIDE RECORDS SUMMARY | ~2019-05-04 | XMS | Encounter Summary ---
Demographics + + + | Address | [address] | | | [place] [address] | + + + | Home Phone [...] #[place], [place] | | | | | [address] | | + + + + + | Destiny Suggs | ECON | Unknown | | + + + + + Care Team Providers + +------+ + | Care Mineralogy Teacher Name | Role | Phone | [...] as of this encounter Progress Notes Interface, Cooler Worker In - 01/23/2006 1:05 AM [facility] OUTPATIENT CONSULTATION REPORT [address], [place] [address] or Referred From and Faxed To: Fernando Nunes M.D. [address] [place] [address] Referred To: Orthopedics Service CONSULTING PHYSICIAN: Andry [...] Mobic, Provera, glucosamine, calcium and Actos. 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 REVIEW [...] Distal neurovascular is grossly intact. X-rays from [place] were reviewed and show her fused right [...] into the weight loss clinic here at [facility] and has been unsuccessful. I called the [...] Thank you, Andry Pham M.D. ROMEO/isacc P [id number] cc: Mario Valle M.D. [address] [place] [id number] signed by Interface, Cooler Worker In at 01/23/2006 1:05 AM PDTdocumented in this encounter Plan of Treatment Not on filedocumented as of this encounter Visit Diagnoses Not on filedocumented in this encounter"
--- OUTSIDE RECORDS SUMMARY | ~2019-05-04 | XMS | Encounter Summary ---
Demographics + + + | Address | [address] | | | [place] [address] | + + + | Home Phone | | + + + | Preferred Language | Unknown | + + + | Marital Status | | + + + | Episcopal Affiliation | CHR | + + + [...] #[place] | | | | | [address] | | + + + + + | Destiny Suggs | ECON | Unknown | | + + + + + Care Team Providers + +------+ + | Care Supervisor Fish Processing Name | Role | Phone | + [...] [id number] | | | | | | [place], [place] | | | | | | [address] | | | | | | [phone] | | | +--------+ + + + [...] | + + + + + | [facility] DEPARTMENT OF | [address] [facility] | [place] [address] | | | PATHOLOGY | [address] | | | + + + + + | [facility] DEPARTMENT OF | [address] [facility] | [place] [address] | | | PATHOLOGY | [address] [...] | + + + + + | [facility] DEPARTMENT OF | [address] | [place] [address] | | | PATHOLOGY | [address] | | | + + + + + | [facility] DEPARTMENT OF | [address] | [place] [address] | | | PATHOLOGY | [address] [...] DEPARTMENT OF | [address] | [place] [address] | | | PATHOLOGY | [address] | | | + + + + + | [facility] DEPARTMENT OF | [address] | [place] [address] | | | PATHOLOGY | [address] [...] | + + + + + | [facility] DEPARTMENT OF | [address] | [place] [address] | | | PATHOLOGY | [address] | | | + + + + + | [facility] DEPARTMENT OF | [address] | [place] [address] | | | PATHOLOGY | [address] [...] | + + + + + | [facility] DEPARTMENT OF | [address] [facility] | [place] [address] | | | PATHOLOGY | [address] | | | + + + + + | [facility] DEPARTMENT OF | [address] [facility] | [place] [address] | | | PATHOLOGY | [address] [...] | + + + + + | [facility] | [address] | [place] [address] | | | PATHOLOGY | [address] | | | + + + + + | [facility] | [address] | [place] [address] | | | PATHOLOGY | [address] | | | + + + + + documented in this encounter Visit Diagnoses Not on filedocumented in this encounter"
--- OUTSIDE RECORDS SUMMARY | ~2019-05-04 | XMS | Encounter Summary ---
Demographics + + + | Address | [address] | | | [place] [address] | + + + | Home Phone | | + + + | Preferred Language | Unknown | + + + | Marital Status | | + + + | Voodoo Affiliation | CHR | + + + | Race | White | + + + | Ethnic Group | Not or | + + + Author + + + | Author | [facility] | + + + | Organization | [facility] | + + + | Address | Unknown | + + + | Phone | Unavailable | + + + Support + + + + + | Name | Relationship | Address | Phone | + + + + + | Edwar PACK | ECON | [address] | | | | | #[place] | | | | | [address] | | + + + + + | Destiny Suggs | ECON | Unknown | | + + + + + Care Team Providers + +------+ + | Care Disability Insurance Claim Examiner Name | Role | Phone | + [...] | | | | | SURGERY | [place], [place] | Mailcode: | | | | | [employer]IN[employer]OGR[employer] PRESS OPERATOR | [address] | [facility] | | | | | [place] EXC SKIN | Phone: | for Health | | | | | ABD | [phone] | and Healing, | | | | | Procedure to | Fax: | Building 1, | | | | | be | [phone] | 5th Floor | | | | | performed: | | [place], [place] | | | | | panniculecto | | [address] | | | | | my Body | | Phone: | | | | | Part: | | [phone] | | | | | abodmen CPT | | | | | | | Code: | | | | | | | Excise | | | | | | | excess skin | | | | | | | tissue, | | | | | | | abdomen | | | | | | | ([id number]) | | | +--------+--------+ + + + [...] Dx) | | | | Surgery at [facility] [address] | [place], [place] | | | | | [address] | [address] | | | | | Mailcode: CH[facility] | [phone] | | | | | [facility] | | | | | | and Healing, | | | | | | Building 1, 5th | | | | | | [place], [place] | | | | | | [address] | | | | | | [phone] | | | +--------+---------+ + + + [...]
--- OUTSIDE RECORDS SUMMARY | ~2019-05-04 | XMS | Encounter Summary ---
Demographics + + + | Address | [address] | | | [place] [address] | + + + | Home Phone [...] #[place] | | | | | [address] | | + + + + + | Destiny Suggs | ECON | Unknown | | + + + + + Care Team Providers + +------+ + | Care Mechanical Lead Name | Role | Phone | [...] Rd | | | | | | [place], [place] | | | | | | [address] | | | +--------+ + + + [...]
--- OUTSIDE RECORDS SUMMARY | ~2019-05-04 | XMS | Encounter Summary ---
Demographics + + + | Address | [address] | | | [place] [address] | + + + | Home Phone [...] [place] | | | | | [address] | | + + + + + | Destiny Suggs | ECON | Unknown | | + + + + + Care Team Providers + +------+ + | Care Swimming Pool Salesperson Name | Role | Phone | + [...] to | | | | Surgery at [facility] [address] | [place], [place] | Full Duty Work, per | | | | [address] | [address] | Patients request.) | | | | Mailcode: [facility] | [phone] | | | | | [facility] | | | | | | and Healing, | | | | | | Building | | | | | | Floor [facility] [place] | | | | | | [address] | | | | | | [phone] | | | +--------+ + + + [...]
--- OUTSIDE RECORDS SUMMARY | ~2019-05-04 | XMS | Encounter Summary ---
Demographics + + + | Address | [address] | | | [place] [address] | + + + | Home Phone [...] + + | Author | [facility] | + + + | Organization | [facility] | + + + | Address | Unknown | + + + | Phone | Unavailable | + + + Support + + + + + | Name | Relationship | Address | Phone | + + + + + | Edwar PETERS | ECON | [address] | | | | | #[place] | | | | | [address] | | + + + + + | Destiny Weinerkeena | ECON | Unknown | | + + + + + Care Team Providers + +------+ + | Care Varnish Melter Name | Role | Phone | + [...] has | | | | Surgery at [facility] [address] | [place], [place] | fluid build up | | | | [address] | [address] | again; does she need | | | | Mailcode: [facility] | [phone] | to come in to be | | | | [place] for [facility] | | drained.) | | | | and Healing, | | | | | | Building 1, | | | | | | Floor [facility] [place] | | | | | | [address] | | | | | | [phone] | | | +--------+ + + + [...]
--- OUTSIDE RECORDS SUMMARY | ~2019-05-04 | XMS | Encounter Summary ---
Demographics + + + | Address | [address] | | | [place] [address] | + + + | Home Phone [...] [place] | | | | | [address] | | + + + + + | Destiny Suggs | ECON | Unknown | | + + + + + Care Team Providers + +------+ + | Care Roll On Man Name | Role | Phone | + [...] [id number] | | | | | | [place], [place] | | | | | | [address] | | | | | | [phone] | | | +--------+ + + + [...] | | + +---------+ + + | [facility] DEPARTMENT OF | | | | | [...] + + + + | PRODUCT | [id number] | | [facility] | | | UNIT [...] + + + + + | [facility] DEPARTMENT OF | [address] | [place] [address] | | | PATHOLOGY | [address] | | | + + + + + | [facility] DEPARTMENT OF | [address] | [place] [address] | | | PATHOLOGY | [address] [...] + + + + | PRODUCT | [id number] | | [facility] | | | UNIT [...] + + + + + | [facility] DEPARTMENT OF | [address] [facility] | [place] [address] | | | PATHOLOGY | [address] | | | + + + + + | [facility] DEPARTMENT OF | [facility] | [place] [address] | | | PATHOLOGY | [address] [...] DEPARTMENT OF | [address] | [place] [address] | | | PATHOLOGY | [address] | | | + + + + + | [facility] DEPARTMENT OF | [address] | [place] [address] | | | PATHOLOGY | [address] [...] + + + + + | [facility] DEPARTMENT | [address] [facility] | [place] [address] | | | PATHOLOGY | [address] | | | + + + + + | [facility] | [address] [facility] | [place] [address] | | | PATHOLOGY | [address] [...] + + + + + | [facility] DEPARTMENT OF | [address] | [place] [address] | | | PATHOLOGY | [address] | | | + + + + + | [facility] DEPARTMENT OF | [address] | [place] [address] | | | PATHOLOGY | [address] [...] + + + + + | [facility] DEPARTMENT OF | [address] | [place] [address] | | | PATHOLOGY | [address] | | | + + + + + | [facility] DEPARTMENT OF | [address] | [place] [address] | | | PATHOLOGY | [address] [...] - | | | | | | [address] 6 - 7 | | | | | | Weeks | | | | | | 4000 - 138038 | | | | | | 7 - 12 Weeks | | | | | | [address] - 6[address] | | | | | | 12 - 16 Weeks | | | | | | [address] - | | | | | | 148854 16 - 29 | | | | | | Weeks | | | | | | 1400 - 16949 29 | | | | | | - 41 Weeks | | | | | | 940 - 23844 New | | | | | | [...] + + + + | [facility] | [address] | [place] [address] | | | PATHOLOGY | [address] | | | + + + + + | [facility] DEPARTMENT OF | [address] | [place] [address] | | | PATHOLOGY | [address] [...] + + + + + | [facility] DEPARTMENT OF | [address] | [place] [address] | | | PATHOLOGY | [address] | | | + + + + + | [facility] DEPARTMENT OF | [address] | [place] [address] | | | PATHOLOGY | [address] | | | + + + + + documented in this encounter Visit Diagnoses Not on filedocumented in this encounter"
--- OUTSIDE RECORDS SUMMARY | ~2019-05-04 | XMS | Encounter Summary ---
Demographics + + + | Address | [address] | | | [place] [address] | + + + | Home Phone | | + + + | Preferred Language | Unknown | + + + | Marital Status | | + + + | Scientology Affiliation | CHR | + + + [...] #[place] | | | | | [address] | | + + + + + | Destiny Suggs | ECON | Unknown | | + + + + + Care Team Providers + +------+ + | Care Brine Room Laborer Name | Role | Phone | + [...] [id number] | | | | | | [place], [place] | | | | | | [address] | | | | | | [phone] | | | +--------+ + + + [...]
--- OUTSIDE RECORDS SUMMARY | ~2019-05-04 | XMS | Clinical Summary ---
Demographics + + + | Address | [address] | | | [place] [address] | + + + | Home Phone | | + + + | Preferred Language | Unknown | + + + | Marital Status | Legally | + + + | Pentecostal Affiliation | 1013 | + + + | Race | Unknown | + + + | Ethnic Group | Unknown | + + + Author + + + | Author | [facility] (Historical as of | | | 02-21-19) | + + + | Organization | [facility] (Historical as of | | | 02-21-19) [...] Providers + +------+ + | Care Hand Driller Name | Role | Phone | + [...] | No | | | previously during [facility] | + + +---------+ + + + [...] +------+-------+ + | MEDICAID | [facility] | [id number] | | | [address] | | | N | | | | [place] | | | [place] | | | | [phone] | | | ORTHOTICS PROSTHETICS TECHNICIAN | | | | | + +--------+ [...] | [address] | | | [phone] | [phone] | + +--------+ +--------+ + +
--- OUTSIDE RECORDS SUMMARY | ~2019-05-04 | XMS | Encounter Summary ---
Demographics + + + | Address | [address] | | | [place] [address] | + + + | Home Phone [...] [id number] | | | | | [address] | | + + + + + | Destiny Suggs | ECON | Unknown | | + + + + + Care Team Providers + +------+ + | Care Cra Name | Role | Phone | + [...] [address] | | | | | | [place], [place] | | | | | | [address] | | | +--------+ + + + [...]
--- OUTSIDE RECORDS SUMMARY | ~2019-05-04 | XMS | Encounter Summary ---
Demographics + + + | Address | [address] | | | [place] [address] | + + + | Home Phone [...] #[place] | | | | | [address] | | + + + + + | Destiny Reginekeena | ECON | Unknown | | + + + + + Care Team Providers + +------+ + | Care Wrapper Caser Name | Role | Phone | + [...] Dx) | | | | Surgery at [facility] [address] | [place], [place] | | | | | [address] | [address] | | | | | Mailcode: [facility] | [phone] | | | | | [facility] | | | | | | and Healing, | | | | | | Building 1, 5th | | | | | | Floor [facility] [place] | | | | | | [address] | | | | | | [phone] | | | +--------+---------+ + + + [...]
--- OUTSIDE RECORDS SUMMARY | ~2019-05-04 | XMS | Encounter Summary ---
Demographics + + + | Address | [address] | | | [place] [address] | + + + | Home Phone [...] #[place] | | | | | [address] | | + + + + + | Destiny Reginekeena | ECON | Unknown | | + + + + + Care Team Providers + +------+ + | Care Welding Machine Operator Arc Name | Role | Phone | + [...] Postoperative | | | | Surgery at [facility] [address] | [facility] [place] | (Primary Dx) | | | | [address] | [address] | | | | | Mailcode: [facility] | [phone] | | | | | [facility] | | | | | | and Healing, | | | | | | Building 1, 5th | | | | | | Floor [place], [place] | | | | | | [address] | | | | | | [phone] | | | +--------+---------+ + + + [...]
--- OUTSIDE RECORDS SUMMARY | ~2019-05-04 | XMS | Encounter Summary ---
Demographics + + + | Address | [address] | | | [place] [address] | + + + | Home Phone | | + + + | Preferred Language | Unknown | + + + | Marital Status | | + + + | Orthodox Affiliation | CHR | + + + | Race | White | + + + | Ethnic Group | Not or | + + + Author + + + | Author | [facility] | + + + | Organization | [facility] | + + + | Address | Unknown | + + + | Phone | Unavailable | + + + Support + + + + + | Name | Relationship | Address | Phone | + + + + + | Edwar PACK | ECON | [address] | | | | | #[place] | | | | | [address] | | + + + + + | Destiny Suggs | ECON | Unknown | | + + + + + Care Team Providers + +------+ + | Care Women'S Garment Fitter Name | Role | Phone [...] Postoperative | | | | Surgery at [facility] [address] | | (Primary Dx) | | | | [address] | | | | | | Mailcode: CH5P | | | | | | [facility] | | | | | | and Healing, | | | | | | Building 1, | | | | | | Floor [place], [place] | | | | | | [address] | | | | | | [phone] | | | +--------+---------+ + + + [...]
--- OUTSIDE RECORDS SUMMARY | ~2019-05-04 | XMS | Encounter Summary ---
Demographics + + + | Address | [address] | | | [place] [address] | + + + | Home Phone [...] #[place] | | | | | [address] | | + + + + + | Destiny Suggs | ECON | Unknown | | + + + + + Care Team Providers + +------+ + | Care Editor & Co Founder Name | Role | Phone | + [...] | | | | | Mailcode: | [place], [place] | | | | | | [address] | [address] | | | | | | for Health | Phone: | | | | | | and Healing, | [phone] | | | | | | Building 1, | Fax: | | | | | | [facility] Floor | [phone] | | | | | | [place], [place] | | | | | | | [address] | | | | | | | Phone: | | | | | | | [phone] | | +--------+--------+ + + + + Encounter Details +--------+---------+ + + + | Date | Type | Department | Care Team | Description | +--------+---------+ + + + | 02/03/ | Office | Plastic and | Johanna Cottrell PA | Intertrigo (Primary | | 2008 | Visit | Reconstructive | | Dx) | | | | Surgery at [facility] [address] | | | | | | [address] | | | | | | Mailcode: [facility] | | | | | | [facility] | | | | | | and Healing, | | | | | | Building 1, 5th | | | | | | Floor [place], [place] | | | | | | [address] | | | | | | [phone] | | | +--------+---------+ + + + [...]
--- OUTSIDE RECORDS SUMMARY | ~2019-05-04 | XMS | Encounter Summary ---
Demographics + + + | Address | [address] | | | [place] [address] | + + + | Home Phone [...] #[place], [place] | | | | | [address] | | + + + + + | Destiny Suggs | ECON | Unknown | | + + + + + Care Team Providers + +------+ + | Care Production Gear Cutter Name | Role | Phone | + [...]
--- OUTSIDE RECORDS SUMMARY | ~2019-05-04 | XMS | Clinical Summary ---
Demographics + + + | Address | [address] | | | [place] [address] | + + + | Home Phone [...] #[place] | | | | | [address] | | + + + + + | Destiny Suggs | ECON | Unknown | | + + + + + Care Team Providers + +------+ + | Care Unemployment Examiner Name | Role | Phone | + +------+ + | Shakir Erwin MD | PCP | | + +------+ + Source Comments AUGUST is fully live on both [facility] and [facility] InPatient.[facility] Allergies + + + + + [...] | | | | e | | [employer], Suspension | once daily. | | | [...] | [facility] | [phone] | 01/06/20 | [phone] | | Indemn | | | A [...] ingrid | | | 7 (Home) | [address] | + +--------+ +--------+ + + Advance Directives + + + + + | Type | Date Recorded | Patient | Explanation | | | | Specialty Person | | + + + + + | Advance | | | | | Directives and | | | | | Living Will | | | | + + + + + | Power of | | | | | Telecommunications Field Technician | | | | + + + + +
--- OUTSIDE RECORDS SUMMARY | ~2019-05-04 | XMS | Encounter Summary ---
Demographics + + + | Address | [address] | | | [place] [address] | + + + | Home Phone | | + + + | Preferred Language | Unknown | + + + | Marital Status | | + + + | Spiritism Affiliation | CHR | + + + | Race | White | + + + | Ethnic Group | Not or | + + + Author + + + | Author | [facility] | + + + | Organization | [facility] | + + + | Address | Unknown | + + + | Phone | Unavailable | + + + Support + + + + + | Name | Relationship | Address | Phone | + + + + + | Edwar PETERS | ECON | [address] | | | | | #[place] | | | | | [address] | | + + + + + | Destiny Suggs | ECON | Unknown | | + + + + + Care Team Providers + +------+ + | Care Molasses Coloring Operator Name | Role | Phone | [...] | | | | | | | [place], [place] | | | | | | | [address] | | | | | | | Phone: | | | | | | | [phone] | | | | | | | Fax: | | | | | | | [phone] | +--------+--------+ + + + + Encounter Details +--------+ + + + + | Date | Type | Department | Care Team | Description | +--------+ + + + + | 06/22/ | Hospital | [facility] | Tucker Buenrostro MD | | | 2008 | Encounter | [address] | [address] | | | | | Ave Mailcode: CH | [place], [place] | | | | | Center for | [address] | | | | | Health and Healing, | [phone] | | | | | Building 1 | | | | | | [place], [place] | | | | | | [address] | | | | | | [phone] | | | +--------+ + + + [...] nostril | | | | | | [place], Suspension | once daily. | | | [...]
--- OUTSIDE RECORDS SUMMARY | ~2019-05-04 | XMS | Encounter Summary ---
Demographics + + + | Address | [address] | | | [place] [address] | + + + | Home Phone | | + + + | Preferred Language | Unknown | + + + | Marital Status | | + + + | Yazidi Affiliation | CHR | + + + [...] #[place] | | | | | [address] | | + + + + + | Destiny Suggs | ECON | Unknown | | + + + + + Care Team Providers + +------+ + | Care Airline Radio Operator Name | Role | Phone | [...] | | | | | | [address] [place], [place] | | | | | | [address] | | | | | | [phone] | | | +--------+ + + + [...]
--- OUTSIDE RECORDS SUMMARY | ~2019-05-04 | XMS | Encounter Summary ---
Demographics + + + | Address | [address] | | | [place] [address] | + + + | Home Phone [...] #[place] | | | | | [address] | | + + + + + | Destiny Suggs | ECON | Unknown | | + + + + + Care Team Providers + +------+ + | Care Medical Biller Name | Role | Phone | + [...] | | | | | | | [place], [place] | | | | | | | [address] | | | | | | | Phone: | | | | | | | [phone] | | | | | | | Fax: | | | | | | | [phone] | +--------+--------+ + + + + Encounter Details +--------+ + + + + | Date | Type | Department | Care Team | Description | +--------+ + + + + | 06/22/ | Hospital | [facility] | Tucker Buenrostro MD | | | 2008 | Encounter | [address] | [address] | | | | | Ave Mailcode: CH | [place], [place] | | | | | Center for | [address] | | | | | Health and Healing, | [phone] | | | | | Building 1 | | | | | | [place], [place] | | | | | | [address] | | | | | | [phone] | | | +--------+ + + + [...] nostril | | | | | | [place], Suspension | once daily. | | | [...]
--- OUTSIDE RECORDS SUMMARY | ~2019-05-04 | XMS | Encounter Summary ---
Demographics + + + | Address | [address] | | | [place] [address] | + + + | Home Phone | | + + + | Preferred Language | Unknown | + + + | Marital Status | | + + + | Religion Affiliation | CHR | + + + [...] #[place] | | | | | [address] | | + + + + + | Destiny Weinerkeena | ECON | Unknown | | + + + + + Care Team Providers + +------+ + | Care Apiculture Teacher Name | Role | Phone | [...] (Abdomen | | | | Surgery at [facility] [address] | [facility] [place] | is sensitive to | | | | [address] | [address] | touch; concerned.); | | | | Mailcode: [facility] | [phone] | Neuropathy (Abdomen | | | | [place] for [facility] | | Neuropathy.) | | | | and Healing, | | | | | | Building , | | | | | | Floor [place], [place] | | | | | | [address] | | | | | | [phone] | | | +--------+ + + + [...]
--- OUTSIDE RECORDS SUMMARY | ~2019-05-04 | XMS | Encounter Summary ---
Demographics + + + | Address | [address] | | | [place] [address] | + + + | Home Phone | | + + + | Preferred Language | Unknown | + + + | Marital Status | | + + + | Rastafari Affiliation | CHR | + + + | Race | White | + + + | Ethnic Group | Not or | + + + Author + + + | Author | [facility] | + + + | Organization | [facility] | + + + | Address | Unknown | + + + | Phone | Unavailable | + + + Support + + + + + | Name | Relationship | Address | Phone | + + + + + | Edwar PETERS | ECON | [address] | | | | | #[place] | | | | | [address] | | + + + + + | Destiny Suggs | ECON | Unknown | | + + + + + Care Team Providers + +------+ + | Care Basketball Player Name | Role | Phone | + [...] | | | | | Jalyn Helm [place], | | | | | | [place] [address] | | | +--------+ + + + [...] | | Patient: ANAMIKA PETERS Med Rec: [id number] Sex F Bdate: 1970 | | Date/Time Data | | Entered Into [facility] | | Anesth PostOp | | Surgery Date [id number] 08/30/04 10:58 | | Anesthesiologist LUIS CHIN 08/30/04 10:58 | | | + + documented in this encounter Visit Diagnoses Not on filedocumented in this encounter"
--- OUTSIDE RECORDS SUMMARY | ~2019-05-04 | XMS | Encounter Summary ---
Demographics + + + | Address | [address] | | | [place] [address] | + + + | Home Phone [...] #[place] | | | | | [address] | | + + + + + | Destiny Suggs | ECON | Unknown | | + + + + + Care Team Providers + +------+ + | Care Deputy Commonwealth'S Attorney Name | Role | Phone | + [...] Rd | | | | | | [place], [place] | | | | | | [address] | | | +--------+ + + + [...]
--- OUTSIDE RECORDS SUMMARY | ~2019-05-04 | XMS | Encounter Summary ---
Demographics + + + | Address | [address] | | | [place] [address] | + + + | Home Phone [...] #[place] | | | | | [address] | | + + + + + | Destiny Weinerkeena | ECON | Unknown | | + + + + + Care Team Providers + +------+ + | Care Barrel Centerer Name | Role | Phone | + [...] 06/17/ | Telephone-S | Preoperative | Phone, [facility] [address] | Erroneous Encounter | | 2008 | cheduled | Medicine Clinic at | [facility] | - Disregard | | | | MP Floor Day | Road [place], [place] | | | | | Stay [address] [facility] | [address] | | | | | [facility] | | | | | | Mailcode: U[facility]65 | | | | | | Rikki Vargas | | | | | | [address] [place], [place] | | | | | | [address] | | | | | | [phone] | | | +--------+ + + + [...]
--- OUTSIDE RECORDS SUMMARY | ~2019-05-04 | XMS | Clinical Summary ---
Demographics + + + | Address | [address] | | | [place] [address] | + + + | Home Phone | | + + + | Preferred Language | Unknown | + + + | Marital Status | | + + + | Jehovah'S Witness Affiliation | Unknown | + + + | Race | Unknown | + + + | Ethnic Group | Unknown | + + + Author + + + | Author | [facility] | | | and [place] | + + + | Organization | [facility] | | | and [place] | + + + | Address | Unknown | + + + | Phone | Unavailable | + + + Care Team Providers + +------+ + | Care Warp Hand Name | Role | Phone | [...] documents on file. For more information, please contact:[facility] [place] [address]
--- OUTSIDE RECORDS SUMMARY | ~2019-05-04 | XMS | Encounter Summary ---
Demographics + + + | Address | [address] | | | [place] [address] | + + + | Home Phone [...] #[place] | | | | | [address] | | + + + + + | Destiny Suggs | ECON | Unknown | | + + + + + Care Team Providers + +------+ + | Care Train System Operator Name | Role | Phone | [...] Rd | | | | | | [place], [place] | | | | | | [address] | | | +--------+ + + + [...]
--- OUTSIDE RECORDS SUMMARY | ~2019-05-04 | XMS | Encounter Summary ---
Demographics + + + | Address | [address] | | | [place] [address] | + + + | Home Phone | | + + + | Preferred Language | Unknown | + + + | Marital Status | | + + + | Rastafarian Affiliation | CHR | + + + [...] #[place] | | | | | [address] | | + + + + + | Destiny Suggs | ECON | Unknown | | + + + + + Care Team Providers + +------+ + | Care Life Enrichment Director Name | Role | Phone | [...] [address] | | | | | [place], [place] | [place], [place] | | | | | [address] | [address] | | | | | [phone] | [phone] | | | | | | | [...] | + + + + + | [facility] | [address] | [place] [address] | | | LABORATORY | | | [...] | | | M | performed at [place] | | | | | | [facility] | | | | | | Laboratories. | | | | + + + + + + + + | Specimen | + + | | + + + + + + + | Performing | Address | City/State/Zipcode | Phone Number | | Organization | | | | + + + + + | [facility] | [address] | [place] [address] | | | LABORATORY | | | [...] | pg/mL | | | | | [facility] | | | | | | New [...] | + + + + + | [facility] | [address] | [place] [address] | | | LABORATORY | | | [...] DEPARTMENT OF | [address] | [place] [address] | | | PATHOLOGY | [address] | | | + + + + + | [facility] DEPARTMENT OF | [address] | [place] [address] | | | PATHOLOGY | [address] [...] [place] DEPARTMENT OF | [address] [facility] | [place] [address] | | | PATHOLOGY | [address] | | | + + + + + | [place] DEPARTMENT OF | [address] [facility] | [place] [address] | | | PATHOLOGY | [address] [...] Performed At | + + + | [id number] Estimated GFR > 60 mL/min/1.73 sq m if non- | [facility] | | [id number] Estimated GFR > 60 mL/min/1.73 sq m [...] + + + + + | [facility] | [address] [place] [address] | [place] [address] | | | PATHOLOGY | [address] | | | + + + + + | [facility] DEPARTMENT | [facility] | [place] [address] | | | PATHOLOGY | [address] | | | + + + + + documented in this encounter Visit Diagnoses Not on filedocumented in this encounter"
--- OUTSIDE RECORDS SUMMARY | ~2019-05-04 | XMS | Encounter Summary ---
Demographics + + + | Address | [address] | | | [place] [address] | + + + | Home Phone [...] #[place] | | | | | [address] | | + + + + + | Destiny Suggs | ECON | Unknown | | + + + + + Care Team Providers + +------+ + | Care Entertainment Director Name | Role | Phone | + +------+ + | Shakir Eriwn MD | PCP | | + +------+ [...] Rd | | | | | | [place], [place] | | | | | | [address] | | | +--------+ + + + [...]
--- OUTSIDE RECORDS SUMMARY | ~2019-05-04 | XMS | Encounter Summary ---
Demographics + + + | Address | [address] | | | [place] [address] | + + + | Home Phone [...] #[place] | | | | | [address] | | + + + + + | Destiny Reginekeena | ECON | Unknown | | + + + + + Care Team Providers + +------+ + | Care Mine Engineering Manager Name | Role | Phone | [...] for | | | | Surgery at [facility] [address] | [facility] [place] | unacceptable | | | | [address] | [address] | cosmetic appearance | | | | Mailcode: [facility] | [phone] | (Primary Dx) | | | | [facility] | | | | | | and Healing, | | | | | | Building 1, 5th | | | | | | Floor [facility] [place] | | | | | | [address] | | | | | | [phone] | | | +--------+---------+ + + + [...] and plan of care. Tucker Buenrostro MD Level Designer of Plastic Surgery [address] [place] [phone] Bianca Moralez MD - 07/19/2009 2:37 [...]
--- OUTSIDE RECORDS SUMMARY | ~2019-05-04 | XMS | Encounter Summary ---
Demographics + + + | Address | [address] | | | [place] [address] | + + + | Home Phone [...] #[place] | | | | | [address] | | + + + + + | Destiny Suggs | ECON | Unknown | | + + + + + Care Team Providers + +------+ + | Care Lead Ingot Molder Name | Role | Phone | [...] as of this encounter Progress Notes Interface, Clinical Medical Assistant In - 02/04/2005 12:48 AM PDT [id number] 10/09/2004 10/13/2004 [id number] LORRAINE Mccurdy [facility] [address] [place] [address] or October 13, 2004 Fernando Nunes M.D. [address] [place] [address] RE: ANAMIKA PACK MR #: [id number] Dear Dr. Nunes: I received your request [...] her to see our gastroenterologists here at [facility] who have a fair amount of [...] to call me in my office at [phone]. We will forward you the records, and I will keep you apprised as to her progress as she undergoes this endoscopy and dilation. Sincerely, Cam John M.D. carpet sewing machine operator, [facility], Department of Surgery [facility] / [id number] / [id number] / [id number] / documented i n this encounter Plan of Treatment Not on filedocumented as of this encounter Visit Diagnoses Not on filedocumented in this encounter"
--- OUTSIDE RECORDS SUMMARY | ~2019-05-04 | XMS | Encounter Summary ---
Demographics + + + | Address | [address] | | | [place] [address] | + + + | Home Phone [...] #[place] | | | | | [address] | | + + + + + | Destiny Suggs | ECON | Unknown | | + + + + + Care Team Providers + +------+ + | Care Finishing Range Supervisor Name | Role | Phone | + [...] as of this encounter Progress Notes Interface, Ground Support Equipment Mechanic In - 09/14/2005 2:06 AM PST [id number] [facility] Date: 09/10/2005 Clinic: GENERAL [...] the above plan. Cyndie Ponce / TIKI [id number] / [id number] / [id number] / [id number] cc: Brian Erwin [address] [place] [address] Electronically signed by Laya Shay 09-13-2005 07:10:12 PM documented i n this encounter Plan of Treatment Not on filedocumented as of this encounter Visit Diagnoses Not on filedocumented in this encounter"
--- OUTSIDE RECORDS SUMMARY | ~2019-05-04 | XMS | Encounter Summary ---
Demographics + + + | Address | [address] | | | [place] [address] | + + + | Home Phone [...] #[place] | | | | | [address] | | + + + + + | Destiny Suggs | ECON | Unknown | | + + + + + Care Team Providers + +------+ + | Care Director Of Solutions Architecture Name | Role | Phone | + [...] as of this encounter Progress Notes Interface, Mixer And Scaler In - 02/04/2005 12:44 AM [facility] [id number] [facility] Date: 07/31/2004 Clinic: GENERAL SURGERY CLINIC Subjective: Ms. Pack is a 33-year-old woman who was last seen in January 2003 for bariatric initial evaluation. At that time, she had a height of 5 feet 2 inches, weight 308 pounds with a calculated body mass index of 57 kg/m2. She has subsequently been seen by Dr. Erwin of the [facility] for management of her severe arthritis. She [...] methadone. Social History: [place] been [place] in [place] and expected home for 2-week visit prior to her surgery. She has a son also. She currently is working at [employer]. Physical Examination General: She is a well-developed, [...] signed on. She has been seen by wastewater analyst lab analyst up in [place] and did receive today a copy of [...] above plan. Cyndie Ponce M.D. / TIKI [id number] / [id number] / [id number] / [id number] cc: Brian Erwin [address] [place] [address] FAX: [phone] Fernando Nunes MD [address] [facility] [place] [address] documented i n this encounter Plan of Treatment Not on filedocumented as of this encounter Visit Diagnoses Not on filedocumented in this encounter"
--- OUTSIDE RECORDS SUMMARY | ~2019-05-04 | XMS | Encounter Summary ---
Demographics + + + | Address | [address] | | | [place] [address] | + + + | Home Phone | | + + + | Preferred Language | Unknown | + + + | Marital Status | | + + + | Buddhist Affiliation | CHR | + + + [...] #[place] | | | | | [address] | | + + + + + | Destiny Weinerkeena | ECON | Unknown | | + + + + + Care Team Providers + +------+ + | Care Jerker Name | Role | Phone | + [...] (Having | | | | Surgery at [facility] [address] | [facility] [place] | issue with remaining | | | | [address] | [address] | drain; wants to | | | | Mailcode: [facility] | [phone] | take out.); Patient | | | | [facility] | | education (questions | | | | and Healing, | | about d/cing JOS[facility] | | | | Building [address] | | Drain.) | | | | Floor [place], [place] | | | | | | [address] | | | | | | [phone] | | | +--------+ + + + [...]
--- OUTSIDE RECORDS SUMMARY | ~2019-05-04 | XMS | Encounter Summary ---
Demographics + + + | Address | [address] | | | [place] [address] | + + + | Home Phone [...] #[place], [place] | | | | | [address] | | + + + + + | Destiny Suggs | ECON | Unknown | | + + + + + Care Team Providers + +------+ + | Care Telesales Advisor Name | Role | Phone | + [...] as of this encounter Progress Notes Interface, Film Processor In - 02/04/2005 6:28 AM PDT [id number] [facility] Date: 10/09/2004 Clinic: Ms. [...] 3 months. Cam John M.D. [place] / [id number] / [id number] / [id number] / [id number] Electronically signed by Cam Mcbride 12-12-2004 07:42:02 AM documented i n this encounter Plan of Treatment Not on filedocumented as of this encounter Visit Diagnoses Not on filedocumented in this encounter"
--- OUTSIDE RECORDS SUMMARY | ~2019-05-04 | XMS | Encounter Summary ---
Demographics + + + | Address | [address] | | | [place] [address] | + + + | Home Phone [...] + + + | Author | [facility] | + + + | Organization | [facility] | + + + [...] [place] | | | | | [address] | | + + + + + | Destiny Weinerkeena | ECON | Unknown | | + + + + + Care Team Providers + +------+ + | Care Plastering Contractor Name | Role | Phone | + [...] 06/17/ | Telephone-S | Preoperative | Phone, [facility] [address] | Erroneous Encounter | | 2008 | cheduled | Medicine Clinic at | [facility] | - Disregard | | | | MP Floor Day | Road [place], [place] | | | | | Stay [address] [facility] | [address] | | | | | [facility] | | | | | | Mailcode: [id number] | | | | | | Rikki Vargas | | | | | | [address] [place], [place] | | | | | | [address] | | | | | | [phone] | | | +--------+ + + + [...]
--- OUTSIDE RECORDS SUMMARY | ~2019-05-04 | XMS | Encounter Summary ---
Demographics + + + | Address | [address] | | | [place] [address] | + + + | Home Phone [...] #[place] | | | | | [address] | | + + + + + | Destiny Suggs | ECON | Unknown | | + + + + + Care Team Providers + +------+ + | Care Satellite Manager Name | Role | Phone | [...] [id number] | | | | | | [place], [place] | | | | | | [address] | | | | | | [phone] | | | +--------+ + + + [...] [facility] DEPARTMENT OF | [address] [facility] | [place] [address] | | | PATHOLOGY | [address] | | | + + + + + | [facility] DEPARTMENT OF | [address] [facility] | [place] [address] | | | PATHOLOGY | [address] [...] | [facility] DEPARTMENT OF | [address] | [place] [address] | | | PATHOLOGY | [address] | | | + + + + + | [facility] DEPARTMENT OF | [address] | [place] [address] | | | PATHOLOGY | [address] [...] DEPARTMENT OF | [address] | [place] [address] | | | PATHOLOGY | [address] | | | + + + + + | [facility] DEPARTMENT OF | [address] | [place] [address] | | | PATHOLOGY | [address] [...] [facility] DEPARTMENT OF | [address] | [place] [address] | | | PATHOLOGY | [address] | | | + + + + + | [facility] DEPARTMENT OF | [address] | [place] [address] | | | PATHOLOGY | [address] [...] [facility] DEPARTMENT OF | [address] [facility] | [place] [address] | | | PATHOLOGY | [address] | | | + + + + + | [facility] DEPARTMENT OF | [address] [facility] | [place] [address] | | | PATHOLOGY | [address] [...] + + + + | [facility] | [address] | [place] [address] | | | PATHOLOGY | [address] | | | + + + + + | [facility] | [address] | [place] [address] | | | PATHOLOGY | [address] | | | + + + + + documented in this encounter Visit Diagnoses Not on filedocumented in this encounter"
--- OUTSIDE RECORDS SUMMARY | ~2019-05-04 | XMS | Encounter Summary ---
Demographics + + + | Address | [address] | | | [place] [address] | + + + | Home Phone [...] [place] | | | | | [address] | | + + + + + | Destiny Weinerkeena | ECON | Unknown | | + + + + + Care Team Providers + +------+ + | Care Marine Meteorologist Name | Role | Phone | + [...] is | | | | Surgery at [facility] [address] | [place], [place] | having fluid | | | | [address] | [address] | build-up again and | | | | Mailcode: [facility] | [phone] | wants to have | | | | [facility] | | drained tomorrow) | | | | and Healing, | | | | | | Building , | | | | | | Floor [facility] [place] | | | | | | [address] | | | | | | [phone] | | | +--------+ + + + [...]
--- OUTSIDE RECORDS SUMMARY | ~2019-05-04 | XMS | Encounter Summary ---
Demographics + + + | Address | [address] | | | [place] [address] | + + + | Home Phone [...] #[place] | | | | | [address] | | + + + + + | Destiny Suggs | ECON | Unknown | | + + + + + Care Team Providers + +------+ + | Care Cylinder Machine Operator Pulp Drier Name | Role | Phone | + [...] to | | | | Surgery at [facility] [address] | [place], [place] | work mon. 06/27) | | | | [address] | [address] | | | | | Mailcode: [facility] | [phone] | | | | | [facility] | | | | | | and Healing, | | | | | | [facility] , | | | | | | [place], [place] | | | | | | [address] | | | | | | [phone] | | | +--------+ + + + [...]
--- OUTSIDE RECORDS SUMMARY | ~2019-05-04 | XMS | Clinical Summary ---
Demographics + + + | Address | [address] | | | [place] [address] | + + + | Home Phone | | + + + | Preferred Language | Unknown | + + + | Marital Status | Legally | + + + | Buddhism Affiliation | 1013 | + + + | Race | Unknown | + + + | Ethnic Group | Unknown | + + + Author + + + | Author | [facility] (Historical as of | | | 02-21-19) | + + + | Organization | [facility] (Historical as of | | | 02-21-19) [...] Team Providers + +------+ + | Care Validation Technician Name | Role | Phone | + [...] | No | | | previously during [place] | + + +---------+ + + + [...] +------+-------+ + | MEDICAID | [place] | [id number] | | | [address] | | | N | | | | [place] | | | [place] | | | | [address] | | | BUSINESS REPORTER | | | | | + +--------+ [...] | [address]rid | | | [address] | [address] | + +--------+ +--------+ + +
--- OUTSIDE RECORDS SUMMARY | ~2019-05-04 | XMS | Encounter Summary ---
Demographics + + + | Address | [address] | | | [place] [address] | + + + | Home Phone [...] #[place] | | | | | [address] | | + + + + + | Destiny Suggs | ECON | Unknown | | + + + + + Care Team Providers + +------+ + | Care Underwriting Clerks Supervisor Name | Role | Phone | [...] [address] | | | | | | [place], [place] | | | | | | [address] | | | +--------+ + + + [...]
--- OUTSIDE RECORDS SUMMARY | ~2019-05-04 | XMS | Encounter Summary ---
Demographics + + + | Address | [address] | | | [place] [address] | + + + | Home Phone [...] [place] | | | | | [address] | | + + + + + | Destiny Suggs | ECON | Unknown | | + + + + + Care Team Providers + +------+ + | Care Support Associate Name | Role | Phone | + [...] | | | | | Mailcode: | [place], [place] | | | | | | [address] | [address] | | | | | | for Health | Phone: | | | | | | and Healing, | [phone] | | | | | | Building 1, | Fax: | | | | | | [facility] Floor | [phone] | | | | | | [place], [place] | | | | | | | [address] | | | | | | | Phone: | | | | | | | [phone] | | +--------+--------+ + + + + Encounter Details +--------+---------+ + + + | Date | Type | Department | Care Team | Description | +--------+---------+ + + + | 02/03/ | Office | Plastic and | Johanna Cottrell PA | Intertrigo (Primary | | 2008 | Visit | Reconstructive | | Dx) | | | | Surgery at [facility] [address] | | | | | | [address] | | | | | | Mailcode: [facility] | | | | | | [facility] | | | | | | and Healing, | | | | | | Building 1, 5th | | | | | | Floor [place], [place] | | | | | | [address] | | | | | | [phone] | | | +--------+---------+ + + + [...] will follow up in March with Tucker Buernostro MD, sooner prn. documented in this enc ounter Plan of Treatment Not on filedocumented as of this encounter Visit Diagnoses + + | Diagnosis | + + | Intertrigo - Primary Other specified erythematous condition | + + documented in this encounter"
--- OUTSIDE RECORDS SUMMARY | ~2019-05-04 | XMS | Encounter Summary ---
Demographics + + + | Address | [address] | | | [place] [address] | + + + | Home Phone [...] [place] | | | | | [address] | | + + + + + | Destiny Weinerkeena | ECON | Unknown | | + + + + + Care Team Providers + +------+ + | Care Computing Consultant Name | Role | Phone | [...] (has | | | | Surgery at [facility] [address] | [place], [place] | questions re: Drain | | | | [address] | [address] | tube removal) | | | | Mailcode: [facility] | [phone] | | | | | [facility] | | | | | | and Healing, | | | | | | Building 1, 5th | | | | | | Floor [place], [place] | | | | | | [address] | | | | | | [phone] | | | +--------+ + + + [...]
--- OUTSIDE RECORDS SUMMARY | ~2019-05-04 | XMS | Encounter Summary ---
Demographics + + + | Address | [address] | | | [place] [address] | + + + | Home Phone [...] #[place] | | | | | [address] | | + + + + + | Destiny Suggs | ECON | Unknown | | + + + + + Care Team Providers + +------+ + | Care Home Care Associate Name | Role | Phone | + +------+ + | Shakir Erwin MD | PCP | | + +------+ + Encounter Details +--------+------+ + + + | Date | Type | Department | Care Team | Description | +--------+------+ + + + | 06/21/ | Lab | Laboratory at [facility] | | Other plastic | | 2008 | | [address] | | surgery for | | | | [place] | | unacceptable | | | | [address] | | cosmetic appearance; | | | | [phone] | | Other specified | | | [...] DEPARTMENT OF | [address] | [place] [address] | | | PATHOLOGY | [address] [...] | | | DEPARTMENT | | | [place] | | | OF | | | [...] + + + + + | [facility] | [address] | [place] [address] | | | PATHOLOGY | [address] | | | + + + + + documented in this encounter Visit Diagnoses + + | Diagnosis | + + | Other plastic surgery for unacceptable cosmetic appearance | + + | Other specified pre-operative examination | + + documented in this encounter"
--- OUTSIDE RECORDS SUMMARY | ~2019-05-04 | XMS | Encounter Summary ---
Demographics + + + | Address | [address] | | | [place] [address] | + + + | Home Phone [...] [place] | | | | | [address] | | + + + + + | Destiny Suggs | ECON | Unknown | | + + + + + Care Team Providers + +------+ + | Care Chemist Instrumentation Name | Role | Phone | + [...] | | | | | unacceptable | [place], [place] | Mailcode: | | | | | cosmetic | [address] | [facility] | | | | | appearance | Phone: | for Health | | | | | Procedures | [phone] | and Healing, | | | | | REQUEST TO | Fax: | Building 1, | | | | | SURGERY | [phone] | 5th Floor | | | | | COMMUNITY NUTRITION EDUCATOR | | [place], [place] | | | | | UT EXC SKIN | | [address] | | | | | ABD ADD-ON | | Phone: | | | | | Procedure to | | [phone] | | | | | be | | | | | | | performed: | | | | | | | 15 cm | | | | | | | abdominal | | | | | | | scar | | | | | | | revision | | | | | | | ([id number]) | | | +--------+--------+ + + + [...] for | | | | Surgery at [facility] [address] | [place], [place] | Unacceptable | | | | [address] | [address] | Cosmetic Appearance | | | | Mailcode: [facility] | [phone] | (Primary Dx) | | | | [facility] | | | | | | and Healing, | | | | | | Building 1, 5th | | | | | | Floor [place], [place] | | | | | | [address] | | | | | | [phone] | | | +--------+---------+ + + + [...] Tucker Buenrostro MD - 04/19/2009 1:04 PM [facility] Juventino Pack is a 38 y.o. [...]
--- OUTSIDE RECORDS SUMMARY | ~2019-05-04 | XMS | Encounter Summary ---
Demographics + + + | Address | [address] | | | [place] [address] | + + + | Home Phone [...] [place] | | | | | [address] | | + + + + + | Destiny Suggs | ECON | Unknown | | + + + + + Care Team Providers + +------+ + | Care Manager Track Name | Role | Phone | + [...] as of this encounter Progress Notes Interface, Mortuary Technician In - 02/04/2005 12:44 AM [facility] [id number] [facility] Date: 07/31/2004 Clinic: [facility] Subjective: Ms. Pack is a 33-year-old woman who was last seen in January 2003 for bariatric initial evaluation. At that time, she had a height of 5 feet 2 inches, weight 308 pounds with a calculated body mass index of 57 kg/m2. She has subsequently been seen by Dr. Erwin of the [facility] for management of her severe arthritis. [...] methadone. 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 She has a son also. She currently is working at [employer]. Physical Examination General: She is a well-developed, [...] signed on. She has been seen by hospice community liaison up in [place] and did receive today a copy of [...] above plan. Cyndie Ponce M.D. / TIKI [id number] / [id number] / [id number] / [id number] cc: Brian Erwin [address] [place] [address] FAX: [phone] Fernando Nunes MD [address] [place] [address] documented i n this encounter Plan of Treatment Not on filedocumented as of this encounter Visit Diagnoses Not on filedocumented in this encounter"
--- OUTSIDE RECORDS SUMMARY | ~2019-05-04 | XMS | Encounter Summary ---
Demographics + + + | Address | [address] | | | [place] [address] | + + + | Home Phone | | + + + | Preferred Language | Unknown | + + + | Marital Status | | + + + | Caodaism Affiliation | CHR | + + + [...] #[place] | | | | | [address] | | + + + + + | Destiny Reginekeena | ECON | Unknown | | + + + + + Care Team Providers + +------+ + | Care Candy Counter Clerk Name | Role | Phone | [...] [facility] | | | | | | [facility] | | | | | | and Healing, | | | | | | Building 1, 6th | | | | | | Floor [place], [place] | | | | | | [address] | | | | | | [phone] | | | +--------+---------+ + + + [...] documented in this encounter Progress Notes Ga oJhn - 09/08/2007 12:23 PM PST Addended by: [...] [facility] ([facility]) | | | [place] [address] [address] [facility] | | | [place] [address] | | + + + + + + + + | Performing | Address | City/State/Zipcode | Phone Number | | Organization | | | | + + + + + | [facility] | [address] | [place] [address] | | | LABORATORY | | | [...] [facility] ([facility]) | | | [facility] [place] [address] [facility] | | | [place] [address] | | + + + + + + + + | Performing | Address | City/State/Zipcode | Phone Number | | Organization | | | | + + + + + | [facility] | [address] [facility] [address] | [place] [address] | | | LABORATORY | | | [...] Performed At | + + + | [id number] Estimated GFR > 60 mL/min/1.73 sq m if non- | [facility] | | [id number] Estimated GFR > 60 mL/min/1.73 sq m [...] | + + + + + | [facility] | [address] | [place] [address] | | | PATHOLOGY | [address] | | | + + + + + | [facility] DEPARTMENT OF | [address] | [place] [address] | | | PATHOLOGY | [address] [...] DEPARTMENT OF | [address] | [place] [address] | | | PATHOLOGY | [address] | | | + + + + + | [facility] | [address] | [place] [address] | | | PATHOLOGY | [address] | | | + + + + + documented in this encounter Visit Diagnoses + + | Diagnosis | + + | Obese - Primary Obesity, unspecified | + + | Obesity Obesity, unspecified | + + documented in this encounter"
[~2019-05-04 16:50] MED LIST changes: +ACETAMINOPHEN325 M1 PO; +ADVIL200 MG PO; +BUPROPION HCL150 M2 PO; +CLEOCIN HCL300 MG PO; +CLONAZEPAM0.5 MG PO; +ESCITALOPRAM OX20 MG PO; +PRAZOSIN HCL2 MG PO
--- OUTSIDE RECORDS SUMMARY | 2019-05-04 16:54 | XMS ---
PreManage Notification: YULIANA PETERS Security Mill[employer] Supervisor Events No recent Security Events currently on file CRITERIA MET - PDMP CARE PROVIDERS SONYA VALDIVIA Internal Medicine Current PHONE: Unknown Jaiden has no Care Guidelines for this patient. EGemma VISIT COUNT (12 MO.) 1 CORINNE Monroy TOTAL 1 NOTE: Visits indicate total known visits. ED/UCC VISIT TRACKING (12 MO.) 05/04/2019 16:[address] [facility] [place] TYPE: Emergency COMPLAINT: - POSSIBLE INFECTION INPATIENT VISIT TRACKING (12 MO.) No inpatient visits to display in this time frame [email or web address]
--- NOTE | 2019-05-04 20:55 | NUR ---
pt ARRIVES TO MS FLOOR VIA STRETCHER. DENIES PAIN OR NAUSEA AT THIS TIME. IV FLUSHED WNL, IV ANTIBIOTIC INFUSING ORDERED. pt ALERT AND ORIENTED X 4. CALL LIGHT AND PERSONAL SUPPLIES IN REACH. ORIENTATION TO ROOM PROVIDED.
--- NOTE | 2019-05-04 23:00 | NUR ---
PT STATES SHE HAS 8/10 ABD PAIN. PRN PAIN MED PROVIDED. ASSESSMENT COMPLETED. IV FLUSHED, CDI, WNL. IV FLUIDS INFUSING PER ORDER. NO OTHER NEEDS AT THIS TIME. CALL LIGHT IN REACH.
--- NOTE | 2019-05-05 01:20 | NUR ---
PT RESTING WITH EYES CLOSED IN BED. RR 16, EVEN, UNLABORED. CALL LIGHT IN REACH.
--- NOTE | 2019-05-05 02:50 | NUR ---
PT STATES PAIN IS 7/10 AND HAS NAUSEA. PRN PAIN AND NAUSEA MED PROVIDED. PT UP TO BR AND BACK TO BED, SBA WITH CANE. NO OTHER NEEDS AT THIS TIME. CALL LIGHT IN REACH.
--- NOTE | 2019-05-05 03:00 | NUR ---
PT AWAKE IN ROOM. ASSESSMENT COMPLETED. PAIN 03/17. PRN PAIN MED RECENTLY PROVIDED. NO NAUSEA AT THIS TIME. IV CDI, WNL. IV FLUIDS INFUSING PER ORDER. NO OTHER NEEDS AT THIS TIME. CALL LIGHT IN REACH.
--- NOTE | 2019-05-05 06:32 | NUR ---
pt SLEEPING. AWAKENS TO VOICE. pt DENIES ANY PAIN OR NAUSEA AT THIS TIME. VSS. IVF INFUSING WNL ORDERED. CALL LIGHT IN REACH.
--- NOTE | 2019-05-05 07:04 | NUR ---
PT STATES PAIN IS 8/10 IN ABD. PRN PAIN MED PROVIDED. NO OTHER NEEDS AT THIS TIME. CALL LIGHT IN REACH.
--- NOTE | 2019-05-05 07:47 | NUR ---
PT APPEARS TO BE SLEEPING, RESP EVEN AND NON LABORED. NO DISTRESS NOTED. CALL LIGHT WITHIN REACH.
--- NOTE | 2019-05-05 09:49 | NUR ---
AM ASSESSMENT COMPLETED. PT AWAKE, A&OX4. PT ON RA, RESP EVEN AND NON LABORED. PT REPORTS NAUSEA; ADMIN ZOFRAN 8MG IVP PER DOC ORDER. ORAL TEMP AT THIS TIME IS 102.6. ADVISED PT THAT WE NEED TO TREAT INCREASED TEMP WITH MEDICATION. PT REPORTS FEELING "TOO SICK" TO TAKE MEDICATION AT THIS TIME AND IS DECLINING RECTAL TYLENOL. PT REQUESTING I COME BACK IN HALF HOUR AND RECHECK HER TEMPERATURE. DISCUSSED WITH PT I WILL NOTIFY THE PROVIDER. CALL LIGHT WITHIN REACH. OTHER VS ARE STABLE AT THIS TIME. CALL LIGHT WITHIN REACH.
--- NOTE | 2019-05-05 10:08 | NUR ---
SPOKE WITH DR. BRANNON REGARDING TEMP OF 102.6F. NEW ORDER OBTAINED FOR TYLENOL 1000MG IVP PRN FOR FEVER. PENDING PHARMACY VERIFICATION.
--- NOTE | 2019-05-05 10:29 | CONS ---
[facility] [address] [place], [place] [address] Signed DATE OF CONSULTATION: 05/05/2019 CHIEF COMPLAINT: Diarrhea with diffuse abdominal pain. HISTORY OF PRESENT ILLNESS: Yuliana is a 48-year-old obese female, who underwent a previous Nayeli-en-Y gastric bypass surgery. She later had all her redundant skin removed. She had an umbilical hernia, which we repaired on 11/26/2018. Over a week later, the umbilical skin started to breakdown and she developed a wound infection. We opened and cleaned that out on December 24, 2018. She did well on clindamycin. Later, she had gone to the clinic and ended up with Cipro. She said the last 2-3 weeks, she has been having daily diarrhea with generalized abdominal pain. She thought it was a flu, so she tried to tough it out. She called my office yesterday and we had her come in right at the end of the day. She had diffuse abdominal pain and appeared dehydrated and obviously was not feeling well. At that point, we actually go straight over to the emergency room for evaluation. I spoke with Dr. Marsh on the telephone. Sure enough, her white count is elevated at 17.[address] scan shows diffuse romeo-colitis. Consequently, she has been admitted, started on IV fluids and her antibiotics to include Levaquin and Flagyl. She remains diffusely tender with some nausea and a little dizziness. Otherwise, no worse. PAST MEDICAL HISTORY: Depression, borderline diabetes, and suicidal ideation. PAST SURGICAL HISTORY: Cholecystectomy, Nayeli-en-Y gastric bypass, bilateral total hip replacements, left foot surgery x2, , small-bowel obstruction, and skin removal. SOCIAL HISTORY: She quit smoking. She does not drink. She is . Dr. Rodriguez is her primary care provider. She prefers the [facility]. She has a son. FAMILY HISTORY: None. REVIEW OF SYSTEMS: She had 10 systems reviewed and there was nothing new to add from yesterday. ALLERGIES: Vicodin. MEDICATIONS: Topiramate, lithium, albuterol, vitamin B12, Myrbetriq, multivitamin, gabapentin, Electronically Signed By: BRADY BRANNON MD 05/05/19 1029 PATIENT NAME: YULIANA PETERS CONSULTATION DATE OF : 68 REPORT #: [id number] PHYSICIAN: BRADY BRANNON MD PCP: MATT RODRIGUEZ MD REPORT IS CONFIDENTIAL AND NOT TO BE RELEASED WITHOUT AUTHORIZATION [facility] [address] [place] [address] Signed oxybutynin, prazosin, clonazepam, bupropion, escitalopram, Tylenol, and ibuprofen. PHYSICAL EXAMINATION: VITAL SIGNS: Blood pressure is 107/64, heart rate 98, respiratory rate 22, temperature is 101.6. She is 96% on room air. She is 5 feet 1 inch, 84 kg. GENERAL: Yuliana is a 48-year-old female, lying supine in her hospital bed. We have our nurse, Yumiko, with us. She is alert, awake, and interactive. She appears uncomfortable, not necessarily systemically ill or toxic. LUNGS: Generally clear to auscultation bilaterally. HEART: Regular rate and rhythm. ABDOMEN: Obese but soft, but she is clearly diffusely tender. Her periumbilical wound appears to be quite dry and healing well. No local signs or symptoms of infection. Just some expected postoperative induration. LABORATORY DATA: Her white blood cell count is 17.9, hemoglobin 13, neutrophils 78. BUN 13, creatinine 0.8. Urine specific gravity is elevated at 1.070 with ketones in the urine. Liver function tests are negative. Albumin is 4.1. The lipase is negative. RADIOGRAPHIC STUDIES: A CT scan of abdomen and pelvis is reviewed along with the report. She clearly has inflammatory changes of her entire colon. ASSESSMENT AND PLAN: Yuliana is admitted with what appears to be C diff colitis and dehydration. She has been on IV fluids. We are going to start her on clear liquids as tolerated. We will leave her on the Levaquin and Flagyl at this time. We need to collect some stool studies. We will ask our Internal Medicine Service to see her for her medical evaluation and treatment. She is clearly not well-versed on her medications. We will have to track that down with her primary care provider in the pharmacy. In the meantime, we will add some Phenergan to the Zofran to help with the nausea as well. She has expressed understanding and agrees above plan. Brady Brannon MD ALB/MODL /[id number] Electronically Signed By: BRADY BRANNON MD 05/05/19 1029 PATIENT NAME: YULIANA PETERS CONSULTATION DATE OF : 68 REPORT #: [id number] PHYSICIAN: BRADY BRANNON MD PCP: MATT RODRIGUEZ MD REPORT IS CONFIDENTIAL AND NOT TO BE RELEASED WITHOUT AUTHORIZATION [facility] [address] [place], [place] [address] Signed cc: MD Matt Ortega MD Copies: BRADY BRANNON MD, MALCOLM MD ~ Electronically Signed By: BRADY BRANNON MD 05/05/19 1029 PATIENT NAME: LORRAINEYULIANACAIT PRATT CONSULTATION DATE OF : 68 REPORT #: [id number] PHYSICIAN: BRADY BRANNON MD PCP: MATT RODRIGUEZ MD REPORT IS CONFIDENTIAL AND NOT TO BE RELEASED WITHOUT AUTHORIZATION
--- NOTE | 2019-05-05 13:00 | NUR ---
STOOL SENT TO LAB. GUAIAC SAMPLE COMPLETED; NAGATIVE PER OCCULT BEDSIDE STUDY.
[2019-05-05] MEDS ORDERED: DICYCLOMINE HCL20 MG PO (13:41)
[2019-05-05] MEDS ORDERED: LITHIUM CARBON300 MG PO (13:50)
--- NOTE | 2019-05-05 15:30 | NUR ---
ADMIN PERCOCET ONE TAB AND ZOFRAN 8MG IVP FOR REPORTS OF 6/10 AND PAIN AND NAUSEA. CALL LIGHT WITHIN REACH.
--- NOTE | 2019-05-05 15:52 | NUR ---
MED REC COMPLETE
--- NOTE | 2019-05-05 17:50 | NUR ---
CONTACT PRECAUTIONS; PENDING C-DIFF. A&OX4. ON RA. PO PERCOCET FOR ABD PAIN. ZOFRAN FOR NAUSEA. PT TOLERATING CLEARS WELL. IV TYLENOL FOR INCREASED TEMP 102.7 TODAY. DIARRHEA SEVERAL TIMES TODAY. D5LR@150ML/HR CONT. IV FLAGYL AND VANCO PO.
--- NOTE | 2019-05-05 18:09 | NUR ---
ADMIN ONE TAB PERCOCET AND PHENERGAN 12.5MG IVP FOR REPORTS OF 8/10 ABD PAIN AND NAUSEA.
--- NOTE | 2019-05-05 19:32 | NUR ---
SHIFT REPORT RECIEVED FROM JALEN VILLALTA. PT RESTING IN BED WITH EYES CLOSED. IV FLUIDS INFUSING PER ORDER. CALL LIGHT IN REACH.
--- NOTE | 2019-05-05 21:35 | NUR ---
PT RESTING IN BED, EYES CLOSED. SCHEDULED MEDS AND PRN NAUSEA AND PAIN MEDS PROVIDED. ASSESSMENT COMPLETED. IV CDI, WNL, FLUSHED. PT UP TO BR, SBA, CANE. ABD SOFT, DISTENDED, TENDER WITH PALPATION, BOWEL TONES ACTIVE. NO OTHER NEEDS AT THIS TIME. CALL LIGHT IN REACH.
--- NOTE | 2019-05-05 22:10 | NUR ---
CALL LIGHT ANSWERED. SBA WITH CANE BACK TO BED. pt RATES PAIN 5/10 AT THIS TIME IN LOWER ABD, STATES "IT GETS BETTER WITH REST". TEMPERATURE REASSESSED, 98.9 ORALLY. SCHEDULED MEDICATION ADMINISTERED. WATER, PERSONAL SUPPLIES, CALL LIGHT IN REACH. IVF INFUSING WNL ORDERED. LIGHTS OFF IN ROOM.
--- NOTE | 2019-05-05 23:43 | NUR ---
PT RESTING IN BED, EYES CLOSED. RR 16, EVEN, UNLABORED. IV FLUIDS INFUSING PER ORDER. CALL LLIGHT IN REACH.
--- NOTE | 2019-05-06 02:50 | NUR ---
PT RESTING IN BED, EYES CLOSED. WAKES TO VOICE. SCHEDULED MEDS PROVIDED. PAIN 8/10 IN ABD WITH NAUSEA. PRN PAIN AND NAUSEA MED PROVIDED. ASSESSMENT COMPLETED. JELLO AND BROTH PROVIDED. WARM BLANKET PROVIDED. NO OTHER NEEDS. CALL LIGHT IN REACH.
--- NOTE | 2019-05-06 04:50 | NUR ---
PT RESTING IN BED, EYES CLOSED. RR 18, EVEN, UNLABORED. IV FLUIDS INFUSING PER ORDER. CALL LIGHT IN REACH.
--- NOTE | 2019-05-06 06:10 | NUR ---
CALL LIGHT ANSWERED. SBA WITH CANE BACK TO BED FROM RESTROOM. MD IN ROOM. IVF DECREASED TO 125 ML/HR ORDERED, INFUSING WNL. VSS. AFEBRILE. UPDATED ON LOW URINE OUTPUT. TRACE EDEMA BILATERALLY HANDS. SCDS ON. WATER PROVIDED. CALL LIGHT IN REACH.
--- NOTE | 2019-05-06 06:37 | NUR ---
PT SLEPT MOST THE SHIFT. SCHEDULED AND PRN MEDS MANAGED PAIN WELL. PT DRINKING SMALL AMOUNTS OF TEPID WATER. IV CDI, WNL, FLUSHED. PT TOLERATING IV FLUIDS WELL. UO NOT SUFFICIENT, AWARE.
--- NOTE | 2019-05-06 07:26 | NUR ---
PT RESTING SOUNDLY BEDSIDE REPORT RECEIVED
--- NOTE | 2019-05-06 09:28 | NUR ---
PATIENT RESTING IN BED. PATIENT REFUSED TO TAKE A SHOWER TODAY BECAUSE SHE FEELS DIZZY. VITAL SIGNS AND I&O DONE. HIGH TEMP. PATIENT DID NOT VOID DURING THIS PERIOD. RN NOTIFIED. CALL LIGHT WITHIN REACH. NO OTHER NEEDS AT THIS TIME
--- NOTE | 2019-05-06 09:37 | NUR ---
PT APPEARS DROWSY RESTING IN BED, DOZES OFF WHILE CONVERSING. SATS AND RESP RATE APPROPRIATE. PT C/O NAUSEA MEDICATED FOR THIS. CLEAR LIQUIDS PROVIDED PT TOLERATES SIPS ONLY NO EMESIS. NO C/O PAIN.
--- NOTE | 2019-05-06 10:00 | NUR ---
Spoke Anamika. She is very tired as she has just been medicated. Lives at home alone. Previously independent. Son checks on her. C Diff +. Denies needs for safe dc to home when improved.
--- NOTE | 2019-05-06 11:24 | NUR ---
ASSISTED PT TO TOIELT THEN TO SHOWER, PARTIAL ASSIST. ORAL CARE COMPLETED. PT BACK TO BED TO REST FOR A TIME NO EMESIS, NO C/O PAIN, CONTINUES TO BE DROWSY.
--- NOTE | 2019-05-06 11:58 | NUR ---
pt c/o nausea, this com writer returns to room she appears to be dozing phone in hand. no emesis, no dry heaves or other, left pt dozing as opposed to waking her. will medicate as needed. clear liquid items at bedside
--- NOTE | 2019-05-06 12:49 | NUR ---
DR PAZ IN TO SEE PT DISCUSSED DX OF C-DIFF. RECOMMENDS PT TRY TO MANAGE PAIN WITHOUT NARCOTICS TO NOT SLOW THE BOWEL. UNDERSTANDING VERBALIZED
--- NOTE | 2019-05-06 14:10 | NUR ---
PATIENT RESTING IN BED. VITAL SIGNS AND I&O DONE. CALL LIGHT WITHIN REACH. NO OTHER NEEDS AT THIS TIME
--- NOTE | 2019-05-06 14:21 | NUR ---
PT CONTINUES DOZING AWAKENS TO VOICE STATES SHE IS JUST SO TIRED. NO C/O NAUSEA OR PAIN AT THIS TIME
--- NOTE | 2019-05-06 17:38 | NUR ---
PATIENT RESTING IN BED. RN IN ROOM. VITAL SIGNS AND I&O DONE. CALL LIGHT WITHIN REACH. NO OTHER NEEDS AT THIS TIME
--- NOTE | 2019-05-06 17:42 | NUR ---
PT UP TO TOILET, HATS IN PLACE, URINE AND STOOL MIXED ANYWAY NO HEME TEST OR SAMPLE TO LAB. PT BACK TO BED TORDOL GIVEN FOR C/O PAIN. SCD'S IN PLACE PT DENIES OTHER NEEDS
--- NOTE | 2019-05-06 19:26 | NUR ---
SHIFT REPORT RECIEVED FROM MARIAM VILLALTA. PT SLEEPING IN ROOM. CALL LIGHT IN REACH.
--- NOTE | 2019-05-06 20:18 | NUR ---
CALL LIGHT ANSWERED. SBA WITH CANE BACK TO BED. 100 ML CONCENTRATED DARK URINE NOTED AND SMALL SMEAR MUCOID STOOL. NEGATIVE GUIAC AT THIS TIME. IV FLUSHED AND ANTIBIOTIC INFUSING WNL. prn PAIN MEDICATION ADMINSITERED FOR 8/10 PAIN IN LOWER ABD. pt C/O NAUSEA. DENIES NEED FOR PRN MEDICATION. BROTH PROVIDED. PO FLUIDS INFUSING. PAWAN ANDUJAR IN ROOM ASSESSING pt.
--- NOTE | 2019-05-06 20:20 | NUR ---
PT RESTING IN BED. IV CDI, WNL, FLUSHED. ASSESSMENT COMPLETED. ABD MODERATELY DISTENDED, TENDER TO PALPATION, FIRM. IV INFUSING PER ORDER. NO OTHER NEEDS. CALL LIGHT IN REACH.
--- NOTE | 2019-05-06 20:33 | NUR ---
PT UO NOT SUFFICIENT, DARK URINE. BLOOD PRESSURE 89/51. NOTIFIED. NEW ORDERS RECIEVED AND REPEATED BACK.
--- NOTE | 2019-05-06 20:45 | NUR ---
IVF BOLUS INFUSING WNL ORDERED. pt RESTING IN BED. CALL LIGHT AND PERSONAL SUPPLIES IN REACH. REQUESTING BREAK FROM SCDS AT THIS TIME.
--- NOTE | 2019-05-06 21:10 | NUR ---
ROUNDED CHARGE. PATIENT IS RESTING IN BED. PATIENT DENIES ANY COMMENTS, QUESTIONS OR CONCERNS. NO NEEDS NOTED. CALL LIGHT IN REACH.
--- NOTE | 2019-05-06 22:46 | NUR ---
PATIENT WAS AWAKE .ASSISTED PATIENT TO THE BATH ROOM, RN TOOK VITALS AND HELPED GET HER BACK TO BED. PATIENT IS 1 PERSON STANDBY. FRESH WATER WAS GIVEN CALL LIGHT IN REACH.
--- NOTE | 2019-05-06 22:57 | NUR ---
PT UP TO BR, STOOL SAMPLE OBTAINED AND SENT TO LAB, STOOL HEMMOCULT POSITIVE. PRN NAUSEA MED PROVIDED. PAIN 10/10. PT REPOSITIONED, WARM AND ICE PACKS PROVIDED. NO OTHER NEEDS. CALL LIGHT IN REACH.
--- NOTE | 2019-05-06 23:00 | NUR ---
PT UP TO BR, STOOL SAMPLE OBTAINED AND SENT TO LAB, STOOL HEMMOCULT NEGATIVE. PRN NAUSEA MED PROVIDED. PAIN 10/10. PT REPOSITIONED, WARM AND ICE PACKS PROVIDED. NO OTHER NEEDS. CALL LIGHT IN REACH.
--- NOTE | 2019-05-07 01:07 | NUR ---
PT RESTING IN BED, EYES CLOSED. RR 16, EVEN, UNLABORED. SCDs ON. CALL LIGHT IN REACH.
--- NOTE | 2019-05-07 02:54 | NUR ---
PT AWAKE IN ROOM. SCHEDULED MEDS AND PRN PAIN MED PROVIDED. PT UP TO BR, STOOL HEMOCCULT NEGATIVE. ASSESSMENT COMPLETED. PT UP IN RECLINER. BROTH PROVIDED. NO OTHER NEEDS AT THIS TIME. CALL LIGHT IN REACH.
--- NOTE | 2019-05-07 04:10 | NUR ---
CALL LIGHT ANSWERED. SBA WITH CANE TO BED FROM CHAIR. VSS. BP 96/52 WITH MANUAL BP CUFF. BOWEL TONES ACTIVE X 4, ABD SOFT, DISTENDED, TENDER W PAPLATION IN LLQ. pt C/O NAUSEA, 8/10 PAIN, STATES "IT'S GOOD". PRN TYLENOL PO ADMINISTERED. SBA TO RESTROOM FOR VOID AT THIS TIME. VERBALIZES UNDERSTANDING TO USE CALL LIGHT.
--- NOTE | 2019-05-07 06:39 | NUR ---
PT SLEPT OFF AND ON THIS SHIFT. VSS, PT TOLERATED IV FLUIDS/MEDS WELL. PAIN AND NAUSEA MANAGED WELL WITH PRN MEDS. 3 STOOL HEMOCCULTS COMPLETED, 3 NEGATIVE RESULTS.
--- NOTE | 2019-05-07 07:31 | NUR ---
0715: Report recieved from Yumiko VILLALTA and Tia VILLALTA. Pt sleeping at this time. Call packer within reach.
--- NOTE | 2019-05-07 09:05 | NUR ---
PT SLEEPING AND AWAKES TO VOICE AND WHEN ASKED SHE STATES HER ABD PAIN IS A 7/10 AND THAT SHE IS HAVING SOME NAUSEA. IV INFUSING AND BREAKFAST WAS CALLED IN FOR THE PT SHE STATES SHE HAS NOT ATE ANYTHING YET TODAY.
--- NOTE | 2019-05-07 09:16 | NUR ---
PT IN THE BR AT THIS TIME. PT TO BE MEDICATED FOR HER PAIN ORDERED.
--- NOTE | 2019-05-07 10:34 | NUR ---
MEDS GIVEN. PT UP TO USE RESTROOM. USING CANE. VOIDED EARLIER WITH SMALL LIQUID BM. GIVEN MEDS. NEW IV STARTED BY FILEMON MERIDA FOR NAUSEA. STILL COMPLAINING OF ABDOMINAL PAIN BUT TOLERABLE.
--- NOTE | 2019-05-07 12:09 | NUR ---
PT HAS SOME NAUSEA FOLLOWING A TRIP TO THE BR. SHE WAS MEDICATED AGAIN FOR NAUSEA, SEE EMAR. PT HAS HAD 3 DIARRHEA BOWEL MOVEMENTS SINCE 0700 THIS AM.
--- NOTE | 2019-05-07 12:22 | NUR ---
PT. RESTING WITH CALL LIGHT. GIVEN PHYNERGEN FOR NAUSEA. TWO LOOSE BOWEL MOVEMENTS W/IN 30 MINUTES. PAIN IS BETTER. NO OTHER COMPLAINTS AT THIS TIME.
--- NOTE | 2019-05-07 13:04 | NUR ---
Pt sleeping, awakes to voice and states her pain is "ok" and that her nausea is imporved. She quickly fell back to sleep.
--- NOTE | 2019-05-07 14:18 | NUR ---
PT SLEEPING AND AWOKE TO VOICE AND DENIES ANY NAUSEA AND SHE DID NOT MENTION ANY PAIN.
--- NOTE | 2019-05-07 14:52 | NUR ---
Checked on patient, she is resting with eyes closed. States she really not feeling well today. Wanting to rest. Let her know I will check on her tomrrow. NO plan for dc at this time.
--- NOTE | 2019-05-07 15:19 | NUR ---
PT TO BR VOIDED NO BM. STATES STILL SOME NAUSEOUS. PAIN IS MANAGED AT THIS TIME. DENIED SHOWER DUE TO NAUSEA. WASHED FACE. RESTING IN BED. CALL LIGHT IN PLACE.
--- NOTE | 2019-05-07 18:35 | NUR ---
PT. RESTING IN BED. WENT TO BR. 100ML LIQUID STOOL. NO COMPLAINTS AT THIS TIME. NAUSEA IS IMPROVED PAIN LEVEL TOLERABLE. CALL LIGHT WITHIN REACH. WAITING ON VISIT FROM SON. DRANK A LITTLE BROTH, SO FAR NO ISSUE KEEPING IT DOWN.
--- NOTE | 2019-05-07 20:00 | NUR ---
RECEIVED REPORT AT 1900, FOUND PT IN BED ON THE PHONE. PT HAD NO NEEDS AT THAT TIME.
--- NOTE | 2019-05-07 21:48 | NUR ---
PT CALLED D/T BEEPING IV PUMP. IV ABX WAS COMPLETE AND SWITCHED HER BACK OVER TO IV FLUIDS. PT DENIES FURTHER NEEDS. CALL LIGHT IS CLOSE.
--- NOTE | 2019-05-07 22:00 | NUR ---
PT HAS NAUSEA EVEN AFTER ZOFRAN AND PHENERGAN WAS GIVEN. NO VOMITING NOTED THOUGH. NO BM UNTIL 2200 NOTED. ALL LOBES ARE CLEAR, ABD SOUNDS ARE HYPERACTIVE. ABD IS SOFT TO TOUCH BUT TENDER IN THE LOWER QUADRANTS. PAIN IS WELL CONTROLLED WITH PRN PAIN MEDICATION.
--- NOTE | 2019-05-08 01:50 | NUR ---
PT IS AWAKE IN BED. SECOND ASSESSMENT WAS UNCHANGED FROM THE FIRST. PT DENIES N/V AND PAIN OVERALL AT THIS TIME. WILL CONTINUE TO MONITOR.
--- NOTE | 2019-05-08 05:07 | NUR ---
AT START OF SHIFT PAIN AND NAUSEA WAS AND ISSUE. AFTER PRN TORADOL AND PHENERGAN WAS GIVEN, BOTH SUBSIDED. HER URINE OUTPUT SO FAR HAS NOT BEEN ADEQUATE IN REGARDS TO WHAT HAS BEEN MEASURED. WILL LET DAY SHIFT KNOW. PT ALSO COMPLAINED OF A SORE THROAT. I ALSO WILL LET DAY SHIFT RN KNOW. ALL LOBES ARE CLEAR, ABD SOUNDS ARE HYPERACTIVE, ABD IS SOFT TO TOUCH BUT TENDER IN THE LOWER QUADRANTS. PT HAS SOME TRACE EDEMA IN BOTH HANDS AND FEET. PT SO FAR HAD ONE BM TO SPEAK OF AND IT WAS A SMALL AMOUNT.
--- NOTE | 2019-05-08 06:31 | NUR ---
WHILE PT VOIDED 400ML FOR 0600, HER URINE IS VERY DARK IN COLOR. LABS ARE PENDING. MD BRANNON WAS TOLD, MD PAZ TO BE CALLED, CEPACOL ORDER WAS OBTAINED FROM MD BRANNON FOR SORE THROAT.
--- NOTE | 2019-05-08 06:59 | NUR ---
CREAT. LAB WAS WDL. PERHAPS DARK URINE MAY BE FROM FLAGYL. WILL LET DAY SHIFT KNOW.
--- NOTE | 2019-05-08 07:21 | NUR ---
0710: Report recieved from Abby VILLALTA. Pt sleeping at this time, call packer within reach.
--- NOTE | 2019-05-08 08:58 | NUR ---
Pt showering at his time.
--- NOTE | 2019-05-08 09:36 | NUR ---
PT JUST RETURNED TO HER BED FOLLOWING A SHOWER. SHE STATES HER ABD PAIN IS A 3 AND UNDER CONTROL. SHE DID STATE SHE IS HAVING NAUSEA AND HAS JUST BEEN MEDICATED FOR NAUSEA, WILL CONTINUE TO MONITOR. PT ALSO STATES SHE JUST DOES NOT FEEL GOOD AND THAT SHE FEELS TIRED. SHE WAS INFORMED THAT DUE TO HER FREUQENT LOOSE STOOLS WHICH NOW DECREASING IN LOOSENESS AND FREQUENCY SHE WILL FEEL TIRED. ELECTROLYTES ARE BEING REPLACED ORDERED OVER THE PAST FEW DAYS, SEE EMAR. PT FELL TO SLEEP WHILE I WAS STILL IN HER ROOM. VITAL SIGNS ARE STABLE. CALL العراقي WITHIN REACH.
--- NOTE | 2019-05-08 09:39 | NUR ---
PT. SHOWERED. TOLERATED WELL. FEELING WEAK, READY TO LAY DOWN. BR SMALL BM MOSTLY MUCOUS VERY NAUSEAUS ZOFRAN GIVEN. VITALS TAKEN, PT REPORTS NO PAIN AT THIS TIME. RESTING IN BED CALL LIGHT W/IN REACH. OSCAR VILLALTA DOING ASSESSMENT CURRENTLY.
--- NOTE | 2019-05-08 09:58 | NUR ---
SODIUM PHOSPHATE STARTED. IV SITE INTACT, NO SIGNS OF INFILTRATION. PATIENT RESTING. SCD'S RUNNING. NO COMPLAINTS AT THIS TIME.
--- NOTE | 2019-05-08 10:00 | NUR ---
Attempted to speak with Anamika. She has had facing the window. States she wants to sleep, states she does not feel well.
--- NOTE | 2019-05-08 10:42 | NUR ---
PT SLEEPING AT THIS TIME.
--- NOTE | 2019-05-08 11:17 | NUR ---
PT SLEEPING SOUNDLY AT THIS TIME.
--- NOTE | 2019-05-08 11:38 | NUR ---
PT CONTINUES SLEEPING AT THIS TIME.
--- NOTE | 2019-05-08 12:30 | NUR ---
PT SLEEPING, AWOKE FOR AFTERNOON MED AND FOCUSED ASSESSMENT. STATED STILL NAUSEAUS AND JUST NOT FEELING GOOD. RIGHT BACK TO SLEEP. SLEEPING ON SIDE WITH SCD'S RUNNING, CALL LIGHT WITHIN REACH. GIVEN FRESH WATER. INTAKE DOCUMENTED.
--- NOTE | 2019-05-08 13:56 | NUR ---
PT RESTING IN HER BED AND SHE DENIES ANY PAIN BUT STATES SHE DOES HAVE SOME NAUSEA BUT THAT IT IS TOLERABLE AT THIS TIME.
--- NOTE | 2019-05-08 14:58 | NUR ---
PT COMPLAINS OF NAUSEA AND SHE WAS MEDICATED ORDERED. PT DENIES ANY PAIN AT THIS TIME.
--- NOTE | 2019-05-08 16:09 | NUR ---
PT WAS SLEEPING AND AWOKE TO VOICE AND SHE STATES HER NAUSEA HAS NOT IMPROVED BUT DECLINES PHENERGAN IT MADE HER VERY SLEEPY YESTERDAY. PT ASSISTED TO THE BR AT THIS TIME SHE STATES SHE NEEDS TO HAVE ANOTHER BOWEL MOVEMENT.
--- NOTE | 2019-05-08 17:56 | NUR ---
PT SLEEPING AT THIS TIME.
--- NOTE | 2019-05-08 19:19 | NUR ---
ANSWERED PATIENT'S CALL LIGHT. PATIENT WAS IN THE BATHROOM. CHANGED HER GOWN AND HER UNDERWEAR.
--- NOTE | 2019-05-08 20:00 | NUR ---
RECEIVED REPORT AT 1900, FOUND PT IN BED SLEEPING. NO NEW CONCERNS WERE NOTED AT THAT TIME.
--- NOTE | 2019-05-08 20:48 | NUR ---
took vitals, I&Os done, call light in reach
--- NOTE | 2019-05-08 21:27 | NUR ---
ASSISTED PT FROM RESTROOM BACK TO BED. IV IS INFUSING FINE. PT DENIES NEEDS AT THIS TIME. CALL LIGHT IS WITHIN REACH.
--- NOTE | 2019-05-08 22:20 | NUR ---
V/S WERE WDL, PT DOES HAVE A TEMP OF 99.1 F, WILL CONTINUE TO MONITOR. LOBES ARE CLEAR, ABD SOUNDS ARE NORMAL ACTIVE. PT STILL HAS FREQUENT BM'S BUT STILL LESS THAN WHAT IT WAS YESTERDAY. STOOL ALSO HAS SOME FORM TO IT NOW. NO PERIPHERAL EDEMA NOTED. PT DID RECEIVED 8MG IV PRN ZOFRAN FOR NAUSEA X1 SO FAR. PAIN SEEMS TO BE OK SO FAR.
--- NOTE | 2019-05-09 02:00 | NUR ---
SECOND ASSESSMENT WAS THE SAME THE FIRST WITH THE EXCEPTION THAT PT ABDOMEN NOW IS MORE DISTENDED AND FIRMER TO TOUCH. ABD SOUNDS ARE PRESENT. WILL CONTINUE TO MONITOR. URINE IS STILL VERY DARK AND PROBABLY JUST ADEQUATE. PT STATED THAT PUFFY HANDS WERE HER NORM.
--- NOTE | 2019-05-09 02:54 | NUR ---
HELPED PT TO THE BATHROOM AND BACK TO BED. HELPED HER TO CHANGE HER GOWN AND HER UNDERWEAR. BEDSIDE TABLE AND CALL LIGHT IN REACH.
--- NOTE | 2019-05-09 05:22 | NUR ---
VITALS AND I&OS DONE AND CHARTED. HELPED PT TO THE BATHROOM AND BACK TO BED. CHANGED SHEET AND BED SPREAD. NEW CHUCKS PUT DOWN ON HER BED. BEDSIDE TABLE AND CALL LIGHT IN REACH. FRESH WATER GIVEN.
--- NOTE | 2019-05-09 05:37 | NUR ---
PT IS SLEEPING AT THIS TIME.
--- NOTE | 2019-05-09 05:38 | NUR ---
AT START OF SHIFT NAUSEA WAS A SLIGHT PROBLEM BUT ONE PRN DOSE OF ZOFRAN DID HELP. PT DID NOT REQUIRE ANY PRN PAIN MEDICATION THIS SHIFT. THE NIGHT PROGRESSED, IT WAS NOTED THAT HER ABDOMEN WAS INCREASING IN DISTENTION AND WAS ALSO GETTING FIRMER TO THE TOUCH. WILL LET DAY SHIFT KNOW. ABD SOUNDS ARE PRESENT. PT DID HAVE SEVERAL VERY SMALL BM'S THIS SHIFT, PT HAS NO APPITITE AT ALL. URINE IS STILL VERY DARK IN COLOR AND JUST ADEQUATE. PT DID SLEEP MOST OF THE NIGHT.
--- NOTE | 2019-05-09 06:42 | NUR ---
PT CALLED BECAUSE IV PUMP WAS BEEPING. FIXED ERROR AND IVF IS INFUSING FINE NOW. PT DENIES FURTHER NEEDS, CALL LIGHT IS CLOSE.
--- NOTE | 2019-05-09 07:05 | NUR ---
REPORT RECEIVED FROM PAWAN LANDIS. PT UP TO RESTROOM. VOIDS BOTH URIN AND LOOSE/SOFT STOOL, MINIMAL FORM. PT REPORTS BACK PAIN THIS MORNING BUT DENIES NAUSEA STATING "I JUST GOT MEDICINE FOR NAUSEA." PT REQUESTS TYLENOL AND THROAT LOZANGE. SBA, CANE BACK TO BED. PT RESTING IN BED. NO ADDIITONAL REQUESTS OR COMPLAINTS AT THIS TIME. CALL LIGHT WITHIN REACH.
--- NOTE | 2019-05-09 08:03 | NUR ---
MORNING ASSESSMENT AND MEDICAITON DUE. PT RESTING ON LEFT SIDE WITH EYES CLOSED. AWAKENS TO MOVMENT IN ROOM. SBA, CANE UP TO BATHROOM. LOOSE/LIQUID STOOL NOTED. MODERATE YELLOW URINE NOTED. PT REPORTS ABDOMINAL DISTENTION "SEEMS BETTER" BUT CONTINUES TO COMPLAIN OF BLOATING. PT REPORTS 10/10 BACK PAIN, SEE MAR FOR MEDICATION GIVEN. PT REPORTS FEELING "VERY TIRED." LUNG SOUNDS CLEAR. ABDOMINAL SCAR RED BUT INTACT AND HEALING. PT PLAYING ON PHONE TALKING ABOUT [employer]. PT ENCOURGED TO GET UP TO CHAIR TO HELP BACK PAIN. PT DECLINES AT THIS TIME. MEDICAITON GIVEN. CALL LIGHT WITHIN REACH. WATER REFILLED.
--- NOTE | 2019-05-09 09:07 | NUR ---
MEDICAITONS DUE. PHARMACIST CONSULTED REGARDING LR AND SODIUM PHOSPHATE COMPATABILITY, NOT COMPATIABLE. SODIUM PHOSPHATE STARTED ON INDEPENDANT LINE. PT RESTING ON LEFT SIDE WITH EYES CLOSED. RESPIRATIONS EVEN AND UNLABORED. BED RAILS UP. CALL LIGHT WITHIN REACH.
--- NOTE | 2019-05-09 09:53 | NUR ---
PATIENT IS IN BED, RESTING, PATIENT HASNT DRANK HER CHICKEN BROTH SHE REQUESTED, PATIENT SAID SHE WAS NOT EXPIERIENCING ANY HO, SHE NEEDED NOTHING ELSE AT THIS TIME
--- NOTE | 2019-05-09 11:52 | NUR ---
PATIENT RESTING IN BED, CALL LIGHT IN REACH. PATIENT IN A CHEARFUL AND HAPPY MOOD. NO OTHER NEEDS AT THIS TIME.
--- NOTE | 2019-05-09 12:09 | NUR ---
NOON ASSESSMENT DUE. THIS RN TO ROOM FOR ROUNDS WITH MD. PT REPORTS CONTINUED BLOATING AND 10/10 BACK PAIN. PT ENCORUAGED TO AMBULATE PT STATES "AH, HELL NO!" PT DOES AGREE TO STAY UP TO CHAIR "IF YOU CAN MAKE IT MORE COMFORTABLE." ADDITIONAL PILLOWS AND BLANKETS ADDED TO CHAIR. ENSURE MILKSHAKE PROVIDED. PT TAKES ONE SIP AND STATES "THAT'S DISCUSTING BUT I'LL TRY TO DRINK IT." EDUCATION DONE WITH PT REGARDING ELECTROLYTE BLANCE, INTAKE AND OUTPUT. PT VERBALIZES UNDERSTANDING AND STATES "ILL TRY TO DRINK IT." ASSESSMENT DONE. UNCHANGED SINCE THIS MORNINGS ASSESSMENT. PT UP TO RESTROOM X2, NO BOWEL MOVEMENT NOTED THE FIRST TIME. SMALL LIQUID/SOFT MOVMENT WITH 2ND TRIP. PT BACK TO CHAIR. LINENS CHANGED. MEDICAITON GIVEN. CALL LIGHT WITHIN REACH. NO ADDITIONAL REQUESTS OR COMPLAINTS AT THIS TIME.
--- NOTE | 2019-05-09 13:55 | NUR ---
THIS RN TO BEDSIDE TO CHECK ON PT. PT RESTING ON RIGHT SIDE. RESPIRATIONS EVEN AND UNLABORED. CALL LIGHT WITHIN REACH.
--- NOTE | 2019-05-09 14:00 | NUR ---
PATIENT RESTING IN BED, CALL LIGHT IN REACH, NO OTHER NEEDS AT THIS TIME.
--- NOTE | 2019-05-09 14:16 | NUR ---
MEDICATION DUE. PT RESTING ON BACK, SNSONIA NOTED. HOB ELEVATED TO EASE BREATHING WHILE SLEEPING. PT AWAKENS TO MOVMENT IN ROOM. PT DENIES REQUESTS OR COMPLAINTS STATING, "I JUST WANT TO SLEEP." MEDICATION STARTED. PT LOWERES HEAD OF BED. PT RESTING WITH EYES CLOSED, SNSONIA NOTED, RR = 20BPM. BED RAILS UP. CALL LIGHT WITHIN REACH.
--- NOTE | 2019-05-09 15:24 | NUR ---
PT CALL LIGHT ON. 1PA, CANE UP TO RESTROOM. LARGE LIQUID BM. DEPENDS CHANGED, ANNMARIE CARE DONE. PT OUT TO AMBUATE TO NURSES STATION AND BACK. AREAS CLEANED WITH BLEACH AFTER AMBULATION. PT BACK TO ROOM. UP TO SIT ON COUCH. NO ADDITIONAL REQUESTS OR COMPLAINTS. CALL LIGHT WITHIN REACH.
--- NOTE | 2019-05-09 16:29 | NUR ---
AFTERNOON ASSESSMENT AND MEDICATION DUE. PT SITTING ON EDGE OF BED. PT REPORTS 8/10 BACK PAIN AND NAUSEA. SEE MAR FOR MEDICATION GIVEN. ASSESSMENT UNCHANGED FROM THIS MORNING ALTHOUGH PT STATES "I FEEL BETTER THIS AFTERNOON." ABDOMINAL DISTENTION CONTINUES, ABDOMEN SOFT. PT UP TO RESTROOM FOR ADDITIONAL LIQUID BM. WATER PROVIDED. PT OFFERED ADDITIONAL ENSURE, DECLINES AT THIS TIME. PT AGREES TO TRY JELLO AND STATES "I MIGHT EVEN WATCH SOME TV TONIGHT. NO ADDITIONAL REQUESTS OR COMPLAINTS AT THIS TIME. CALL LIGHT WITHIN REACH.
--- NOTE | 2019-05-09 17:20 | NUR ---
PT HERE FOR COLITIS AND C-DIFF INFECTION. MULTIPLE LIQUID/LOOSE BOWEL MOMEMENTS THIS SHIFT. IV AN PO ABX. ELECTROLYTE (MG, NA, BICARB) REPLACEMENTS. PRN TYELNOL FOR 8-10/10 BACK PAIN, ENCOURAGE AMBULATION AND TIME OUT OF BED. ENSURE PROVIDED. PRN NAUSEA MEDICATIONS GIVE X1 THIS SHIFT. MINIMAL APPITITE CONTINUES. 1PA WITH CANE OUT OF BED AND AROUND ROOM. VOIDING QUANTITY SUFFICIENT. PT USES CALL LIGHT FREQUENTLY.
--- NOTE | 2019-05-09 18:20 | NUR ---
PUMP ALARMING, SODIUM BICARB INFUSION AND FLUSH COMPLETE. D5LR RESUMED (SEE MAR). PT RESTING WITH EYES CLOSED. RESPIRATIONS EVEN AND UNLABORED. ENROLLMENT REPRESENTATIVE TO BEDSIDE. VITALS TAKEN. PT REPORTS PAIN OF 8/10 PAIN IN BACK. WARM PACK OFFERED, DECLINED. NO ADDITIONAL REQUESTS OR COMPLAINTS AT THIS TIME. CALL LIGHT WITHIN REACH.
--- NOTE | 2019-05-09 19:05 | NUR ---
SHIFT REPORT RECEIVED FROM [facility] PAWAN CASTELLANOS AT BEDSIDE. PT AWAKE AND RESTING IN BED, VERBALIZES GRETA TO VOID. PAWAN CASTELLANOS ASSISTING PT, NO FURTHER NEEDS. IV FLUIDS INFUSING PER MD ORDERS, SITE WNL.
--- NOTE | 2019-05-09 20:25 | NUR ---
sba pt from toilet bk to bed, took vitals, rec'd I&Os, gave pt fresh ice water
--- NOTE | 2019-05-09 20:30 | NUR ---
ASSESSMENT COMPLETE, SCHEDULED MEDS GIVEN (SEE EMAR). PT A/OX4, NO PAIN VERBALIZED. VSS, REPORTS NEED TO HAVE BM. PT SBA TO BATHROOM. PT INSTRUCTED TO USE CALL LIGHT ONCE DONE, PT VERBALIZED UNDERSTANDING. IV FLUIDS INFUSING PER MD ORDERS, SITE WNL.
--- NOTE | 2019-05-09 21:30 | NUR ---
SCHEDULED VANCO GIVEN (SEE EMAR). PT AGAIN REQUESTING TO USE BATHROOM, ON TOILET AND INSTRUCTED TO USE CALL LIGHT ONCE DONE. PT VERBALIZED UNDERSTANDING.
--- NOTE | 2019-05-09 21:40 | NUR ---
sba pt bk to bed from toilet
--- NOTE | 2019-05-09 22:30 | NUR ---
PT REQUESTING ZOFRAN FOR NAUSEA, 8MG AGMINISTERED. PT RESTING IN BED. IV SITE WNL, CALL LIGHT IN REACH.
--- NOTE | 2019-05-10 | NUR ---
HELPED PT TO THE BATHROOM . PT WILL CALL WHEN SHE IS READY TO GET BACK INTO BED.
--- NOTE | 2019-05-10 00:15 | NUR ---
HELPED PT BACK INTO BED FROM THE BATHROOM. BEDSIDE TABLE AND CALL LIGHT IN REACH. PT NEEDS NOTHING MORE AT THIS TIME.
--- NOTE | 2019-05-10 00:19 | NUR ---
NEW BAG OF IV FLUIDS HUNG AND INFUSING PER MD ORDERS. PT IS RESTING IN BED, EYES CLOSED, RR WNL. NO DISTRESS NOTED. CALL LIGHT IN REACH.
--- NOTE | 2019-05-10 02:02 | NUR ---
IV ABX STARTED, IV SITE WNL. PT UP FOR BM THEN RETURNED TO BED. NO FURTHER NEEDS, CALL LIGHT IN REACH.
--- NOTE | 2019-05-10 03:02 | NUR ---
SBA PT TO TOILET/BK TO BED THROUGH-OUT THE NIGHT GAVE FRESH ICE WATER @ 4042
--- NOTE | 2019-05-10 03:30 | NUR ---
SPOKE TO MARY FROM LAB REGARDING PT'S ORDERED HIT PF4 ANTIBODY IgG LAB ORDERED FOR 05/09/19. PER ORDERS, LAB NOT YET RECEIVED. PER MARY FROM LAB, LAB WILL BE DRAWN THIS MORNING WITH OTHER 05/10/19 AM LABS. AT SHIFT CHANGE, DAYSHIFT PAWAN CASTELLANOS MADE AWARE OF EVENTS ABOVE.
--- NOTE | 2019-05-10 05:01 | NUR ---
MESSAGE SENT TO DR RICKETTS REGARDING PT'S CONCERN FOR POSSIBLE THRUSH.
--- NOTE | 2019-05-10 06:10 | NUR ---
VS AND I&O'S COMPLETE AND STABLE. PT REPOSTING 8/10 NECK PAIN, PTN TYLENOL GIVEN ALONG WITH THROAT LOZENGE. NO FURTHER NEEDS. NEW BAG OF IV FLUIDS INFUSING PER MD ORDERS, IV SITE WNL. CALL LIGHT IN REACH.
--- NOTE | 2019-05-10 07:19 | NUR ---
REPORT RECEIVED FROM PAWAN DAVIES. PT RESTING ON LEFT SIDE WITH EYES CLOSED. PT ALLOWED TO REST. RESPIRATIONS EVEN AND UNLABORED. CALL LIGHT WITHIN REACH.
--- NOTE | 2019-05-10 08:23 | NUR ---
MORNING ASSESSMENT AND MEDICAITONS DUE. THIS RN TO BEDSIDE. PT RESTING ON RIGHT SIDE WITH EYES CLOSED. PT AWAKENS TO VOICE. PT DENIES NAUSEA, REPORTS 10/10 BACK PAIN, MD AWARE. PT ENCOURAGED TO GET UP TO CHAIR. DECLINES AT THIS TIME. WARM PACK OFFERED FOR BACK, PROVIDED. ABDOMEN CONTINUES TO FEEL BLOATED. PT STATES "I FEEL SWOLLEN ALL OVER." LUNG SOUNDS CLEAR. PIV WNL. PT REFUSED PICC LINE WHEN SPEAKING WITH MD. YOUSIF AND DELIA ORDERED FOR PT FOR BREAKFAST. NO ADDITIONAL REQUESTS OR COMPLAINTS. CALL LIGHT WITHIN REACH.
--- NOTE | 2019-05-10 09:00 | NUR ---
PT REQUESTING OATMEAL. CALLED, STATES MECHANICAL SOFT DIET IS OK FOR PT. DIET ADVANCED. OATMEAL ORDERED FOR PT.
--- NOTE | 2019-05-10 09:50 | NUR ---
patient used call light and had to use the restroom
--- NOTE | 2019-05-10 10:30 | NUR ---
THIS RN TO ROOM FOR ROUNDS WITH MD. PT SITTING ON EDGE OF BED EATING OATMEAL. PT STATES OATMEAL HAS "BEEN PRETTY GOOD" AND THAT SHE WAS ABLE TO EAT 1/2 OF THE BOWEL. PT CONTINUES TO REPORT PAIN IN ABDOMEN AND BACK. NEW ORDERS PLACED BY MD. IMAGING CALLED REGARDING TIMING OF CT SCAN. NO ADDITIONAL REQUESTS OR COMPLAINTS AT THIS TIME. CALL LIGHT WITHIN REACH.
--- NOTE | 2019-05-10 11:39 | NUR ---
IMAGING STATES CT ORDER WOULD NORMALLY HAVE IV CONTAST WITH OR WITHOUT ORAL CONTRAST BUT ORAL CONTRAST SHOULD BE IN TWO DOSES. MD CONSULTED. STATES OK TO PROCEED WITH TWO DOSES OF ORAL CONTRAST. NEW ORDER PLACED PER MD. PT UPDATED ON PLAN OF CARE. CULTURES DRAWN FROM TWO SITES. THIS RN LENI 1 SET FROM LFA PIV, FLUIDS STOPPED. 8ML WASTE DRAWN. 10MLS DRAWN FROM PIV. PIV FLUSHED AND IV FLUIDS RESUMED. LAB AT BEDSIDE FOR 2ND DRAW.
--- NOTE | 2019-05-10 12:00 | NUR ---
NOON ASSESSMENT DUE. 1PA, CANE UP TO RESTROOM. STOOL AND URINE SAMPLES COLLECTED. URIN NOTED TO BE DARK SUSSY IN COLOR. UNSURE IF URINE IS CONTAMINATED WITH STOOL...LAB NOTIFIED AND STATES THEY WILL UPDATE. 1PA UP TO CHAIR. ASSESSMENT DONE. PT CONTINUES TO REPORT 10/10 BACK PAIN AND 8/10 RLQ PAIN. PTS SON AT BEDSIDE AND STATES PT WAS MEANT TO HAVE SUGERY "LAST SATURDAY FOR AN ABCESS IN HER STOMACH." PT AGREES WITH THIS STATEMENT AND STATES THAT DR. BRANNON WAS INTENDING TO DO THE SURGERY. ORAL CONTRAST GIVEN TO PT. PT SIPPING ON CONTRAST. TYELNOL GIVEN FOR PAIN. IV POTASSIUM STARTED. PT UP TO CHAIR, NO ADDITIONAL REQUESTS OR COMPLAINTS AT THIS TIME. CALL LIGHT WITHIN REACH.
--- NOTE | 2019-05-10 12:30 | NUR ---
MD CONSULTED REGARDING ORAL CONTRAST AND URINE APPEARANCE. ORDERS FOR LR BOLUS. PT CONTINUES TO REFUSE 2ND IV START. ULTRASOUND IV START RN CONSULTED AND WILL TAKE A LOOK AT VEINS. PAWAN POOLE TO BEDSIDE WITH ULTRASOUND.
--- NOTE | 2019-05-10 13:00 | NUR ---
PT CALL LIGHT ON. PT STATES SHE IS FINISHED WITH HER FIRST CONTRAST. 2ND CONSTRAST GIVEN. MEDICATIONS GIVEN. IV BOLUS INFUSING. 1PA UP TO RESTROOM. VISTITORS JOINING PT. PT VISITING WITH VISITORS. NO ADDITIONAL REQUESTS OR COMPLAINTS AT THIS TIME. CALL LIGHT WITHIN REACH.
--- NOTE | 2019-05-10 14:28 | NUR ---
PT REFUSING 2ND BOTTLE OF CONTRAST BECAUSE "I HAVE A SORE THROAT." MD AWARE, IMAGING CALLED AND WILL COME TO TAKE PT TO SCAN LUIS A. CYBER SECURITY SPECIALIST AT BEDSIDE. FOR VITALS AND I/O. NO ADDITIONAL REQUESTS OR COMPLAINTS AT THIS TIME.
--- NOTE | 2019-05-10 15:00 | NUR ---
PT TO CT FOR SCAN. PIV'S SALINE LOCKED. ALCOHOL CAPS APPLIED.
--- NOTE | 2019-05-10 15:55 | NUR ---
AFTERNOON ASSESSMENT DUE. PT RETURNED FROM CT. SHOWER OFFERED, PT DECLINES. FLUIDS AND IV INFUSIONS RESTARTED. ASSESSMENT DONE. LUNG SOUNDS CLEAR. PT REPORTS 8/10 BACK AND RLQ PAIN. SEE MAR FOR MEDICATION GIVEN. PT DENIES NAUSEA. PT REQUSTS THROAT LOZENGE AND MASHED POTATOES FOR DINNER. DINNER ORDER PLACED. PT PLAYING ON PHONE. NO ADDITIONAL REQUESTS OR COMPLAINTS AT THIS TIME. CALL LIGHT WITHIN REACH.
--- NOTE | 2019-05-10 16:57 | NUR ---
PT HERE FOR COLITIS AND C-DIFF. ADDITIONAL STOOL SAMPLE SENT THIS SHIFT. UA AND ABDOMINAL CT PERFORMED. PT CONTINUES TO HAVE 8-10/10 PAIN IN BACK AND RLQ. PRN MEDICAITONS FOR NAUSEA AND PAIN. PT DECLINES SHOWER AND AMBULATION THIS SHIFT. ELECTROLYTE REPLACEMENT GIVEN. URINE VERY DARK, FLUID BOLUS GIVEN THIS SHIFT. STOOLS LESS FREQUENT THIS SHIFT. DIET UPGRADED TO SOFT FOODS. PT EATING MORE THIS SHIFT. PT USES CALL LIGHT FREQUENTLY.
--- NOTE | 2019-05-10 17:55 | NUR ---
THIS RN TO ROOM TO CHECK ON PT. PT UP TO BATHROOM WITH DISEASE CASE MANAGER RN. PT BACK TO BED. PT REPORTS PAIN IS UNCHANGED AND REMAINS AT 8/10. WARM PACK PROVIDED FOR PAIN CONTROL. PT DENIES ADDITIONAL REQUESTS OR COMPLAINTS AT THIS TIME. CALL LIGHT WITHIN REACH.
--- NOTE | 2019-05-10 19:05 | NUR ---
PT RESTING IN BED, WATCHING TV. SHIFT REPORT RECIVED FROM EMANUEL VILLALTA. NO NEEDS AT THIS TIME. CALL LIGHT IN REACH. IV FLUIDS INFUSING PER ORDER.
--- NOTE | 2019-05-10 19:55 | NUR ---
SBA WITH CANE FROM RESTROOM BACK TO BED, SOFT/LIQUID BM AND UNMEASURED VOID. pt C/O NAUSEA. VSS. RN CON IN ROOM TO ADMINISTERED MEDICATIONS.
--- NOTE | 2019-05-10 20:22 | NUR ---
PT RESTING IN BED, WATCHING TV. ASSESSMENT COMPLETED. IV FLUIDS INFUSING PER ORDER. SCHEDULED MEDS PROVIDED. PRN PAIN AND NAUSEA MEDS PROVIDED. NO OTHER NEEDS AT THIS TIME. CALL LIGHT IN REACH.
--- NOTE | 2019-05-10 21:35 | NUR ---
ROUNDED CHARGE. PATIENT IS RESTING IN BED. PATIENT DENIES ANY NEEDS. CALL LIGHT IN REACH.
--- NOTE | 2019-05-10 22:10 | NUR ---
HELPED PT BACK INTO BED FROM THE BATHROOM. BEDSIDE TABLE AND CALL LIGHT IN REACH.
--- NOTE | 2019-05-10 23:36 | NUR ---
PT RESTING WITH EYES CLOSED, IN BED. RR 14, EVEN, UNLABORED. CALL LIGHT IN REACH.
--- NOTE | 2019-05-11 01:00 | NUR ---
PT RESTING IN BED, EUES CLOSED. RR 18, EVEN, UNLABORED. CALL LIGHT IN REACH.
--- NOTE | 2019-05-11 02:40 | NUR ---
PT CALLS TO USE BR, SBA, CANE. ASSESSMENT COMPLETED. EDEMA NOTED IN BILATERAL FEET. PAIN 8/10. NAUSEA REPORTED. SCHEDULED MEDS AND PRN PAIN AND NAUSEA MEDS PROVIDED. IVs CDI, WNL. NO OTHER NEEDS AT THIS TIME. CALL LIGHT IN REACH.
--- NOTE | 2019-05-11 03:09 | NUR ---
PT RESTING IN BED, EYES CLOSED. PT WAKES TO VOICE. SCHEDULED MEDS PROVIDED. PRN THROAT LOZENGE, PAIN AND NAUSEA MED PROVIDED. PAIN 8/10 IN RLQ. PT UP TO BR AND BACK TO BED, SBA WITH CANE. ASSESSMENT COMPLETED. NO OTHER NEEDS AT THIS TIME. CALL LIGHT IN REACH.
--- NOTE | 2019-05-11 06:10 | NUR ---
PT SLEPT OFF AND ON THIS SHIFT. PAIN IN LOWER BACK AND RLQ. PRN PAIN MED MANAGED PAIN WELL. NAUSEA REPORTED, MANAGED BY PRN NAUSEA PAIN WELL. PT TOLERATED PO WATER WELL BUT DECLINED SNACKS OR OTHER PO DRINKS. PT DECLINES TO WEAR SCDs. IV FLUIDS AND MEDS TOLERATED WELL.
--- NOTE | 2019-05-11 08:41 | NUR ---
FULL BODY ASSESMENT DONE. NOTED 2+ EDEMA TO LOWER EXTREMITIES TOLU, AND GENERALIZED SWELLING ABDOMEN, FIRM AND ROUND. BOWEL SOUNDS ACTIVE THROUGHOUT, COMPLAINTS OF PAIN IN RLQ, NOTED BRUISING SECONDARY TO HEPARIN INJECTIONS, PATIENT REPORTS SMALL HARD MASS AT CENTER OF BRUISING. LUNG SOUNDS DIMINISHED LOWER BASES, ENCOURAGED IS. DISCUSSED WITH PATIENT IMPORTANCE OF AMBULATING IN HALLS AND LET PATIENT KNOW THAT EVEN ON ISOLATION PERCAUTIONS MAY WALK THE HALLS WITH STAFF. PATIENT SITTING UP IN BED NOW HAVING BREAKFAST VS STABLE. IV FLUIDS TITRATED TO 100 ML/HR PER TELEPHONE ORDER DR. BRANNON.
--- NOTE | 2019-05-11 11:30 | NUR ---
PATIENT UP TO SHOWER, LINEN CHANGED. NOW UP IN RECLINER WAITING FOR LUNCH. CALL LIGHT WITHIN REACH. NO OTHER NEEDS AT THIS TIME.
--- NOTE | 2019-05-11 14:30 | NUR ---
PATIENT UP TO AMBULATE IN BARCENAS, DR. RICKETTS VERBALIZED TO PUT PPI ON PATIENT. AMBULATED TO NURSES STATION, APPEARED STEADY ON FEET. PATIENT REPORTED WEAKNESS WHEN RETURNING TO ROOM, ENTERING THROUGH DOOR WAY PATIENT'S REPORTS CANE SLIPPED AND PATIENT HAD GLF WINESSED BY THIS NURSE. PATIENT LANDED ONTO KNEES TO ELBOWS TO STOMACH, DID NOT HIT HEAD OR LOOSE CONCSIOUNESS. CHARGE NURSE, DR. RICKETTS, AND CNAS TO ROOM. ASSISTED PATIENT UP TO CHAIR WITH KIMMIE BELT, PATIENT THEN RESTED. VS STABLE, NO ABRASIONS OR SKIN TEARS. PATIENT STATED " I JUST FEEL NAUTIOUS NOW". ACTIVE BOWEL TONES THROUGHOUT. 2 PERSON STBY ASSIST BACK TO BED. DR. RICKETTS TO ROOM AND PROVIDED FULL BODY ASSESMENT. PATIENT REPORTS NO PAIN AT THIS TIME.
--- NOTE | 2019-05-11 15:52 | NUR ---
Spoke with pt, she fell today. Feels tired.
--- NOTE | 2019-05-11 16:00 | NUR ---
STBY WITH PATIENT TO BATHROOM WITH WALKER, PATIENT STATED " WHAT THE HELL IS THAT, I DON'T NEED A WALKER?" DISCUSSED WITH PATIENT DECONDITIONING AND THE NEED FOR SOMETHING MORE STEADY/ SAFER TO AMBULATE WITH. PATIENT VERBALIZED UNDERSTANDING. VOIDED 150 ML DARK BROWN URINE, AND HAD SMALL SOFT BM. NOTED PATIENT WIPING SELF FROM BACK TO FRONT. WHEN OFFERING ASSISTANCE PATIENT STATED " I WAS TOLD I CAN DO IT MYSELF". WITH ROUND HARD ABDOMEN PATIENT'S ROM IS LIMITED AND SHE IN UNABLE TO REACH BACK BEHIND HER TO WIPE. INTSTRUCTED PATIENT NOT TO WIPE THAT WAY AND IF NEEDS ASSISTANCE AT THIS TIME STAFF WILL HELP.
--- NOTE | 2019-05-11 16:42 | NUR ---
WELL SERVICES OPERATOR TO ROOM TO DRAW BLOOD CULTURES, DISCUSSED WITH PATIENT OPPORTUNITY TO START NEW IV WITH BIGGER BORE. PATIENT REFUSED STATING " NOPE, NOPE, NOPE I AM GETTING BETTER NOT WORSE AND DON'T NEED ANY MORE IV, THE ONE I HAVE IS JUST FINE".
--- NOTE | 2019-05-11 19:05 | NUR ---
PT IN BED, RESTING WITH EYES CLOSED. SHIFT REPORT RECIEVED FROM AZALIA VILLALTA. CALL LIGHT IN REACH.
--- NOTE | 2019-05-11 19:30 | NUR ---
PATIENT HAD GLF TODAY, NO INJURIES NOTED. SKIN INTACT, NO NEW BRUISING. PATIENT HAS BEEN AMBULATING INTO BATHROOM WITH WALKER, WITH STAFF STBY. STOOLS ARE SOFT. URINE APPEARS LIGHT BROWN. NOTED PATIENT SELF CLEANING ANNMARIE AREA WIPING STOOL FROM BACK TO FRONT, INCREASING RISK OF UTI. ATTEMPTED TO PROVIDE EDUCATION, HOWEVER PATIENT UNABLE AT THIS TIME WITH ABDOMINAL SWELLING TO WIPE IN A CLEAN MANNER HYGENIC MANNER. UPDATED CNAS TO ASSIST WITH CLEANING AFTER USING TOILET. PATIENT IS NOW SL. GENERALIZED SWELLING THROUGHOUT APPEARS IMPROVED AND PATIENT STATES " I FEEL LESS PUFFY". NEW ORDER FOR BLOOD CULTURES DAILY PER DR. RICKETTS TALKING WITH INFECTIOUS DISEASE CONTROL CONSULT. VS STABLE. NEW ORDERS FOR PT/OT.
--- NOTE | 2019-05-11 21:06 | NUR ---
PT UP TO BR, FWW, SBA. ASSESSMENT COMPLETED. R FA IV DCd, LEAKING, PAIN. PAWAN PEREA PLACING NEW IV. NO OTHER NEEDS. CALL LIGHT IN REACH.
--- NOTE | 2019-05-11 21:30 | NUR ---
NEW IV STARTED IN RIGHT FOREARM, PT TOLERATED WELL. IV ANTIBIOTIC INFUSING WNL ORDERED. LIGHTS OFF IN ROOM. CALL LIGHT IN REACH.
--- NOTE | 2019-05-11 22:18 | NUR ---
CALL LIGHT ANSWERED. IV PUMP DISTAL OCCLUSION. IV ANTIBIOTIC INFUSING WNL. SBA TO RESTROOM W FWW. GAIT STEADY. pt VERBALIZES UNDERSTANDING TO USE CALL LIGHT WHEN FINISHED.
--- NOTE | 2019-05-11 22:43 | NUR ---
ANSWERED CALL LIGHT. 1 PA TO THE BATHROOM USING WALKER AND BACK TO BED. PATIENT NEEDS HELP WIPING HER. SCD ON PER PATIENT'S REQUEST. ICE REFILLED. NO OTHER NEEDS AT THE MOMENT.
--- NOTE | 2019-05-12 00:18 | NUR ---
PT RESTING IN BED, EYES CLOSED. RR 18, EVEN, UNLABORED. SCDs ON. CALL LIGHT IN REACH.
--- NOTE | 2019-05-12 01:24 | NUR ---
CALL LIGHT ANWSWERED. SBA BACK TO BED WITH FWW, SAFETY COUNSELOR SINTA ASSIST. UNMEASURED VOID AND BM. URINE HAT ADJUSTED IN TOILET TO CATCH URINE. IV SL WNL. CALL LIGHT IN REACH.
--- NOTE | 2019-05-12 01:28 | NUR ---
CALL LIGHT ANSWERED. 1 PA TO BATHROOM USING WALKER. PATIENT IS BACK IN BED.
--- NOTE | 2019-05-12 02:44 | NUR ---
PT RESTING IN BED, WAKES TO VOICE. SCHEDULED MED PROVIDED. PRN THROAT LOZENGE PROVIDED. PT DENIES PAIN AND NAUSEA. ASSESSMENT COMPLETED. PT ENCOURAGED TO DRINK WATER. NO OTHER NEEDS AT THIS TIME. CALL LIGHT IN REACH.
--- NOTE | 2019-05-12 03:18 | NUR ---
CALL LIGHT ANSWERED. IV ANTIBIOTIC INFUSION COMPLETE. IV SITE SL WNL. CALL LIGHT IN REACH. NO ADDITIONAL REQUESTS AT THIS TIME.
--- NOTE | 2019-05-12 04:05 | NUR ---
PT RESTING IN BED, EYES CLOSED. RR 16, EVEN, UNLABORED. CALL LIGHT IN REACH.
--- NOTE | 2019-05-12 05:31 | NUR ---
PT SLEPT ON AND OFF THIS SHIFT. PAIN IN ABD HAS BEEN WELL MANAGED WITH PRN PAIN MEDS. PT HAS DECLINED MOST PO FLUIDS AND ALL SNACKS OFFERED. PT TOLERATED SCDs AND FWW WELL. PT PROVIDED PRN THROAT LOZENGES X2. ABD FIRM IN BUQ AND SOFTER IN BLQ THIS AM. ABD TENDER TO PALPATION. BILATERAL 2+ EDEMA AT DORSAL FEET. GENERAIZED EDEMA IN BOTH HANDS. IV R FA CDI, WNL, FLUSHED. VSS. A & O X4.
--- NOTE | 2019-05-12 06:49 | NUR ---
VS AND IS AND OS COMPLETE. MD IN ROOM ASSESSING pt. NOTIFIED OF URINE OUTPUT. SBA TO RESTROOM FOR VOID AND BM AT THIS TIME. pt VERBALIZES UNDERSTANDING TO USE CALL LIGHT WHEN FINISHED.
--- NOTE | 2019-05-12 07:38 | NUR ---
REPORT RECEIVED FROM PAYAL BOLDEN RN. PT IN BED WITH EYES CLOSED. RESPIRATIONS EQULA AND NONLABORED. CALL LIGHT IN REACH. CONTCT PRECAUTIONS IN PLACE.
--- NOTE | 2019-05-12 09:00 | NUR ---
PATIENT REFUSED SHOWER TODAY DUE TO HAVING ONE YESTERDAY. LINENS CHANGED CLEAN GOWN, WASH CLOTH AND TOWEL LEFT FOR PATIENTS USE. FRESH ICE WATER GIVEN NO OTHER NEEDS AT THIS TIME. CALL BUTTON IN REACH.
--- NOTE | 2019-05-12 09:47 | NUR ---
PT UP TO BATHROOM WITH SBA AND FWW. TOLERATED WELL. MED SOFT BM WITH 300 ML OF URINE. PHYSICAL THERAPY IN TO WORK WITH PT. OUT TO HALLS TO AMBULATE.
--- NOTE | 2019-05-12 10:00 | NUR ---
out ambulating with physical therapy.
--- NOTE | 2019-05-12 11:34 | NUR ---
Spoke with pt, she is walking in the hammer with a walker and PT. Verbalized she looks good and appears stonger. She denies. Per report with Dr Monge, no dc for 1-2 days.
--- NOTE | 2019-05-12 16:10 | NUR ---
PT OUT AMBULATING HALLS. TOLERATIGN WELL. DNEIES PAIN OR NAUSEA.
--- NOTE | 2019-05-12 19:39 | NUR ---
SHIFT REPORT RECIEVED FROM FILEMON VILLALTA. PT RESTING IN BED WATCHING TV. DENIES NAUSEA AND PAIN. NO NEEDS AT THIS TIME.
--- NOTE | 2019-05-12 21:46 | NUR ---
PT UP TO BR. ASSESSMENT COMPLETED. EDEMA BLE AND BILATERAL HAND. SCHEDULED MEDS PROVIDED AND THROAT LOZENGE PRN. IV CDI, WNL, FLUSHED. NO OTHE NEEDS. CALL LIGHT IN REACH.
--- NOTE | 2019-05-13 00:28 | NUR ---
PT RESTING IN BED, EYES CLOSED. RR 16, EVEN, UNLABORED. CALL LIGHT IN REACH.
--- NOTE | 2019-05-13 02:38 | NUR ---
SCHEDULED MED PROVIDED. IV CDI, WNL, FLUSHED. PT DENIES PAIN AND NAUSEA. UP TO BR. ASSESSMENT5 COMPLETED. NO OTHER NEEDS. CALL LIGHT IN REACH.
--- NOTE | 2019-05-13 03:16 | NUR ---
CALL LIGHT ANSWERED. IV ANTIBIOTIC INFUSION COMPLETE. IV SL WNL. pt RESTING IN BED, DROWSY. NO REQUESTS AT THIS TIME.
--- NOTE | 2019-05-13 04:08 | NUR ---
PT RESTING IN BED. RR 16, EVEN, UNLABORED. CALL LIGHT IN REACH.
--- NOTE | 2019-05-13 04:34 | NUR ---
PT UP TO BR. PRN THROAT LOZENGE PROVIDED. NO OTHER NEEDS. CALL LIGHT IN REACH.
--- NOTE | 2019-05-13 05:39 | NUR ---
PT HAS SLEPT MOST OF THE SHIFT. NO N/V OR PAIN STATED. PT TOLERATED IV ABX WELL. BLE AND BILATERAL HAND EDEMA. UO SUFFICIENT.
--- NOTE | 2019-05-13 06:45 | NUR ---
PT PROVIDED SCHEDULED MED. NO OTHER NEEDS AT THIS TIME. CALL LIGHT IN REACH.
--- NOTE | 2019-05-13 07:16 | NUR ---
REPORT RECEIVED FROM PAWAN ANDUJAR. PT SITTING ON EDGE OF BED. PT DENIES PAIN AND NAUSEA AND STATES "I'M JUST WAITING FOR BREAKFAST." NO ADDITIONAL REQUESTS OR COMPLAINTS. CALL LIGHT WITHIN REACH.
--- NOTE | 2019-05-13 07:36 | NUR ---
MORNING ASSESSEMENT AND MEDICATION DUE. SBA FWW UP TO RESTROOM AND THEN TO CHAIR FOR BREAKFAST. PT DENIES PAIN AND NAUSEA AND STATES "I CAN'T WAIT FOR BREAKFAST, I'M SO HUNGRY NOW." PT STATES SHE IS FEELING "MUCH BETTER" OVER ALL. LUNG SOUNDS CLEAR. EDEMA IMPROVING. LASIX SHOWING GOOD RESULTS. MEDICATION GIVEN. PT DENIES ADDITIONAL REQUESTS OR COMPLAINTS. CALL LIGHT WITHIN REACH.
--- NOTE | 2019-05-13 08:26 | NUR ---
PATIENT SITTING UP IN CHAIR. LINENS CHANGED. SETS UP BATHROOM FOR SHOWER. SETS UP TABLE FOR BREAKFAST. CALL LIGHT WITHIN REACH. NO OTHER NEEDS AT THIS TIME
--- NOTE | 2019-05-13 09:01 | NUR ---
PATIENT SITTING UP IN CHAIR. PATIENT GOES TO USE BATHROOM. PATIENT USES WALKER. ONE PERSON ASSISTING. PATIENT BACKS TO CHAIR. VITAL SIGNS AND I&O DONE. CALL LIGHT WITHIN REACH. MO OTHER NEEDS AT THIS TIME
--- NOTE | 2019-05-13 09:12 | NUR ---
PUMP ALARMING, INFUSION AND FLUSH COMPLETE. PIV SALINE LOCKED, ALCOHOL CAP APPLIED. PT PLANS TO TAKE A SHOWER THIS MORNING. REED PRESS FEEDER TO BEDSIDE. NO ADDITIONAL REQUESTS OR COMPLAINTS AT THIS TIME. CALL LIGHT WITHIN REACH.
--- NOTE | 2019-05-13 10:25 | NUR ---
MEDICATION DUE. THIS RN TO ROOM TO CHECK ON PT. PT ENCOURAGED TO SHOWER. PT DECLINES STATING "I JUST FEEL TIRED AND WANT TO TAKE A NAP RIGHT NOW." DEONDRE, FWW BACK TO BED. MEDICATION GIVEN. PT RESTING ON LEFT SIDE WITH EYES CLOSED, RR EVEN AND UNLABORED. PT DENIES PAIN AND NAUSEA. CALL LIGHT WITHIN REACH.
--- NOTE | 2019-05-13 11:43 | NUR ---
PATIENT SITTING UP IN CHAIR. PATIENT GOES TO WALK IN THE HALLWAY WITH PHYSICAL THERAPIST AND THIS SPORTS TEAM MARKETING INTERN. PATIENT USES WALKER. PATIENT BACKS TO USE BATHROOM. GOWN CHANGED.PATIENT BACKS TO BED. SON AND FREND IN ROOM. CALL LIGHT WITHIN REACH. NO OTHER NEEDS AT THIS TIME
--- NOTE | 2019-05-13 12:01 | NUR ---
NOON ASSESSMENT AND MEDICATION DUE. PT SITTING ON EDGE OF BED VISITING WITH FAMILY. PT DENIES PAIN AND NAUSEA AND REPORTS AMBULATING IN BARCENAS X1 LAPS. PT EATING LUNCH AND REPORTS GOOD APPITITE. ASSESSMENT DONE. EDEMA IN FEET AND BLE CONTINUES. LUNG SOUNDS CLEAR. BOWLE MOVEMENTS LESS VOLUMOUS THIS SHIFT, SMALL AMOUNTS AT A TIME. MEDICATION GIVEN. PT CONTINUES VISITING WITH FAMILY. NO ADDITIONAL REQUESTS OR COMPLAINTS AT THIS TIME. CALL LIGHT WITHIN REACH.
--- NOTE | 2019-05-13 13:02 | NUR ---
MEDICATIONS DUE. THIS RN TO ROOM TO CHECK ON PT. PT VISITING WITH FRIENDS. PT REQUESTS CEPACOLE FOR SORE THROAT. OTHERWISE PT DENIES PAIN AND NAUSEA. MEDICATIONS GIVEN. SBA, FWW UP TO RESTROOM. PT BACK TO BED TO REST. VISITORS LEAVING. NO ADDITIONAL REQUESTS OR COMPLAINTS AT THIS TIME. CALL LIGHT WITHIN REACH.
--- NOTE | 2019-05-13 13:40 | NUR ---
PUMP ALARMING, INFUSION AND FLUSH COMPLETE. PIV SALINE LOCKED. PT RESTING IN BED. DENIES PAIN AND NAUSEA. CALL LIGHT WITHIN REACH.
--- NOTE | 2019-05-13 13:46 | NUR ---
PATIENT RESTING IN BED. RN IN ROOM. VITAL SIGNS AND I&O DONE. CALL LIGHT WITHIN REACH. NO OTHER NEEDS AT THIS TIME
--- NOTE | 2019-05-13 13:47 | NUR ---
PUMP ALARMING, INFUSION AND FLUSH COMPLETE.
--- NOTE | 2019-05-13 15:43 | NUR ---
PATIENT RESTING IN BED. PATIENT GOES TO WALK IN THE HALLWAY. PATIENT USES WALKER. ONE PERSON ASSISTING. PATIENT BACKS TO CHAIR. CALL LIGHT WITHIN REACH. NO OTHER NEEDS AT THIS TIME
--- NOTE | 2019-05-13 15:46 | NUR ---
AFTERNOON ASSESSMENT DUE. PT UP TO AMBULATE IN HALLS X1 LAP. PT REPORTS IMPROVED STRENGTH WITH ONLY 1 REST NEEDED. PT UP TO CHAIR. PT DENIES PAIN AND NAUSEA AND IS ANTICIPATING DINNER. FEET AND HANDS SWOLLEN. PT HAS TROUBLE PUTTING ON GLOVES THAT PREVIOUSLY FIT WELL. FEET ELEVATED IN CHAIR. LUNG SOUNDS CLEAR. CEPACOL SHARIFZASILVERE REQUESTED AND PROVIDED. PT ASSISTED WITH DINNER ORDER. NO ADDITIONAL REQUESTS OR COMPLAINTS. CALL LIGHT WITHIN REACH.
--- NOTE | 2019-05-13 15:56 | NUR ---
Spoke with Anamika. She is resting in bed, smiling today. States she feels better. Discussed she may dc in next day or so. She states discussed this with her. She will go home to her house. She states son will assist her with food prep and transportation. Has a cane and walker at home and denies need for further DME. Feels she can safely dc to home when discharged.
--- NOTE | 2019-05-13 17:14 | NUR ---
MEDICATION DUE. THIS RN TO BEDSIDE. PT EATING DINNER. MEDICATION GIVEN. NO ADDITIONAL REQUESTS OR COMPLAINTS AT THIS TIME. CALL LIGHT WITHIN REACH.
--- NOTE | 2019-05-13 17:20 | NUR ---
PATIENT SITTING UP IN CHAIR. VITAL SIGNS AND I&O DONE. CALL LIGHT WITHIN REACH. NO OTHER NEEDS AT THIS TIME
--- NOTE | 2019-05-13 17:35 | NUR ---
PT HERE FOR C-DIFF INFECTION. PT REPORTS FEELING MUCH BETTER TODAY. SBA WITH CANE, AMBULATED IN HALLS X2. PT TOLERATING LOW FIBER DIET WITH GOOD APPITITE. BOWEL MOVEMENTS SLOWING DOWN. NO PAIN OR NAUSEA THIS SHIFT. IV ABX CONTINUE. IV LASIX DC'D. PT VOIDING QUANTITY SUFFICIENT. PT USES CALL LIGHT APPROPRIATLY.
--- NOTE | 2019-05-13 19:25 | NUR ---
SHIFT REPORT RECEIVED FROM JOE CASTELLANOS AT BEDSIDE. PT AWAKE AND ON THE PHONE. DENIES NEEDS, PT SALINE LOCKED. CALL LIGHT IN REACH.
--- NOTE | 2019-05-13 20:28 | NUR ---
ASSESSMENT COMPLETE, SCHEDULED MEDS GIVEN (SEE EMAR). PT A/OX4, VSS. IV SITE WNL, SCHEDULED IV ABX INFUSING PER MD ORDERS. PT DENIES PAIN. NO NAUSEA AT THIS TIME, BOWEL TONES ACTIVE. PT REPORTS ABDOMINAL BLOATING, BUT STATES, "IT'S NOT HARD LIKE A BASKETBALL ANYMORE". NO FURTHER NEEDS, CALL LIGHT IN REACH.
--- NOTE | 2019-05-13 21:20 | NUR ---
SCHEDULED PO VANCO ADMINISTERED (SEE EMAR). IV ABX ALSO COMPLETE, PT SALINE LOCKED, IV SITE WNL. NO FURTHER NEEDS, CALL LIGHT IN REACH.
--- NOTE | 2019-05-13 23:04 | NUR ---
THIS RN IN ROOM TO ANSWER CALL LIGHT. PT UP SBA WITH FWW TO VOID. PT THEN RETURNED BACK TO BED, DENIES ADDITIONAL NEEDS. PT REFUSING SCD'S AT THIS TIME DUE TO COMFORT. CALL LIGHT IN REACH.
--- NOTE | 2019-05-14 00:35 | NUR ---
PT RESTING IN BED, EYES CLOSED AND RESPIRATIONS ARE EVEN AND UNLABORED. NO DISTRESS NOTED. CALL LIGHT IN REACH.
--- NOTE | 2019-05-14 02:10 | NUR ---
SCHEDULED IV ABX INFUSING, IV SITE WNL. PT DENIES ADDITIONAL NEEDS, CALL LIGHT IN REACH.
--- NOTE | 2019-05-14 02:45 | NUR ---
IV ABX COMPLETE, PT SALINE LOCKED. IV SITE WNL. ASSESSMENT COMPLETE, NO NEW CHANGES OR CONCERNS. PT UP SBA WITH FWW TO VOID AND HAVE BM. PT RETURNED TO BED, BLE ELEVATED WITH PILLOWS. NO FURTHER NEEDS, CALL LIGHT IN REACH.
--- NOTE | 2019-05-14 07:00 | NUR ---
scheduled iv lasix administered over 1-2 minutes. iv site wnl. call light in reach.
--- NOTE | 2019-05-14 07:57 | NUR ---
PATIENT SITTING AT EDGE OF BED WITH FEET ON FLOOR, ALERT AND ORIENTED. REPORT RECEIVED, ORDERS ACKNOWLEDGED. SALINE LOCKED, INDEPENDENT IN ROOM. NO FURTHER NEEDS AT THIS TIME, CALL LIGHT WITHIN REACH.
--- NOTE | 2019-05-14 08:08 | DS ---
[facility] [address] [place], [place] [address] Signed ADMISSION DATE: 05/05/2019 DISCHARGE DATE: 05/14/2019 FINAL DIAGNOSES: 1. Clostridium difficile colitis. 2. Acute thrombocytopenia, possibly secondary to heparin. PROCEDURE: CT scan of abdomen and pelvis. HISTORY OF PRESENT ILLNESS: Yuliana is a 48-year-old female, who underwent an umbilical hernia repair at the end of November of 2018. Then, she had a wound infection by the end of December of 2018 and had clindamycin and later had Cipro from her clinic. She did fine and we had been following her along. Unfortunately, about 3 weeks prior to this admission, she developed diarrhea. She thought maybe it was just a flu. She had called our office when it was not getting better. We had her come straight in to the office and she was quite dehydrated and obviously sick. We had sent her straight over to the emergency room for evaluation. HOSPITAL COURSE: Yuliana had diffuse abdominal pain with diarrhea and a white count of 17.9. Urine specific gravity was elevated at 1.[address] scan of abdomen and pelvis of course confirmed her colitis. We started her on IV hydration, Levaquin, and Flagyl initially. We then dropped the Levaquin and added vancomycin. Her C diff toxin came back positive in her stool studies. She made some initial improvement with a mild decrease in the white count and her temperature curve. However, she continued to have liquid diarrhea. We also noticed that her platelet count dropped significantly. We dropped all heparin and sent off for antibodies and that is still pending. In the meantime, we had to increase the vancomycin from the usual 125 mg to 250 mg up to 500 mg and that made a huge difference. Within each day, she got better after that. She is now to the point where her stool is pasty and she can actually hold the stool and get to the toilet without any fecal incontinence. Her abdominal pain is completely gone. Although obese, her abdomen is markedly improved and soft. No tenderness at this point. She is tolerating a low residue diet. She was a bit moderately edematous from all the IV fluids and being ill, and we have used Lasix in the last few days to help induce negative fluid balance. Her peripheral edema and even the abdominal wall edema is markedly improved. We have held the lithium while she is here in the hospital, but she is going to resume that at home. She will need the Lasix at home. At this point, she is doing well and she was actually asking to go home. Electronically Signed By: BRADY BRANNON MD 05/14/19 0808 PATIENT NAME: YULIANA PETERS DISCHARGE SUMMARY DATE OF : 68 REPORT #: [id number] PHYSICIAN: BRADY BRANNON MD PCP: MATT CASTRO MD REPORT IS CONFIDENTIAL AND NOT TO BE RELEASED WITHOUT AUTHORIZATION [facility] [address] [place], [place] [address] Signed DISCHARGE PLANS AND MEDICATIONS: Yuliana will be discharged to home with liquid vancomycin 500 mg p.o. q.i.d. for an additional 10 days for a total of 21 days of antibiotics. She will resume all her chronic medications at home. She can follow a regular diet at this point. She can perform her activities of daily living including walking up and down stairs and showering and bathing as usual. I am going to have her back in the office in about 10 days for followup. She can certainly call sooner if she has any concerns or questions. I have reviewed all this with Yuliana in detail. She has expressed understanding and agrees above plan. Brady Brannon MD ALB/MODL /[id number] cc: MD Matt Ortega MD Copies: BRADY BRANNON MD, MALCOLM MD ~ Electronically Signed By: BRADY BRANNON MD 05/14/19 0808 PATIENT NAME: YULIANA PETERS TERENCE DISCHARGE SUMMARY DATE OF : 68 REPORT #: [id number] PHYSICIAN: BRADY BRANNON MD PCP: MATT CASTRO MD REPORT IS CONFIDENTIAL AND NOT TO BE RELEASED WITHOUT AUTHORIZATION
--- NOTE | 2019-05-14 08:40 | NUR ---
Pt eating breakfast in chair. Call light within reach.
--- NOTE | 2019-05-14 09:17 | NUR ---
Full body assessment complete. Pt has +3 edema on L foot and +2 on R foot. Will continue to monitor. Lung sounds clear. Bowel tones active in all 4 quadrants. Pt has no pain at this time. Pt ate breakfast and is sitting up right in chair. VSS. Call light within reach.
--- NOTE | 2019-05-14 09:24 | NUR ---
PATIENT SITTING UP IN CHAIR, ALERT AND ORIENTED. ASSESSMENT COMPLETE, ACTIVE BOWEL TONES. POC DISCUSSED, PATIENT AGREEABLE. NO FURTHER NEEDS AT THIS TIME, CALL LIGHT WITHIN REACH.
[2019-05-14] MEDS ORDERED: FIRVANQ50 MG/1 ML PO (09:47)
--- NOTE | 2019-05-14 10:03 | NUR ---
PATIENT REPORTS HEADACHE OF 4/10, PRN ACETAMINOPHEN PROVIDED.
--- NOTE | 2019-05-14 10:50 | NUR ---
DISCHARGE INSTRUCTIONS GIVEN, ALL QUESTIONS AND CONCERNS ANSWERED. PATIENT VERBALIZED UNDERSTANDING OF FOLLOW UP APPOINTMENT. VITAL SIGNS TAKEN, IV D/C'D. ALL PERSONAL BELONGINGS COLLECTED. PATIENT LEAVES UNIT VIA WHEELCHAIR WITH FAMILY AND NURSING STAFF.
--- NOTE | 2019-05-14 13:39 | NUR ---
PT WAS BEING ASSISTED TO WC AND GETTING READY TO HEAD DOWN THE BARCENAS FOR DC. SHE SEEMED EXCITED, WAVED IF SHE WAS IN A PARADE. EXTENDED A BLESSING
== END 2019-05-14 10:50 | disposition home or self-care (01) | DRG 372 ==
LOC: ED 16:50 → MS 16:53
PROVIDERS: ADMIT Colon & Rectal Surgery
DX: A04.72 Enterocolitis due to Clostridium difficile, not specified as recurrent (principal); R18.8 Other ascites; E87.1 Hypo-osmolality and hyponatremia; E86.0 Dehydration; E66.9 Obesity, unspecified; R73.03 Prediabetes; F31.9 Bipolar disorder, unspecified; N39.41 Urge incontinence; E83.39 Other disorders of phosphorus metabolism; R60.0 Localized edema; D75.82 Heparin induced thrombocytopenia (HIT); T45.515A Adverse effect of anticoagulants, initial encounter; Y92.239 Unspecified place in hospital as the place of occurrence of the external cause; Z87.891 Personal history of nicotine dependence; Z98.84 Bariatric surgery status; Z88.5 Allergy status to narcotic agent; Z79.899 Other long term (current) drug therapy; Z68.37 Body mass index [BMI] 37.0-37.9, adult
CPT/HCPCS: 36415; 71046; 74177; 80048; 80053; 80178; 81001; 82040; 83690; 83735; 83880; 84100; 85025; 87045; 87046; 87177; 87205; 87209; 87324; 87329; 87449; 87493; 96365; 96366; 96375; 96376; 97116; 97162; 97165; 99285-25; G0378; J0131; J1170; J1650; J1652; J1885; J1940; J1956; J2405; J2550; J3475; J3480; J7030; J7060; J7121; Q9967

== ENCOUNTER 2021-02-11 11:59 | Emergency (ER) | payer OTHER ==
[~2021-02-11] VITALS: Ht 154.9 cm; Wt 89.4 kg
[~2021-02-11 11:59] MED LIST changes: +DICYCLOMINE HCL20 MG PO; +FIRVANQ50 MG/1 ML PO
[2021-02-11] MEDS ORDERED: PERCOCET 7.5-31 EACH PO (14:42)
== END 2021-02-11 14:59 | disposition home or self-care (01) ==
LOC: ED 11:59
DX: S70.02XA Contusion of left hip, initial encounter (principal); W18.30XA Fall on same level, unspecified, initial encounter; E11.9 Type 2 diabetes mellitus without complications; Z87.891 Personal history of nicotine dependence; Z88.5 Allergy status to narcotic agent; Z79.899 Other long term (current) drug therapy
CPT/HCPCS: 73502; 99283-25

== ENCOUNTER 2021-08-23 09:05 | Day surgery (SDC) | payer OTHER ==
[~2021-08-23] VITALS: Ht 154.9 cm; Wt 93.0 kg
[~2021-08-23 09:05] MED LIST changes: +CELEBREX200 MG PO; +MOVE FREE ULTR1 EAC2; +PERCOCET 7.5-31 EACH PO
--- NOTE | 2021-08-23 13:16 | NUR ---
08/23/21 1316 Paulette Chau 1309-PATIENT ARRIVED TO PACU ON 6L MASK RR EVEN 100%. PATIENT REACTIVE TO VERBAL STIMULI OPENING EYES VERY DROWSY NOT FOLLOWING COMMANDS. SR. IVF INFUSING. DRESSING CDI.
--- NOTE | 2021-08-23 15:56 | NUR ---
1355: PATIENT BACK IN DAY SURGERY ROOM FROM PACU. UMBILICAL DRESSING CLEAN, DRY AND INTACT. VS CHECKED. IV SITE WNL. GIVEN WATER AND JELLO. SON AT BEDSIDE. CALL LIGHT WITHIN REACH. 1440: PATIENT EATING LUNCH. HEAD OF BED RAISED UP. SON AT BEDSIDE. 1500: DISCHARGE INSTRUCTIONS GIVEN TO PATIENT AND SON. VS CHECKED AND IV DC'D BY STUDENT NURSE. DRESSING APPLIED TO IV SITE. PATIENT ASSISTED OOB AND TO GET DRESSED. 1515: PATIENT DISCHARGED TO HOME VIA WHEELCHAIR WITH SON.
--- NOTE | 2021-08-24 06:51 | OR ---
[facility] [address] [place], [place] [address] Signed DATE OF OPERATION: 08/23/2021 SURGEON: Brady Brannon MD PREOPERATIVE DIAGNOSIS: Periumbilical suture granuloma with sinus tract. POSTOPERATIVE DIAGNOSIS: Periumbilical suture granuloma with sinus tract. PROCEDURE: Removal and excision of Prolene suture and granuloma along with the sinus tract. ESTIMATED BLOOD LOSS: None. INDICATIONS: Anamika is a 50-year-old female who came to us in November 2018 for repair of her umbilical hernia and excision of a lipoma on the left side of her umbilicus. We used the small 4.3 cm round Ventralex mesh to repair the hernia. She has had a previous vertical midline incision following her laparoscopic gastric bypass surgery to remove her excess skin. Over a week after the surgery was completed, some of the skin on the left side of the umbilicus broke down and she developed a wound infection. It was opened. We allowed it to heal in secondarily. I explained to Anamika at that time that she would more than likely develop a suture granuloma associated with the Prolene suture and it would develop a sinus tract up to her skin. I asked her to return at that time if indeed that happened and we would remove the suture and the sinus tract at that time. In May 2021, she noticed some erythema around that area. She finally had gone to the Urgent Care Clinic. Wound culture was drawn, but we do not have those results today. She was given Bactrim and it did get better. She was asked to see me in followup at my office. She has the classic 3 mm opening in the skin with a little granulation tissue and either some fibrinous fluid and/or a little bit of pus had come out at that time. She presents today to have that area addressed surgically. I met with Anamika in the office and had explained all this to her in detail. Her mesh is actually inside the abdomen and I have to remove the mesh in these situations. I have had two or three of these suture granulomas associated with the Prolene suture and it is always at the knot. I always use a running continuous suture and so I am able to remove the entire suture at the time if needed. I explained to Anamika if this would give her any trouble in the future, we would have to do a larger surgery and remove that small piece of mesh and close the midline of the abdomen. However, on this occasion, we are Electronically Signed By: BRADY BRANNON MD 08/24/21 0651 PATIENT NAME: ANAMIKA PETERS OPERATIVE REPORT DATE OF : 68 REPORT #: [id number] PHYSICIAN: BRADY BRANNON MD PCP: FRANCIS CASTRO MD REPORT IS CONFIDENTIAL AND NOT TO BE RELEASED WITHOUT AUTHORIZATION [address] [address] Signed going to remove the Prolene suture and excise all the granulation tissue. She understands there is risk including, but not limited to, bleeding, infection, scarring, change in contour of the skin, and possible need for additional surgeries as described above. She had expressed understanding and wished to proceed. DESCRIPTION OF PROCEDURE: I met with Anamika in the preop area. We were both able to easily identify the opening to the sinus tract and we marked that appropriately. She was then taken in the operating room, placed in the supine position under general LMA anesthesia. She was given preoperative antibiotics along with subcutaneous heparin. SCDs were utilized. She was prepped and draped in usual sterile fashion. We used an elliptical vertical incision to include the sinus opening. We carried that down and around the sinus opening, right down to the Prolene knotted suture. One branch of the Prolene was cut and then the entire Prolene was able to be pulled out completely. Of course, the abdominal wall was intact. Again, the granulomatous tissue was on the surface of the abdominal wall. That was all cauterized and then I oversew that area with interrupted 2-0 PDS sutures just to reinforce the area for the time being. We developed some of the surrounding subcutaneous tissue with the cautery so we could bring that back together in the midline without any space. Local anesthetic was injected in the abdominal wall along the subcutaneous tissues. The wound was irrigated and suctioned out until clear. We brought the subcutaneous tissues together, which contained some scar tissue, so it held the 3-0 Monocryl nicely. That closed the space and brought the tissue over the abdominal wall in the midline. We then reapproximated the dermis with interrupted 3-0 subcuticular Monocryl sutures. The skin edges were reapproximated with a running 5-0 fast absorbing plain gut suture. Dry gauze and tape were then applied. Anamika was awakened from her anesthesia, extubated in the OR, and taken to recovery room in stable condition. Brady Brannon MD ALB/MODL /[id number] cc: ANDREW Borjas MD Electronically Signed By: BRADY BRANNON MD 08/24/21 0651 PATIENT NAME: ANAMIKA PETERS OPERATIVE REPORT DATE OF : 68 REPORT #: [id number] PHYSICIAN: BRADY BRANNON MD PCP: FRANCIS CASTRO MD REPORT IS CONFIDENTIAL AND NOT TO BE RELEASED WITHOUT AUTHORIZATION [address] [address] Signed Copies: BRADY BRANNON MD ~ Electronically Signed By: BRADY BRANNON MD 08/24/21 0651 PATIENT NAME: ANAMIKA PETERS OPERATIVE REPORT DATE OF : 68 REPORT #: [id number] PHYSICIAN: BRADY BRANNON MD PCP: FRANCIS CASTRO MD REPORT IS CONFIDENTIAL AND NOT TO BE RELEASED WITHOUT AUTHORIZATION
--- NOTE | 2021-08-24 10:44 | EKG ---
[facility] [address] [facility] [place], [place] [address] Signed Normal sinus rhythm Low voltage QRS Borderline ECG When compared with ECG of 17-NOV-2018 10:47, No significant change was found Confirmed by SYED MILLER MD ([id number]) on 08/24/2021 10:44:38 AM Electronically Signed By: SYED MILLER MD 08/24/21 1044 PATIENT NAME: YULIANA PETERS Electrocardiogram DATE OF : 68 PHYSICIAN: SYED MILLER MD REPORT #: [id number] REPORT IS CONFIDENTIAL AND NOT TO BE RELEASED WITHOUT AUTHORIZATION
--- NOTE | 2021-08-24 13:33 | PATH ---
[facility] [address] [place], [place] [address] Signed SPECIMEN(S): A SUTURE GRANULOMA/SKIN SINUS SPECIMEN SOURCE: A. SUTURE GRANULOMA/SKIN SINUS CLINICAL HISTORY: Wound infection. ID periumbilical wound. FINAL PATHOLOGIC DIAGNOSIS: Skin, "suture granuloma", excision: - Sinus tract extending from epidermal surface into deep dermis surrounded by acute and chronic inflammation and granulation tissue formation. - Dermal scar and focal suture granuloma. NAL:cml:C2NR MICROSCOPIC EXAMINATION: Histologic sections of all submitted blocks are examined by light microscopy. These findings, together with the gross examination, support the pathologic diagnosis. GROSS DESCRIPTION: The specimen, labeled "CW, suture granuloma/skin sinus," is received in formalin and consists of an unoriented skin ellipse that measures 4.2 x 1.2 cm with attached yellow-jackson, soft, lobulated fibroadipose tissue up to 2.0 cm in thickness. The skin surface shows a defect that measures 0.3 cm in diameter. Defect is probe patent with pink-jackson, firm tissue within the fibroadipose tissue. Sectioning through the specimen reveals sinus between previously described skin defect and fibrous tissue within the fibroadipose tissue. Dx Board Operator sections are submitted in cassette (A1). JS (under the direct supervision of a pathologist) The Gross Description was prepared using a voice recognition system. The report was reviewed for accuracy; however, sound-alike word errors, addition and/or deletions may occur. If there is any question about this report, please contact Client Services. PERFORMING LABORATORY: The technical component was performed by [employer] [address] [place] [id number] (Grades 9 Thru 12 Visiting Teacher: Kathleen Jon MD; CLIA# [id number]). Professional interpretation was performed by [employer] [place] [facility], [address] [place] [address] [facility]. 107, PATIENT NAME: YULIANA PETERS PATHOLOGY DATE OF : 68 REPORT #: [id number] PHYSICIAN: [facility] PCP: FRANCIS CASTRO MD REPORT IS CONFIDENTIAL AND NOT TO BE RELEASED WITHOUT AUTHORIZATION [address] [place] [address] Signed Damion Li [id number] (CLIA# [id number]). Diagnostician: Sandra Ayon MD Pathologist Electronically Signed 08/24/2021 Copies: ~ PATIENT NAME: YULIANA PETERS PATHOLOGY DATE OF : 68 REPORT #: [id number] PHYSICIAN: [facility] PCP: FRANCIS CASTRO MD REPORT IS CONFIDENTIAL AND NOT TO BE RELEASED WITHOUT AUTHORIZATION
== END 2021-08-23 15:17 | disposition home or self-care (01) ==
LOC: DS 09:05
PROVIDERS: ATTEND Colon & Rectal Surgery
PROC: 0WP Anatomical Regions, General, Removal (ICD-10-PCS; principal; 2021-08-23 10:50)
DX: T81.49XA Infection following a procedure, other surgical site, initial encounter (principal)
CPT/HCPCS: 93005; 93010; J0131; J0690; J1100; J1644; J2001; J2405; J2704; J3010; J7121

== ENCOUNTER 2023-04-26 21:43 | Emergency (ER) | payer OTHER ==
[~2023-04-26] VITALS: Ht 154.9 cm; Wt 90.7 kg
[~2023-04-26 21:43] MED LIST changes: +AMOX TR-K CLV1 EAC1 PO; +OXYCODONE HCL5 MG PO
--- OUTSIDE RECORDS SUMMARY | 2023-04-26 21:46 | XMS ---
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 ( 05/07/2019 ) Care History Medical/Surgical 05/06/2019 [facility] Pt has appt with Dr Rodriguez 05/07/2019 @ 1:30 PM. 05/05/2019 [facility] - Patient is currently established with [facility]. If patient is seen in the ED during business hours. Please contact CHWs at [facility]. Care Recommendation: This patient has had 5 or more Emergency Department visits in the last 12 months.\T\nbsp; Patient requires education on the scope and purpose of the ED as an acute care provider not a Primary Care Provider and should not be utilized for chronic conditions.\T\nbsp; These are guidelines and the provider should exercise clinical judgment when providing care. E.D. VISIT COUNT (12 MO.) 2 [facility]. TOTAL 2 NOTE: Visits indicate total known visits. 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
[2023-04-26 22:45] LABS: BASOPHILS 0.8 % (0-2); HEMATOCRIT 38.1 % (35.0-50.0); HEMOGLOBIN 12.4 g/dL (12.0-18.0); LYMPHOCYTES 32.5 % (24-44); MCH 25.9 (27-36); MCHC 32.5 g/dl (30-36); MCV 79.7 fl (81-99); MONOCYTES 9.1 % (0-12); NEUTROPHILS 55.6 % (39-80); PLATELET COUNT 280 K/uL (140-440); RBC 4.78 M/ul (4.3-5.7); RDW 15.8 (10.5-15.0)
[2023-04-26 23:03] LABS: ALBUMIN 3.5 g/dL (3.4-5.0); ALBUMIN/GLOBULIN RATIO 1.25 (1.1-2.4); ANION GAP 12.6 (7-21); BILIRUBIN, TOTAL 0.3 ng/dL (0.2-1.0); BUN/CREATININE RATIO 25.31 (6.0-28.6); CREATININE, SERUM 0.79 mg/dL (0.55-1.02); POTASSIUM 3.6 mmol/L (3.5-5.1); PROTEIN, TOTAL 6.3 g/dL (6.4-8.2)
[2023-04-27 00:36] LABS: BILIRUBIN, URINE NEGATIVE (negative); BLOOD/HGB, URINE NEGATIVE (Negative); KETONE, URINE NEGATIVE (Negative); LEUK ESTERASE, URINE NEGATIVE (negative); NITRITE, URINE NEGATIVE (negative); PH, URINE 6.5 (5-7)
[2023-04-27] MEDS ORDERED: DICYCLOMINE HCL10 MG PO (00:59)
[2023-04-27] MEDS ORDERED: PROTONIX40 MG PO (01:02)
[2023-04-27 01:29] VITALS: BP 88/62
== END 2023-04-27 01:25 | disposition home or self-care (01) ==
LOC: ED 21:43
PROVIDERS: Family Medicine
DX: R10.31 Right lower quadrant pain (principal); R10.32 Left lower quadrant pain; Z88.5 Allergy status to narcotic agent; Z79.51 Long term (current) use of inhaled steroids; Z79.899 Other long term (current) drug therapy; Z87.891 Personal history of nicotine dependence; E11.9 Type 2 diabetes mellitus without complications
CPT/HCPCS: 36415; 74177; 80053; 81003; 85025; 96375; 99284-25; C9113; J2270; J7121; Q9967

== ENCOUNTER 2024-05-20 05:55 | Day surgery (SDC) | payer OTHER ==
[2024-05-14 11:38] VITALS: BP 100/60
[~2024-05-20] VITALS: Ht 154.9 cm; Wt 83.2 kg
[~2024-05-20 05:55] MED LIST changes: +CALCIUM + D3 E1 EACH PO; +CYCLOBENZAPRINE10 MG PO; +DICYCLOMINE HCL10 MG PO; +DOXYCYCLINE MO100 MG PO; +ELIQUIS2.5 MG PO; +IRON325 M1 PO; +LACTATED RINGER'S 1,000 ML IV SCH; +MULTIPLE VITAM1 EAC2 PO; +PROTONIX40 MG PO; +TRIAMCINOLONE A15 G4 TOP
[2024-05-20 06:11] VITALS: BP 110/75
[2024-05-20] MEDS ORDERED: OXYCODONE-ACET1 EAC1 PO (06:20)
[2024-05-20] MEDS ORDERED: KETOROLAC TROMETHAMINE 30 MG/ML VIAL ONE (06:34)
[2024-05-20] MEDS ORDERED: DEXAMETHASONE SOD PHOS 4 MG/ML VIAL ONE (06:34)
[2024-05-20] MEDS ORDERED: FAMOTIDINE 20 MG/ 2 ML VIAL ONE (06:34)
[2024-05-20] MEDS ORDERED: LACTATED RINGER'S 1,000 ML IV ONE (06:34)
[2024-05-20] MEDS ORDERED: ondansetron HCL 4 MG/2 ML VIAL ONE (06:34)
[2024-05-20] MEDS ORDERED: MIDAZOLAM HCL 2 MG/2 ML VIAL ONE (06:34)
[2024-05-20] MEDS ORDERED: fentaNYL citrate 100 MCG/2 ML VIAL ONE (06:34)
[2024-05-20] MEDS ORDERED: propofoL 200 MG/20 ML VIAL ONE (06:34)
[2024-05-20] MEDS ORDERED: METOCLOPRAMIDE HCL 10 MG/2 ML SDV ONE (06:34)
[2024-05-20] MEDS ORDERED: LIDOCAINE HCL 1% 30 ML SDV ONE (06:38)
[2024-05-20] MEDS ORDERED: IBLOOD GLUCOSE TEST STRIP 1 EA TEST VI PRN ×2 (07:00→08:30)
[2024-05-20] MEDS ORDERED: CLINDAMYCIN PHOSPHATE/D5W 900 MG/50 ML PIGGYBACK IV SCH (07:00)
[2024-05-20] MEDS ORDERED: LIDOCAINE HCL 1% 5 ML SDV INJ ONE (07:00)
[2024-05-20] MEDS ORDERED: MUPIROCIN 22 GM TUBE ONE (07:30)
[2024-05-20] MEDS ORDERED: SODIUM HYPOCHLORITE 0.5% 480 ML BTL ONE (07:30)
[2024-05-20] MEDS ORDERED: HEParin SOD (PORCINE) 5,000 UNIT/ML SDV ONE (07:36)
--- NOTE | 2024-05-20 07:42 | NUR ---
PT NOT AVAILABLE FOR VISIT. PROVIDED PRAYER.
[2024-05-20] MEDS ORDERED: diphenhydrAMINE HCL 50 MG/ML VIAL ONE (07:50)
[2024-05-20] MEDS ORDERED: LIDOCAINE HCL 4% 5 ML AMP ONE (07:58)
[2024-05-20] MEDS ORDERED: methylPREDNISolone SOD SUCC 125 MG/2 ML VIAL ONE (08:01)
[2024-05-20] MEDS ORDERED: droPERidol 5 MG/2 ML VIAL IV PRN (08:30)
[2024-05-20] MEDS ORDERED: NALOXONE HCL 0.4 MG SYR IV PRN ×2 (08:30→09:45)
[2024-05-20] MEDS ORDERED: MEPERIDINE HCL 25 MG/1 ML VIAL IV PRN (08:30)
[2024-05-20] MEDS ORDERED: fentaNYL citrate 50 MCG/ML SDV IV PRN (08:30)
[2024-05-20] MEDS ORDERED: PROCHLORPERAZINE EDISYLATE 10 MG/2 ML VIAL IV PRN ×2 (08:30→09:45)
[2024-05-20] MEDS ORDERED: METOCLOPRAMIDE HCL 10 MG/2 ML SDV IV PRN (08:30)
[2024-05-20] MEDS ORDERED: ondansetron HCL 4 MG/2 ML VIAL IV PRN ×2 (08:30→09:45)
[2024-05-20] MEDS ORDERED: SEVOFLURANE 250 ML BTL INH ONE (09:02)
--- NOTE | 2024-05-20 09:36 | NUR ---
05/20/24 0936 Tamia Todd 0923- PT ARRIVES TO PACU RESTING SEMI FOWLERS. PT NO RESPONSIVE TO NOXIOUS STIMULI. OPA IN PLACE AND PT REQUIRING MANUAL JAW THRUST.
[2024-05-20] MEDS ORDERED: HYDROmorphone HCL 1 MG/ML SYR IV PRN (09:45)
[2024-05-20 10:37] VITALS: BP 106/60
--- NOTE | 2024-05-20 11:06 | NUR ---
LE 1036: PT IS BACK TO DS FROM PACU. FAMILY IS AT THE BEDSIDE. CALL LIGHT WITHIN REACH. WATER ON BEDSIDE TABLE. NO NEEDS AT THIS TIME.
--- NOTE | 2024-05-20 11:45 | NUR ---
IN PT'S ROOM AT THIS TIME FOR ASSESSMENT AND VS. PT REMAINS DROWSY, BUT EASILY AWAKENS TO VERBAL STIMULI AND ANSWERS QUESTIONS APPROPRIATELY. PT STATES NO PAIN OR NAUSEA AT THIS TIME. RESPIRATIONS EVEN AND UNLABORED, NO SIGNS OF DISTRESS. SURGICAL SITE VISUALIZED, C/D/I AT THIS TIME, NEW ICE PACK IN PLACE ON TOP OF GOWN. FAMILY REMAINS AT BEDSIDE. CALL LIGHT WITHIN REACH, PT REPORTS NO FURTHER NEEDS OR QUESTIONS AT THIS TIME.
[2024-05-20 11:56] VITALS: BP 105/58
[2024-05-20] MEDS ORDERED: OXYCODONE HCL 5 MG TAB PO PRN (12:15)
[2024-05-20 12:48] VITALS: BP 94/54
--- NOTE | 2024-05-20 12:57 | NUR ---
IN PT ROOM FOR VS AND ASSESSMENT. PT IS DROWSY, BUT AWAKENS ON OWN EASILY. PT RESPIRATIONS EVEN AND UNLABORED, NO SIGNS OF DISTRESS. PT STATES NO PAIN OR NAUSEA AT THIS TIME. NO ACUTE CHANGES TO SURGICAL SITE FROM PREVIOUS ASSESSMENT. PT TOLERATING PUDDING, CRACKERS, AND COFFEE WITHOUT DIFFICULTY SWALLOWING OR ONSET OF NAUSEA. PT REPORTS NO FURTHER NEEDS OR QUESTIONS AT THIS TIME. CALL LIGHT WITHIN REACH.
--- NOTE | 2024-05-20 13:30 | NUR ---
PT NEEDS TO URINE VOID. PT TO RESTROOM W/2 WALKERS (BASELINE) AND URINE VOIDS 600 ML OF CLEAR/YELLOW URINE. PT GETTING DRESSED AT THIS TIME, FAMILY IN ROOM TO ASSIST. CALL LIGHT WITHIN REACH.
[2024-05-20 13:37] VITALS: BP 112/69
--- NOTE | 2024-05-20 13:37 | OR ---
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 POSTOPERATIVE DIAGNOSIS: Periumbilical mesh granuloma. PROCEDURES: 1. Excision of granulomatous sinus tract and pseudocapsule. 2. Explantation of mesh. 3. Primary closure of wound in layers. ESTIMATED BLOOD LOSS: None. INDICATIONS: Anamika is a 53-year-old female, who came to me in November 2018 for an umbilical hernia repair. We used our standard 4.3 cm round Ventralex mesh. She also had a large lipoma just off to the left of the umbilicus, which we excised. She has had a previous abdominoplasty and all her redundant skin removed through a long midline incision. This was following her gastric bypass surgery. She ended up with infection of the cavity from a lipoma. We allowed it to heal in secondarily. She came back then with a suture granuloma in the fistula tract. We took out the fistula track and all the Prolene suture. We allowed to heal in secondarily. 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 She developed another sinus tract with granulomatous tissue just to the right of the umbilicus. She came back to me to look at that. In the meantime, she had to have hip surgery in July of this year and then had a small DVT and a small pulmonary emboli last month. She thinks it is unrelated to the hip. She has been on Eliquis. The plan was for six months. We waited until now we thought we could go ahead and stop her Eliquis for a few days to do her surgery. She was getting a little anxious about drainage from her granulomatous tract. In the office, I explained her we would repeat basically the same surgery to the midline incision. Most likely, the mesh would be infected, we probably have to remove that as well. She understands that this would most likely be a day surgery. We may leave the wound open and allowed to heal in secondarily. We may close in layers. She understands there is risk including, but not limited to bleeding, infection, scarring, change in contour of the skin as well as damage to bowel and recurrent infection and that Electronically Signed By: BRADY THAYER MD 05/20/24 1337 PATIENT NAME: ANAMIKA PETERS OPERATIVE REPORT DATE OF : 68 REPORT #: [id number] PHYSICIAN: BRADY THAYER MD PCP: SHOSHANA PEREZ PA-C REPORT IS CONFIDENTIAL AND NOT TO BE RELEASED WITHOUT AUTHORIZATION [facility] [address] [place], [place] [address] Signed recurrent incisional hernia. She understands we have to use absorbable mesh on this occasion. Otherwise, the permanent suture just infected again. She had expressed understanding and wished to proceed. PROCEDURE IN DETAIL: I met with Anamika and her son and [id number] in our preop area. With our nurse with me, we could all identify the fistula tract quite readily. We marked that appropriately. After this, Anamika was taken to the operating room and placed in a supine position. We know that she was a little more sedated than most of our patients and seemed to be a little cyanotic. We placed an LMA and she has been but her abdominal wall was quite rigid despite all the inhaled anesthetic. We went ahead and gave her Solu-Medrol, diphenhydramine, and albuterol. That seemed to break whatever issue she was having. We took the LMA out and placed general endotracheal tube. We waited a few minutes and she was doing quite well and relaxed quite nicely. After that, she was prepped and draped in the usual sterile fashion. She did receive preoperative clindamycin along with subcutaneous heparin. SCDs were utilized. She was prepped and draped in the usual sterile fashion. We then used a vertical elliptical incision around the fistula tract. We followed down carefully with the hemostats. We found that it went right to the mesh and there was a small area about a centimeter wide with the tab comes up through the midline. We also found that she has a tremendous amount of thick scar in the midline from her previous abdominoplasty. I think that was part of her issue. We went ahead and excised the whole granulomatous sinus tract and then we opened up the midline vertically went around our entire mesh and explanted the mesh. We then explanted the entire pseudocapsule as well. After this, we had taken out a few adhesions from the omentum only. The omentum was quite healthy. We closed the peritoneum and the inner layer of the midline very thick scar with interrupted [id number] and simple #1 PDS sutures. We then closed the external portion of the scar with the same #1 PDS suture using simple and priofr-hu-yfegf sutures. We injected local anesthetic in abdominal wall and subcutaneous tissues. We irrigated the wound with saline solution, followed by Dakin solution. We then closed the deeper adipose tissues with 3-0 Monocryl suture to help close the space. We then closed the dermis with interrupted 3-0 subcuticular Monocryl sutures. The skin edges were reapproximated with running 5-0 fast absorbing plain gut suture. Dry gauze and tape were then applied. After this, Anamika was awakened from anesthesia, extubated in the OR, and taken to recovery room in stable condition. Brady L Flaca, MD Electronically Signed By: BRADY THAYER MD 05/20/24 1337 PATIENT NAME: ANAMIKA PETERS OPERATIVE REPORT DATE OF : 68 REPORT #: [id number] PHYSICIAN: BRADY THAYER MD PCP: SHOSHANA PEREZ PA-C REPORT IS CONFIDENTIAL AND NOT TO BE RELEASED WITHOUT AUTHORIZATION [address] [address] Signed [facility] /[id number] cc: Patient Chart Shoshana Thayer MD Copies: BRADY THAYER MD ~ Electronically Signed By: BRADY THAYER MD 05/20/24 1337 PATIENT NAME: ANAMIKA PETERS OPERATIVE REPORT DATE OF : 68 REPORT #: [id number] PHYSICIAN: BRADY THAYER MD PCP: SHOSHANA PEREZ PA-C REPORT IS CONFIDENTIAL AND NOT TO BE RELEASED WITHOUT AUTHORIZATION
--- NOTE | 2024-05-20 13:40 | NUR ---
IN PT ROOM FOR VS, ASSESSMENT, DC EDUCATION. PT STATES VERBAL UNDERSTANDING TO DC EDUCATION AT THIS TIME AND STATES NO FURTHER QUESTIONS AT THIS TIME. PT OFF OF UNIT VIA WC TO PASSENGER SIDE OF SON'S VEHICLE. ALL BELONGINGS IN PT POSSESSION AT THIS TIME. PT AND PT FAMILY REPORT NO FURTHER NEEDS AT THIS TIME.
--- NOTE | 2024-05-22 10:25 | PATH ---
[facility] [address], [place] [address] Signed SPECIMEN(S): A UMBILICUS SPECIMEN SOURCE: A. UMBILICUS CLINICAL HISTORY: Suture granuloma FINAL PATHOLOGIC DIAGNOSIS: Umbilicus: - Fibrofatty tissue with marked acute inflammation and abscess formation. - Negative for malignancy. NA MICROSCOPIC EXAMINATION: Histologic sections of all submitted blocks are examined by light microscopy. These findings, together with the gross examination, support the pathologic diagnosis. GROSS DESCRIPTION: The specimen, labeled and designated "Tasia Pack, per requisition umbilicus," is received in formalin and consists of 2.2 x 0.8 cm unoriented skin ellipse excised to the depth of 2.8 cm. The skin is jackson with a central 0.7 x 0.4 cm area of ulceration. Immediately underlying the area of ulceration is a 0.2 x 0.7 x 0.6 cm area of fibrous tissue with central area of necrosis. The surrounding adipose tissue is yellow lobulated and unremarkable. There are no additional lesions or masses. Gift Packer sections are submitted in cassette A1. AA (under the direct supervision of a pathologist) The Gross Description was prepared using a voice recognition system. The report was reviewed for accuracy; however, sound-alike word errors, addition and/or deletions may occur. If there is any question about this report, please contact Client Services. ADDITIONAL NOTES: Immunohistochemical and/or in situ hybridization studies if performed in this case included appropriate positive controls that reacted as expected. This test was developed and its performance characteristics determined by [facility]. It has not been cleared or approved by the U.S. Food and Drug Administration. The FDA has determined that such clearance or approval is not PATIENT NAME: YULIANA PACK PATHOLOGY DATE OF : 68 REPORT #: [id number] PHYSICIAN: DAVION STEPHEN PCP: SHOSHANA PEREZ PA-C REPORT IS CONFIDENTIAL AND NOT TO BE RELEASED WITHOUT AUTHORIZATION [facility] [address], [place] [address] Signed necessary. This test is used for clinical purposes. It should not be regarded as investigational or for research. [facility] is certified under the Clinical Laboratory Improvement Amendments of 1988 (CLIA) as qualified to perform high complexity clinical laboratory testing. PERFORMING LABORATORY: Technical component was performed by [facility], [address] [place] [address] (CLIA# [id number]). Professional interpretation was performed by [facility], [address] [place] [address] (CLIA#: [id number]). Diagnostician: Elmer Lemons MD Pathologist Electronically Signed 05/22/2024 Copies: ~ PATIENT NAME: YULIANA PACK PATHOLOGY DATE OF : 68 REPORT #: [id number] PHYSICIAN: YADIELYTE PATHOLOGY PCP: SHOSHANA PEREZ PA-C REPORT IS CONFIDENTIAL AND NOT TO BE RELEASED WITHOUT AUTHORIZATION
== END 2024-05-20 13:45 | disposition home or self-care (01) ==
LOC: DS 05:55
PROVIDERS: ATTEND Colon & Rectal Surgery
PROC: 0JP Subcutaneous Tissue and Fascia, Removal (ICD-10-PCS; principal; 2024-05-20 07:30)
DX: T81.89XA Other complications of procedures, not elsewhere classified, initial encounter (principal); E11.9 Type 2 diabetes mellitus without complications; F31.9 Bipolar disorder, unspecified; F43.10 Post-traumatic stress disorder, unspecified; Z90.49 Acquired absence of other specified parts of digestive tract; Z98.84 Bariatric surgery status; Z87.891 Personal history of nicotine dependence; Z79.01 Long term (current) use of anticoagulants; Z79.899 Other long term (current) drug therapy; Z88.5 Allergy status to narcotic agent
CPT/HCPCS: 00400; J1100; J1200; J1644; J1885; J2250; J2405; J2704; J2765; J2919; J3010; J3490; J7121

== ENCOUNTER 2024-05-30 14:13 | Emergency (ER) | payer OTHER ==
[~2024-05-30] VITALS: Ht 154.9 cm; Wt 85.5 kg
[~2024-05-30 14:13] MED LIST changes: -LACTATED RINGER'S 1,000 ML IV SCH; +OXYCODONE-ACET1 EAC1 PO
[2024-05-30 14:53] VITALS: BP 114/78
== END 2024-05-30 14:46 | disposition home or self-care (01) ==
LOC: ED 14:13
DX: L76.34 Postprocedural seroma of skin and subcutaneous tissue following other procedure (principal); J45.909 Unspecified asthma, uncomplicated; Z88.5 Allergy status to narcotic agent; Z79.02 Long term (current) use of antithrombotics/antiplatelets; Z79.899 Other long term (current) drug therapy
CPT/HCPCS: 99283

== ENCOUNTER 2025-05-28 07:00 | Day surgery (SDC) | payer OTHER ==
[~2025-05-28] VITALS: Ht 154.9 cm; Wt 88.0 kg
[~2025-05-28 07:00] MED LIST changes: +CEFAZOLIN SODIUM 2 GM in SODIUM CHLORIDE 0.9% 100 ML IV SCH; +IBLOOD GLUCOSE TEST STRIP 1 EA TEST VI PRN; +LACTATED RINGER'S 1,000 ML IV SCH; +LIDOCAINE HCL 1% 5 ML SDV INJ ONE
[2025-05-28 07:16] VITALS: BP 108/73
--- NOTE | 2025-05-28 07:35 | NUR ---
HAS HAD RECENT FALL BRUISE R ARM AND R LEG. DORIAN IS PRINTER HELPER AND AT , WAITING.
[2025-05-28] MEDS ORDERED: MIDAZOLAM HCL 2 MG/2 ML VIAL ONE (08:31)
[2025-05-28] MEDS ORDERED: LIDOCAINE HCL 2% 5 ML SDV ONE (08:31)
[2025-05-28] MEDS ORDERED: Ropivacaine HCl 0.5% 30 ML VIAL ONE (08:31)
[2025-05-28] MEDS ORDERED: DEXAMETHASONE SOD PHOS 10 MG/ML VIAL ONE (08:46)
--- NOTE | 2025-05-28 08:59 | NUR ---
DR MCCALL AND DIAMOND POWDER MIXER ELLIE BOTH HAVE BEEN IN TO TALK WITH PT. SEE ANESTHESIA RECORD.
[2025-05-28] MEDS ORDERED: OXYCODONE HCL 5 MG TAB PO PRN (09:00)
[2025-05-28] MEDS ORDERED: NALOXONE HCL 0.4 MG SYR IV PRN (09:45)
[2025-05-28] MEDS ORDERED: PROCHLORPERAZINE EDISYLATE 10 MG/2 ML VIAL IV PRN (09:45)
[2025-05-28] MEDS ORDERED: HYDROmorphone HCL 1 MG/ML SYR IV PRN (09:45)
[2025-05-28] MEDS ORDERED: fentaNYL citrate 50 MCG/ML SDV IV PRN (09:45)
[2025-05-28] MEDS ORDERED: IBLOOD GLUCOSE TEST STRIP 1 EA TEST VI PRN (09:45)
[2025-05-28] MEDS ORDERED: CELECOXIB200 MG PO (10:04)
[2025-05-28] MEDS ORDERED: OXYCODONE HCL5 M1 PO (10:05)
--- NOTE | 2025-05-28 10:32 | NUR ---
05/28/25 1032 Alexsandra Brooks 1003- PT ARRVIES TO PACU, SEMI CHILDS POSITION, NON REACTIVE TO STIMULUS. BREATHING EVEN AND NON LABORED, O2 AT 6L PER MASK. LR INFUSING TO RW IV. ABD SOFT, NON DISTENDED. 3 SURGICAL SITES TO TOP OF LEFT SHOULDER, DRESSINGS IN PLACE, PULSE INTACT TO LEFT ARM. SLING PLACED TO LEFT ARM. ALL MONITORS IN PLACE. 1010- CRYO CUFF TO LEFT ARM, PT REMAINS SLEEPING. NO SIGNS OF DISTRESS. 1017- PT WOKE ON OWN TO VERBAL STIMULI IN ROOM. REORIENTED TO TIME AND PLACE, DENIES PAIN OR NAUSEA. 1020- PT MOVED TO ROOM AIR, RESTING OFF AND ON. 1030- PT DENIES PAIN OR NAUSEA. PLAN TO RETURN TO DAY SURGERY.
[2025-05-28 10:40] VITALS: BP 127/77
--- NOTE | 2025-05-28 10:44 | NUR ---
CALL LIGHT R SIDE. NO ONE WAITING.
[2025-05-28 11:35] VITALS: BP 119/74
--- NOTE | 2025-05-28 11:39 | NUR ---
AMB IN HALLWAY TO [facility]. READY TO GO HOME. GETTING DRESSED.
--- NOTE | 2025-05-28 12:05 | NUR ---
1142 DC INSTRUCTIONS EXPLAINED COMPUTER PRINT OUT SHEETS, OFFICE INSTRUCTIONS, AND CROCUFF AND SHOULDER IMMOBILIZER. PT STATES SHES DONE ALL THIS BEFORE AND KNOWS SO NO QUESTIONS. EX ALSO LISTENED TO INSTRUCTIONS. DCD PER WC
[2025-05-28] MEDS ORDERED: SEVOFLURANE 250 ML BTL INH ONE (15:35)
[2025-05-28] MEDS ORDERED: CELECOXIB 200 MG CAP PO SCH (17:00)
--- NOTE | 2025-05-29 09:10 | OR ---
[facility] [address] [place], [place] [address] Signed DATE OF OPERATION: 05/28/2025 SURGEON: Bobby Valle MD PREOPERATIVE DIAGNOSIS: Impingement, left shoulder. POSTOPERATIVE DIAGNOSES: 1. Impingement, left shoulder. 2. Partial biceps tear, left shoulder. PROCEDURE PERFORMED: Left shoulder arthroscopy with limited debridement. REMOTE SENSING SPECIALIST: None. ANESTHESIA: General. BLOOD LOSS: Minimal. BRIEF HISTORY: Yuliana is a 54-year-old female with continued pain in her shoulder. Risks and benefits of operative treatment were discussed with her once nonoperative treatment failed. She elected to proceed. Once consent was obtained, she was taken to the operating room. After adequate anesthesia, she was placed in a beach chair position. All downside pressure points were well padded. The left arm was prepped and draped in a standard sterile fashion. The posterior portal was established and the scope was introduced in the shoulder. Diagnostic arthroscopy was then begun. ARTHROSCOPIC FINDINGS: The shoulder showed a moderate synovitis anteriorly. There was a 20% tear of the biceps tendon. The rotator cuff was intact. The labrum was intact as was the biceps attachment. The subacromial space showed [id number]-rh-[id number] bursitis. There was a plical shelf in the midportion of the space that was quite thick and rigid. The superior surface of the rotator cuff was intact. DESCRIPTION OF OPERATION: Diagnostic arthroscopy was undertaken as noted above. The standard anterior portal was Electronically Signed By: BOBBY VALLE MD 05/29/25 0910 PATIENT NAME: YUILANA PETERS OPERATIVE REPORT DATE OF : 68 REPORT #: [id number] PHYSICIAN: BOBBY VALLE MD PCP: SHOSHANA PEREZ PA-C REPORT IS CONFIDENTIAL AND NOT TO BE RELEASED WITHOUT AUTHORIZATION [facility] [address] [place] [id number] Signed made using an outside-in technique. The shaver was then used to trim the torn portions of the biceps down to a stable end. There was still 70% of the biceps remaining. The synovitis was then removed using a low setting on the Mitek VAPR. The scope was then withdrawn, placed in subacromial space. The bursoscopy showed the large plical shelf from this was removed using the shaver and the Mitek VAPR. The remaining portions of inflamed bursa were removed with the Mitek. The scope was then withdrawn. Portals were closed with 3-0 nylon and the wounds were dressed with Allevyn and OpSite. She tolerated the procedure well. All sponge, needle, and instrument counts were correct. Bobby Valle MD BA/JABIER /[id number] Copies: ~ Electronically Signed By: BOBBY VALLE MD 05/29/25 0910 PATIENT NAME: YULIANA PETERS OPERATIVE REPORT DATE OF : 68 REPORT #: [id number] PHYSICIAN: BOBBY VALLE MD PCP: SHOSHANA PEREZ PA-C REPORT IS CONFIDENTIAL AND NOT TO BE RELEASED WITHOUT AUTHORIZATION
== END 2025-05-28 11:45 | disposition home or self-care (01) ==
LOC: DS 07:00
PROVIDERS: ATTEND Specialist
PROC: 3E0T3BZ Introduction of Anesthetic Agent into Peripheral Nerves and Plexi, Percutaneous Approach (ICD-10-PCS; 2025-05-28)
PROC: 0RBK4ZZ Excision of Left Shoulder Joint, Percutaneous Endoscopic Approach (ICD-10-PCS; principal; 2025-05-28 09:00)
DX: M75.42 Impingement syndrome of left shoulder (principal); S46.212A Strain of muscle, fascia and tendon of other parts of biceps, left arm, initial encounter; X58.XXXA Exposure to other specified factors, initial encounter; M65.912 Unspecified synovitis and tenosynovitis, left shoulder; M75.52 Bursitis of left shoulder; G89.18 Other acute postprocedural pain; Z88.8 Allergy status to other drugs, medicaments and biological substances; Z87.891 Personal history of nicotine dependence
CPT/HCPCS: 01630; 64415; J0688; J1100; J2003; J2250; J2405; J2704; J2795; J7121